=== PATIENT | male | born 1955 | race Caucasian/White ===

== ENCOUNTER → 2016-06-02 | Outpatient (CLI) | payer BC, OTHER ==
[~2016-06-02] MED LIST: ASPCH81X PO; CEFT1INJ26 IV; CHOL400C6 PO; COEN100C3 PO; CPR500 PO; DTRSR/2 PO; HYDR200T5 PO; INSDGI SC; MISCCAP80 PO; NRV5 PO; NVLGI SC; QUIN40TA18 PO; RXC5 PO
[2016-06-02 12:20] LABS: HEMATOCRIT 34.3 % (42-52); MEAN CELL VOLUME 80.9 fL (80-100); MEAN CORPUSCULAR HEMOGLOBIN 26.2 pg (25-34); MEAN CORPUSCULAR HGB CONC 32.4 g/dl (32-36); MEAN PLATELET VOLUME 9.8 fL (7.4-10.4); PLATELET COUNT 209 K/uL (130-400); RED BLOOD COUNT 4.24 M/uL (4.7-6.1); WHITE BLOOD COUNT 9.92 K/uL (4.8-10.8)
[2016-06-02 13:07] LABS: BLOOD UREA NITROGEN 21 mg/dl (7-18); CALCIUM 8.1 mg/dl (8.5-10.1); CARBON DIOXIDE 22 mmol/L (21-32); CHLORIDE 108 mmol/L (98-107); GLUCOSE 147 mg/dl (70-99); POTASSIUM 4.6 mmol/L (3.5-5.1); SODIUM 140 mmol/L (136-145)
== END | disposition home or self-care (01) ==
LOC: C.LABPVFM 10:35
PROVIDERS: ATTEND Internal Medicine
DX: L03.115 Cellulitis of right lower limb (principal)

== ENCOUNTER → 2016-06-10 | Outpatient (CLI) | payer BC ==
[2016-06-10 13:21] LABS: HEMATOCRIT 37.8 % (42-52); MEAN CELL VOLUME 79.7 fL (80-100); MEAN CORPUSCULAR HEMOGLOBIN 26.4 pg (25-34); MEAN CORPUSCULAR HGB CONC 33.1 g/dl (32-36); MEAN PLATELET VOLUME 9.6 fL (7.4-10.4); PLATELET COUNT 248 K/uL (130-400); RED BLOOD COUNT 4.74 M/uL (4.7-6.1); WHITE BLOOD COUNT 9.61 K/uL (4.8-10.8)
[2016-06-10 14:14] LABS: BLOOD UREA NITROGEN 19 mg/dl (7-18); BUN/CREATININE RATIO 14.9 (10-20); CALCIUM 9.1 mg/dl (8.5-10.1); CARBON DIOXIDE 24 mmol/L (21-32); CHLORIDE 106 mmol/L (98-107); GLUCOSE 175 mg/dl (70-99); POTASSIUM 4.7 mmol/L (3.5-5.1); SODIUM 139 mmol/L (136-145)
== END | disposition home or self-care (01) ==
LOC: C.LABSPEC 12:34
PROVIDERS: ATTEND Internal Medicine
DX: L03.115 Cellulitis of right lower limb (principal)

== ENCOUNTER → 2016-07-02 | Outpatient (CLI) | payer BC ==
[2016-07-02 15:48] LABS: BASO % 0.8 %; BASO ABS # 0.07 K/uL (0-0.2); COMPLETE YES; EOS % 5.8 %; IG% 0.3 %; LYMPH % 31.5 %; LYMPH ABS # 2.91 K/uL (1.2-3.4); MEAN CELL VOLUME 78.7 fL (80-100); MEAN CORPUSCULAR HEMOGLOBIN 26.7 pg (25-34); MEAN CORPUSCULAR HGB CONC 33.9 g/dl (32-36); MEAN PLATELET VOLUME 9.9 fL (7.4-10.4); MONO % 6.4 %; NEUT % 55.2 %; PLATELET COUNT 215 K/uL (130-400); RED BLOOD COUNT 4.83 M/uL (4.7-6.1); WHITE BLOOD COUNT 9.25 K/uL (4.8-10.8)
[2016-07-02 15:56] LABS: ALT/SGPT 24 U/L (12-78); BLOOD UREA NITROGEN 19 mg/dl (7-18); BUN/CREATININE RATIO 15.6 (10-20); CALCIUM 8.9 mg/dl (8.5-10.1); CARBON DIOXIDE 21 mmol/L (21-32); CHLORIDE 109 mmol/L (98-107); GLUCOSE 130 mg/dl (70-99); POTASSIUM 4.2 mmol/L (3.5-5.1); SODIUM 141 mmol/L (136-145)
[2016-07-02 15:59] LABS: ALKALINE PHOSPHATASE 136 U/L (45-117); AST/SGOT 14 U/L (15-37)
[2016-07-03 07:08] LABS: ESTIMATED AVERAGE GLUCOSE 123 mg/dl; HA1C FLAG Normal (Normal)
== END | disposition home or self-care (01) ==
LOC: C.LAB1850 14:53
PROVIDERS: ATTEND Internal Medicine Rheumatology
DX: M06.00 Rheumatoid arthritis without rheumatoid factor, unspecified site (principal); Z79.899 Other long term (current) drug therapy; E11.9 Type 2 diabetes mellitus without complications

== ENCOUNTER → 2016-10-14 | Outpatient (CLI) | payer BC ==
[~2016-10-14] MED LIST changes: +AMLO-114 PO; +NVLG SC; +OMEG10007 PO; +VITAMIN D PO
== END | disposition home or self-care (01) ==
LOC: C.RDSM 09:00
PROVIDERS: ATTEND Family Medicine
DX: M54.12 Radiculopathy, cervical region (principal)

== ENCOUNTER → 2016-10-20 | Outpatient (CLI) | payer BC ==
--- NOTE | 2016-10-20 14:55 | DIAGNOSTIC IMAGING REPORT ---
MRI OF THE CERVICAL SPINE WITHOUT IV CONTRAST CLINICAL HISTORY: Cervical radiculopathy. COMPARISON STUDY: Radiographs of the cervical spine dated 10/14/2016 and 02/10/2016. TECHNIQUE: MRI of the cervical spine is performed utilizing various T1 and T2-weighted sequences in the axial and sagittal planes. IV contrast was not imaged for this examination. The examination is severely degraded by large body habitus and open MRI technique. There is poor delineation of the intervertebral discs and vertebral bodies. FINDINGS: Cervical spine: Vertebral body height and alignment appears maintained throughout the cervical spine. There is no evidence of marrow edema or marrow replacement process. The atlantodental articulation appears preserved. The spinous processes are grossly intact. Intervertebral discs: Degenerative disc desiccation is suggested throughout the cervical spine. No significant loss of height is seen. Spinal cord: The cervical spinal cord appears normal in morphology and signal intensity. C2-C3: Uncovertebral and facet arthropathy cause right greater than left neural foraminal stenosis. The central canal is clear. C3-C4: Uncovertebral and facet arthropathy causes mild bilateral neural foraminal stenosis. The central canal appears clear. C4-C5: A posterior disc osteophyte complex effaces the ventral subarachnoid space. Uncovertebral and facet arthropathy cause mild to moderate bilateral neural foraminal stenosis. C5-C6: A posterior disc osteophyte complex abuts the ventral cord. Uncovertebral and facet arthropathy contribute to mild to moderate bilateral neural foraminal stenosis. C6-C7: There is a tiny posterior disc osteophyte complex which effaces the ventral subarachnoid space. Uncovertebral and facet arthropathy causes mild left-sided neural foraminal stenosis. C7-T1: Unremarkable. Soft tissues: The prevertebral and paraspinous soft tissues are normal as imaged. Brain parenchyma: Partially visualized brain parenchyma at the skull base is grossly normal. IMPRESSION: 1. Significantly degraded examination secondary to large body habitus and open MRI technique. This degrades diagnostic utility. 2. The cervical spinal cord appears normal in morphology and signal intensity. 3. Spondylotic change as detailed above. Dictated: 10/20/2016 2:38 PM Transcribed: 10/20/2016 2:54 PM Elizabeth Electronically signed by: Tyrone Goodwin M.D. 10/20/2016 2:58 PM Dictated Date/Time: 10/20/2016 2:38 PM
== END | disposition home or self-care (01) ==
LOC: C.OPENMRI 13:18
PROVIDERS: ATTEND Family Medicine
DX: M54.12 Radiculopathy, cervical region (principal)

== ENCOUNTER → 2017-03-23 | Day surgery (SDC) | payer BC ==
[2017-03-09 12:40] VITALS: Ht 188 cm; Wt 145.4 kg
[~2017-03-23] VITALS: Ht 188 cm; Wt 145.4 kg
[~2017-03-23] MED LIST changes: -ASPCH81X PO; +ATROPINE SULFATE 0.1 MG/ML 5ML SYR IV PRN; -CEFT1INJ26 IV; -CHOL400C6 PO; -CPR500 PO; +EpHEDrine SULFATE INJ 50 MG/ML AMP IV PRN; +LIDOCAINE HCL 2% 2 ML VIAL (20MG/ML) ONE; -NRV5 PO; -NVLGI SC; +PROPOFOL IV EMULSION 10 MG/ML 20 ML VIAL IV ONE; -RXC5 PO; +SODIUM CHLORIDE 0.9% 500ML 500 ML IV ONE
--- NOTE | 2017-03-23 13:18 | Endo History and Physical ---
History & Physical Date of Service: Mar 23, 2017. Chief Complaint: HX OF POLYPS Referring Physician: DR. FERRERA History of Present Illness hx polyps Past Medical History Diabetes, Arthritis, Hypertension, Depression Past Surgical History Hx Cardiac Surgery: No Hx Internal Defibrillator: No Hx Pacemaker: No Hx Abdominal Surgery: No Hx of Implantable Prosthesis: No Hx Post-Op Nausea and Vomiting: No Hx Cancer Surgery: No Hx Thoracic Surgery: No Hx Orthopedic: Yes (LEFT FOOT TOES AMPUTATION (ALL TOES REMOVED), RT BKA) Hx Urinary Tract Surgery: No Family History Colon CA Social History Smoking Status: Never Smoker Hx Substance Use: No Hx Alcohol Use: No Allergies Coded Allergies: No Known Allergies (Verified , 03/23/17) Current Medications Reported Home Medications Medications Dose Route/Sig Max Daily Dose Days Date Category Lantus (Insulin Glargine) 100 Unit/Ml Inj 50 Units SC QPM 03/09/17 Reported Novolog (Insulin Aspart) 100 Units/Ml Inj 40-70 Units SC WITH MEALS 03/09/17 Reported Norvasc (Amlodipine Besylate) 10 Mg Tab 10 Mg PO HS 03/09/17 Reported Detrol LA (Tolterodine Tartrate) 2 Mg Capcr 1 Cap PO BID 30 03/19/16 Reported Accupril (Quinapril HCl) 40 Mg Tab 40 Mg PO QPM 12/31/12 Reported Vital Signs Weight (Kilograms): 145.45 Height (Feet): 6 Height (Inches): 2 Date Time Temp Pulse Resp B/P (MAP) Pulse Ox O2 Delivery O2 Flow Rate FiO2 03/23/17 12:40 36.8 82 20 167/82 (110) 96 Room Air Physical Exam General Appearance: WD/WN, no apparent distress Respiratory/Chest: Auscultation: breath sounds normal Cardiovascular: Heart Auscultation: RRR Abdomen: Bowel Sounds: normal Inspection & Palpation: soft, non-distended, no tenderness, guarding & rebound Assessment and Plan colonoscopy
--- NOTE | 2017-03-23 13:50 | Discharge Instructions ---
Endoscopy Patient Instructions Date / Procedure(s) Performed Mar 23, 2017. Colonoscopy Allergy Information Coded Allergies: No Known Allergies (Verified , 03/23/17) Discharge Date / Findings Mar 23, 2017. colon polyp Medication Instructions Restart Stopped Medication(s): Reported Home Medications Medications Dose Route/Sig Max Daily Dose Days Date Category Lantus (Insulin Glargine) 100 Unit/Ml Inj 50 Units SC QPM 03/09/17 Reported Novolog (Insulin Aspart) 100 Units/Ml Inj 40-70 Units SC WITH MEALS 03/09/17 Reported Norvasc (Amlodipine Besylate) 10 Mg Tab 10 Mg PO HS 03/09/17 Reported Detrol LA (Tolterodine Tartrate) 2 Mg Capcr 1 Cap PO BID 30 03/19/16 Reported Accupril (Quinapril HCl) 40 Mg Tab 40 Mg PO QPM 12/31/12 Reported Reported Home Medications Medications Dose Route/Sig Max Daily Dose Days Date Category Lantus (Insulin Glargine) 100 Unit/Ml Inj 50 Units SC QPM 03/09/17 Reported Novolog (Insulin Aspart) 100 Units/Ml Inj 40-70 Units SC WITH MEALS 03/09/17 Reported Norvasc (Amlodipine Besylate) 10 Mg Tab 10 Mg PO HS 03/09/17 Reported Detrol LA (Tolterodine Tartrate) 2 Mg Capcr 1 Cap PO BID 30 03/19/16 Reported Accupril (Quinapril HCl) 40 Mg Tab 40 Mg PO QPM 12/31/12 Reported Provider Instructions Activity Restrictions - No exercising or heavy lifting for 24 hours. - Do not drink alcohol the day of the procedure. - Do not drive a car or operate machinery until the day after the procedure. - Do not make any important decisions or sign important papers in 24 hours after the procedure. Following Day: - Return to full activity which may include returning to work/school. Diet Start your diet with liquids and light foods (jello, soup, juice, toast). Then eat your usual diet if not nauseated. Treatment For Common After Affects For mild abdominal pain, bloating, or excessive gas: - Rest - Eat lightly - Lie on right side Follow-Up Information Follow-up with DR. FERRERA as scheduled Anesthesia Information What You Should Know You have had a procedure that required some medicine to reduce anxiety and discomfort. This treatment is called moderate sedation. After receiving the treatment, you may be sleepy, but you will be able to breathe on your own. The effects of the treatment may last for several hours. Follow these instructions along with Activity/Diet recommendations noted above: * Do NOT do anything where dizziness or clumsiness would be dangerous. * Rest quietly at home today, then you can be up and about tomorrow. * Have a responsible person stay with you the rest of today. * You may have had an I.V. today. If so, you may take the dressing off later today. Recommendations Call your doctor if: * Trouble breathing * Continuous vomiting for more than 24 hours * Temperature above 101 degrees * Severe abdominal pain or bloating * Pain not relieved by pain medicine ordered * There is increased drainage or redness from any incision * A large amount of rectal bleeding greater than 2-3 tablespoons. (If you had a polyp/s removed or have hemorrhoids, a small amount of blood - from the rectum is to be expected.) * You have any unanswered questions or concerns. IN THE EVENT OF A SERIOUS EMERGENCY, GO TO THE NEAREST EMERGENCY ROOM Your discharge instructions were prepared by provider Petros Fagan. Patient Instructions Signature Page [facility] Patient (or Guardian) Signature/Date: I have read and understand the instructions given to me by my caregivers. Caregiver/RN/Doctor Signature/Date: The above-named patient and/or guardian has received patient instructions on this date. + Original Patient Signature Page (only) stays with chart. Please make copy for patient.
--- NOTE | 2017-03-23 14:02 | Anesthesiology Progress Note ---
Anesthesia Post Op Note Date & Time Mar 23, 2017 at 14:02 Vital Signs Pain Intensity: 0 Vital Signs Past 12 Hours Date Time Temp Pulse Resp B/P (MAP) Pulse Ox O2 Delivery O2 Flow Rate FiO2 03/23/17 12:40 36.8 82 20 167/82 (110) 96 Room Air Notes Mental Status: alert / awake / arousable, participated in evaluation Pt Amnestic to Procedure: Yes Nausea / Vomiting: adequately controlled Pain: adequately controlled Airway Patency, RR, SpO2: stable & adequate BP & HR: stable & adequate Hydration State: stable & adequate Anesthetic Complications: no major complications apparent
[2017-03-23 14:22] VITALS: BP 131/76; PULSE 78; O2SAT 96
--- NOTE | 2017-03-23 20:25 | GI REPORT ---
Procedure Date: 03/23/2017 1:04 PM Procedure: Colonoscopy Indications: High risk colon cancer surveillance: Personal history of colonic polyps, Family history of colon cancer in a first-degree relative Medicines: Propofol per Anesthesia Complications: No immediate complications. Estimated blood loss: None. Estimated Blood Loss: Estimated blood loss: none. Procedure: Pre-Anesthesia Assessment: - Prior to the procedure, a History and Physical was performed, and patient medications and allergies were reviewed. The patient's tolerance of previous anesthesia was also reviewed. The risks and benefits of the procedure and the sedation options and risks were discussed with the patient. All questions were answered, and informed consent was obtained. Prior Anticoagulants: The patient has taken no previous anticoagulant or antiplatelet agents. ASA Grade Assessment: II - A patient with mild systemic disease. After reviewing the risks and benefits, the patient was deemed in satisfactory condition to undergo the procedure. After I obtained informed consent, the scope was passed under direct vision. Throughout the procedure, the patient's blood pressure, pulse, and oxygen saturations were monitored continuously. The scope was introduced through the anus and advanced to the cecum, identified by appendiceal orifice and ileocecal valve. The colonoscopy was performed without difficulty. The patient tolerated the procedure well. The quality of the bowel preparation was fair. Findings: The perianal and digital rectal examinations were normal. Pertinent negatives include normal sphincter tone, no palpable rectal lesions and no anal lesion or abnormality was detected. A 6 mm polyp was found in the ascending colon. The polyp was sessile. The polyp was removed with a hot snare. Resection and retrieval were complete. Estimated blood loss was minimal. Verification of patient identification for the specimen was done by the physician and filling technician using the patient's name and medical record number. The exam was otherwise without abnormality. The retroflexed view of the distal rectum and anal verge was normal and showed no anal or rectal abnormalities. Impression: - One 6 mm polyp in the ascending colon, removed with a hot snare. Resected and retrieved. - The examination was otherwise normal. - The distal rectum and anal verge are normal on retroflexion view. Recommendation: - Discharge patient to home (ambulatory). - Resume regular diet. - Continue present medications. - Await pathology results. - Repeat colonoscopy for surveillance based on pathology results. - Return to referring physician as previously scheduled. MD Petros Hyde MD 03/23/2017 1:56:34 PM This report has been signed electronically. Note Initiated On: 03/23/2017 1:04 PM I attest to the content of the Intraoperative Record and orders documented therein, exceptions below
== END | disposition home or self-care (01) ==
LOC: C.GI 12:15
PROVIDERS: ATTEND Internal Medicine Gastroenterology
DX: Z12.11 Encounter for screening for malignant neoplasm of colon (principal); D12.2 Benign neoplasm of ascending colon; Z86.010 Personal history of colon polyps; I12.9 Hypertensive chronic kidney disease with stage 1 through stage 4 chronic kidney disease, or unspecified chronic kidney disease; E11.22 Type 2 diabetes mellitus with diabetic chronic kidney disease; I73.9 Peripheral vascular disease, unspecified; N18.9 Chronic kidney disease, unspecified; Z68.41 Body mass index [BMI] 40.0-44.9, adult; E66.9 Obesity, unspecified; Z89.511 Acquired absence of right leg below knee; Z89.422 Acquired absence of other left toe(s); Z79.4 Long term (current) use of insulin; Z80.0 Family history of malignant neoplasm of digestive organs

== ENCOUNTER 2021-12-01 15:35 | Inpatient (IN) ==
[2021-12-01 18:20] LABS: Basophils # (auto) 0.02 K/uL (0-0.2); Basophils % (auto) 0.1 %; Eosinophils # (auto) 0.05 K/uL (0-0.5); Eosinophils % (auto) 0.3 %; Hematocrit (blood only) 39.3 % (42-52); Hemoglobin 13.6 g/dL (14.0-18.0); Immature Granulocytes # (auto) 0.11 K/uL (0.00-0.02); Immature Granulocytes % (auto) 0.6 %; Lymphocytes % (auto) 10.2 %; Mean Corpuscular Hemoglobin 28.2 pg (25-34); Mean Corpuscular Hgb Conc 34.6 g/dL (32-36); Mean Corpuscular Volume 81.5 fL (80-100); Mean Platelet Volume 10.4 fL (7.4-10.4); Monocytes # (auto) 1.43 K/uL (0.11-0.59); Monocytes % (auto) 8.1 %; Neutrophils # (auto) 14.28 K/uL (1.4-6.5); Neutrophils % (auto) 80.7 %; Platelet Count 214 K/uL (130-400); RDW Coefficient of Variation 13.9 % (11.5-14.5); RDW Standard Deviation 41.8 fL (36.4-46.3); Red Blood Count 4.82 M/uL (4.7-6.1); White Blood Count 17.69 K/uL (4.8-10.8)
[2021-12-01 18:36] LABS: Albumin Level 3.9 gm/dl (3.4-5.0); BUN Creatinine Ratio 18.2 (10-20); Bilirubin,Total 1.1 mg/dl (0.2-1.0); Calcium 9.1 mg/dl (8.5-10.1); Creatinine Clr Calc Pharmacy 95.6 ml/min; Est GFR (African American) 72.9 ml/min; Est GFR (Non-African American) 62.9 ml/min; Total Protein 7.9 gm/dl (6.0-8.3)
[2021-12-01] MEDS ORDERED: SODIUM CHLORIDE 0.9% 1000ML 1,000 ML IV ONE ×2 (18:55→20:09)
[2021-12-01 19:00] LABS: Appearance Urine Cloudy (Clear); Bacteria Urine Automated 4+ (Negative); Blood Urine 3+ (Negative); Color Urine Orange; Glucose Urine UA Negative (Negative); Ketones Urine 1+ (Negative); Leukocyte Esterase Urine 1+ (Negative); Nitrite Urine Positive (Negative); Protein Urine 2+ (Negative); Specific Gravity Urine 1.023 (1.000-1.030); Urobilinogen Urine Negative (Negative)
[2021-12-01 19:01] LABS: Bilirubin Urine 1+ (Negative)
--- NOTE | 2021-12-01 19:01 | Emergency Department Note ---
History of Present Illness General Chief complaint: Flank Pain Stated complaint: KIDNEY STONES, TROUBLE URINATING Time Seen by Provider: 12/01/21 18:44 Source: patient Mode of arrival: ambulatory Limitations: no limitations History of Present Illness Maximum Pain Intensity: 6 This patient comes in after having symptoms since Tuesday night he felt like it was hard to urinate at times but he has had a lot of frequency but no dysuria. No numbness weakness legs no significant back pain except it hurts in his right side and radiates to his back is concerned he could have another kidney stone he has had a fever but none today. No trauma or injury. No chest pain or shortness of breath. no blood in his urine although has been somewhat dark. He had a kidney stone x1 he is a diabetic. Home Medications Medication Instructions Recorded Confirmed Type cholecalciferol (vitamin D3) 10 400 units PO HS cap 02/09/19 12/01/21 History mcg (400 unit) capsule lutein 6 mg tablet 6 mg PO HS tab 02/09/19 12/01/21 History insulin syringes (disposable) 1 mL ea 03/06/20 12/01/21 History blood-glucose meter (Accu-Chek ea 10/14/20 11/13/21 History Suzan Plus Meter) insulin glargine 100 unit/mL (3 50 unit SQ DAILY 90 Days #45 ml 10/14/20 12/01/21 Rx mL) subcutaneous pen (Basaglar KwikPen U-100 Insulin) finasteride 5 mg tablet 5 mg PO DAILY #90 tab 01/21/21 12/01/21 Rx tamsulosin 0.4 mg capsule (Flomax) 0.4 mg PO QPM #90 cap 01/21/21 12/01/21 Rx Dexcom G6 Rn Iv Therapy (blood-glucose #1 ea NS 03/09/21 11/13/21 Rx meter,continuous) pen needle, diabetic 32 gauge x ea 05/07/21 12/01/21 History " (BD Ultra-Fine Pia Pen Needle) quinapril 40 mg tablet 40 mg PO HS #90 tab 05/21/21 12/01/21 Rx Dexcom G6 Sensor (blood-glucose #3 ea NS 05/25/21 11/13/21 Rx sensor) Dexcom G6 Transmitter #1 ea NS 05/25/21 11/13/21 Rx (blood-glucose transmitter) amlodipine 5 mg tablet 5 mg PO HS #90 tab 07/16/21 12/01/21 Rx hydrochlorothiazide 25 mg tablet 25 mg PO HS #90 tab 10/20/21 12/01/21 Rx sertraline 100 mg tablet 100 mg PO DAILY #90 tab 10/20/21 12/01/21 Rx tramadol 50 mg tablet 50 mg PO Q12H PRN #60 tab 10/20/21 12/01/21 Rx coenzyme Q10 100 mg capsule (Co 0 mg PO DAILY 12/01/21 12/01/21 History Q-10) insulin aspart U-100 100 unit/mL 0 unit SUBCUT TIDM 12/01/21 12/01/21 History subcutaneous solution (Novolog U-100 Insulin aspart) Allergies Allergy/AdvReac Type Severity Reaction Status Date / Time doxycycline AdvReac Severe nausea/ Verified 12/01/21 19:18 vomiting methotrexate AdvReac Depression- Verified 12/01/21 19:18 severe oxyCODONE-Acetaminophen TABS AdvReac Unknown Nausea Uncoded 12/01/21 19:18 Past Med/Surg History Medical History Acute kidney injury Amputated toe "All toes" left foot Anemia Carcinoma of prostate 2014 Decreased renal function Diabetic peripheral neuropathy associated with type 2 diabetes mellitus Elevated serum creatinine Elevated white blood cell count [place] Hand pain History of diabetic ulcer of foot Hydronephrosis due to obstruction of ureter Muscle spasm Pes anserinus bursitis of left knee Radicular distribution of symptoms Rheumatoid arthritis with negative rheumatoid factor Right hip pain Right nephrolithiasis Skin breakdown Skin change Vitamin D deficiency Surgical History History of facial surgery Hx of mastoidectomy Hx of removal of cyst Status post below knee amputation of right lower extremity Status post tonsillectomy Family History Mother Colorectal cancer Father Prostate cancer Brother Lung cancer Denies family history of Ovarian cancer Breast cancer Social History Smoking Status: Never smoker Hx Alcohol Use: No Hx Substance Use: No Preferred Language: Bengali Visual Impairment: No Limitations Hearing Ability: Normal marital status: Current Living Situation: Family current occupational status: retired and disabled Feels Safe at Home: Yes caffeine: No Dental Care, Regularly: Yes Physical Activity Frequency: Does not Exercise Seatbelt Use: always Sunscreen Use: Yes Review of Systems A total of 10 systems reviewed and were otherwise negative Physical Exam Vital Signs Vital Signs - 24 hr 12/01/21 17:07 12/01/21 18:45 12/01/21 18:46 Temperature 36.6 C Temperature Source Oral Pulse Rate 98 H Pulse Rate [Apical] 95 H Pulse Rate from SpO2 Sensor 93 H Respiratory Rate 18 20 Respiratory Effort / Characteristics Non-Labored Non-Labored Spontaneous Respiratory Depth Normal Normal Respiratory Pattern Regular Regular Blood Pressure 147/81 H 134/69 Blood Pressure [Right Arm] 134/69 Blood Pressure Mean 103 90 Blood Pressure Mean [Right Arm] 90 Blood Pressure Position Sitting Blood Pressure Position [Right Arm] Lying Pulse Oximetry 95 97 Oxygen Delivery Method Room Air Room Air Sepsis Recent Fever Within 48 Hours No Sepsis New/Unexplained Change in Mental Status No Sepsis Action Taken by Nursing No Action Required 12/01/21 19:00 12/01/21 20:06 12/01/21 20:15 Temperature Temperature Source Pulse Rate 86 85 Pulse Rate [Apical] Pulse Rate from SpO2 Sensor 86 Respiratory Rate 23 18 Respiratory Effort / Characteristics Respiratory Depth Respiratory Pattern Blood Pressure 132/66 Blood Pressure [Right Arm] Blood Pressure Mean 88 Blood Pressure Mean [Right Arm] Blood Pressure Position Blood Pressure Position [Right Arm] Pulse Oximetry 96 98 Oxygen Delivery Method Room Air Room Air Sepsis Recent Fever Within 48 Hours Sepsis New/Unexplained Change in Mental Status Sepsis Action Taken by Nursing 12/01/21 20:30 12/01/21 20:45 12/01/21 21:01 Temperature Temperature Source Pulse Rate 78 82 Pulse Rate [Apical] Pulse Rate from SpO2 Sensor Respiratory Rate 16 17 18 Respiratory Effort / Characteristics Respiratory Depth Respiratory Pattern Blood Pressure 134/68 Blood Pressure [Right Arm] Blood Pressure Mean 90 Blood Pressure Mean [Right Arm] Blood Pressure Position Blood Pressure Position [Right Arm] Pulse Oximetry 96 97 Oxygen Delivery Method Room Air Room Air Sepsis Recent Fever Within 48 Hours Sepsis New/Unexplained Change in Mental Status Sepsis Action Taken by Nursing General: Well developed well nourished older male who appears in no acute distress, breathing comfortably on room air. Normal speech HEENT: Normal cephalic atraumatic. Pupils are equal round and reactive to light. Extraocular movements are intact. Oropharynx is pink with moist mucous membranes. No swelling of the mouth lips or tongue. Neck: Supple with a midline trachea. No meningeal signs or stiffness, no JVD or bruits. No Stridor. Chest: Clear to auscultation bilaterally. No wheezes or rhonchi. No increased work of breathing. Heart: Regular rate and rhythm without murmurs or gallops. Abdomen: Soft nontender, nondistended without rebound guarding or rigidity. Extremities: No cyanosis clubbing or edema. No calf tenderness or assymetry Spine/Back. Non tender to palpation. No CVA tenderness Skin: Good turgor without rashes. Neurologic exam: Cranial nerves two through 12 are intact. Motor and sensation are intact and symmetrical throughout. Course Administered Medications Discontinued Medications Sodium Chloride (Nss 1000ml) 1,000 mls @ 999 mls/hr IV .Q1H1M ONE Stop: 12/01/21 19:55 Last Infusion: 12/01/21 20:07 Dose: 0 mls/hr Documented by: [id number] Admin: 12/01/21 18:59 Dose: 999 mls/hr Documented by: [id number] Ceftriaxone Sodium (Rocephin) 2,000 mg in 70 mls @ 140 mls/hr IV NOW STA Stop: 12/01/21 20:35 Last Infusion: 12/01/21 20:56 Dose: 0 mls/hr Documented by: [id number] Admin: 12/01/21 20:25 Dose: 140 mls/hr Documented by: [id number] Sodium Chloride (Nss 1000ml) 1,000 mls @ 999 mls/hr IV .Q1H1M ONE Stop: 12/01/21 21:09 Last Infusion: 12/01/21 21:23 Dose: 0 mls/hr Documented by: [id number] Admin: 12/01/21 20:21 Dose: 999 mls/hr Documented by: [id number] Morphine Sulfate (Morphine Sulfate 2 Mg/Ml Carp) 2 mg IV NOW STA Stop: 12/01/21 20:10 Last Admin: 12/01/21 20:21 Dose: 2 mg Documented by: [id number] Ondansetron HCl (Ondansetron Inj 2 Mg/Ml 2 Ml Vial) 4 mg IV NOW STA Stop: 12/01/21 20:10 Last Admin: 12/01/21 20:19 Dose: 4 mg Documented by: [id number] Medical Decision Making Differential Diagnosis Kidney stone, kidney infection, intra-abdominal process, UTI, sepsis, electrolyte or metabolic abnormality Medical Records Attestation: I reviewed the patient's medical records. Home Medications Current Medication List: was personally reviewed by me Laboratory Data Attestation: I reviewed the patient's lab results. Result diagrams: 12/01/21 17:51 12/01/21 17:51 Lab Results 12/01/21 12/01/21 12/01/21 Range/Units 17:51 17:51 18:48 WBC 17.69 H (4.8-10.8) K/uL RBC 4.82 (4.7-6.1) M/uL Hgb 13.6 L (14.0-18.0) g/dL Hct 39.3 L (42-52) % MCV 81.5 (80-100) fL MCH 28.2 (25-34) pg MCHC 34.6 (32-36) g/dL RDW Std Deviation 41.8 (36.4-46.3) fL RDW Coeff of Cori 13.9 (11.5-14.5) % Plt Count 214 (130-400) K/uL MPV 10.4 (7.4-10.4) fL Immature Gran % (Auto) 0.6 % Neut % (Auto) 80.7 % Lymph % (Auto) 10.2 % [place] % (Auto) 8.1 % Eos % (Auto) 0.3 % Baso % (Auto) 0.1 % Neut # (Auto) 14.28 H (1.4-6.5) K/uL Lymph # (Auto) 1.80 (1.2-3.4) K/uL [place] # (Auto) 1.43 H (0.11-0.59) K/uL Eos # (Auto) 0.05 (0-0.5) K/uL Baso # (Auto) 0.02 (0-0.2) K/uL Immature Gran # (Auto) 0.11 H (0.00-0.02) K/uL Sodium 133 L (136-145) mmol/L Potassium 4.0 (3.5-5.1) mmol/L Chloride 102 (98-107) mmol/L Carbon Dioxide 21 (21-32) mmol/L Anion Gap 10 (3-11) BUN 22 (6-23) mg/dl Creatinine 1.21 (0.6-1.4) mg/dl Est Cr Clr Drug Dosing 95.6 ml/min Est GFR ( Amer) 72.9 ml/min Est GFR (Non-Af Amer) 62.9 ml/min BUN/Creatinine Ratio 18.2 (10-20) Glucose 282 H (70-99(Fasting)) mg/dl Calcium 9.1 (8.5-10.1) mg/dl Total Bilirubin 1.1 H (0.2-1.0) mg/dl AST 10 L (13-39) U/L ALT 13 (7-52) U/L Alkaline Phosphatase 86 (34-104) U/L Total Protein 7.9 (6.0-8.3) gm/dl Albumin 3.9 (3.4-5.0) gm/dl Globulin 4.0 (2.5-4.0) gm/dl Albumin/Globulin Ratio 1.0 (0.9-2) Lipase 7 L (11-82) U/L Urine Color [place] Urine Appearance Cloudy A (Clear) Urine pH 5.0 (4.5-7.5) Ur Specific [place] 1.023 (1.000-1.030) Urine Protein 2+ H (Negative) Urine Glucose (UA) Negative (Negative) Urine Ketones 1+ H (Negative) Urine Blood 3+ H (Negative) Urine Nitrite Positive A (Negative) Urine Bilirubin 1+ H (Negative) Urine Urobilinogen Negative (Negative) Ur Leukocyte Esterase 1+ H (Negative) Urine WBC (Auto) 10-30 H (0-5) /hpf Urine RBC (Auto) 5-10 H (0-4) /hpf U Hyaline Cast (Auto) >30 H (0-5) /lpf U Epithel Cells (Auto) 5-10 H (0-5) /lpf Urine Bacteria (Auto) 4+ H (Negative) SARS-CoV-2, RNA, NAAT (NEGATIVE) 12/01/21 Range/Units Unknown WBC (4.8-10.8) K/uL RBC (4.7-6.1) M/uL Hgb (14.0-18.0) g/dL Hct (42-52) % MCV (80-100) fL MCH (25-34) pg MCHC (32-36) g/dL RDW Std Deviation (36.4-46.3) fL RDW Coeff of Cori (11.5-14.5) % Plt Count (130-400) K/uL MPV (7.4-10.4) fL Immature Gran % (Auto) % Neut % (Auto) % Lymph % (Auto) % [place] % (Auto) % Eos % (Auto) % Baso % (Auto) % Neut # (Auto) (1.4-6.5) K/uL Lymph # (Auto) (1.2-3.4) K/uL [place] # (Auto) (0.11-0.59) K/uL Eos # (Auto) (0-0.5) K/uL Baso # (Auto) (0-0.2) K/uL Immature Gran # (Auto) (0.00-0.02) K/uL Sodium (136-145) mmol/L Potassium (3.5-5.1) mmol/L Chloride (98-107) mmol/L Carbon Dioxide (21-32) mmol/L Anion Gap (3-11) BUN (6-23) mg/dl Creatinine (0.6-1.4) mg/dl Est Cr Clr Drug Dosing ml/min Est GFR ( Amer) ml/min Est GFR (Non-Af Amer) ml/min BUN/Creatinine Ratio (10-20) Glucose (70-99(Fasting)) mg/dl Calcium (8.5-10.1) mg/dl Total Bilirubin (0.2-1.0) mg/dl AST (13-39) U/L ALT (7-52) U/L Alkaline Phosphatase (34-104) U/L Total Protein (6.0-8.3) gm/dl Albumin (3.4-5.0) gm/dl Globulin (2.5-4.0) gm/dl Albumin/Globulin Ratio (0.9-2) Lipase (11-82) U/L Urine Color Urine Appearance (Clear) Urine pH (4.5-7.5) Ur Specific [place] (1.000-1.030) Urine Protein (Negative) Urine Glucose (UA) (Negative) Urine Ketones (Negative) Urine Blood (Negative) Urine Nitrite (Negative) Urine Bilirubin (Negative) Urine Urobilinogen (Negative) Ur Leukocyte Esterase (Negative) Urine WBC (Auto) (0-5) /hpf Urine RBC (Auto) (0-4) /hpf U Hyaline Cast (Auto) (0-5) /lpf U Epithel Cells (Auto) (0-5) /lpf Urine Bacteria (Auto) (Negative) SARS-CoV-2, RNA, NAAT NEGATIVE (NEGATIVE) Imaging Data Radiologist's Impression: Abdomen/Pelvis CT 12/01/21 18:54 CT abd pelvis wo con CLINICAL HISTORY: abd pain . History of renal calculi COMPARISON STUDY: 02/23/2021 CT DOSE: 1677.25 mGy.cm TECHNIQUE: Standard CT of the Abdomen and Pelvis was performed without IV c ontrast. The patient did not receive oral contrast. A dose lowering technique was utilized adhering to the principles of ALARA. FINDINGS: Lung base: Compared to previous examination, there is a 9 mm right lower lobe pulmonary nodule present as seen on image 26. No other definite nodules are identified on the current study. However, CT of the chest is again recommended for further evaluation. Abdominal cavity: There is no evidence for abdominal mass, adenopathy or ascites. There are bilateral inguinal hernias containing peritoneal fat. Liver: The liver is homogeneous in attenuation on these limited noncontrast images..There is again hepatomegaly. Spleen: The spleen is homogeneous in attenuation on these limited noncontrast images. There is again splenomegaly. Pancreas: The pancreas is homogeneous in attenuation on these limited non contrast images. Gall Bladder: The gallbladder is well distended with no evidence for cholelithiasis, wall thickening or pericholecystic edema.. Adrenal glands: There is again a left adrenal nodule most characteristic of an adenoma. The right adrenal nodule is seen. Kidneys: The kidneys are homogeneous in attenuation on these limited noncontrast images. There is been interval development of a 7 mm nonobstructing right mid to lower pole renal calculus. No other renal calculi identified bilaterally. There is no evidence for hydronephrosis or gross renal mass. Bowel: The bowel loops are normally placed within the abdomen and pelvis without evidence for dilatation or obstruction. There is no evidence for mass lesion. There is mild sigmoid diverticulosis without evidence for diverticulitis. There are no inflammatory changes present. There is no evidence for free air. There is evidence for a normal appendix in the right lower quadrant. Bladder: There is no evidence for focal bladder wall thickening, calculus or diverticulum. There is diffuse thickening of bladder wall characteristic of chronic bladder outlet obstruction. : There is no evidence for pelvic mass or adenopathy. The prostate is mildly to moderately enlarged. Vasculature: There is no evidence for focal aneurysmal dilatation of the abdominal aorta. Osseous structures: There is no acute osseous pathology. IMPRESSION: 1. 7 mm nonobstructing right renal calculus. 2. Hepatosplenomegaly is again seen. 3. Diverticulosis without evidence for diverticulitis. 4. 9 mm right lower lobe pulmonary nodule is again identified with follow-up CT of the chest recommended. 5. Mild to moderate prostate enlargement no secondary findings of chronic bladder outlet obstruction. ACT 112: Negative or not required by law. Electronically signed by: Alfredo Grover M.D. 12/01/2021 8:13 PM MDM Narrative This patient comes in as described above he said urinary symptoms and abdominal pain. He is well-appearing and stable vital signs here although reports he did have a fever yesterday. IV access was established and blood work was obtained and ordered in triage due to the fact that we were significantly busy. The work-up was started in triage to expedite his care. I saw him when they brought him back to the room and ordered IV fluids and further blood work. He was hydrated with 1 L IV normal saline bolus. I did a CAT scan of his abdomen to rule out obstructive uropathy and other pathology urinalysis was obtained as well as blood work he was reassessed frequently. His urinalysis does suggest a UTI. Was given Rocephin 2 g IV. He was given additional IV fluid bolus and Zofran 4 mg IV and morphine 2 mg IV. CAT scan was obtained and does not show any obstructive uropathy. I did consult Dr. Baer to see the patient in the ER for further treatment and evaluation and admission. The patient will be admitted. Continuous cardiac monitoring: Orders placed in EMR for continuous cardiac monitoring. Upon my interpretation the patient was noted to be in normal sinus rhythm with a rate of 80 Impression & Plan Sepsis, Acute pyelonephritis, Lab test negative for COVID-19 virus, Nausea Discharge Plan Visit Data Chief Complaint: Flank Pain Stated Complaint: KIDNEY STONES, TROUBLE URINATING ED Provider: Vinnie Santana Discharge Problem: Sepsis, Acute pyelonephritis, Lab test negative for COVID-19 virus, Nausea Forms Stand Alone Forms: My [employer] Prescriptions Prescriptions: No Action (DME) Dexcom G6 Rn Iv Therapy Misc See Rx Instructions .MEDSUPPLY Qty: 1 RF: 0 quinapril 40 mg tablet 40 mg PO HS Qty: 90 RF: 3 (DME) Dexcom G6 Sensor Device See Rx Instructions .MEDSUPPLY Qty: 3 RF: 0 (DME) Dexcom G6 Transmitter Device See Rx Instructions .MEDSUPPLY Qty: 1 RF: 0 amlodipine 5 mg tablet 5 mg PO HS Qty: 90 RF: 1 hydrochlorothiazide 25 mg tablet 25 mg PO HS Qty: 90 RF: 3 sertraline 100 mg tablet 100 mg PO DAILY Qty: 90 RF: 3 tramadol 50 mg tablet 50 mg PO Q12H PRN (Reason: pain) Qty: 60 RF: 0 lutein 6 mg tablet 6 mg PO HS RF: 0 cholecalciferol (vitamin D3) 400 unit capsule 400 units PO HS RF: 0 (DME) insulin syringes (disposable) 1 mL syringe See Rx Instructions .ROUTE .MEDSUPPLY RF: 0 tamsulosin [Flomax] 0.4 mg capsule 0.4 mg PO QPM Qty: 90 RF: 3 finasteride 5 mg tablet 5 mg PO DAILY Qty: 90 RF: 3 (DME) blood-glucose meter [Accu-Chek Suzan Plus Meter] Misc See Rx Instructions .ROUTE .MEDSUPPLY RF: 0 Basaglar KwikPen U-100 Insulin 100 unit/mL (3 mL) insulin pen 50 unit SQ DAILY 90 Days Qty: 45 RF: 3 (DME) pen needle, diabetic [BD Ultra-Fine Pia Pen Needle] 32 gauge x 5/32" needle See Rx Instructions .ROUTE .MEDSUPPLY RF: 0 insulin aspart U-100 [Novolog U-100 Insulin aspart] 100 unit/mL solution 0 unit subcut TIDM RF: 0 coenzyme Q10 [Co Q-10] 100 mg Capsule 0 mg PO DAILY RF: 0 Referrals Referrals: Leonila Beach MD [Primary Care Provider] - Discharge Problem: Sepsis Qualifiers: Sepsis type: sepsis due to unspecified organism Sepsis acute organ dysfunction status: unspecified Qualified Code(s): A41.9 - Sepsis, unspecified organism
[2021-12-01 19:17] LABS: Cast Urine Automated >30 /lpf (0-5)
[2021-12-01] MEDS ORDERED: cefTRIAXone SODIUM 2,000 MG/70 ML BAG IV STA (20:06)
[2021-12-01] MEDS ORDERED: ONDANSETRON INJ 2 MG/ML 2 ML VIAL IV STA (20:09)
[2021-12-01] MEDS ORDERED: MoRPHine SULFATE 2 MG/ML CARP IV STA (20:09)
--- NOTE | 2021-12-01 20:15 | CT Scan Report ---
CT abd pelvis wo con CLINICAL HISTORY: abd pain . History of renal calculi COMPARISON STUDY: 02/23/2021 CT DOSE: 1677.25 mGy.cm TECHNIQUE: Standard CT of the Abdomen and Pelvis was performed without IV contrast. The patient did not receive oral contrast. A dose lowering technique was utilized adhering to the principles of KRUPA Aparicio. FINDINGS: Lung base: Compared to previous examination, there is a 9 mm right lower lobe pulmonary nodule presen t as seen on image 26. No other definite nodules are identified on the current study. However, CT of the chest is again recommended for further evaluation. Abdominal cavity: There is no evidence for abdominal mass, adenopathy or ascites. There are bilateral inguinal hernias containing peritoneal fat. Liver: The liver is homogeneous in attenuation on these limited noncontrast images..There is again he patomegaly. Spleen: The spleen is homogeneous in attenuation on these limited noncontrast images. There is again splenomegaly. Pancreas: The pancreas is homogeneous in attenuation on these limited noncontrast images. Gall Bladder: The gallbladder is well distended with no evidence for cholelithiasis, wall thickening or pericholecystic edema.. Adrenal glands: There is again a left adrenal nodule most characteristic of an adenoma. The right adr enal nodule is seen. Kidneys: The kidneys are homogeneous in attenuation on these limited noncontrast images. There is bee n interval development of a 7 mm nonobstructing right mid to lower pole renal calculus. No other ken[place] l calculi identified bilaterally. There is no evidence for hydronephrosis or gross renal mass. Bowel: The bowel loops are normally placed within the abdomen and pelvis without evidence for dilatat ion or obstruction. There is no evidence for mass lesion. There is mild sigmoid diverticulosis withou t evidence for diverticulitis. There are no inflammatory changes present. There is no evidence for fr ee air. There is evidence for a normal appendix in the right lower quadrant. Bladder: There is no evidence for focal bladder wall thickening, calculus or diverticulum. There is d iffuse thickening of bladder wall characteristic of chronic bladder outlet obstruction. : There is no evidence for pelvic mass or adenopathy. The prostate is mildly to moderately enlarged . Vasculature: There is no evidence for focal aneurysmal dilatation of the abdominal aorta. Osseous structures: There is no acute osseous pathology. IMPRESSION: 1. 7 mm nonobstructing right renal calculus. 2. Hepatosplenomegaly is again seen. 3. Diverticulosis without evidence for diverticulitis. 4. 9 mm right lower lobe pulmonary nodule is again identified with follow-up CT of the chest recommen ded. 5. Mild to moderate prostate enlargement no secondary findings of chronic bladder outlet obstruction. ACT 112: Negative or not required by law. Electronically signed by: Alfredo Grover M.D. 12/01/2021 8:13 PM
--- NOTE | 2021-12-01 21:08 | History & Physical Report ---
Date of Service December 01, 2021 Assessment & Plan (1) UTI (urinary tract infection): Plan: UTI/acute urinary incontinence/7 mm right renal calculus/mild to moderate prostate enlargement/history of prostate cancer, with no recent abnormal cells- Increase tamsulosin from 0.4 to 0.8 mg p.o. at bedtime Continue finasteride Empiric ceftriaxone 2 g IV daily Follow urine culture and sensitivity Consult urology, typically follows with Dr. Cole (2) Kidney stone: Plan: See above (3) Prostate cancer: Plan: See above (4) Type 2 diabetes mellitus, uncontrolled: Plan: Continue insulin glargine [address] on Accu-Cheks before meals and at bedtime with NovoLog coverage per scale Check hemoglobin A1c (5) Incontinence of urine: (6) Hypertension: Plan: Hold HCTZ Continue lisinopril (7) Rheumatoid arthritis: Plan: On no specific treatment (8) Pulmonary nodules: Plan: Follow-up per protocol History of Present Illness Chief Complaint: The patient presents to the emergency department with 3 days of increased urinary frequency and intermittent right flank pain Primary Care Provider: Leonila Beach MD The patient is a 66-year-old male with a past medical history including kidney stones, tubular adenoma, toe amputation, vitamin D deficiency, pulmonary nodules, polyarthralgias, prostate cancer, right BKA, diabetes mellitus type 2, dyslipidemia, hyperlipidemia, idiopathic polyneuropathy, sleep apnea, BPH with LUTS, hypertension and RA. He presents with symptoms as noted above. He denies any recent travels or sick exposures. He denies any blood in his urine. He reports that the first time he had symptoms, he ended up having urinary incontinence before he can get to the restroom. Allergies Allergy/AdvReac Type Severity Reaction Status Date / Time doxycycline AdvReac Severe nausea/ Verified 12/01/21 19:18 vomiting acetaminophen [From Percocet] AdvReac Unknown Nausea Verified 12/02/21 01:17 oxycodone [From Percocet] AdvReac Unknown Nausea Verified 12/02/21 01:17 methotrexate AdvReac Depression- Verified 12/01/21 19:18 severe Home Medications Medication Instructions Recorded Confirmed Type cholecalciferol (vitamin D3) 10 400 units PO HS cap 02/09/19 12/01/21 History mcg (400 unit) capsule lutein 6 mg tablet 6 mg PO HS tab 02/09/19 12/01/21 History insulin syringes (disposable) 1 mL ea 03/06/20 12/01/21 History blood-glucose meter (Accu-Chek ea 10/14/20 11/13/21 History Suzan Plus Meter) insulin glargine 100 unit/mL (3 50 unit SQ DAILY 90 Days #45 ml 10/14/20 12/01/21 Rx mL) subcutaneous pen (Basaglar KwikPen U-100 Insulin) finasteride 5 mg tablet 5 mg PO DAILY #90 tab 01/21/21 12/01/21 Rx tamsulosin 0.4 mg capsule (Flomax) 0.4 mg PO QPM #90 cap 01/21/21 12/01/21 Rx Dexcom G6 Voice Studies Director (blood-glucose #1 ea NS 03/09/21 11/13/21 Rx meter,continuous) pen needle, diabetic 32 gauge x ea 05/07/21 12/01/21 History 532" (BD Ultra-Fine Pia Pen Needle) quinapril 40 mg tablet 40 mg PO HS #90 tab 05/21/21 12/01/21 Rx Dexcom G6 Sensor (blood-glucose #3 ea NS 05/25/21 11/13/21 Rx sensor) Dexcom G6 Transmitter #1 ea NS 05/25/21 11/13/21 Rx (blood-glucose transmitter) amlodipine 5 mg tablet 5 mg PO HS #90 tab 07/16/21 12/01/21 Rx hydrochlorothiazide 25 mg tablet 25 mg PO HS #90 tab 10/20/21 12/01/21 Rx sertraline 100 mg tablet 100 mg PO DAILY #90 tab 10/20/21 12/01/21 Rx tramadol 50 mg tablet 50 mg PO Q12H PRN #60 tab 10/20/21 12/01/21 Rx coenzyme Q10 100 mg capsule (Co 0 mg PO DAILY 12/01/21 12/01/21 History Q-10) insulin aspart U-100 100 unit/mL 0 unit SUBCUT TIDM 12/01/21 12/01/21 History subcutaneous solution (Novolog U-100 Insulin aspart) Past Med/Surg History Medical History Acute kidney injury Amputated toe "All toes" left foot Anemia Carcinoma of prostate 2014 Decreased renal function Diabetic peripheral neuropathy associated with type 2 diabetes mellitus Elevated serum creatinine Elevated white blood cell count Fall Hand pain History of diabetic ulcer of foot Hydronephrosis due to obstruction of ureter Muscle spasm Pes anserinus bursitis of left knee Radicular distribution of symptoms Rheumatoid arthritis with negative rheumatoid factor Right hip pain Right nephrolithiasis Skin breakdown Skin change Vitamin D deficiency Surgical History History of facial surgery Hx of mastoidectomy Hx of removal of cyst Status post below knee amputation of right lower extremity Status post tonsillectomy Family History Mother Colorectal cancer Father Prostate cancer Brother Lung cancer Denies family history of Ovarian cancer Breast cancer Social History Smoking Status: Never smoker Hx Alcohol Use: No Hx Substance Use: Yes Last Used Substance: Days (ago) Preferred Language: Bangladeshi Communication Ability: Effective Visual Impairment: No Limitations Hearing Ability: Normal Tire Adjuster Required: No Beliefs That Will Affect Care: None marital status: Current Living Situation: Spouse and Family current occupational status: retired and disabled Other Information That Helps Us Care for You: No Feels Safe at Home: Yes Safety Concerns: Feels Safe At This Time caffeine: No Dental Care, Regularly: Yes Physical Activity Frequency: Does not Exercise Seatbelt Use: always Sunscreen Use: Yes Assistive Devices: None Review of Systems Review of Systems: The patient denies chest pain, palpitations, shortness of breath, dyspnea on exertion, cough, lower extremity swelling, sore throat, fevers, chills, sweats, weight change, fatigue, nausea, vomiting, diarrhea , constipation, blood in urine or stool, dysuria, lightheadedness, dizziness, headache, memory loss, loss of consciousness, rash, abnormal bruising or bleeding, imbalance, focal or generalized weakness, numbness or tingling in arms or legs, generalized arthralgias or myalgias, back or neck pain, or night sweats. The review of systems is otherwise negative other than for that already noted above, and at least 10 systems have been reviewed. Physical Exam Physical Exam: The patient is awake, alert and oriented 3, well developed and well nourished, normocephalic and atraumatic, lying in bed and in no acute d istress. HEENT--PERRL, EOMI, mucous membranes and oropharynx normal. Neck--supple. No JVD. No bruits. Thyroid normal, trachea midline, no adenopathy. Heart--normal S1 and S2. No murmurs, rubs or gallops. Lungs--clear bilaterally, no respiratory distress, no accessory muscle use. Abdomen--normal bowel sounds and soft. Nontender. Nondistended, no hernias or masses, no organomegaly. Extremities--right BKA Dermatologic--normal skin turgor, normal color, no abnormal lymph nodes, no rash. Neurologic--cranial nerves II through XII grossly intact. Rheumatologic--normal range of motion, except right BKA Psychiatric--normal affect. Results & Data Results & Data ([facility]) Vital Signs (Past 12 Hours) Vital Signs Temp Pulse Pulse Resp BP BP Pulse Ox 12/01/21 20:15 85 18 98 12/01/21 20:06 86 23 132/66 12/01/21 19:00 96 12/01/21 18:46 95 H 20 134/69 97 12/01/21 18:45 134/69 12/01/21 17:07 36.6 C 98 H 18 147/81 H 95 Laboratory Results Laboratory Results WBC 17.69 K/uL (4.8-10.8) H 12/01/21 17:51 RBC 4.82 M/uL (4.7-6.1) 12/01/21 17:51 Hgb 13.6 g/dL (14.0-18.0) L 12/01/21 17:51 Hct 39.3 % (42-52) L 12/01/21 17:51 MCV 81.5 fL (80-100) 12/01/21 17:51 MCH 28.2 pg (25-34) 12/01/21 17:51 MCHC 34.6 g/dL (32-36) 12/01/21 17:51 RDW Std Deviation 41.8 fL (36.4-46.3) 12/01/21 17:51 RDW Coeff of Cori 13.9 % (11.5-14.5) 12/01/21 17:51 Plt Count 214 K/uL (130-400) 12/01/21 17:51 MPV 10.4 fL (7.4-10.4) 12/01/21 17:51 Immature Gran % (Auto) 0.6 % 12/01/21 17:51 Neut % (Auto) 80.7 % 12/01/21 17:51 Lymph % (Auto) 10.2 % 12/01/21 17:51 [place] % (Auto) 8.1 % 12/01/21 17:51 Eos % (Auto) 0.3 % 12/01/21 17:51 Baso % (Auto) 0.1 % 12/01/21 17:51 Neut # (Auto) 14.28 K/uL (1.4-6.5) H 12/01/21 17:51 Lymph # (Auto) 1.80 K/uL (1.2-3.4) 12/01/21 17:51 [place] # (Auto) 1.43 K/uL (0.11-0.59) H 12/01/21 17:51 Eos # (Auto) 0.05 K/uL (0-0.5) 12/01/21 17:51 Baso # (Auto) 0.02 K/uL (0-0.2) 12/01/21 17:51 Immature Gran # (Auto) 0.11 K/uL (0.00-0.02) H 12/01/21 17:51 Sodium 133 mmol/L (136-145) L 12/01/21 17:51 Potassium 4.0 mmol/L (3.5-5.1) 12/01/21 17:51 Chloride 102 mmol/L (98-107) 12/01/21 17:51 Carbon Dioxide 21 mmol/L (21-32) 12/01/21 17:51 Anion Gap 10 (3-11) 12/01/21 17:51 BUN 22 mg/dl (6-23) 12/01/21 17:51 Creatinine 1.21 mg/dl (0.6-1.4) 12/01/21 17:51 Est Cr Clr Drug Dosing 95.6 ml/min 12/01/21 17:51 Est GFR ( Amer) 72.9 ml/min 12/01/21 17:51 Est GFR (Non-Af Amer) 62.9 ml/min 12/01/21 17:51 BUN/Creatinine Ratio 18.2 (10-20) 12/01/21 17:51 Glucose 282 mg/dl (70-99(Fasting)) H 12/01/21 17:51 POC Glucose 186 mg/dl (70-99) H 12/02/21 00:48 Lactate 1.1 mmol/L (0.4-2.0) 12/01/21 23:12 Calcium 9.1 mg/dl (8.5-10.1) 12/01/21 17:51 Total Bilirubin 1.1 mg/dl (0.2-1.0) H 12/01/21 17:51 AST 10 U/L (13-39) L 12/01/21 17:51 ALT 13 U/L (7-52) 12/01/21 17:51 Alkaline Phosphatase 86 U/L (34-104) 12/01/21 17:51 Total Protein 7.9 gm/dl (6.0-8.3) 12/01/21 17:51 Albumin 3.9 gm/dl (3.4-5.0) 12/01/21 17:51 Globulin 4.0 gm/dl (2.5-4.0) 12/01/21 17:51 Albumin/Globulin Ratio 1.0 (0.9-2) 12/01/21 17:51 Lipase 7 U/L (11-82) L 12/01/21 17:51 Urine Color [place] 12/01/21 18:48 Urine Appearance Cloudy (Clear) A 12/01/21 18:48 Urine pH 5.0 (4.5-7.5) 12/01/21 18:48 Ur Specific [place] 1.023 (1.000-1.030) 12/01/21 18:48 Urine Protein 2+ (Negative) H 12/01/21 18:48 Urine Glucose (UA) Negative (Negative) 12/01/21 18:48 Urine Ketones 1+ (Negative) H 12/01/21 18:48 Urine Blood 3+ (Negative) H 12/01/21 18:48 Urine Nitrite Positive (Negative) A 12/01/21 18:48 Urine Bilirubin 1+ (Negative) H 12/01/21 18:48 Urine Urobilinogen Negative (Negative) 12/01/21 18:48 Ur Leukocyte Esterase 1+ (Negative) H 12/01/21 18:48 Urine WBC (Auto) 10-30 /hpf (0-5) H 12/01/21 18:48 Urine RBC (Auto) 5-10 /hpf (0-4) H 12/01/21 18:48 U Hyaline Cast (Auto) >30 /lpf (0-5) H 12/01/21 18:48 U Epithel Cells (Auto) 5-10 /lpf (0-5) H 12/01/21 18:48 Urine Bacteria (Auto) 4+ (Negative) H 12/01/21 18:48 SARS-CoV-2, RNA, NAAT NEGATIVE (NEGATIVE) 12/01/21 Unknown Impressions Abdomen/Pelvis CT 12/01/21 18:54 CT abd pelvis wo con CLINICAL HISTORY: abd pain . History of renal calculi COMPARISON STUDY: 02/23/2021 CT DOSE: 1677.25 mGy.cm TECHNIQUE: Standard CT of the Abdomen and Pelvis was performed without IV contrast. The patient did not receive oral contrast. A dose lowering technique was utilized adhering to the principles of ALARA. FINDINGS: Lung base: Compared to previous examination, there is a 9 mm right lower lobe pulmonary nodule present as seen on image 26. No other definite nodules are identified on the current study. However, CT of the chest is again recommended for further evaluation. Abdominal cavity: There is no evidence for abdominal mass, adenopathy or ascites. There are bilateral inguinal hernias containing peritoneal fat. Liver: The liver is homogeneous in attenuation on these limited noncontrast images..There is again hepatomegaly. Spleen: The spleen is homogeneous in attenuation on these limited noncontrast images. There is again splenomegaly. Pancreas: The pancreas is homogeneous in attenuation on these limited noncontrast images. Gall Bladder: The gallbladder is well distended with no evidence for cholelithiasis, wall thickening or pericholecystic edema.. Adrenal glands: There is again a left adrenal nodule most characteristic of an adenoma. The right adrenal nodule is seen. Kidneys: The kidneys are homogeneous in attenuation on these limited noncontrast images. There is been interval development of a 7 mm nonobstructing right mid to lower pole renal calculus. No other renal calculi identified bilaterally. There is no evidence for hydronephrosis or gross renal mass. Bowel: The bowel loops are normally placed within the abdomen and pelvis without evidence for dilatation or obstruction. There is no evidence for mass lesion. There is mild sigmoid diverticulosis without evidence for diverticulitis. There are no inflammatory changes present. There is no evidence for free air. There is evidence for a normal appendix in the right lower quadrant. Bladder: There is no evidence for focal bladder wall thickening, calculus or diverticulum. There is diffuse thickening of bladder wall characteristic of chronic bladder outlet obstruction. : There is no evidence for pelvic mass or adenopathy. The prostate is mildly to moderately enlarged. Vasculature: There is no evidence for focal aneurysmal dilatation of the abdominal aorta. Osseous structures: There is no acute osseous pathology. IMPRESSION: 1. 7 mm nonobstructing right renal calculus. 2. Hepatosplenomegaly is again seen. 3. Diverticulosis without evidence for diverticulitis. 4. 9 mm right lower lobe pulmonary nodule is again identified with follow-up CT of the chest recommended. 5. Mild to moderate prostate enlargement no secondary findings of chronic bladder outlet obstruction. ACT 112: Negative or not required by law. Electronically signed by: Alfredo Grover M.D. 12/01/2021 8:13 PM Code Status & VTE Plan Code Status Full code VTE Prophylaxis Plan VTE Prophylaxis will be ordered: Yes PG Care Time/CCT Total # of Minutes Spent Total Time Spent with Patient: Total time spent is greater than 50% in coordination of care (as documented) at patient's floor/unit and/or counseling patient: Coding Level of Care Code 54033 Initial Inpt Care Lvl 3 Diagnoses UTI (urinary tract infection) N39.0 Kidney stone N20.0 Pulmonary nodules R91.8 Prostate cancer C61 Type 2 diabetes mellitus, uncontrolled E11.65 Incontinence of urine R32 Hypertension I10 Hypertension type: essential hypertension Rheumatoid arthritis M06.9 (1) Hypertension Hypertension type: essential hypertension Qualified Code(s): I10 - Essential (primary) hypertension
[2021-12-02] MEDS ORDERED: GLUCOSE 10 TAB/TUBE PO PRN (01:03)
[2021-12-02] MEDS ORDERED: DEXTROSE 50% 50 ML SYRINGE IV PRN (01:03)
[2021-12-02] MEDS ORDERED: ONDANSETRON INJ 2 MG/ML 2 ML VIAL IV PRN (01:03)
[2021-12-02] MEDS ORDERED: GLUCOSE 40% GEL 15 GM TUBE PO PRN (01:03)
[2021-12-02] MEDS ORDERED: ACETAMINOPHEN 325 MG TAB PO PRN (01:03)
[2021-12-02] MEDS ORDERED: CARBOHYDRATES FOR HYPOGLYCEMIA PO PRN (01:03)
[2021-12-02] MEDS ORDERED: GLUCAGON FOR INJ 1 MG VIAL SQ PRN (01:03)
[2021-12-02] MEDS: traMADol HCL 50 MG TABLET PO PRN ×2 (01:22→12:37)
[2021-12-02] MEDS: HYDROmorphone INJ 0.5 MG/0.5 ML SYR IV PRN ×4 (02:27→21:05)
[2021-12-02] MEDS: CHOLECALCIFEROL 400 UNITS 10 MCG TAB PO SCH ×2 (02:27→21:01)
[2021-12-02] MEDS: amLODIPine BESYLATE 5 MG TAB PO SCH ×2 (02:27→21:01)
[2021-12-02] MEDS: TAMSULOSIN HCL 0.4 MG CAP PO SCH ×2 (02:27→21:01)
[2021-12-02] MEDS: ENALAPRIL MALEATE 10 MG TAB PO SCH ×2 (02:32→21:02)
[2021-12-02 06:23] LABS: Basophils # (auto) 0.04 K/uL (0-0.2); Basophils % (auto) 0.3 %; Eosinophils # (auto) 0.23 K/uL (0-0.5); Eosinophils % (auto) 1.7 %; Hematocrit (blood only) 37.6 % (42-52); Hemoglobin 12.2 g/dL (14.0-18.0); Immature Granulocytes # (auto) 0.12 K/uL (0.00-0.02); Immature Granulocytes % (auto) 0.9 %; Lymphocytes # (auto) 3.14 K/uL (1.2-3.4); Lymphocytes % (auto) 23.5 %; Mean Corpuscular Hemoglobin 26.9 pg (25-34); Mean Corpuscular Hgb Conc 32.4 g/dL (32-36); Mean Platelet Volume 10.1 fL (7.4-10.4); Monocytes # (auto) 1.18 K/uL (0.11-0.59); Monocytes % (auto) 8.8 %; Neutrophils # (auto) 8.63 K/uL (1.4-6.5); Neutrophils % (auto) 64.8 %; Platelet Count 202 K/uL (130-400); RDW Coefficient of Variation 14.1 % (11.5-14.5); RDW Standard Deviation 42.6 fL (36.4-46.3); Red Blood Count 4.53 M/uL (4.7-6.1); White Blood Count 13.34 K/uL (4.8-10.8)
[2021-12-02 07:14] LABS: Albumin Level 3.4 gm/dl (3.4-5.0); BUN Creatinine Ratio 19.8 (10-20); Calcium 8.5 mg/dl (8.5-10.1); Creatinine Clr Calc Pharmacy 109.1 ml/min; Est GFR (African American) 85.5 ml/min; Est GFR (Non-African American) 73.8 ml/min; Phosphorus 3.5 mg/dl (2.5-4.9); Potassium 4.2 mmol/L (3.5-5.1)
[2021-12-02 07:44] LABS: Estimated Average Glucose 183 mg/dl
[2021-12-02] MEDS: LANTUS PER UNIT CHARGE SQ SCH (08:31)
[2021-12-02] MEDS: INSULIN ASPART PER UNIT SC SCH ×4 (08:32→21:05)
[2021-12-02] MEDS: cefTRIAXone SODIUM 2,000 MG in DEXTROSE 5% 50 ML IV SCH (08:35)
[2021-12-02] MEDS: FINASTERIDE 5 MG TAB PO SCH (08:35)
[2021-12-02] MEDS: SERTRALINE HCL 100 MG TABLET PO SCH (08:35)
--- NOTE | 2021-12-02 08:38 | Urology Consultation ---
Date of Consultation December 02, 2021 Assessment & Plan (1) UTI (urinary tract infection): (2) Kidney stone: (3) BPH w urinary obs/LUTS: 66yo M with a hx of prostate cancer and BPH admitted with UTI. - CTAP reviewed -7mm nonobstructing right renal stone. No hydronephrosis. Mild- mod prostate enlargement and diffuse thickening of bladder wall characteristic of chronic bladder outlet obstruction. - Afebrile, hemodynamically stable. - Labs reviewed -white count down from 17.69-13.34 today, renal function normal. - Urine and blood cultures are pending. - On IV ceftriaxone, follow cultures. - Voiding spontaneously, continue to monitor. Bladder scan as needed. - No acute intervention warranted. - Continue supportive care and antibiotic therapy. - Continue Flomax and Finasteride. - Will arrange outpatient follow-up with our service. - Urology will sign-off. Please contact us with any further questions, concerns, or changes in patient status. Supervising Physician Co-Signing Physician Notes Discussed patient with PEGGY. Agree with plan. Continue treatment for suspected UTI. Stones are nonobstructing and require no acute intervention. Urology will arrange outpatient follow-up. History of Present Illness Reason for Consultation: Right renal calculus, BPH with LUTS, UTI Attending Physician: Jason Villa History of Present Illness 66-year-old male with a past medical history including kidney stones, tubular adenoma, toe amputation, vitamin D deficiency, pulmonary nodules, polyarthralgias, prostate cancer, right BKA, diabetes mellitus type 2, dyslipidemia, hyperlipidemia, idiopathic polyneuropathy, sleep apnea, BPH with LUTS, hypertension and RA who presented to the ED with complaints of 3 days of increased urinary frequency and intermittent right flank pain. On arrival, he was afebrile and hemodynamically stable. Labs revealed a white count of 17.69 and normal renal function. Urinalysis notable for 3+ blood, positive nitrite, 1+LE, 1030 WBC, 510 RBC, 4+ bacteria. A CT a/p was obtained and noted a 7 mm nonobstructing right renal calculus with no other evidence of renal stones or hydronephrosis. Mild to moderate prostate enlargement and diffuse thickening of bladder wall characteristic of chronic bladder outlet obstruction were also noted. He was given IVF, Rocephin 2 g IV, and admitted to medicine for further management. Urology consulted for right renal calculus, BPH with LUTS, UTI. Patient is known to our service, follows with Dr. Cole. Known hx of prostate cancer and BPH. On Flomax and Finasteride. He is followed on an annual basis and is due for follow-up in January. Last PSA was on 02/24/2021 which was 2.97 NG/mL. Patient examined at bedside this AM. Awake, resting in bed on arrival. No acute distress. States his urinary symptoms have improved some today. Still n otes some urge/freq and hesitancy. Feels he is voiding better and larger amounts today. No hematuria or dysuria. Occasionally feels bladder pressure/pain. Denies flank and back pain. Denies fevers or chills. Denies nausea or vomiting. States he ran out of finasteride about 3 mo ago. He is due for his annual follow-up in the next 1 to 2 months and plans to obtain a PSA level prior to his next visit. Family history noncontributory. Offered no additional complaints or concerns at time of exam. Allergies Allergy/AdvReac Type Severity Reaction Status Date / Time doxycycline AdvReac Severe nausea/ Verified 12/01/21 19:18 vomiting acetaminophen [From Percocet] AdvReac Unknown Nausea Verified 12/02/21 01:17 oxycodone [From Percocet] AdvReac Unknown Nausea Verified 12/02/21 01:17 methotrexate AdvReac Depression- Verified 12/01/21 19:18 severe Home Medications Medication Instructions Recorded Confirmed Type cholecalciferol (vitamin D3) 10 400 units PO HS cap 02/09/19 12/01/21 History mcg (400 unit) capsule lutein 6 mg tablet 6 mg PO HS tab 02/09/19 12/01/21 History insulin syringes (disposable) 1 mL ea 03/06/20 12/01/21 History blood-glucose meter (Accu-Chek ea 10/14/20 11/13/21 History Suzan Plus Meter) insulin glargine 100 unit/mL (3 50 unit SQ DAILY 90 Days #45 ml 10/14/20 12/01/21 Rx mL) subcutaneous pen (Basaglar KwikPen U-100 Insulin) finasteride 5 mg tablet 5 mg PO DAILY #90 tab 01/21/21 12/01/21 Rx tamsulosin 0.4 mg capsule (Flomax) 0.4 mg PO QPM #90 cap 01/21/21 12/01/21 Rx Dexcom G6 Quality Process Auditor (blood-glucose #1 ea NS 03/09/21 11/13/21 Rx meter,continuous) pen needle, diabetic 32 gauge x ea 05/07/21 12/01/21 History 5" (BD Ultra-Fine Pia Pen Needle) quinapril 40 mg tablet 40 mg PO HS #90 tab 05/21/21 12/01/21 Rx Dexcom G6 Sensor (blood-glucose #3 ea NS 05/25/21 11/13/21 Rx sensor) Dexcom G6 Transmitter #1 ea NS 05/25/21 11/13/21 Rx (blood-glucose transmitter) amlodipine 5 mg tablet 5 mg PO HS #90 tab 07/16/21 12/01/21 Rx hydrochlorothiazide 25 mg tablet 25 mg PO HS #90 tab 10/20/21 12/01/21 Rx sertraline 100 mg tablet 100 mg PO DAILY #90 tab 10/20/21 12/01/21 Rx tramadol 50 mg tablet 50 mg PO Q12H PRN #60 tab 10/20/21 12/01/21 Rx coenzyme Q10 100 mg capsule (Co 0 mg PO DAILY 12/01/21 12/01/21 History Q-10) insulin aspart U-100 100 unit/mL 0 unit SUBCUT TIDM 12/01/21 12/01/21 History subcutaneous solution (Novolog U-100 Insulin aspart) sodium sul 1.479 gram-potas ch See Rx Instructions PO .COMPLEX 12/02/21 Rx 0.188 gram-magnes sul 0.225 gram #24 tab tablet (Sutab) Patient History Medical History Acute kidney injury Amputated toe "All toes" left foot Anemia Carcinoma of prostate 2013 Decreased renal function Diabetic peripheral neuropathy associated with type 2 diabetes mellitus Elevated serum creatinine Elevated white blood cell count Fall Hand pain History of diabetic ulcer of foot Hydronephrosis due to obstruction of ureter Muscle spasm Pes anserinus bursitis of left knee Radicular distribution of symptoms Rheumatoid arthritis with negative rheumatoid factor Right hip pain Right nephrolithiasis Skin breakdown Skin change Vitamin D deficiency Surgical History History of facial surgery Hx of mastoidectomy Hx of removal of cyst Status post below knee amputation of right lower extremity Status post tonsillectomy Family History Mother Colorectal cancer Father Prostate cancer Brother Lung cancer Denies family history of Ovarian cancer Breast cancer Social History Smoking Status: Never smoker Hx Alcohol Use: No Hx Substance Use: Yes Last Used Substance: Days (ago) Preferred Language: Occitan Communication Ability: Effective Visual Impairment: No Limitations Hearing Ability: Normal [place] Former Required: No Beliefs That Will Affect Care: None marital status: Current Living Situation: Spouse and Family current occupational status: retired and disabled Feels Safe at Home: Yes caffeine: No Dental Care, Regularly: Yes Physical Activity Frequency: Does not Exercise Seatbelt Use: always Sunscreen Use: Yes Assistive Devices: None Review of Systems Review of Systems: All systems reviewed & are unremarkable except as noted in HPI & below Physical Exam Constitutional: well developed, well nourished and + obese; no acute distress Neck: normal visual inspection Respiratory: normal respiratory effort and able to speak in complete sentences; no labored breathing and no audible wheezes Gastrointestinal (Abdomen): Inspection/Auscultation: abdomen normal to inspection Percussion/Palpation: abdomen soft; abdomen nontender Musculoskeletal: Head/Neck/Chest: normocephalic Right BKA Skin: No visible rashes or lesions to exposed skin areas Neurologic: awake Psychiatric: Orientation: alert, oriented x 3 and cooperative Genitourinary: no CVA tenderness Results & Data ([facility]) Vital Signs (Past 12 Hours) Vital Signs Temp Pulse Pulse Pulse Resp BP BP 12/02/21 07:23 36.7 C 62 16 110/63 12/02/21 01:30 37.5 C 78 18 153/77 H 12/02/21 01:06 37.5 C 78 18 153/77 H 12/01/21 21:10 74 24 138/86 12/01/21 21:01 18 12/01/21 20:45 82 17 Pulse Ox 12/02/21 07:23 96 12/02/21 01:30 97 12/02/21 01:06 97 12/01/21 21:10 96 12/01/21 21:01 97 12/01/21 20:[address] abdomen pelvis IMPRESSION: 1. 7 mm nonobstructing right renal calculus. 2. Hepatosplenomegaly is again seen. 3. Diverticulosis without evidence for diverticulitis. 4. 9 mm right lower lobe pulmonary nodule is again identified with follow-up CT of the chest recommended. 5. Mild to moderate prostate enlargement no secondary findings of chronic bladder outlet obstruction. PG Care Time/CCT Total # of Minutes Spent Total Time Spent with Patient: Total time spent is greater than 50% in coordination of care (as documented) at patient's floor/unit and/or counseling patient: Coding Level of Care Code 06462 Inpt Consult Level 3 Diagnoses UTI (urinary tract infection) N39.0 Kidney stone N20.0 BPH w urinary obs/LUTS N40.1; N13.8
--- NOTE | 2021-12-02 17:35 | Hospitalist Progress Note ---
Date of Service December 02, 2021 Assessment & Plan (1) UTI (urinary tract infection): Plan: UTI/acute urinary incontinence/7 mm right renal calculus/mild to moderate prostate enlargement/history of prostate cancer, with no recent abnormal cells- Increase tamsulosin from 0.4 to 0.8 mg p.o. at bedtime Continue finasteride Empiric ceftriaxone 2 g IV daily Follow urine culture and sensitivity: culture growing Gram negative bacilli Consult urology, typically follows with Dr. Cole (2) Kidney stone: Plan: See above (3) Prostate cancer: Plan: See above (4) Type 2 diabetes mellitus, uncontrolled: Plan: Continue insulin glargine [address] on Accu-Cheks before meals and at bedtime with NovoLog coverage per scale Check hemoglobin A1c: 8.0 (5) Incontinence of urine: (6) Hypertension: Plan: Hold HCTZ Continue lisinopril (7) Rheumatoid arthritis: Plan: On no specific treatment (8) Pulmonary nodules: Plan: Follow-up per protocol Admission and Anticipated Discharge Date Admission Date: December 01, 2021 Subjective 66 yo male reports feeling well. He has no complaints, denies any fever, chills, nausea vomiting. Review of Systems Review of Systems: All systems reviewed & are unremarkable except as noted in HPI & below Physical Exam Physical Exam: The patient is awake, alert and oriented 3, well developed and well nourished, normocephalic and atraumatic, lying in bed and in no acute distress. HEENT--PERRL, EOMI, mucous membranes and oropharynx normal. Neck--supple. No JVD. No bruits. Thyroid normal, trachea midline, no adenopathy. Heart--normal S1 and S2. No murmurs, rubs or gallops. Lungs--clear bilaterally, no respiratory distress, no accessory muscle use. Abdomen--normal bowel sounds and soft. Nontender. Nondistended, no hernias or masses, no organomegaly. Extremities--right BKA Dermatologic--normal skin turgor, normal color, no abnormal lymph nodes, no rash. Neurologic--cranial nerves II through XII grossly intact. Rheumatologic--normal range of motion, except right BKA Psychiatric--normal affect. Results & Data Results & Data ([facility]) Vital Signs (Past 12 Hours) Vital Signs Temp Pulse Resp BP Pulse Ox 12/02/21 14:35 36.7 C 73 16 101/49 L 93 12/02/21 07:23 36.7 C 62 16 110/63 96 PG Care Time/CCT Total # of Minutes Spent Total Time Spent with Patient: Total time spent is greater than 50% in coordination of care (as documented) at patient's floor/unit and/or counseling patient: Coding Level of Care Code 51911 Subseq Hosp Care Lvl 2 Diagnoses UTI (urinary tract infection) N39.0 Kidney stone N20.0 Prostate cancer C61 Type 2 diabetes mellitus, uncontrolled E11.65 Incontinence of urine R32 Hypertension I10 Hypertension type: essential hypertension Rheumatoid arthritis M06.9 Pulmonary nodules R91.8 (1) Hypertension Hypertension type: essential hypertension Qualified Code(s): I10 - Essential (primary) hypertension
[2021-12-03] MEDS: HYDROmorphone INJ 0.5 MG/0.5 ML SYR IV PRN ×3 (02:12→10:40)
[2021-12-03 07:12] LABS: Basophils # (auto) 0.07 K/uL (0-0.2); Basophils % (auto) 0.7 %; Eosinophils # (auto) 0.46 K/uL (0-0.50); Eosinophils % (auto) 4.8 %; Hemoglobin 12.9 g/dl (14.0-18.0); Immature Granulocytes # (auto) 0.11 K/uL (0.00-0.02); Immature Granulocytes % (auto) 1.1 %; Lymphocytes # (auto) 2.22 K/uL (1.2-3.4); Lymphocytes % (auto) 23.1 %; Mean Corpuscular Hemoglobin 26.9 pg (25.0-34.0); Mean Corpuscular Hgb Conc 32.3 g/dL (32.0-36.0); Mean Corpuscular Volume 83.5 fL (80.0-100.0); Mean Platelet Volume 10.7 fL (9.4-12.4); Monocytes # (auto) 0.79 K/uL (0.24-0.82); Monocytes % (auto) 8.2 %; Neutrophils # (auto) 5.96 K/uL (1.4-6.5); Neutrophils % (auto) 62.1 %; Platelet Count 238 K/uL (130-400); RDW Coefficient of Variation 13.6 % (11.5-14.5); RDW Standard Deviation 41.5 fL (36.4-46.3); Red Blood Count 4.79 M/uL (4.63-6.08); White Blood Count 9.61 K/ul (4.8-10.8)
[2021-12-03 07:31] LABS: Albumin Level 3.6 gm/dl (3.4-5.0); BUN Creatinine Ratio 22.8 (10-20); Calcium 8.8 mg/dl (8.5-10.1); Creatinine Clr Calc Pharmacy 125.7 ml/min; Est GFR (African American) 101.5 ml/min; Est GFR (Non-African American) 87.6 ml/min; Phosphorus 3.7 mg/dl (2.5-4.9)
[2021-12-03] MEDS: SERTRALINE HCL 100 MG TABLET PO SCH (08:48)
[2021-12-03] MEDS: FINASTERIDE 5 MG TAB PO SCH (08:48)
[2021-12-03] MEDS: INSULIN ASPART PER UNIT SC SCH ×2 (08:55→12:27)
[2021-12-03] MEDS: LANTUS PER UNIT CHARGE SQ SCH (08:56)
[2021-12-03] MEDS ORDERED: POLYETHYLENE (MIRALAX) 17 GM PACK PO SCH (09:00)
[2021-12-03] MEDS: cefTRIAXone SODIUM 2,000 MG in DEXTROSE 5% 50 ML IV SCH (09:13)
--- NOTE | 2021-12-03 15:35 | Discharge Summary ---
Date of Service December 03, 2021 Admission HPI Per Admitting Provider The patient is a 66-year-old male with a past medical history including kidney stones, tubular adenoma, toe amputation, vitamin D deficiency, pulmonary nodules, polyarthralgias, prostate cancer, right BKA, diabetes mellitus type 2, dyslipidemia, hyperlipidemia, idiopathic polyneuropathy, sleep apnea, BPH with LUTS, hypertension and RA. He presents with symptoms as noted above. He denies any recent travels or sick exposures. He denies any blood in his urine. He reports that the first time he had symptoms, he ended up having urinary incontinence before he can get to the restroom. Principal Diagnosis Complicated UTI with mild urinary retention Discharge Exam Constitutional WD/WN, vitals as above Eyes EOM intact bilaterally; no conjunctival abnormality ENMT external ear and nose normal, oropharynx normal Neck trachea midline, no thyromegaly normal visual inspection Respiratory normal respiratory effort, lungs clear to auscultation no respiratory distress Cardiovascular RRR, no murmur, no edema Gastrointestinal (Abdomen) Inspection/Auscultation: abdomen normal to inspection; abdomen not distended Musculoskeletal no cyanosis or clubbing, extremities motor strength 5/5 Skin no rashes, warm and dry Neurologic moves all extremities and awake Psychiatric Orientation: alert, oriented to person and cooperative Discharge Data Allergies Allergy/AdvReac Type Severity Reaction Status Date / Time doxycycline AdvReac Severe nausea/ Verified 12/01/21 19:18 vomiting acetaminophen [From Percocet] AdvReac Unknown Nausea Verified 12/02/21 01:17 oxycodone [From Percocet] AdvReac Unknown Nausea Verified 12/02/21 01:17 methotrexate AdvReac Depression- Verified 12/01/21 19:18 severe Consultations 12/01/21 20:26 ED Decision to Admit Stat 12/02/21 03:31 Consult Urology Routine Ordered Studies 12/01/21 18:54 CT abd pelvis wo con Stat Hospital Course (1) UTI (urinary tract infection): UTI/acute urinary incontinence/7 mm right renal calculus/mild to moderate prostate enlargement/history of prostate cancer, with no recent abnormal cells- - Increase tamsulosin from 0.4 to 0.8 mg p.o. at bedtime - Continue finasteride (had actually stopped this about 1 month ago, so a refill was sent on discharge) - Empiric ceftriaxone 2 g IV daily switched to ciprofloxacin x 7 more days per urology. - Encouraged to f/u with urology as he reports that he intermittently has LUTS despite maximal medical therapy. May need TURB in future, but will need to see urology. (2) Kidney stone: See above (3) Prostate cancer: See above (4) Type 2 diabetes mellitus, uncontrolled: Continue insulin glargine [address] on Accu-Cheks before meals and at bedtime with NovoLog coverage per scale Check hemoglobin A1c: 8.0 (5) Incontinence of urine: (6) Hypertension: Continue home meds on discharge. (7) Rheumatoid arthritis: On no specific treatment (8) Pulmonary nodules: Follow-up per protocol Total Time Total Time Spent Total Time Spent (In Minutes): 35 Discharge Plan Discharge Items Patient Disposition: Home - Self-Care Reason For Visit: COMPLICATED UTI Discharge Diagnosis: Complicated UTI Activity: Resume your previous activity Non-emergency contact: Primary Care Provider and Urologist Call non-emergency contact if: your symptoms worsen and your temperature is above 101 Follow-up/Referrals: Leonila Beach MD [Primary Care Provider] - 12/22/21 11:00 am Nicolás Cole MD [Physician] - 01/11/22 9:00 am Diet: Carb Consistent or DM2 Addtl Attending Provider Instructions: Mr. Barry, You were admitted to the hospital with a complicated UTI that stems from your history of prostate cancer and BPH. Luckily, we were able to treat this is IV and will now transition to oral antibiotics. Please follow up with the urology team as soon as they are able to schedule you to be sure you are doing well. We did give you 3 days worth of a urethral numbing medication called Pyridium. As we discussed, this can sometimes cause orange urine, so please do not be surprised or concerned if this occurs. Pending Studies at Discharge: No Stand-Alone Forms: My [employer], Smoking Cessation Medications and DC Order Prescriptions: New ciprofloxacin HCl 500 mg tablet 500 mg PO BID Qty: 14 RF: 0 phenazopyridine [Pyridium] 100 mg tablet 100 mg PO TID PRN (Reason: urinary burning or discomfort) Qty: 6 RF: 0 Continued (DME) Dexcom G6 Laboratory Apparatus Glass Blower Misc See Rx Instructions .MEDSUPPLY Qty: 1 RF: 0 quinapril 40 mg tablet 40 mg PO HS Qty: 90 RF: 3 (DME) Dexcom G6 Sensor Device See Rx Instructions .MEDSUPPLY Qty: 3 RF: 0 (DME) Dexcom G6 Transmitter Device See Rx Instructions .MEDSUPPLY Qty: 1 RF: 0 amlodipine 5 mg tablet 5 mg PO HS Qty: 90 RF: 1 hydrochlorothiazide 25 mg tablet 25 mg PO HS Qty: 90 RF: 3 sertraline 100 mg tablet 100 mg PO DAILY Qty: 90 RF: 3 tramadol 50 mg tablet 50 mg PO Q12H PRN (Reason: pain) Qty: 60 RF: 0 Sutab 1.479-0.188- 0.225 gram tablet See Rx Instructions PO .COMPLEX Qty: 24 RF: 0 lutein 6 mg tablet 6 mg PO HS RF: 0 cholecalciferol (vitamin D3) 400 unit capsule 400 units PO HS RF: 0 (DME) insulin syringes (disposable) 1 mL syringe See Rx Instructions .ROUTE .MEDSUPPLY RF: 0 (DME) blood-glucose meter [Accu-Chek Suzan Plus Meter] [employer] [facility] [employer] See Rx Instructions .ROUTE .MEDSUPPLY RF: 0 Basaglar KwikPen U-100 Insulin 100 unit/mL (3 mL) insulin pen 50 unit SQ DAILY 90 Days Qty: 45 RF: 3 (DME) pen needle, diabetic [BD Ultra-Fine Pia Pen Needle] 32 gauge x 5/32" needle See Rx Instructions .ROUTE .MEDSUPPLY RF: 0 insulin aspart U-100 [Novolog U-100 Insulin aspart] 100 unit/mL solution 0 unit subcut TIDM RF: 0 coenzyme Q10 [Co Q-10] 100 mg Capsule 0 mg PO DAILY RF: 0 finasteride 5 mg tablet 5 mg PO DAILY Qty: 30 RF: 0 Changed tamsulosin [Flomax] 0.4 mg capsule 0.8 mg PO QPM Qty: 60 RF: 0 Discharge Orders: Discharge Order (Routine); Ordered 12/03/21 Ordered By: Yury Saucedo/Other Patient Handouts: Managing Type 2 Diabetes, Kidney Infec Dc, Special Foot Care for Diabetes, ED BPH (Enlarged Prostate) Admission Data Admit Date/Time: 12/01/21 21:07 Attending Provider: Yury Rodriguez Admit Provider: Jose Nur Primary Care Provider: Leonila Beach V. Other Providers: Berhane Park ; Yury Rodriguez Other Interventions: Discharge Summary Assessment (RN) Last Done: 12/03/21 11:32 Coding Level of Care Code D/C DAY MANAGEMENT >30 MINS Diagnoses UTI (urinary tract infection) N39.0 Kidney stone N20.0 Prostate cancer C61 Type 2 diabetes mellitus, uncontrolled E11.65 Incontinence of urine R32 Hypertension I10 Hypertension type: essential hypertension Rheumatoid arthritis M06.9 Pulmonary nodules R91.8
== END 2021-12-03 14:08 | disposition home or self-care (01) | DRG 690 ==
LOC: ED 15:35 → 3E 21:07 → SUATTDRO 21:07 → 3E 12-02 00:22

== ENCOUNTER 2022-03-02 09:38 | Observation (INO) ==
--- NOTE | 2022-02-24 14:15 | Anesthesiology Consultation ---
Date of Service February 24, 2022 Assessment & Plan (1) Encounter for pre-operative examination: Chart Review Chart Review: Acceptable Risk for Surgery and Patient NOT seen in Pre Admission Testing Consults Requested none History Surgery Operation Date: 03/02/22 10:50 Proposed Procedures p Robotic Laparoscopic Assisted Radical Retropubic Prostatectomy, Possible Open, Possible Pelvic Lymph Node Dissection, Possible Suprapubic Tube Placement - Nicolás Cole MD Height/Weight Height: 6 ft 2 in Weight: 158.757 kg Allergies Allergy/AdvReac Type Severity Reaction Status Date / Time amoxicillin [From Augmentin] Allergy Unknown FACE Verified 02/23/22 15:52 SWELLING AND RASH OVER BODY clavulanic acid Allergy Unknown FACE Verified 02/23/22 15:52 [From Augmentin] SWELLING AND RASH OVER BODY methotrexate Allergy Unknown Depression- Verified 02/23/22 15:52 severe acetaminophen [From Percocet] AdvReac Unknown Nausea Verified 02/23/22 15:52 doxycycline AdvReac Unknown nausea/ Verified 02/23/22 15:52 vomiting oxycodone [From Percocet] AdvReac Unknown Nausea Verified 02/23/22 15:52 Medications Home Medications Medication Instructions Recorded Confirmed Last Taken cholecalciferol (vitamin D3) 10 400 units PO HS 02/09/19 02/23/22 12/13/21 mcg (400 unit) capsule lutein 6 mg tablet 6 mg PO HS 02/09/19 02/23/22 12/13/21 insulin syringes (disposable) 1 mL 03/06/20 01/25/22 Unknown blood-glucose meter (Accu-Chek 10/14/20 01/25/22 Unknown Suzan Plus Meter) Dexcom G6 Rim Technician (blood-glucose #1 ea 03/09/21 01/25/22 Unknown meter,continuous) pen needle, diabetic 32 gauge x 05/07/21 01/25/22 Unknown 532" (BD Ultra-Fine Pia Pen Needle) quinapril 40 mg tablet 40 mg PO HS #90 tabs 05/21/21 02/23/22 12/13/21 Dexcom G6 Sensor (blood-glucose #3 ea 05/25/21 01/25/22 Unknown sensor) Dexcom G6 Transmitter #1 ea 05/25/21 01/25/22 Unknown (blood-glucose transmitter) amlodipine 5 mg tablet 5 mg PO HS #90 tabs 07/16/21 02/23/22 12/13/21 hydrochlorothiazide 25 mg tablet 25 mg PO HS #90 tabs 10/20/21 02/23/22 12/13/21 coenzyme Q10 100 mg capsule (Co 100 mg PO QPM 12/01/21 02/23/22 12/13/21 Q-10) tamsulosin 0.4 mg capsule (Flomax) 0.8 mg PO QPM #60 caps 01/01/22 02/23/22 Unknown Medical Marijuana Card 1 dose UD 02/23/22 02/23/22 Unknown finasteride 5 mg tablet 5 mg PO QPM 02/23/22 02/23/22 Unknown insulin aspart U-100 100 unit/mL 25 unit subcut TIDM 02/23/22 02/23/22 Unknown subcutaneous solution (Novolog U-100 Insulin aspart) insulin glargine 100 unit/mL (3 50 unit subcut HS 02/23/22 02/23/22 Unknown mL) subcutaneous pen (Basaglar KwikPen U-100 Insulin) mupirocin 2 % topical ointment 1 applic topical UD PRN SKIN 02/23/22 02/23/22 Unknown IRRITATION sertraline 100 mg tablet 100 mg PO HS 02/23/22 02/23/22 Unknown tramadol 50 mg tablet 50 mg PO BID PRN pain 02/23/22 02/23/22 Unknown Past Medical History Medical History BCC (basal cell carcinoma of skin) HX Carcinoma of prostate DX 2013/MONITORED...UTI'S /INCONTINENCE...REASON FOR UPCOMING PROCEDURE Decreased renal function HX, PT REPORTS THEY KEEP AN EYE ON MY KIDNEYS Diabetic peripheral neuropathy associated with type 2 diabetes mellitus History of depression History of diabetic ulcer of foot History of kidney stones History of Mohs micrographic surgery for skin cancer behind right ear Hypertension Rheumatoid arthritis with negative rheumatoid factor pt unsure UTI (urinary tract infection) NOVEMBER 2021 & MOST RECENT 3 WEEKS AGO...RESOLVED Past Family History Family History Mother Colorectal cancer Father Prostate cancer Brother Lung cancer Other Family history of diabetes mellitus in father Denies family history of Ovarian cancer Breast cancer Past Surgical History Surgical History Amputated toe "All toes" left foot HX AMPUTATION OF TOES ON RIGHT PRIOR TO BKA History of colonoscopy History of facial surgery kita removed Hx of mastoidectomy Hx of removal of cyst on head Status post below knee amputation of right lower extremity Status post tonsillectomy Social History Smoking Status: Never smoker Do You Dip or Chew Tobacco: No Hx Alcohol Use: No Hx Substance Use: No substance use type: does not use Substance Use Type Other:: MEDICAL MARIJUANA CARD (INSTRUCTED TO BRING CARD) Last Used Substance: Days (ago) Testing Electrocardiogram Date: 02/23/22 Findings: + NSR @
[~2022-03-02 09:38] MED LIST changes: -AMLO-114 PO; -ATROPINE SULFATE 0.1 MG/ML 5ML SYR IV PRN; -COEN100C3 PO; -DTRSR/2 PO; -EpHEDrine SULFATE INJ 50 MG/ML AMP IV PRN; +HEPARIN SOD 5,000 UNIT/0.5 ML VIAL SQ SCH; -HYDR200T5 PO; -INSDGI SC; -LIDOCAINE HCL 2% 2 ML VIAL (20MG/ML) ONE; +LR 15ML/HR IV SCH; +MIDAZOLAM HCL 1 MG/ML 2ML VIAL ONE; -MISCCAP80 PO; -NVLG SC; -OMEG10007 PO; -PROPOFOL IV EMULSION 10 MG/ML 20 ML VIAL IV ONE; -QUIN40TA18 PO; -SODIUM CHLORIDE 0.9% 500ML 500 ML IV ONE; -VITAMIN D PO; +fentaNYL citrate 100 MCG/2 ML VIAL ONE
[2022-03-02] MEDS ORDERED: SUGAMMADEX SODIUM 200 MG/2 ML VIAL IV ONE (10:17)
--- NOTE | 2022-03-02 10:37 | History & Physical Report ---
Date of Service March 02, 2022 Assessment & Plan (1) Prostate cancer: Plan [place] prostate cancer Presenting today for prostatectomy Risks, benefits, expectations reviewedhe has numerous comorbidities and is aware of the associated risks History of Present Illness Primary Care Provider: Leonila Beach MD 67-year-old gentleman with [place] 6 prostate cancer and significant urinary dysfunction Presenting today for prostatectomy Allergies Allergy/AdvReac Type Severity Reaction Status Date / Time amoxicillin [From Augmentin] Allergy Unknown FACE Verified 03/02/22 10:03 SWELLING AND RASH OVER BODY clavulanic acid Allergy Unknown FACE Verified 03/02/22 10:03 [From Augmentin] SWELLING AND RASH OVER BODY methotrexate Allergy Unknown Depression- Verified 03/02/22 10:03 severe acetaminophen [From Percocet] AdvReac Unknown Nausea Verified 03/02/22 10:03 doxycycline AdvReac Unknown nausea/ Verified 03/02/22 10:03 vomiting oxycodone [From Percocet] AdvReac Unknown Nausea Verified 03/02/22 10:03 Home Medications Medication Instructions Recorded Confirmed Type cholecalciferol (vitamin D3) 10 400 units PO HS 02/09/19 03/02/22 History mcg (400 unit) capsule lutein 6 mg tablet 6 mg PO HS 02/09/19 03/02/22 History insulin syringes (disposable) 1 mL 03/06/20 01/25/22 History blood-glucose meter (Accu-Chek 10/14/20 01/25/22 History Suzan Plus Meter) Dexcom G6 Certified Physician'S Assistant (blood-glucose #1 ea 03/09/21 01/25/22 Rx meter,continuous) pen needle, diabetic 32 gauge x 05/07/21 01/25/22 History 5/32" (BD Ultra-Fine Pia Pen Needle) quinapril 40 mg tablet 40 mg PO HS #90 tabs 05/21/21 03/02/22 Rx Dexcom G6 Transmitter #1 ea 05/25/21 01/25/22 Rx (blood-glucose transmitter) amlodipine 5 mg tablet 5 mg PO HS #90 tabs 07/16/21 03/02/22 Rx hydrochlorothiazide 25 mg tablet 25 mg PO HS #90 tabs 10/20/21 03/02/22 Rx coenzyme Q10 100 mg capsule (Co 100 mg PO QPM 12/01/21 03/02/22 History Q-10) tamsulosin 0.4 mg capsule (Flomax) 0.8 mg PO QPM #60 caps 01/01/22 03/02/22 Rx Medical Marijuana Card 1 dose UD 02/23/22 03/02/22 History finasteride 5 mg tablet 5 mg PO QPM 02/23/22 03/02/22 History insulin aspart U-100 100 unit/mL 25 unit subcut TIDM 02/23/22 03/02/22 History subcutaneous solution (Novolog U-100 Insulin aspart) insulin glargine 100 unit/mL (3 50 unit subcut HS 02/23/22 03/02/22 History mL) subcutaneous pen (Basaglar KwikPen U-100 Insulin) mupirocin 2 % topical ointment 1 applic topical UD PRN SKIN 02/23/22 03/02/22 History IRRITATION sertraline 100 mg tablet 100 mg PO HS 02/23/22 03/02/22 History tramadol 50 mg tablet 50 mg PO BID PRN pain 02/23/22 03/02/22 History nitrofurantoin 100 mg PO Q12H 14 days #28 caps 02/25/22 03/02/22 Rx monohydrate/macrocrystals 100 mg capsule (Macrobid) Dexcom G6 Sensor (blood-glucose #9 ea 03/02/22 Rx sensor) Past Med/Surg History Medical History BCC (basal cell carcinoma of skin) HX Carcinoma of prostate DX 2013/MONITORED...UTI'S /INCONTINENCE...REASON FOR UPCOMING PROCEDURE Decreased renal function HX, PT REPORTS THEY KEEP AN EYE ON MY KIDNEYS Diabetic peripheral neuropathy associated with type 2 diabetes mellitus History of depression History of diabetic ulcer of foot History of kidney stones History of Mohs micrographic surgery for skin cancer behind right ear Hypertension Rheumatoid arthritis with negative rheumatoid factor pt unsure UTI (urinary tract infection) NOVEMBER 2021 & MOST RECENT 3 WEEKS AGO...RESOLVED Surgical History Amputated toe "All toes" left foot HX AMPUTATION OF TOES ON RIGHT PRIOR TO BKA History of colonoscopy History of facial surgery kita removed Hx of mastoidectomy Hx of removal of cyst on head Status post below knee amputation of right lower extremity Status post tonsillectomy Family History Mother Colorectal cancer Father Prostate cancer Brother Lung cancer Other Family history of diabetes mellitus in father Denies family history of Ovarian cancer Breast cancer Social History Smoking Status: Never smoker Second Hand Exposure: No; Do You Dip or Chew Tobacco: No; Hx Alcohol Use: No Hx Substance Use: No Preferred Language: Yi Communication Ability: Effective Visual Impairment: No Limitations Hearing Ability: Normal Wrapper Operator Required: No Beliefs That Will Affect Care: None marital status: Current Living Situation: Spouse and Family Current Living Situation Comment: , MOTHER IN LAW AND DAUGTHER current occupational status: retired and disabled Other Information That Helps Us Care for You: No Feels Safe at Home: Yes caffeine: No Dental Care, Regularly: Yes Physical Activity Frequency: Does not Exercise Seatbelt Use: always Sunscreen Use: Yes Assistive Devices: None Assistive Devices Comment: READING GLASSES Physical Exam Constitutional: well developed and well nourished Neck: neck nontender Respiratory: normal respiratory effort; no respiratory distress and does not use accessory muscles Cardiovascular: Rate/Rhythm: regular rate Vessels: radial pulses present Extremities: no edema Gastrointestinal (Abdomen): Inspection/Auscultation: abdomen normal to inspection Percussion/Palpation: abdomen soft; abdomen nontender and no guarding Musculoskeletal: Head/Neck/Chest: normocephalic and head atraumatic Skin: no rashes and no lesions Trauma: no evidence of skin trauma Neurologic: awake; not obtunded Speech / Cognition: normal speech Motor/Sensory: no tremor Psychiatric: Orientation: alert and oriented x 3 Genitourinary: no CVA tenderness Lymphatic: no lymphadenopathy
[2022-03-02] MEDS ORDERED: BUPIVACAINE 0.5 % 5 MG/1 ML MPF 30ML VIAL ONE (10:43)
[2022-03-02] MEDS ORDERED: GENTAMICIN CONSULT ACTIVE PRN (10:44)
[2022-03-02] MEDS ORDERED: ATROPINE SULFATE 0.1 MG/ML 10ML SYR IV PRN (10:51)
[2022-03-02] MEDS ORDERED: fentaNYL citrate 100 MCG/2 ML VIAL IV PRN (10:51)
[2022-03-02] MEDS ORDERED: PROMETHAZINE HCL 6.25 MG in SODIUM CHLORIDE 0.9% 50 ML IV PRN (10:51)
[2022-03-02] MEDS ORDERED: ONDANSETRON INJ 2 MG/ML 2 ML VIAL IV PRN ×2 (10:51→17:06)
[2022-03-02] MEDS ORDERED: ePHEDrine sulfate 50 MG/ML AMP IV PRN (10:51)
[2022-03-02] MEDS: GENTAMICIN SULFATE 80 MG in DEXTROSE 5% 100 ML IV SCH ×2 (11:31→11:45)
[2022-03-02] MEDS ORDERED: fentaNYL citrate 100 MCG/2 ML VIAL ONE ×2 (12:03→14:16)
[2022-03-02] MEDS ORDERED: ONDANSETRON INJ 2 MG/ML 2 ML VIAL ONE (12:15)
[2022-03-02] MEDS ORDERED: LIDOCAINE 2% MPF LOCAL 5 ML VIAL INFIL ONE (12:15)
[2022-03-02] MEDS ORDERED: PHENYLEPHRINE 100MCG/ML 5ML SYR ONE (12:15)
[2022-03-02] MEDS ORDERED: LARYING-O-JET KIT (LTA) ONE (12:15)
[2022-03-02] MEDS ORDERED: ROCURONIUM BROMIDE 10 MG/ML 5 ML VIAL IV ONE ×3 (12:15→13:40)
[2022-03-02] MEDS ORDERED: PROPOFOL IV EMULSION 10 MG/ML 20 ML VIAL IV ONE ×2 (12:15→14:19)
[2022-03-02] MEDS ORDERED: ePHEDrine sulfate 50 MG/ML SYR ONE (12:15)
[2022-03-02] MEDS ORDERED: DEXAMETHASONE SOD INJ 4 MG/ML VIAL ONE (12:15)
[2022-03-02] MEDS ORDERED: SURGICEL ABSORB HEMOSTAT 2IN X 14IN TOP ONE (12:25)
[2022-03-02] MEDS ORDERED: FLOSEAL HEMOSTATIC MATRIX 10ML TOP ONE (12:25)
--- NOTE | 2022-03-02 15:07 | Operative Report ---
PG Post Operative Report Pre & Post Diagnosis Operation Date: 03/02/22 11:00 Pre-Op Diagnosis: Prostate Cancer Post-Op Diagnosis: Prostate Cancer I identified the patient and participated in the time-out.: Yes Procedure Operation Date: 03/02/22 11:00 Actual Procedures p Robotic Assisted Laparoscopic Radical Retropubic Prostatectomy(Not Applicable) - Nicolás Cole MD Surgeon Nicolás Cole MD Teacher Of The Emotionally Disturbed Karla Archer Estimated Blood Loss 150 Findings Consistent with Post-Op Diagnosis Specimens 1. Periprostatic fat 2. Prostate and seminal vesicles Description of Procedure The patient was identified in the preoperative holding area, appropriate informed consents were reviewed and completed, and he was transported to the operating suite. Subcutaneous heparin was administered in the pre-operative holding area. Upon arrival in the operating suite, he received appropriate antibiotics and general anesthesia. He was positioned in dorsal lithotomy, a B&O suppository was inserted after digital rectal exam, and he was prepped and draped in standard fashion. A Castle catheter was inserted in the sterile field. A Veress needle was passed per umbilicus with uniform insufflation of the abdomen to 15mmHg. He was placed in steep Trendelenburg position. A periumbilical incision was then made to accommodate a 12mm Visiport with 10mm 0degree laparoscope. Inspection of the abdomen was carried out, and there was no evidence of traumatic entry or injury secondary to the Veress needle. After confirming a clear anterior abdominal wall, ports were subsequently placed in standard robotic prostatectomy fashion without incident. To begin the robotic portion of the case, the left lateral aspect of the sigmoid was mobilized off of the left pelvic side wall to allow the pouch of Jude to be appropriately visualized. I then made an incision in the pouch of Jude, overlying the seminal vesicles. Both SVs as well as the ampullae of the vasa were entirely dissected, with the vasa transected 3cm from the prostate. The medial umbilical ligaments were then controlled with bipolar electrocautery just inferior to the umbilicus. Following cauterization, they were divided utilizing monopolar cautery. A peritoneal incision was carried from this location to the medial aspect of the internal inguinal rings bilaterally with care to avoid opening through the ring. This incision was concluded when the vas deferens was reached. Dissection of the bladder and prostate off of the posterior aspect of the pubic arch was completed allowing full visualization of the prostate. The fat overlying the prostate was removed en bloc and passed off the table as a specimen labeled "periprostatic fat". The endopelvic fascia was cleared during this portion of the procedure, and subsequently opened - first on the right and then the left. The incision through the endopelvic fascia began near the prostate-bladder junction and was carried to the apex with extreme care to preserve all lateral levator musculature as well as the periurethral musculature and sphincter complex. I additionally preserved the puboprostatic ligaments. I then controlled the DVC with a 3-0 V-lock suture in overlapping/figure of 8 fashion. My attention then returned to the prostate, with identification of the bladder neck aided by gentle traction on the Castle catheter and lateral to medial pressure at the presumed level of the bladder neck with the robotic instruments. An anterior cystotomy was made, the Castle balloon deflated and the catheter guided through the incision to allow anterior retraction. I attempted to preserve maximal bladder neck musculature as I circumferentially dissected around the bladder neck. After incision through the posterior aspect of the mucosa, the dissection was carried through detrusor muscle until the bilateral ampullae of the vasa were identified. The previously dissected vasa and SVs were brought through the incision and used to elevated the prostate anteriorly. A posterior plane behind the prostate was then developed - splitting Denonvilliers's fascia. This dissection was carried as far as possible towards the apex as well as far as possible laterally. An incision in the lateral prostatic fascia was then made bilaterally to facilitate control of the vascular pedicles and preservation of the nerve bundles. Vasculature running along the posterior/lateral aspect of the prostate was preserved as well as the tissue containing the nerves. The pedicles were then controlled with a series of Weck clips. The apical attachments of the prostate were remaining at that stage. The DVC was divided after control with bipolar cautery over the prostate. Continuous in spection from anterior and lateral views allowed me to closely follow the apical contour of the prostate and maximally preserve urethral length and tissue. The prostate was entirely freed at that point, and collected in an EndoCatch bag before being moved out of the field of vision. Hemostasis was confirmed and anastomosis of the bladder and urethra was completed utilizing a double armed V- Lock stitch. A new Castle catheter was inserted and the anastomosis tested with irrigation. There was no evidence of leak. The robot was undocked, the specimen extracted through expansion of the bonita-umb ilical camera port. The fascia was closed with a series of 0-PDS figure of 8 stitches. The right optical assistant port was closed in two layers - with a figure of 8 0-Vicryl to reapproximate the fascia followed by 4-0 Monocryl to close the skin. Monocryl was used to close all other skin incisions. All wounds were dressed with Dermabond. The case was concluded and the patient taken to the PACU in stable condition. Karla Archer assisted from incision to closure I attest to the content of the Intraoperative Record and any orders documented therein. Any exceptions are noted below.
[2022-03-02] MEDS ORDERED: INSULIN ASPART PER UNIT ONE (15:09)
[2022-03-02] MEDS ORDERED: INSULIN ASPART PER UNIT SC STA (15:15)
[2022-03-02] MEDS ORDERED: KETOROLAC TROMETHAMINE 15 MG/ML VIAL IV ONE (15:33)
[2022-03-02] MEDS ORDERED: ACETAMINOPHEN 1000 MG/100 ML IV IV ONE (15:34)
[2022-03-02] MEDS ORDERED: KETOROLAC 30 MG/ML VIAL ONE (15:34)
[2022-03-02] MEDS ORDERED: ACETAMINOPHEN 1,000 MG in EMPTY BAG 0 ML IV ONE (15:35)
[2022-03-02 16:07] LABS: Basophils # (auto) 0.06 K/uL (0-0.2); Basophils % (auto) 0.5 %; Eosinophils # (auto) 0.11 K/uL (0-0.50); Hematocrit (blood only) 37.4 % (40.1-51.0); Hemoglobin 12.3 g/dl (14.0-18.0); Immature Granulocytes % (auto) 0.9 %; Lymphocytes % (auto) 8.7 %; Mean Corpuscular Hemoglobin 28.1 pg (25.0-34.0); Mean Corpuscular Hgb Conc 32.9 g/dL (32.0-36.0); Mean Corpuscular Volume 85.6 fL (80.0-100.0); Mean Platelet Volume 9.7 fL (9.4-12.4); Monocytes # (auto) 0.27 K/uL (0.24-0.82); Monocytes % (auto) 2.4 %; Neutrophils % (auto) 86.5 %; Platelet Count 175 K/uL (130-400); RDW Coefficient of Variation 13.8 % (11.5-14.5); RDW Standard Deviation 43.1 fL (36.4-46.3); Red Blood Count 4.37 M/uL (4.63-6.08); White Blood Count 11.44 K/ul (4.8-10.8)
[2022-03-02] MEDS ORDERED: HYDROmorphone INJ 0.5 MG/0.5 ML SYR ONE (16:18)
--- NOTE | 2022-03-02 16:29 | Anesthesiology Progress Note ---
Date of Service March 02, 2022 Anesthesia Post Procedure Vital Signs Vital Signs: Temp Pulse Pulse Resp BP Pulse Ox O2 Del Method 03/02/22 16:25 88 32 H 139/74 92 Nasal Cannula 03/02/22 16:05 92 H 24 165/82 H 95 Nasal Cannula 03/02/22 15:55 92 H 31 H 156/81 H 91 Room Air 03/02/22 15:45 94 H 31 H 148/76 H 95 Oxymask 03/02/22 15:35 97 H 28 H 156/67 H 95 Oxymask 03/02/22 15:25 98 H 32 H 142/84 H 96 Oxymask 03/02/22 15:15 99 H 38 H 192/90 H 96 Oxymask 03/02/22 15:00 109 H 34 H 192/86 H 96 Oxymask 03/02/22 15:05 103 H 41 H 189/86 H 96 Oxymask 03/02/22 16:15 89 22 152/79 H 94 Nasal Cannula 03/02/22 14:58 97.5 F L 105 H 44 H 127/75 93 Oxymask 03/02/22 10:08 98.4 F 85 20 154/75 H 100 Room Air 03/02/22 10:08 Room Air O2 Flow Rate 03/02/22 16:25 2 03/02/22 16:05 2 03/02/22 15:55 03/02/22 15:45 2 03/02/22 15:35 6 03/02/22 15:25 6 03/02/22 15:15 6 03/02/22 15:00 6 03/02/22 15:05 6 03/02/22 16:15 2 03/02/22 14:58 6 03/02/22 10:08 03/02/22 10:08 Pain Intensity Abdomen: Pain Intensity: 6 Transfer of Care Handoff Completed per policy Notes Mental Status: alert / awake / arousable and participated in evaluation Patient Amnestic to Procedure: Yes Nausea / Vomiting: adequately controlled Pain: adequately controlled Airway Patency, RR, SpO2: stable & adequate BP & HR: stable & adequate Hydration State: stable & adequate Anesthetic Complications: no major complications apparent and Pt Satisfied with anesthetic care
[2022-03-02] MEDS ORDERED: HYDROmorphone INJ 0.5 MG/0.5 ML SYR IV STA (16:30)
[2022-03-02 16:44] LABS: BUN Creatinine Ratio 18.5 (10-20); Calcium 8.2 mg/dl (8.5-10.1); Creatinine Clr Calc Pharmacy 108.6 ml/min; Est GFR (Non-African American) 71.6 ml/min; Potassium 4.8 mmol/L (3.5-5.1)
[2022-03-02] MEDS ORDERED: MoRPHine SULFATE 2 MG/ML CARP IV PRN (17:06)
[2022-03-02] MEDS ORDERED: oxyCODONE HCL IR 5 MG TAB (IMMEDIATE RELEASE) PO PRN (17:06)
[2022-03-02] MEDS ORDERED: ACETAMINOPHEN 325 MG TAB PO PRN (17:06)
[2022-03-02] MEDS ORDERED: PHARMACY GLYCEMIC MGMT CONSULT PRN (17:06)
[2022-03-02] MEDS: ALLERGY Noted to ORDERED Medication SCH ×3 (17:11→17:13)
[2022-03-02] MEDS: LACTATED RINGER'S 1,000 ML IV SCH (17:25)
[2022-03-02] MEDS ORDERED: GLUCOSE 40% GEL 15 GM TUBE PO PRN (17:45)
[2022-03-02] MEDS ORDERED: DEXTROSE 50% 50 ML SYRINGE IV PRN (17:45)
[2022-03-02] MEDS ORDERED: CARBOHYDRATES FOR HYPOGLYCEMIA PO PRN (17:45)
[2022-03-02] MEDS ORDERED: GLUCAGON FOR INJ 1 MG VIAL IM PRN (17:45)
[2022-03-02] MEDS ORDERED: GLUCOSE 10 TAB/TUBE PO PRN (17:45)
[2022-03-02] MEDS: INSULIN ASPART PER UNIT SC SCH ×3 (18:03→23:25)
[2022-03-02] MEDS: CLINDAMYCIN/D5W 600 MG/50 ML BAG IV SCH (18:31)
[2022-03-02] MEDS: oxyCODONE HCL IR 5 MG TAB (IMMEDIATE RELEASE) PO PRN (19:31)
[2022-03-02] MEDS ORDERED: LANTUS PER UNIT CHARGE SQ SCH (20:00)
[2022-03-02] MEDS ORDERED: amLODIPine BESYLATE 5 MG TAB PO SCH (21:00)
[2022-03-02] MEDS ORDERED: ENALAPRIL MALEATE 10 MG TAB PO SCH (21:00)
[2022-03-02] MEDS ORDERED: hydroCHLOROthiazide 25 MG TAB PO SCH (21:00)
[2022-03-02] MEDS ORDERED: SERTRALINE HCL 100 MG TABLET PO SCH (21:00)
[2022-03-02] MEDS: NITROFURANTOIN MONOHYDRATE 100 MG CAP PO SCH (21:24)
[2022-03-02] MEDS: DOCUSATE SODIUM 100 MG CAP PO SCH (21:24)
[2022-03-02] MEDS: HEPARIN SOD 5,000 UNIT/0.5 ML VIAL SQ SCH (21:25)
[2022-03-02] MEDS: MoRPHine SULFATE 2 MG/ML CARP IV PRN (22:17)
[2022-03-02] MEDS: SIMETHICONE 80 MG CHEW PO PRN (23:18)
[2022-03-03] MEDS: MoRPHine SULFATE 2 MG/ML CARP IV PRN ×4 (01:26→11:14)
[2022-03-03] MEDS: CLINDAMYCIN/D5W 600 MG/50 ML BAG IV SCH ×2 (01:27→10:47)
--- NOTE | 2022-03-03 01:27 | Communication Note ---
Date of Service: March 03, 2022 I was notified by RN that patient was having lower abdominal discomfort. Patient was complaining of "gas pain" earlier in the evening and therefore as n eeded simethicone was ordered. Patient tried this modality with little relief. Patient tried to have a bowel movement and noted some blood in the front of the toilet. He notes that he is also having some bloody drainage from around his urethra where his Castle catheter is in place that he feels the blood may be from this area. He denies any chest pain, shortness of breath, lightheadedness, or d izziness. Patient was visited bedside. His vitals were reviewed. Blood pressure is 141/75 with a pulse of 92. He is afebrile with a pulse ox of 93% on room air. RN notes that as she noted the blood around his urethra near Castle catheter she BladderScan him and notes he was not retaining urine. Upon inspection the catheter appears to be draining appropriately. I provided the patient some reassurance. I suspect he could potentially have a component of an ileus which will likely self resolve once he starts having bowel movements and/or passing flatus following surgery. Concerning his Castle catheter, I would be hesitant to aggressively flush patient's Castle catheter as he just had a recent prostatectomy. As long as his Castle catheter is draining at the present time and he is not retaining urine would merely monitor the situation for now. The patient's abdomen was examined and it is rotund and soft. There is only minimal if any distention.
[2022-03-03] MEDS: LACTATED RINGER'S 1,000 ML IV SCH ×2 (03:43→15:05)
[2022-03-03] MEDS: INSULIN ASPART PER UNIT SC SCH ×3 (04:14→12:58)
[2022-03-03 07:01] LABS: Basophils # (auto) 0.04 K/uL (0-0.2); Basophils % (auto) 0.3 %; Eosinophils # (auto) 0.03 K/uL (0-0.50); Eosinophils % (auto) 0.3 %; Hematocrit (blood only) 34.3 % (40.1-51.0); Hemoglobin 11.4 g/dl (14.0-18.0); Immature Granulocytes # (auto) 0.07 K/uL (0.00-0.02); Immature Granulocytes % (auto) 0.6 %; Lymphocytes % (auto) 11.8 %; Mean Corpuscular Hemoglobin 27.9 pg (25.0-34.0); Mean Corpuscular Hgb Conc 33.2 g/dL (32.0-36.0); Mean Corpuscular Volume 83.9 fL (80.0-100.0); Monocytes # (auto) 0.96 K/uL (0.24-0.82); Monocytes % (auto) 8.1 %; Neutrophils # (auto) 9.41 K/uL (1.4-6.5); Neutrophils % (auto) 78.9 %; Platelet Count 213 K/uL (130-400); RDW Coefficient of Variation 14.1 % (11.5-14.5); RDW Standard Deviation 43.1 fL (36.4-46.3); Red Blood Count 4.09 M/uL (4.63-6.08); White Blood Count 11.91 K/ul (4.8-10.8)
[2022-03-03 07:32] LABS: BUN Creatinine Ratio 20.9 (10-20); Calcium 8.1 mg/dl (8.5-10.1); Creatinine Clr Calc Pharmacy 106.6 ml/min; Est GFR (African American) 81.2 ml/min; Est GFR (Non-African American) 70.1 ml/min; Potassium 4.1 mmol/L (3.5-5.1)
--- NOTE | 2022-03-03 08:01 | Urology Progress Note ---
Date of Service March 03, 2022 Assessment & Plan (1) Prostate cancer: Plan: POD #1 s/p RALP doing ok ambulate diet pos d/c home today Admission and Anticipated Discharge Date Admission Date: March 02, 2022 Subjective doing ok some cramping discomfort overnight good UoP abd soft today Physical Exam Physical Exam: urine clear abd soft incisions appropriate Results & Data ([facility]) Vital Signs (Past 12 Hours) Vital Signs Temp Pulse Resp BP Pulse Ox O2 Del Method 03/03/22 05:23 86 22 166/80 H 93 Room Air 03/03/22 04:22 37.0 C 76 18 92/51 L 94 Room Air 03/02/22 20:40 36.6 C 92 H 20 141/75 H 93 Room Air PG Care Time/CCT Total # of Minutes Spent Total Time Spent with Patient: Total time spent is greater than 50% in coordination of care (as documented) at patient's floor/unit and/or counseling patient: Coding Level of Care Code None Diagnoses Prostate cancer C61
[2022-03-03] MEDS: DOCUSATE SODIUM 100 MG CAP PO SCH (08:25)
[2022-03-03] MEDS: SIMETHICONE 80 MG CHEW PO PRN (08:25)
[2022-03-03] MEDS: NITROFURANTOIN MONOHYDRATE 100 MG CAP PO SCH (08:26)
[2022-03-03] MEDS: HEPARIN SOD 5,000 UNIT/0.5 ML VIAL SQ SCH (08:27)
[2022-03-03] MEDS: oxyCODONE HCL IR 5 MG TAB (IMMEDIATE RELEASE) PO PRN (13:21)
--- NOTE | 2022-03-03 15:45 | Discharge Summary ---
Date of Service March 03, 2022 Admission HPI Per Admitting Provider 67-year-old gentleman with [place] 6 prostate cancer and significant urinary dysfunction Presenting today for prostatectomy Admission Exam Per Admitting Provider Constitutional: well developed and well nourished Neck: neck nontender Respiratory: normal respiratory effort; no respiratory distress and does not use accessory muscles Cardiovascular: Rate/Rhythm: regular rate Vessels: radial pulses present Extremities: no edema Gastrointestinal (Abdomen): Inspection/Auscultation: abdomen normal to inspection Percussion/Palpation: abdomen soft; abdomen nontender and no guarding Musculoskeletal: Head/Neck/Chest: normocephalic and head atraumatic Skin: no rashes and no lesions Trauma: no evidence of skin trauma Neurologic: awake; not obtunded Speech / Cognition: normal speech Motor/Sensory: no tremor Psychiatric: Orientation: alert and oriented x 3 Genitourinary: no CVA tenderness Lymphatic: no lymphadenopathy Principal Diagnosis Prostate cancer Discharge Exam Constitutional no acute distress Respiratory no respiratory distress and no labored breathing Gastrointestinal (Abdomen) Incisions appropriate, Dermabond intact. Neurologic awake Psychiatric Orientation: alert and oriented x 3 Genitourinary Urine is clear. Discharge Data Allergies Allergy/AdvReac Type Severity Reaction Status Date / Time amoxicillin [From Augmentin] Allergy Unknown FACE Verified 03/02/22 10:03 SWELLING AND RASH OVER BODY clavulanic acid Allergy Unknown FACE Verified 03/02/22 10:03 [From Augmentin] SWELLING AND RASH OVER BODY methotrexate Allergy Unknown Depression- Verified 03/02/22 10:03 severe acetaminophen [From Percocet] AdvReac Unknown Nausea Verified 03/02/22 10:03 doxycycline AdvReac Unknown nausea/ Verified 03/02/22 10:03 vomiting oxycodone [From Percocet] AdvReac Unknown Nausea Verified 03/02/22 10:03 Procedures Performed Operation Date: 03/02/22 11:00 Actual Procedures p Robotic Assisted Laparoscopic Radical Retropubic Prostatectomy(Not Applicable) - Nicolás Cole MD Hospital Course (1) Prostate cancer: Plan 67-year-old male admitted status post robotic prostatectomy. Patient tolerated procedure well. No acute issues postoperatively. Stable overnight with good urine output. Labs appropriate. Minimal pain. Tolerated diet. Ambulated without issue. He was subsequently discharged home on postop day #1 with Castle catheter. He was in stable condition at time of discharge. Postop follow-up appointments in place. Total Time Total Time Spent Total Time Spent (In Minutes): 15 Discharge Plan Discharge Items Patient Disposition: Home - Self-Care Reason For Visit: Prostate Cancer Discharge Diagnosis: Prostate Cancer Condition on Discharge: Good Activity: Per Instructions section Lifting: No more than 25 pounds Bathing Comment: OK to shower. No tub baths or soaks. Sexual Activity: Wait until after follow-up appointment Exercise/Sports: Wait until after follow-up appointment Driving/Machine Use: Do not drive if taking prescription pain medication Non-emergency contact: Surgeon and Urologist Call non-emergency contact if: you have any medication questions, your pain is not controlled, you have a fever, your wound has increased redness, your wound has increased drainage and your wound pain has increased Follow-up/Referrals: Leonila Beach MD [Primary Care Provider] - Nicolás Cole MD [Physician] - 03/17/22 10:15 am [facility],Nurse [FAKE FOR SCHEDULES] - 03/08/22 10:20 am Diet: Regular Addtl Attending Provider Instructions: Please take all medications as prescribed and keep all follow-ups as scheduled. Please call our office at [phone] with any questions, concerns or need to reschedule appointments for any reason. We are happy to assist you Continue your Macrobid twice daily until complete. Activity: We recommend having someone with you for the first few days after surgery to help care for you. For the first 2 weeks after surgery, we would like you to get up and walk around your house. However, we recommend limit physical activity that would increase your heart rate. This will allow your body to rest and heal. Take naps if you feel tired. Don't lift anything heavier than 10 pounds, mow the law or ride a bicycle until your follow-up appointment. Please avoid long car rides. Home Care: Unless directed otherwise, drink 6 to 8 glasses of water a day (enough to keep your urine light colored). This will also help keep a healthy flow of urine. We recommend using a stool softener for the first two weeks to avoid constipation. Castle Catheter or Suprapubic Catheter care: Keep the catheter well secured with either a leg back or leg strap with large bag. Empty your bag when it's about half full. You may notice some blood in the bag. This is normal after surgery and while the catheter is in place. Use mild soap (such as Dove or Dial) and water to wash the catheter and the head of your penis daily, or more frequently if needed. Return to your normal diet, we encourage good protein intake to promote healing. You may shower as normal. Please avoid tub baths or soaking until catheter removed and incisions well healed. Wearing sweat pants while you have the catheter is recommended, they will be more comfortable. Follow-up Your follow up appointments for having your catheter removed, and follow up with your physician should already be scheduled. If you have any questions rega rding this, please contact our office. Your final pathology report will be discussed at your physician follow-up appointment. Call [facility] Urology at [phone] right away if you have any of the following: Chest pain or trouble breathing (call 911 or go to the hospital) Fever of 101F or higher, uncontrolled vomiting Heavy bleeding, clots, or bright red blood from the catheter Catheter that falls out or stops draining Foul-smelling discharge from your catheter Redness, swelling, warmth, or increased pain at your incision site Drainage, pus, or bleeding from your incision Pending Studies at Discharge: Yes (Pathology) Stand-Alone Forms: My [facility] Access Point, Smoking Cessation Medications and DC Order Prescriptions: New docusate sodium [Colace] 100 mg capsule 100 mg PO BID Qty: 30 0RF Rx Instructions: Take twice daily for 2 weeks, then as needed thereafter oxycodone 5 mg tablet 5 mg PO Q8H PRN (Reason: pain) Qty: 7 0RF Continued (DME) Dexcom G6 Affiliate Marketing Specialist Misc See Rx Instructions .MEDSUPPLY Qty: 1 0RF Rx Instructions: Use as directed for continuous glucose monitoring quinapril 40 mg tablet 40 mg PO HS Qty: 90 3RF (DME) Dexcom G6 Transmitter Device See Rx Instructions .MEDSUPPLY Qty: 1 0RF Rx Instructions: Use as directed for continuous glucose monitoring - change every 90 days amlodipine 5 mg tablet 5 mg PO HS Qty: 90 1RF hydrochlorothiazide 25 mg tablet 25 mg PO HS Qty: 90 3RF nitrofurantoin monohyd/m-cryst [Macrobid] 100 mg capsule 100 mg PO Q12H 14 Days Qty: 28 0RF Rx Instructions: must administer with a meal/food (DME) Dexcom G6 Sensor Device See Rx Instructions .MEDSUPPLY Qty: 9 3RF Rx Instructions: Use as directed for continuous glucose monitoring - Change sensor every 10 days lutein 6 mg tablet 6 mg PO HS cholecalciferol (vitamin D3) 400 unit capsule 400 units PO HS (DME) insulin syringes (disposable) 1 mL syringe See Rx Instructions .ROUTE .MEDSUPPLY Rx Instructions: Inject 3 times daily (DME) blood-glucose meter [Accu-Chek Suzan Plus Meter] Misc See Rx Instructions .ROUTE .MEDSUPPLY Rx Instructions: Test 1 times daily (DME) pen needle, diabetic [BD Ultra-Fine Pia Pen Needle] 32 gauge x 5/32" needle See Rx Instructions .ROUTE .MEDSUPPLY Rx Instructions: Inject with Basaglar once daily sertraline 100 mg tablet 100 mg PO HS tramadol 50 mg tablet 50 mg PO BID PRN (Reason: pain) insulin aspart U-100 [Novolog U-100 Insulin aspart] 100 unit/mL solution 25 unit subcut TIDM Label Comments: SLIDING SCALE Rx Instructions: PER SLIDING SCALE mupirocin 2 % ointment 1 applic topical UD PRN (Reason: SKIN IRRITATION ) insulin glargine [Basaglar KwikPen U-100 Insulin] 100 unit/mL (3 mL) insulin pen 50 unit SQ HS Medical Marijuana Card 1 dose UD coenzyme Q10 [Co Q-10] 100 mg Capsule 100 mg PO QPM Discontinued tamsulosin [Flomax] 0.4 mg capsule 0.8 mg PO QPM Qty: 60 11RF finasteride 5 mg tablet 5 mg PO QPM Discharge Orders: Discharge Order (Routine); Ordered 03/03/22 Ordered By: Karla Archer Admission Data Admit Date/Time: 03/02/22 15:06 Attending Provider: Nicolás Cole Admit Provider: Nicolás Cole Primary Care Provider: Leonila Beach V. Other Interventions: Discharge Summary Assessment (RN) Last Done: 03/03/22 14:19 Coding Level of Care Code D/C DAY MANAGEMENT <30 MINS Diagnoses Prostate cancer C61
== END 2022-03-03 15:55 | disposition home or self-care (01) ==
LOC: ASU 09:38 → INTOOBSV 15:06 → 3N 15:06

== ENCOUNTER 2022-03-08 13:32 | Inpatient (IN) ==
[2022-03-08 14:32] LABS: Basophils # (auto) 0.11 K/uL (0-0.2); Basophils % (auto) 0.6 %; Eosinophils # (auto) 0.48 K/uL (0-0.50); Eosinophils % (auto) 2.8 %; Hematocrit (blood only) 42.8 % (40.1-51.0); Hemoglobin 13.7 g/dl (14.0-18.0); Immature Granulocytes # (auto) 0.28 K/uL (0.00-0.02); Immature Granulocytes % (auto) 1.6 %; Lymphocytes # (auto) 2.82 K/uL (1.2-3.4); Lymphocytes % (auto) 16.4 %; Mean Corpuscular Hemoglobin 27.8 pg (25.0-34.0); Mean Corpuscular Volume 86.8 fL (80.0-100.0); Mean Platelet Volume 9.6 fL (9.4-12.4); Monocytes # (auto) 1.25 K/uL (0.24-0.82); Monocytes % (auto) 7.3 %; Neutrophils # (auto) 12.25 K/uL (1.4-6.5); Neutrophils % (auto) 71.3 %; Platelet Count 322 K/uL (130-400); RDW Coefficient of Variation 13.9 % (11.5-14.5); Red Blood Count 4.93 M/uL (4.63-6.08); White Blood Count 17.19 K/ul (4.8-10.8)
[2022-03-08 15:03] LABS: Albumin Level 3.9 gm/dl (3.4-5.0); Bilirubin,Total 0.4 mg/dl (0.2-1.0); Calcium 9.3 mg/dl (8.5-10.1); Creatinine Clr Calc Pharmacy 84.7 ml/min; Est GFR (African American) 62.8 ml/min; Est GFR (Non-African American) 54.2 ml/min; Globulin 3.8 gm/dl (2.5-4.0); Potassium 4.6 mmol/L (3.5-5.1); Total Protein 7.7 gm/dl (6.0-8.3)
[2022-03-08 17:10] LABS: Appearance Urine Cloudy (Clear); Bacteria Urine Automated 3+ (Negative); Bilirubin Urine Negative (Negative); Blood Urine 3+ (Negative); Color Urine Yellow; Glucose Urine UA Negative (Negative); Ketones Urine Negative (Negative); Leukocyte Esterase Urine 3+ (Negative); Nitrite Urine Negative (Negative); Protein Urine 2+ (Negative); RBC Urine Automated >30 /hpf (0-4); Specific Gravity Urine 1.014 (1.000-1.030); Urobilinogen Urine Negative (Negative); WBC Urine Automated >30 /hpf (0-5); pH Urine 5.5 (4.5-7.5)
[2022-03-08] MEDS ORDERED: ONDANSETRON INJ 2 MG/ML 2 ML VIAL IV STA ×2 (17:19→18:28)
[2022-03-08] MEDS ORDERED: MoRPHine SULFATE 10 MG/ML CARP/VIAL IV STA (17:19)
[2022-03-08] MEDS ORDERED: ERTAPENEM SODIUM 10 ML IV STA (17:23)
--- NOTE | 2022-03-08 17:28 | Emergency Department Note ---
History of Present Illness General Chief complaint: Urinary Symptoms Stated complaint: BLADDER SPASMS, VOMITTING Time Seen by Provider: 03/08/22 17:11 History of Present Illness Maximum Pain Intensity: 9 67-year-old male presents to the ED with a chief complaint of lower abdominal pain. The patient states that he had a prostatectomy done 6 days ago. He was at Dr. Cole's office today and the catheter was removed. Shortly after arriving home, he developed lower abdominal pain and spasms as well as diaphoresis and nausea and vomiting. He has vomited several times since then. He has been able to urinate several times a small amount since the catheter was removed. He also has a sensation that he has to move his bowels and urinate. His last bowel movement was this morning. He describes his pain as a constant sharp pain in the suprapubic area and just slightly to the right of that. Nothing helps. Home Medications Medication Instructions Recorded Confirmed Type cholecalciferol (vitamin D3) 10 400 units PO HS 02/09/19 03/04/22 History mcg (400 unit) capsule lutein 6 mg tablet 6 mg PO HS 02/09/19 03/04/22 History insulin syringes (disposable) 1 mL 03/06/20 01/25/22 History blood-glucose meter (Accu-Chek 10/14/20 01/25/22 History Suzan Plus Meter) Dexcom G6 Herbicide Service Sales Representative (blood-glucose #1 ea 03/09/21 01/25/22 Rx meter,continuous) pen needle, diabetic 32 gauge x 05/07/21 01/25/22 History 5/32" (BD Ultra-Fine Pia Pen Needle) quinapril 40 mg tablet 40 mg PO HS #90 tabs 05/21/21 03/04/22 Rx Dexcom G6 Transmitter #1 ea 05/25/21 01/25/22 Rx (blood-glucose transmitter) amlodipine 5 mg tablet 5 mg PO HS #90 tabs 07/16/21 03/04/22 Rx hydrochlorothiazide 25 mg tablet 25 mg PO HS #90 tabs 10/20/21 03/04/22 Rx coenzyme Q10 100 mg capsule (Co 100 mg PO QPM 12/01/21 03/04/22 History Q-10) Medical Marijuana Card 1 dose UD 02/23/22 03/02/22 History insulin aspart U-100 100 unit/mL 25 unit subcut TIDM 02/23/22 03/04/22 History subcutaneous solution (Novolog U-100 Insulin aspart) insulin glargine 100 unit/mL (3 50 unit subcut HS 02/23/22 03/04/22 History mL) subcutaneous pen (Basaglar KwikPen U-100 Insulin) mupirocin 2 % topical ointment 1 applic topical UD PRN SKIN 02/23/22 03/04/22 History IRRITATION sertraline 100 mg tablet 100 mg PO HS 02/23/22 03/04/22 History tramadol 50 mg tablet 50 mg PO BID PRN pain 02/23/22 03/04/22 History nitrofurantoin 100 mg PO Q12H 14 days #28 caps 02/25/22 03/04/22 Rx monohydrate/macrocrystals 100 mg capsule (Macrobid) Dexcom G6 Sensor (blood-glucose #9 ea 03/02/22 Rx sensor) docusate sodium 100 mg capsule 100 mg PO BID #30 caps 03/03/22 03/04/22 Rx (Colace) oxycodone 5 mg tablet 5 mg PO Q8H PRN pain #7 tabs 03/03/22 03/04/22 Rx Allergies Allergy/AdvReac Type Severity Reaction Status Date / Time amoxicillin [From Augmentin] Allergy Unknown FACE Verified 03/02/22 10:03 SWELLING AND RASH OVER BODY clavulanic acid Allergy Unknown FACE Verified 03/02/22 10:03 [From Augmentin] SWELLING AND RASH OVER BODY methotrexate Allergy Unknown Depression- Verified 03/02/22 10:03 severe acetaminophen [From Percocet] AdvReac Unknown Nausea Verified 03/02/22 10:03 doxycycline AdvReac Unknown nausea/ Verified 03/02/22 10:03 vomiting oxycodone [From Percocet] AdvReac Unknown Nausea Verified 03/02/22 10:03 Past Med/Surg History Medical History (Updated 03/08/22 @ 19:00 by Paul Victor DO) BCC (basal cell carcinoma of skin) HX Carcinoma of prostate DX 2014/MONITORED...UTI'S /INCONTINENCE...REASON FOR UPCOMING PROCEDURE Decreased renal function HX, PT REPORTS THEY KEEP AN EYE ON MY KIDNEYS Diabetic peripheral neuropathy associated with type 2 diabetes mellitus History of depression History of diabetic ulcer of foot History of kidney stones History of Mohs micrographic surgery for skin cancer behind right ear Hypertension Rheumatoid arthritis with negative rheumatoid factor pt unsure UTI (urinary tract infection) NOVEMBER 2021 & MOST RECENT 3 WEEKS AGO...RESOLVED Surgical History Amputated toe "All toes" left foot HX AMPUTATION OF TOES ON RIGHT PRIOR TO BKA History of colonoscopy History of facial surgery kita removed Hx of mastoidectomy Hx of removal of cyst on head Status post below knee amputation of right lower extremity Status post tonsillectomy Family History Mother Colorectal cancer Father Prostate cancer Brother Lung cancer Other Family history of diabetes mellitus in father Denies family history of Ovarian cancer Breast cancer Social History Smoking Status: Never smoker Second Hand Exposure: No; Hx Alcohol Use: No Hx Substance Use: No Preferred Language: Hungarian Communication Ability: Effective Visual Impairment: No Limitations Hearing Ability: Normal Job Estimator Required: No Beliefs That Will Affect Care: None marital status: Current Living Situation: Spouse and Family Current Living Situation Comment: , MOTHER IN LAW AND DAUGTHER current occupational status: retired and disabled Feels Safe at Home: Yes caffeine: No Dental Care, Regularly: Yes Physical Activity Frequency: Does not Exercise Seatbelt Use: always Sunscreen Use: Yes Assistive Devices: None Review of Systems A total of 10 systems reviewed and were otherwise negative Physical Exam Vital Signs Vital Signs - 24 hr 03/08/22 13:40 03/08/22 17:00 Temperature 36.6 C Temperature Source Temporal Artery Scan Pulse Rate 96 H Pulse Rate [Radial] 70 Pulse Rhythm Regular Pulse Rhythm [Radial] Regular Pulse Strength Normal Pulse Strength [Radial] Normal Respiratory Rate 22 20 Respiratory Effort / Characteristics Non-Labored Spontaneous Non-Labored Spontaneous Respiratory Depth Normal Normal Respiratory Pattern Regular Regular Blood Pressure 192/83 H Blood Pressure [Right Arm] 175/86 H Blood Pressure Mean 119 Blood Pressure Mean [Right Arm] 115 Blood Pressure Position Sitting Blood Pressure Position [Right Arm] Lying Pulse Oximetry 96 100 Oxygen Delivery Method Room Air Room Air Sepsis Recent Fever Within 48 Hours No Sepsis New/Unexplained Change in Mental Status No Sepsis Action Taken by Nursing No Action Required CONSTITUTIONAL/VITAL SIGNS: Reviewed / noted above. GENERAL: Non-toxic in appearance. INTEGUMENTARY: Warm, dry, and [place]. HEAD: Normocephalic. EYES: without scleral icterus or trauma. ENT/OROPHARYNX: clear and moist. LYMPHADENOPATHY/NECK: Is supple without lymphadenopathy or meningismus. RESPIRATORY: Clear to auscultation bilaterally. No increased work of breathing. CARDIOVASCULAR: Regular rate and rhythm. GI/ABDOMEN: Soft and tender in the lower abdomen. No organomegaly or pulsatile mass. EXTREMITIES: Warm and well perfused. BACK: No CVA tenderness. NEUROLOGICAL: Intact without focal deficits. PSYCHIATRIC: normal affect. MUSCULOSKELETAL: Normally developed with good muscle tone. TRIAGE NURSING DOCUMENTATION REVIEWED. Course Administered Medications Discontinued Medications Hydromorphone HCl (Hydromorphone Inj 1 Mg/Ml Syringe) 1 mg IV NOW STA Stop: 03/08/22 18:26 Last Admin: 03/08/22 18:32 Dose: 1 mg Documented By: BRANDYN Ertapenem (Invanz) 10 mls @ 2 mls/min IV NOW STA Stop: 03/08/22 17:27 Last Admin: 03/08/22 17:43 Dose: 2 mls/min Documented By: BRANDYN Ioversol (Optiray 300 500ml) 114 ml IV ONCE ONE Stop: 03/08/22 17:37 Last Admin: 03/08/22 17:37 Dose: 114 ml Documented By: KIMMY Morphine Sulfate (Morphine Sulfate 10 Mg/Ml Carp/Vial) 6 mg IV NOW STA Stop: 03/08/22 17:20 Last Admin: 03/08/22 17:25 Dose: 6 mg Documented By: BRANDYN Ondansetron HCl (Ondansetron Inj 2 Mg/Ml 2 Ml Vial) 4 mg IV NOW STA Stop: 03/08/22 17:20 Last Admin: 03/08/22 17:25 Dose: 4 mg Documented By: BRANDYN Ondansetron HCl (Ondansetron Inj 2 Mg/Ml 2 Ml Vial) 4 mg IV NOW STA Stop: 03/08/22 18:29 Last Admin: 03/08/22 18:32 Dose: 4 mg Documented By: BRANDYN Medical Decision Making Differential Diagnosis Differential considered: pancreatitis, hepatitis, acute cholecystitis, AAA, UTI, pyelonephritis, kidney stones, appendicitis, diverticulitis, shingles, bowel obstruction, mesenteric ischemia, intussusception,hernia, testicular torsion Medical Records Attestation: I reviewed the patient's medical records. Home Medications Current Medication List: was personally reviewed by me Laboratory Data Attestation: I reviewed the patient's lab results. Result diagrams: 03/08/22 14:19 03/08/22 14:19 Lab Results 03/08/22 03/08/22 03/08/22 Range/Units 14:19 14:19 16:56 WBC 17.19 H (4.8-10.8) K/ul RBC 4.93 (4.63-6.08) M/uL Hgb 13.7 L (14.0-18.0) g/dl Hct 42.8 (40.1-51.0) % MCV 86.8 (80.0-100.0) fL MCH 27.8 (25.0-34.0) pg MCHC 32.0 (32.0-36.0) g/dL RDW Std Deviation 44.0 (36.4-46.3) fL RDW Coeff of Cori 13.9 (11.5-14.5) % Plt Count 322 (130-400) K/uL MPV 9.6 (9.4-12.4) fL Immature Gran % (Auto) 1.6 % Neut % (Auto) 71.3 % Lymph % (Auto) 16.4 % Whitman % (Auto) 7.3 % Eos % (Auto) 2.8 % Baso % (Auto) 0.6 % Neut # (Auto) 12.25 H (1.4-6.5) K/uL Lymph # (Auto) 2.82 (1.2-3.4) K/uL Whitman # (Auto) 1.25 H (0.24-0.82) K/uL Eos # (Auto) 0.48 (0-0.50) K/uL Baso # (Auto) 0.11 (0-0.2) K/uL Immature Gran # (Auto) 0.28 H (0.00-0.02) K/uL Sodium 137 (136-145) mmol/L Potassium 4.6 (3.5-5.1) mmol/L Chloride 105 (98-107) mmol/L Carbon Dioxide 23 (21-32) mmol/L Anion Gap 9 (3-11) BUN 19 (6-23) mg/dl Creatinine 1.36 (0.6-1.4) mg/dl Est Cr Clr Drug Dosing 84.7 ml/min Est GFR ( Amer) 62.8 ml/min Est GFR (Non-Af Amer) 54.2 ml/min BUN/Creatinine Ratio 14.0 (10-20) Glucose 239 H (70-99(Fasting)) mg/dl Calcium 9.3 (8.5-10.1) mg/dl Total Bilirubin 0.4 (0.2-1.0) mg/dl AST 13 (13-39) U/L ALT 15 (7-52) U/L Alkaline Phosphatase 87 (34-104) U/L Total Protein 7.7 (6.0-8.3) gm/dl Albumin 3.9 (3.4-5.0) gm/dl Globulin 3.8 (2.5-4.0) gm/dl Albumin/Globulin Ratio 1.0 (0.9-2) Urine Color Yellow Urine Appearance Cloudy A (Clear) Urine pH 5.5 (4.5-7.5) Ur Specific [place] 1.014 (1.000-1.030) Urine Protein 2+ H (Negative) Urine Glucose (UA) Negative (Negative) Urine Ketones Negative (Negative) Urine Blood 3+ H (Negative) Urine Nitrite Negative (Negative) Urine Bilirubin Negative (Negative) Urine Urobilinogen Negative (Negative) Ur Leukocyte Esterase 3+ H (Negative) Urine WBC (Auto) >30 H (0-5) /hpf Urine RBC (Auto) >30 H (0-4) /hpf U Hyaline Cast (Auto) 1-5 (0-5) /lpf U Epithel Cells (Auto) 5-10 H (0-5) /lpf Urine Bacteria (Auto) 3+ H (Negative) SARS-CoV-2, RNA, NAAT (NEGATIVE) 03/08/22 Range/Units 18:15 WBC (4.8-10.8) K/ul RBC (4.63-6.08) M/uL Hgb (14.0-18.0) g/dl Hct (40.1-51.0) % MCV (80.0-100.0) fL MCH (25.0-34.0) pg MCHC (32.0-36.0) g/dL RDW Std Deviation (36.4-46.3) fL RDW Coeff of Cori (11.5-14.5) % Plt Count (130-400) K/uL MPV (9.4-12.4) fL Immature Gran % (Auto) % Neut % (Auto) % Lymph % (Auto) % Whitman % (Auto) % Eos % (Auto) % Baso % (Auto) % Neut # (Auto) (1.4-6.5) K/uL Lymph # (Auto) (1.2-3.4) K/uL Whitman # (Auto) (0.24-0.82) K/uL Eos # (Auto) (0-0.50) K/uL Baso # (Auto) (0-0.2) K/uL Immature Gran # (Auto) (0.00-0.02) K/uL Sodium (136-145) mmol/L Potassium (3.5-5.1) mmol/L Chloride (98-107) mmol/L Carbon Dioxide (21-32) mmol/L Anion Gap (3-11) BUN (6-23) mg/dl Creatinine (0.6-1.4) mg/dl Est Cr Clr Drug Dosing ml/min Est GFR ( Amer) ml/min Est GFR (Non-Af Amer) ml/min BUN/Creatinine Ratio (10-20) Glucose (70-99(Fasting)) mg/dl Calcium (8.5-10.1) mg/dl Total Bilirubin (0.2-1.0) mg/dl AST (13-39) U/L ALT (7-52) U/L Alkaline Phosphatase (34-104) U/L Total Protein (6.0-8.3) gm/dl Albumin (3.4-5.0) gm/dl Globulin (2.5-4.0) gm/dl Albumin/Globulin Ratio (0.9-2) Urine Color Urine Appearance (Clear) Urine pH (4.5-7.5) Ur Specific [place] (1.000-1.030) Urine Protein (Negative) Urine Glucose (UA) (Negative) Urine Ketones (Negative) Urine Blood (Negative) Urine Nitrite (Negative) Urine Bilirubin (Negative) Urine Urobilinogen (Negative) Ur Leukocyte Esterase (Negative) Urine WBC (Auto) (0-5) /hpf Urine RBC (Auto) (0-4) /hpf U Hyaline Cast (Auto) (0-5) /lpf U Epithel Cells (Auto) (0-5) /lpf Urine Bacteria (Auto) (Negative) SARS-CoV-2, RNA, NAAT NEGATIVE (NEGATIVE) Imaging Data Radiologist's Impression: Abdomen/Pelvis CT 03/08/22 17:20 CT OF THE ABDOMEN AND PELVIS WITH CONTRAST CLINICAL HISTORY: lower abdominal pain, s/p prostatectomy 6d ago COMPARISON STUDY: CT of the abdomen and pelvis December 01, 2021. TECHNIQUE: Following IV administration of 114 mL of Optiray, axial images of the abdomen and pelvis were obtained from the lung bases to the proximal femurs. Images were reviewed in the axial, sagittal, and coronal planes. IV contrast was administered without complication. Automated exposure control was utilized for the study. A dose lowering technique was utilized adhering to the principles of ALARA. CT DOSE: 1990.67 mGy.cm FINDINGS: Several lower lung nodules including an 8 mm right lower lobe nodule are unchanged since CT of February 23, 2021. These are probably benign. No pneumatosis, free air or portal venous gas is present. Hepatic steatosis is noted. A 2.7 cm left adrenal nodule is unchanged since CT of February 23, 2021. This likely reflects an adenoma. The spleen, right adrenal gland and pancreas are unremarkable there is a 1 cm calculus within lower pole of the right kidney. The ureteral calculi are present. There is no hydronephrosis or hydroureter. There is a small mild gas within the bladder. There is mild symmetric bilateral perinephric stranding. There is no renal abscess. There are postoperative findings consistent with recent prostatectomy. A small amount of fluid within the prostatectomy bed is noted. In addition, there is an 8 x 8 x 4.7 cm fluid collection within the space of Retzius with mild peripheral enhancement. There is moderate adjacent extraperitoneal fluid within the anterior pelvis and right lateral abdomen. There is trace perihepatic ascites. No additional fluid collections are present. There is no lymphadenopathy. No suspicious osseous lesions are identified within the visualized skeletal structures. Major vasculature is patent. Exam is compromised by body wall contacting the gantry. There is subcutaneous stranding of the anterior abdominal wall. IMPRESSION: 1. Status post recent prostatectomy. Trace fluid within the prostatectomy bed. 8 x 8 x 4.7 cm fluid collection within the space of Retzius with mild peripheral enhancement. A seroma or resolving hematoma is favored. However, sterility cannot be assessed by CT and an abscess is within the differential. Moderate extraperitoneal fluid within the anterior pelvis and right lateral abdomen, as described above. Trace perihepatic ascites. 2. Mild bladder wall thickening which could be correlated with urinalysis. Trace gas within the bladder, likely from recent instrumentation. No hydronephrosis. 1 cm right renal calculus. No ureteral calculi. Mild symmetric bilateral perinephric stranding. 3. No bowel obstruction. No bowel wall thickening. Normal lipase. ACT 112: Negative or not required by law. Electronically signed by: Mahin Bolanos M.D. 03/08/2022 5:59 PM MDM Narrative 67-year-old male presents with about 5 or 6 hours worth of lower abdominal pain and nausea and vomiting. His symptoms started after having a catheter removed by Dr. Cole. He had prostatectomy 6 days ago. He has tenderness to palpation of the lower abdomen. White blood cell count was 17.1. Metabolic panel was unremarkable with exception of a glucose of 239. CT scan of the abdomen pelvis noted above. There is a fluid collection with some mild per ipheral enhancement. A seroma or a resolving hematoma is favored however abscess cannot be ruled out. There is some moderate extraperitoneal fluid in the pelvis. Mild bladder wall thickening. Based on the patient's ESBL UTI history, the patient was given IV or ertapenem. He was given IV morphine as well as IV Dilaudid and IV Zofran for his symptoms. He did have some nausea and vomiting here. He was seen by the hospitalist for further evaluation and care. Impression & Plan UTI due to extended-spectrum beta lactamase (ESBL) producing Escherichia coli, Abdominal pain, lower, Vomiting Discharge Plan Visit Data Chief Complaint: Urinary Symptoms Stated Complaint: BLADDER SPASMS, VOMITTING ED Provider: Paul Victor Discharge Problem: UTI due to extended-spectrum beta lactamase (ESBL) producing Escherichia coli, Abdominal pain, lower, Vomiting Patient Disposition: Being Evaluated by Hospitalist Forms Stand Alone Forms: [facility], Virtual Emergency Department, Important Visit Information Prescriptions Prescriptions: No Action (DME) Dexcom G6 Herbicide Service Sales Representative Misc See Rx Instructions .MEDSUPPLY Qty: 1 0RF Rx Instructions: Use as directed for continuous glucose monitoring quinapril 40 mg tablet 40 mg PO HS Qty: 90 3RF (DME) Dexcom G6 Transmitter Device See Rx Instructions .MEDSUPPLY Qty: 1 0RF Rx Instructions: Use as directed for continuous glucose monitoring - change every 90 days amlodipine 5 mg tablet 5 mg PO HS Qty: 90 1RF hydrochlorothiazide 25 mg tablet 25 mg PO HS Qty: 90 3RF nitrofurantoin monohyd/m-cryst [Macrobid] 100 mg capsule 100 mg PO Q12H 14 Days Qty: 28 0RF Rx Instructions: must administer with a meal/food (DME) Dexcom G6 Sensor Device See Rx Instructions .MEDSUPPLY Qty: 9 3RF Rx Instructions: Use as directed for continuous glucose monitoring - Change sensor every 10 days lutein 6 mg tablet 6 mg PO HS cholecalciferol (vitamin D3) 400 unit capsule 400 units PO HS (DME) insulin syringes (disposable) 1 mL syringe See Rx Instructions .ROUTE .MEDSUPPLY Rx Instructions: Inject 3 times daily (DME) blood-glucose meter [Accu-Chek Suzan Plus Meter] [facility] See Rx Instructions .ROUTE .MEDSUPPLY Rx Instructions: Test 1 times daily (DME) pen needle, diabetic [BD Ultra-Fine Pia Pen Needle] 32 gauge x 5/32" needle See Rx Instructions .ROUTE .MEDSUPPLY Rx Instructions: Inject with Basaglar once daily sertraline 100 mg tablet 100 mg PO HS tramadol 50 mg tablet 50 mg PO BID PRN (Reason: pain) insulin aspart U-100 [Novolog U-100 Insulin aspart] 100 unit/mL solution 25 unit subcut TIDM Label Comments: SLIDING SCALE Rx Instructions: PER SLIDING SCALE mupirocin 2 % ointment 1 applic topical UD PRN (Reason: SKIN IRRITATION ) insulin glargine [Basaglar KwikPen U-100 Insulin] 100 unit/mL (3 mL) insulin pen 50 unit SQ HS Medical Marijuana Card 1 dose UD docusate sodium [Colace] 100 mg capsule 100 mg PO BID Qty: 30 0RF Rx Instructions: Take twice daily for 2 weeks, then as needed thereafter oxycodone 5 mg tablet 5 mg PO Q8H PRN (Reason: pain) Qty: 7 0RF coenzyme Q10 [Co Q-10] 100 mg Capsule 100 mg PO QPM Referrals Referrals: Leonila Beach MD [Primary Care Provider] -
[2022-03-08] MEDS ORDERED: OPTIRAY 300 500mL IV ONE (17:36)
--- NOTE | 2022-03-08 18:01 | CT Scan Report ---
CT OF THE ABDOMEN AND PELVIS WITH CONTRAST CLINICAL HISTORY: lower abdominal pain, s/p prostatectomy 6d ago COMPARISON STUDY: CT of the abdomen and pelvis December 01, 2021. TECHNIQUE: Following IV administration of 114 mL of Optiray, axial images of the abdomen and pelvis w ere obtained from the lung bases to the proximal femurs. Images were reviewed in the axial, sagittal, and coronal planes. IV contrast was administered without complication. Automated exposure control w as utilized for the study. A dose lowering technique was utilized adhering to the principles of KRUPA Aparicio. CT DOSE: 1990.67 mGy.cm FINDINGS: Several lower lung nodules including an 8 mm right lower lobe nodule are unchanged since CT of February 23, 2021. These are probably benign. No pneumatosis, free air or portal venous gas is p resent. Hepatic steatosis is noted. A 2.7 cm left adrenal nodule is unchanged since CT of January 292020. This likely reflects an adenoma. The spleen, right adrenal gland and pancreas are unremarkab le there is a 1 cm calculus within lower pole of the right kidney. The ureteral calculi are present. There is no hydronephrosis or hydroureter. There is a small mild gas within the bladder. There is mil d symmetric bilateral perinephric stranding. There is no renal abscess. There are postoperative findi ngs consistent with recent prostatectomy. A small amount of fluid within the prostatectomy bed is not ed. In addition, there is an 8 x 8 x 4.7 cm fluid collection within the space of Retzius with mild pe ripheral enhancement. There is moderate adjacent extraperitoneal fluid within the anterior pelvis and right lateral abdomen. There is trace perihepatic ascites. No additional fluid collections are prese nt. There is no lymphadenopathy. No suspicious osseous lesions are identified within the visualized s keletal structures. Major vasculature is patent. Exam is compromised by body wall contacting the dwayne ry. There is subcutaneous stranding of the anterior abdominal wall. IMPRESSION: 1. Status post recent prostatectomy. Trace fluid within the prostatectomy bed. 8 x 8 x 4.7 cm fluid c ollection within the space of Retzius with mild peripheral enhancement. A seroma or resolving hematom a is favored. However, sterility cannot be assessed by CT and an abscess is within the differential. Moderate extraperitoneal fluid within the anterior pelvis and right lateral abdomen, as described abo ve. Trace perihepatic ascites. 2. Mild bladder wall thickening which could be correlated with urinalysis. Trace gas within the bladd er, likely from recent instrumentation. No hydronephrosis. 1 cm right renal calculus. No ureteral toshia culi. Mild symmetric bilateral perinephric stranding. 3. No bowel obstruction. No bowel wall thickening. Normal lipase. ACT 112: Negative or not required by law. Electronically signed by: Mahin Bolanos M.D. 03/08/2022 5:59 PM
--- NOTE | 2022-03-08 18:21 | History & Physical Report ---
Date of Service March 08, 2022 Assessment & Plan (1) UTI (urinary tract infection): Plan: ESBL E. coli identified and preoperative testing. For the preoperative infection the patient was placed on nitrofurantoin and it looks like the prescription was filled in February 25 We will continue on ertapenem now lieu of the additional urine culture patient be seen by urology to discuss his fluid collection which is likely postoperative. Blood cultures were sent as well as urine culture with abdominal pain will have parenteral dialuldid available (2) Hypertension: Plan: Patient be continued on amlodipine, hydrochlorothiazide and quinapril her pharmacy substitute (3) Type 2 diabetes mellitus with insulin therapy: Plan: Patient typically is on glargine 50 units at bedtime and sliding scale 25 with each meal Will be continued on the glargine we will have insulin sliding scale with POC's q. ACH S and diabetic diet (4) Prostate cancer: Plan: Prostatectomy March 02 with acinar adenocarcinoma grade group 1 [place] score 6 (5) History of depression: Plan: Continue sertraline monitor at bedtime Plan Heparin for DVT prevention History of Present Illness Primary Care Provider: Leonila Beach MD 67-year-old male who underwent a prostatectomy 6 days prior to admission and had his Mcmahon catheter removed at the urologist office today. Patient then went home had developed abdominal pain and spasms as well as diaphoresis nausea and vomiting. Patient presents to the ED with leukocytosis. And imaging of the area shows fluid collection which would be expected postoperatively but with a history of ESBL urinary tract infections and leukocytosis concern would be for infectious source and the patient will be admitted to our facility Allergies Allergy/AdvReac Type Severity Reaction Status Date / Time amoxicillin [From Augmentin] Allergy Unknown FACE Verified 03/02/22 10:03 SWELLING AND RASH OVER BODY clavulanic acid Allergy Unknown FACE Verified 03/02/22 10:03 [From Augmentin] SWELLING AND RASH OVER BODY methotrexate Allergy Unknown Depression- Verified 03/02/22 10:03 severe acetaminophen [From Percocet] AdvReac Unknown Nausea Verified 03/02/22 10:03 doxycycline AdvReac Unknown nausea/ Verified 03/02/22 10:03 vomiting oxycodone [From Percocet] AdvReac Unknown Nausea Verified 03/02/22 10:03 Home Medications Medication Instructions Recorded Confirmed Type cholecalciferol (vitamin D3) 10 400 units PO HS 02/09/19 03/04/22 History mcg (400 unit) capsule lutein 6 mg tablet 6 mg PO HS 02/09/19 03/04/22 History insulin syringes (disposable) 1 mL 03/06/20 01/25/22 History blood-glucose meter (Accu-Chek 10/14/20 01/25/22 History Suzan Plus Meter) Dexcom G6 Automation Architect (blood-glucose #1 ea 03/09/21 01/25/22 Rx meter,continuous) pen needle, diabetic 32 gauge x 05/07/21 01/25/22 History " (BD Ultra-Fine Pia Pen Needle) quinapril 40 mg tablet 40 mg PO HS #90 tabs 05/21/21 03/04/22 Rx Dexcom G6 Transmitter #1 ea 05/25/21 01/25/22 Rx (blood-glucose transmitter) amlodipine 5 mg tablet 5 mg PO HS #90 tabs 07/16/21 03/04/22 Rx hydrochlorothiazide 25 mg tablet 25 mg PO HS #90 tabs 10/20/21 03/04/22 Rx coenzyme Q10 100 mg capsule (Co 100 mg PO QPM 12/01/21 03/04/22 History Q-10) Medical Marijuana Card 1 dose UD 02/23/22 03/02/22 History insulin aspart U-100 100 unit/mL 25 unit subcut TIDM 02/23/22 03/04/22 History subcutaneous solution (Novolog U-100 Insulin aspart) insulin glargine 100 unit/mL (3 50 unit subcut HS 02/23/22 03/04/22 History mL) subcutaneous pen (Basaglar KwikPen U-100 Insulin) mupirocin 2 % topical ointment 1 applic topical UD PRN SKIN 02/23/22 03/04/22 History IRRITATION sertraline 100 mg tablet 100 mg PO HS 02/23/22 03/04/22 History tramadol 50 mg tablet 50 mg PO BID PRN pain 02/23/22 03/04/22 History nitrofurantoin 100 mg PO Q12H 14 days #28 caps 02/25/22 03/04/22 Rx monohydrate/macrocrystals 100 mg capsule (Macrobid) Dexcom G6 Sensor (blood-glucose #9 ea 03/02/22 Rx sensor) docusate sodium 100 mg capsule 100 mg PO BID #30 caps 03/03/22 03/04/22 Rx (Colace) oxycodone 5 mg tablet 5 mg PO Q8H PRN pain #7 tabs 03/03/22 03/04/22 Rx Past Med/Surg History Medical History (Updated 03/08/22 @ 19:00 by Paul Victor DO) BCC (basal cell carcinoma of skin) HX Carcinoma of prostate DX 2014/MONITORED...UTI'S /INCONTINENCE...REASON FOR UPCOMING PROCEDURE Decreased renal function HX, PT REPORTS THEY KEEP AN EYE ON MY KIDNEYS Diabetic peripheral neuropathy associated with type 2 diabetes mellitus History of depression History of diabetic ulcer of foot History of kidney stones History of Mohs micrographic surgery for skin cancer behind right ear Hypertension Rheumatoid arthritis with negative rheumatoid factor pt unsure UTI (urinary tract infection) NOVEMBER 2021 & MOST RECENT 3 WEEKS AGO...RESOLVED Surgical History Amputated toe "All toes" left foot HX AMPUTATION OF TOES ON RIGHT PRIOR TO BKA History of colonoscopy History of facial surgery kita removed Hx of mastoidectomy Hx of removal of cyst on head Status post below knee amputation of right lower extremity Status post tonsillectomy Family History Mother Colorectal cancer Father Prostate cancer Brother Lung cancer Other Family history of diabetes mellitus in father Denies family history of Ovarian cancer Breast cancer Social History Smoking Status: Never smoker Second Hand Exposure: No; Hx Alcohol Use: No Hx Substance Use: No Preferred Language: Czech Communication Ability: Effective Visual Impairment: No Limitations Hearing Ability: Normal Irrigation System Operator Required: No Beliefs That Will Affect Care: None marital status: Current Living Situation: Spouse and Family Current Living Situation Comment: , MOTHER IN LAW AND DAUGTHER current occupational status: retired and disabled Feels Safe at Home: Yes caffeine: No Dental Care, Regularly: Yes Physical Activity Frequency: Does not Exercise Seatbelt Use: always Sunscreen Use: Yes Assistive Devices: None Review of Systems Review of Systems: moderate distress and fatigue no headache, no visual changes no speech or swallowing issues no chest pain, pressure or palpitations no shortness of breath, cough or wheezes low right sided abdominal pain,pre hospital nausea & vomiting, no constipation has been moving his bowels dysuria, after mcmahon removal no focal joint pain or swelling no back pain, CVA tenderness or radicular pain no bruising, bleeding or rashes no focal signs of weakness or numbness or altered sensation no complaints of anxiety or depression.. Physical Exam Physical Exam: The patient appeared in moderate distress from pain Vital signs as documented. Head exam is normocephalic atraumatic Neck is without JVD, thyromegaly, or carotid bruits. Lungs are coarse b/l Cardiac exam, Rhythm is tachycardic Abdominal exam reveals distension, surgical scars are well approximated, no signs of infection or hernia, tympanitic, but not acute abdomen Extremities are nonedematous and both pedal pulses are present Neurologic exam is alert and oriented, no focal loss of strength or sensation Skin is without bruises or rashes Psychologically is without concerns for anxiety or depression.. Results & Data Results & Data ([facility]) Vital Signs (Past 12 Hours) Vital Signs Temp Pulse Pulse Resp BP BP Pulse Ox 03/08/22 17:00 70 20 175/86 H 100 03/08/22 13:40 97.9 F 96 H 22 192/83 H 96 O2 Del Method 03/08/22 17:00 Room Air 03/08/22 13:40 Room Air Diagnostic Findings Abdomen/Pelvis CT 03/08/22 17:20 CT OF THE ABDOMEN AND PELVIS WITH CONTRAST CLINICAL HISTORY: lower abdominal pain, s/p prostatectomy 6d ago COMPARISON STUDY: CT of the abdomen and pelvis December 01, 2021. TECHNIQUE: Following IV administration of 114 mL of Optiray, axial images of the abdomen and pelvis were obtained from the lung bases to the proximal femurs. Images were reviewed in the axial, sagittal, and coronal planes. IV contrast was administered without complication. Automated exposure control was utilized for the study. A dose lowering technique was utilized adhering to the principles of ALARA. CT DOSE: 1990.67 mGy.cm FINDINGS: Several lower lung nodules including an 8 mm right lower lobe nodule are unchanged since CT of February 23, 2021. These are probably benign. No pneumatosis, free air or portal venous gas is present. Hepatic steatosis is noted. A 2.7 cm left adrenal nodule is unchanged since CT of February 23, 2021. This likely reflects an adenoma. The spleen, right adrenal gland and pancreas are unremarkable there is a 1 cm calculus within lower pole of the right kidney. The ureteral calculi are present. There is no hydronephrosis or hydroureter. There is a small mild gas within the bladder. There is mild symmetric bilateral perinephric stranding. There is no renal abscess. There are postoperative findings consistent with recent prostatectomy. A small amount of fluid within the prostatectomy bed is noted. In addition, there is an 8 x 8 x 4.7 cm fluid collection within the space of Retzius with mild peripheral enhancement. There is moderate adjacent extraperitoneal fluid within the anterior pelvis and right lateral abdomen. There is trace perihepatic ascites. No additional fluid collections are present. There is no lymphadenopathy. No suspicious osseous lesions are identified within the visualized skeletal structures. Major vasculature is patent. Exam is compromised by body wall contacting the gantry. There is subcutaneous stranding of the anterior abdominal wall. IMPRESSION: 1. Status post recent prostatectomy. Trace fluid within the prostatectomy bed. 8 x 8 x 4.7 cm fluid collection within the space of Retzius with mild peripheral enhancement. A seroma or resolving hematoma is favored. However, sterility cannot be assessed by CT and an abscess is within the differential. Moderate extraperitoneal fluid within the anterior pelvis and right lateral abdomen, as described above. Trace perihepatic ascites. 2. Mild bladder wall thickening which could be correlated with urinalysis. Trace gas within the bladder, likely from recent instrumentation. No hydronephrosis. 1 cm right renal calculus. No ureteral calculi. Mild symmetric bilateral perinephric stranding. 3. No bowel obstruction. No bowel wall thickening. Normal lipase. ACT 112: Negative or not required by law. Electronically signed by: Mahin Bolanos M.D. 03/08/2022 5:59 PM PG Care Time/CCT Total # of Minutes Spent Total Time Spent with Patient: Total time spent is greater than 50% in coordination of care (as documented) at patient's floor/unit and/or counseling patient: Coding Level of Care Code 62374 Initial Inpt Care Lvl 3 Diagnoses UTI (urinary tract infection) N39.0 Hypertension I10 Hypertension type: essential hypertension Type 2 diabetes mellitus with insulin therapy E11.9; Z79.4 Prostate cancer C61 History of depression Z86.59 (1) Hypertension Hypertension type: essential hypertension Qualified Code(s): I10 - Essential (primary) hypertension
[2022-03-08] MEDS ORDERED: HYDROmorphone INJ 1 MG/ML SYRINGE IV STA (18:25)
[2022-03-08] MEDS ORDERED: hydrALAZINE HCL 20 MG/ML VIAL IV PRN (19:06)
[2022-03-08] MEDS ORDERED: CARBOHYDRATES FOR HYPOGLYCEMIA PO PRN (20:49)
[2022-03-08] MEDS ORDERED: GLUCOSE 10 TAB/TUBE PO PRN (20:49)
[2022-03-08] MEDS ORDERED: GLUCOSE 40% GEL 15 GM TUBE PO PRN (20:49)
[2022-03-08] MEDS ORDERED: DEXTROSE 50% 50 ML SYRINGE IV PRN (20:49)
[2022-03-08] MEDS ORDERED: POLYETHYLENE (MIRALAX) 17 GM PACK PO PRN (20:49)
[2022-03-08] MEDS ORDERED: HYDROmorphone INJ 0.5 MG/0.5 ML SYR IV PRN (20:49)
[2022-03-08] MEDS ORDERED: KETOROLAC 30 MG/ML VIAL IV ONE (20:49)
[2022-03-08] MEDS ORDERED: GLUCAGON FOR INJ 1 MG VIAL SQ PRN (20:49)
[2022-03-08] MEDS ORDERED: hydroCHLOROthiazide 25 MG TAB PO SCH (21:00)
[2022-03-08] MEDS ORDERED: ENALAPRIL MALEATE 10 MG TAB PO SCH (21:00)
[2022-03-08] MEDS: SODIUM CHLORIDE 0.9% 1000ML 1,000 ML IV SCH (21:10)
[2022-03-08] MEDS ORDERED: PHENAZOPYRIDINE HCL 200 MG TAB PO PRN (21:13)
[2022-03-08] MEDS ORDERED: PHENAZOPYRIDINE HCL 100 MG TAB PO PRN (21:21)
--- NOTE | 2022-03-08 21:33 | Urology Consultation ---
Date of Consultation March 08, 2022 Assessment & Plan (1) UTI due to extended-spectrum beta lactamase (ESBL) producing Escherichia coli: Patient has been admitted on the hospitalist service. As noted previously in this document the patient was noted to be tachycardic and has spiked a temperature since arrival to the hospital. I have concerns that the patient may becoming septic. I discussed this case with Dr. Baer of the hospitalist service, and we therefore recommend proceeding as follows: Continue broad-spectrum antibiotics in the form of ertapenem As patient is spiked a fever and he has had a recent hospitalization we will broaden his antibiotic coverage with vancomycin Due to the patient's tachycardia and concern for sepsis along with the minimal amount of urine noted on his bladder scan he will be provided with an intravenous fluid bolus and his IV fluids will continue at a maintenance rate Due to the underlying tachycardia and concern for sepsis he will be transferred to the telemetry unit for closer monitoring Recommend following serial labs I have also discussed case with my attending urology physician Dr. Park: As the patient has had a recent prostatectomy be preferable not to place a Castle catheter at this time He notes as long as the patient is not retaining in excess of 400 cc of urine and a Castle catheter will not be required He notes that following Castle removal after prostatectomy does not uncommon for patients to only void small amounts at a time and they may not even exhibit full bladder control As needed Pyridium can be utilized to help alleviate bladder spasms. I have ordered this medication Additional recommendations be forthcoming based on his clinical course as it unfolds History of Present Illness Reason for Consultation: Status post prostatectomy Attending Physician: Addy Funez MD History of Present Illness This is a 67-year-old male who underwent a robotic prostatectomy by Dr. Cole on 03/02/2022. Patient was discharged home on 03/03/2022. The patient's most recent labs from time of discharge were from 03/03/2022 where his white blood cell count was 11.9 and his hemoglobin and hematocrit were 11.4 and 34.3. Platelet count was noted to be normal. Chemistry profile showed sodium, potassium, BUN, and creatinine were all within the normal range. The patient was discharged home with a Castle catheter in place. It is noteworthy to mention that prior to patient's surgery he did undergo a preoperative urine culture which showed the patient had an E. coli urinary tract infection with multiple resistances. This organism was found to be sensitive to meropenem however. The patient reports that since being home he was having considerable spasm related to the Castle catheter. He notes that the pain related to this problem would come and go in waves but would usually self resolve.The patient was seen in the urology office today at which time the patient Castle catheter was removed. Prior to the Castle catheter being removed had approximately 400 cc of water instilled into his bladder via the catheter and he was able to void approximately 225 cc of urine thereafter and was discharged home from the office. Since returning home from the office the patient developed significant abdominal pain and spasms in the suprapubic area. He has had associated diaphoresis along with nausea and vomiting. The patient notes that he has been able to void but only small amounts. He does not really report any dysuria and has not noted any gross hematuria. At the time of my interview he did not feel as though his bladder was full. While at home he did not note any fevers, shakes, or chills. Since arrival to the emergency department the patient has had labs and imaging which independent reviewed. A CT scan of the abdomen pelvis showed findings consistent with recent prostatectomy. There is fluid noted in the prostatectomy bed measuring approximately 8 x 8 x 4.7 cm. Bladder wall thickening was also noted to be present on the study. There is trace gas within the bladder no hydronephrosis was noted. There is no evidence of bowel obstruction. Labs include a CBC her white blood cell count was elevated at 17.1. Hemoglobin was 13.7 with a hematocrit of 42.8. Platelet count was within the normal range. Chemistry profile showed sodium, potassium, BUN, and creatinine were normal. There is no elevation of patient's LFTs. Urinalysis did show cloudy urine which was negative for nitrites. There was 3+ leukocyte esterase noted on the specimen. On the urinalysis are greater than 30 white blood cells per high- power field along with 3+ bacteria. A COVID test was negative. Upon presentation to the emergency department the patient was noted to have a heart rate that ranged anywhere from 70-96. He was initially noted to be afebrile. There were no episodes of hypotension noted since arrival to the emergency department. Due to the multi resistant organism patient was noted to have on his preoperative urinalysis he was treated with antibiotics in the form of ertapenem. He was initiated on intravenous fluids with sodium chloride at 80 cc/h. At the time of my interview with the patient he was in no distress, however the patient was noted to be tachycardic with a heart rate in the 120s. An EKG was performed at bedside which showed sinus rhythm. HR had dropped to 99 at time of EKG. He was not hypotensive at the time of my interview, but shortly after talking with the patient he spiked a temperature of 39.1. The patient notes that prior to my interview his most recent voiding episode was approximately 2 hours previous to my interview.. The bedside nurse notes that she has performed a bladder scan since the patient has arrived to the floor and he only had approximately 113 cc of fluid in his bladder. Allergies Allergy/AdvReac Type Severity Reaction Status Date / Time amoxicillin [From Augmentin] Allergy Unknown FACE Verified 03/08/22 19:55 SWELLING AND RASH OVER BODY clavulanic acid Allergy Unknown FACE Verified 03/08/22 19:55 [From Augmentin] SWELLING AND RASH OVER BODY methotrexate Allergy Unknown Depression- Verified 03/08/22 19:55 severe doxycycline AdvReac Unknown nausea/ Verified 03/08/22 19:55 vomiting oxycodone [From Percocet] AdvReac Unknown Nausea Verified 03/08/22 19:55 Home Medications Medication Instructions Recorded Confirmed Type cholecalciferol (vitamin D3) 10 400 units PO HS 02/09/19 03/08/22 History mcg (400 unit) capsule lutein 6 mg tablet 6 mg PO HS 02/09/19 03/08/22 History insulin syringes (disposable) 1 mL 03/06/20 01/25/22 History blood-glucose meter (Accu-Chek 10/14/20 01/25/22 History Suzan Plus Meter) Dexcom G6 Risk And Compliance Analytics Director (blood-glucose #1 ea 03/09/21 01/25/22 Rx meter,continuous) pen needle, diabetic 32 gauge x 05/07/21 01/25/22 History 532" (BD Ultra-Fine Pia Pen Needle) quinapril 40 mg tablet 40 mg PO HS #90 tabs 05/21/21 03/08/22 Rx Dexcom G6 Transmitter #1 ea 05/25/21 01/25/22 Rx (blood-glucose transmitter) amlodipine 5 mg tablet 5 mg PO HS #90 tabs 07/16/21 03/08/22 Rx hydrochlorothiazide 25 mg tablet 25 mg PO HS #90 tabs 10/20/21 03/08/22 Rx coenzyme Q10 100 mg capsule (Co 100 mg PO QPM 12/01/21 03/08/22 History Q-10) Medical Marijuana Card 1 dose UD 02/23/22 03/08/22 History insulin aspart U-100 100 unit/mL 25 unit subcut TIDM 02/23/22 03/08/22 History subcutaneous solution (Novolog U-100 Insulin aspart) insulin glargine 100 unit/mL (3 50 unit subcut HS 02/23/22 03/08/22 History mL) subcutaneous pen (Basaglar KwikPen U-100 Insulin) mupirocin 2 % topical ointment 1 applic topical UD PRN SKIN 02/23/22 03/08/22 History IRRITATION sertraline 100 mg tablet 100 mg PO HS 02/23/22 03/08/22 History tramadol 50 mg tablet 50 mg PO BID PRN pain 02/23/22 03/08/22 History nitrofurantoin 100 mg PO Q12H 14 days #28 caps 02/25/22 03/08/22 Rx monohydrate/macrocrystals 100 mg capsule (Macrobid) Dexcom G6 Sensor (blood-glucose #9 ea 03/02/22 Rx sensor) docusate sodium 100 mg capsule 100 mg PO BID #30 caps 03/03/22 03/08/22 Rx (Colace) Patient History Medical History BCC (basal cell carcinoma of skin) HX Carcinoma of prostate DX 2013/MONITORED...UTI'S /INCONTINENCE...REASON FOR UPCOMING PROCEDURE Decreased renal function HX, PT REPORTS THEY KEEP AN EYE ON MY KIDNEYS Diabetic peripheral neuropathy associated with type 2 diabetes mellitus History of depression History of diabetic ulcer of foot History of kidney stones History of Mohs micrographic surgery for skin cancer behind right ear Hypertension Rheumatoid arthritis with negative rheumatoid factor pt unsure UTI (urinary tract infection) NOVEMBER 2021 & MOST RECENT 3 WEEKS AGO...RESOLVED Surgical History Amputated toe "All toes" left foot HX AMPUTATION OF TOES ON RIGHT PRIOR TO BKA History of colonoscopy History of facial surgery kita removed Hx of mastoidectomy Hx of removal of cyst on head Status post below knee amputation of right lower extremity Status post tonsillectomy Family History Mother Colorectal cancer Father Prostate cancer Brother Lung cancer Other Family history of diabetes mellitus in father Denies family history of Ovarian cancer Breast cancer Social History Smoking Status: Never smoker Second Hand Exposure: No; Hx Alcohol Use: No Hx Substance Use: No Preferred Language: Korean Communication Ability: Effective Visual Impairment: No Limitations Hearing Ability: Normal Dealmaker Required: No Beliefs That Will Affect Care: None marital status: Current Living Situation: Spouse and Family Current Living Situation Comment: , MOTHER IN LAW AND DAUGTHER current occupational status: retired and disabled Feels Safe at Home: Yes caffeine: No Dental Care, Regularly: Yes Physical Activity Frequency: Does not Exercise Seatbelt Use: always Sunscreen Use: Yes Assistive Devices: None Review of Systems Constitutional: + fever; no chills Eyes: no eye pain Ear, Nose, Mouth, Throat: no ear pain Respiratory: no cough and no dyspnea Cardiovascular: no chest pain Gastrointestinal: + abdominal pain; no nausea and no vomiting Genitourinary: + as per Subjective / HPI Musculoskeletal: no back pain Integumentary: no rash Neurologic: no localized weakness Physical Exam Constitutional: well developed and well nourished; no acute distress Eyes: no conjunctival abnormality ENMT: Ears: no hearing impairment and no external ear abnormality Mouth: no oropharynx abnormality Neck: trachea midline Respiratory: normal respiratory effort; no respiratory distress and no labored breathing Cardiovascular: Rate/Rhythm: regular rate, regular rhythm and + tachycardic Gastrointestinal (Abdomen): Abdomen is rotund with minimal distention. Patient has multiple incisions from his recent prostatectomy which are all clean, dry, intact. Patient did have pain/discomfort noted with palpation in the suprapubic area. Musculoskeletal: No calf tenderness Skin: no rashes Neurologic: moves all extremities Psychiatric: A+Ox3, euthymic affect Genitourinary: no CVA tenderness Results & Data ([facility]) Vital Signs (Past 12 Hours) Vital Signs Temp Pulse Pulse Resp BP BP Pulse Ox 10/10/22 21:12 39.1 C H 03/08/22 20:16 122 H 180/93 H 97 03/08/22 19:09 94 H 22 95 03/08/22 17:00 70 20 175/86 H 100 03/08/22 13:40 36.6 C 96 H 22 192/83 H 96 O2 Del Method O2 Flow Rate 03/08/22 21:12 03/08/22 20:16 Nasal Cannula 3 03/08/22 19:09 Room Air 03/08/22 17:00 Room Air 03/08/22 13:40 Room Air PG Care Time/CCT Total # of Minutes Spent Total Time Spent with Patient: Total time spent is greater than 50% in coordination of care (as documented) at patient's floor/unit and/or counseling patient: Coding Level of Care Code 12660 Inpt Consult Level 5 Diagnoses UTI due to extended-spectrum beta lactamase (ESBL) producing Escherichia coli N39.0; B96.29; Z16.12
[2022-03-08] MEDS: INSULIN ASPART PER UNIT SC SCH (21:35)
[2022-03-08] MEDS ORDERED: SODIUM CHLORIDE 0.9% 1000ML 500 ML IV ONE (21:38)
[2022-03-08] MEDS ORDERED: VANCOMYCIN CONSULT ACTIVE PRN (21:38)
[2022-03-08] MEDS ORDERED: VANCOMYCIN HCL 1,000 MG in SODIUM CHLORIDE 0.9% 250 ML IV SCH (21:45)
[2022-03-08] MEDS: CHOLECALCIFEROL 400 UNITS 10 MCG TAB PO SCH (22:05)
[2022-03-08] MEDS: SENNA 8.6 MG TAB PO SCH (22:05)
[2022-03-08] MEDS: DOCUSATE SODIUM 100 MG CAP PO SCH (22:05)
[2022-03-08] MEDS: SERTRALINE HCL 100 MG TABLET PO SCH (22:06)
[2022-03-08] MEDS ORDERED: VANCOMYCIN HCL 2,750 MG in SODIUM CHLORIDE 0.9% 500 ML IV ONE (22:30)
[2022-03-08] MEDS: amLODIPine BESYLATE 5 MG TAB PO SCH (22:31)
[2022-03-08] MEDS: HEPARIN SOD 5,000 UNIT/0.5 ML VIAL SQ SCH (22:38)
[2022-03-08] MEDS: HYDROmorphone INJ 1 MG/ML SYRINGE IV PRN (22:44)
[2022-03-08] MEDS: ACETAMINOPHEN 500 MG TAB PO PRN (23:18)
[2022-03-09] MEDS: oxyCODONE HCL IR 5 MG TAB (IMMEDIATE RELEASE) PO PRN ×3 (00:55→19:23)
[2022-03-09] MEDS: HYDROmorphone INJ 1 MG/ML SYRINGE IV PRN ×3 (05:37→16:08)
[2022-03-09] MEDS: HEPARIN SOD 5,000 UNIT/0.5 ML VIAL SQ SCH ×3 (05:40→21:46)
[2022-03-09] MEDS ORDERED: INSULIN ASPART PER UNIT SQ SCH (08:00)
[2022-03-09 08:02] LABS: Hematocrit (blood only) 35.6 % (40.1-51.0); Hemoglobin 11.5 g/dl (14.0-18.0); Mean Corpuscular Hemoglobin 27.7 pg (25.0-34.0); Mean Corpuscular Hgb Conc 32.3 g/dL (32.0-36.0); Mean Corpuscular Volume 85.8 fL (80.0-100.0); Mean Platelet Volume 9.3 fL (9.4-12.4); Platelet Count 234 K/uL (130-400); RDW Coefficient of Variation 14.6 % (11.5-14.5); RDW Standard Deviation 45.6 fL (36.4-46.3); Red Blood Count 4.15 M/uL (4.63-6.08); White Blood Count 15.96 K/ul (4.8-10.8)
[2022-03-09] MEDS: DOCUSATE SODIUM 100 MG CAP PO SCH (08:43)
[2022-03-09 08:52] LABS: BUN Creatinine Ratio 10.4 (10-20); Creatinine Clr Calc Pharmacy 43.5 ml/min; Est GFR (African American) 27.6 ml/min; Est GFR (Non-African American) 23.8 ml/min; Potassium 4.7 mmol/L (3.5-5.1)
[2022-03-09] MEDS: INSULIN ASPART PER UNIT SC SCH ×4 (08:54→21:48)
[2022-03-09 09:25] LABS: Estimated Average Glucose 160 mg/dl; Hemoglobin A1C 7.2 % (4.5-5.6)
--- NOTE | 2022-03-09 10:11 | Urology Progress Note ---
Date of Service March 09, 2022 Assessment & Plan (1) Prostate cancer: (2) UTI due to extended-spectrum beta lactamase (ESBL) producing Escherichia coli: Plan Status post prostatectomy; ESBL E. coli UTI Continue IV antibiotics and IV fluid support No surgical interventions indicated at this point Overall, I hope to a little see improvement over the next 48 hours and then ultimately discharged home with oral antibiotics Admission and Anticipated Discharge Date Admission Date: March 08, 2022 Subjective Somewhat improved now compared to when he arrived last night He still has some abdominal discomfort but the intensity is much less He is currently afebrile and not tachycardic CT from yesterday reviewed and discussed as she does appear to have a hematoma above the bladder between the anterior abdominal wall and the bladder, this does not seem out of proportion to expectations given his recent surgery His bladder is also largely decompressed and he does not have hydronephrosis He has had scant urine output but minimal incontinence as well He was treated for an ESBL E. coli infection prior to surgery and I anticipate that this is likely still part of the underlying pathology that he is not yet clear of his infection Continue broad-spectrum antibiotics and IV hydration Physical Exam 2 Physical Exam: Incisions appropriate, soft, nontender Urine not able to be evaluated Results & Data ([facility]) Vital Signs (Past 12 Hours) Vital Signs Temp Pulse Pulse Resp BP Pulse Ox O2 Del Method 03/09/22 08:05 37.1 C 87 20 121/68 95 Nasal Cannula 03/09/22 07:23 91 H 03/08/22 23:02 94 H 03/08/22 23:08 Nasal Cannula 03/09/22 03:39 37.0 C 88 18 127/74 97 Nasal Cannula 03/09/22 00:49 36.7 C 03/08/22 23:08 37.7 C H 91 H 19 126/76 96 Nasal Cannula 03/08/22 22:15 96 H 20 126/70 96 03/08/22 22:10 37.5 C 98 H 21 115/67 92 Nasal Cannula O2 Flow Rate 03/09/22 08:05 2 03/09/22 07:23 03/08/22 23:02 03/08/22 23:08 3 03/09/22 03:39 3 03/09/22 00:49 03/08/22 23:08 3 03/08/22 22:15 03/08/22 22:10 2 PG Care Time/CCT Total # of Minutes Spent Total Time Spent with Patient: Total time spent is greater than 50% in coordination of care (as documented) at patient's floor/unit and/or counseling patient: Coding Level of Care Code 59902 Subseq Hosp Care Lvl 2 Diagnoses Prostate cancer C61 UTI due to extended-spectrum beta lactamase (ESBL) producing Escherichia coli N39.0; B96.29; Z16.12
[2022-03-09] MEDS: SODIUM CHLORIDE 0.9% 1000ML 1,000 ML IV SCH (10:12)
[2022-03-09] MEDS: ACETAMINOPHEN 500 MG TAB PO PRN ×2 (13:03→23:16)
--- NOTE | 2022-03-09 13:07 | Hospitalist Progress Note ---
Date of Service March 09, 2022 Assessment & Plan (1) Sepsis: Plan: 2nd to UTI cont Ertapenem for such d/c vancomcyin blood cx's remain negative; continue to follow (2) UTI (urinary tract infection): Plan: CATHETER-associated UTI as he just had mcmahon catheter for his recent prostatectomy. urine culture growing GNR. it may be ESBL E. coli which grew on 02/23 urine cx. he was treated with macrobid as outpatient in late January which likely would not have cleared the ESBL e.coli. cont IV ertapenem and adjust this pending the final urine culture. follow blood cx's. (3) Abdominal distension: Plan: severe. abd x-rays obtained today - probable mild ileus with constipation. but also with concerns for bladder leak. I spoke with Dr Cole regarding the x-ray findings from today and he is aware of possible bladder leak. he recommended placement of mcmahon which was done mid-afternoon. downgrade diet to clears. supportive care for possible ileus. serial exams. (4) ATN (acute tubular necrosis): Plan: rapid rise in creatinine in the last 24 hours. suspect ATN from sepsis but other nephrotoxic meds/factors could have contributed including IV CT contrast, CHLOE inhibitor use, IV toradol given yesterday, etc. other possibility is that of abdominal compartment syndrome given how quickly the Cr romi and given his abdominal distension but this is much less likely. I repeated his BMP this evening and Cr romi further to >3. mcmahon now in place. changed NS to LR. HOLDing amlodipine/HCTZ/CHLOE. likely to need nephrology consultation. BMP am. (5) Prostate cancer: Plan: s/p robotic prostatectomy on March 02 with acinar adenocarcinoma grade group 1 with Sanderson score of 6 on pathology. had mcmahon post-op, removed in office, but mcmahon placed back today. has acute kidney injury. ?bladder leak based on KUB findings today? defer any Rx to urology for such. BMP am. (6) Hypertension: Plan: Given low-normal BPs and JAIRON HOLD amlodipine, hydrochlorothiazide and quinapril (7) Type 2 diabetes mellitus with insulin therapy: Plan: Adjust novolog - use correction of 10 and carb ratio of 1:4 Cont lantus 50 units daily a1c noted (7.2%) (8) History of depression: Plan: Continue sertraline (9) Morbid obesity with BMI of 40.0-44.9, adult: Plan: BMI 44.6 (10) Dyspnea: Plan: CXR 01/2022 wnl CXR today without infiltrates etiology? he needs dedicated CT imaging, PFTs, etc. watch carefully for development of pulmonary edema in setting of JAIRON/ATN he claims this is chronic, but he is exceptionally dyspneic with minimal activity (just moving in bed) could he have PE? other? (11) Hx of right BKA: (12) History of transmetatarsal amputation of left foot: (13) DVT prophylaxis: Plan: heparin 7500 units TID due to morbid obesity but this will likely require adjustment due to worsening renal function Plan extensively updated by phone this evening care d/w Dr Cole by phone today total care time today 65 minutes - multiple bedside visits, Rx of JAIRON, speaking with urology, updating family, complex care coordination Admission and Anticipated Discharge Date Admission Date: March 08, 2022 Subjective patient uncomfortable during the visit although his abd pain is MUCH improved from yesterday yesterday was having what sounds like attacks of abdominal colic has not had that today he does feel VERY distended is passing some flatus but no stool in several days unable to pass much urine today bladder scan at the tail end of my visit today was <10cc on multiple attempts during the visit I noted the patient was very dyspneic with minimal movements (he went from seated position on side of bed to laying down and got very short of breath) he stated "this is normal for me; I've been like this all my life" Review of Systems Review of Systems: gen - no fevers, appetite somewhat improved today cv - no chest pain, ?orthopnea pulm - dyspnea on exertion with minimal movement; no cough GI - distension present; pain improved today; no vomiting; minimal flatus; no stool several days - no hematuria Physical Exam Physical Exam: gen - obese, very dyspneic with moving in bed, looks chronically unwell neck - no obvious JVD mouth - MMM heart - RRR, s1 s2 lungs - decreased BS bases, CTA b/l, no adventitious sounds abd - very distended, BS+ and slightly high-pitched, NT, abdominal wall incisions clean, ext - right BKA; left foot TMA of all toes, no edema vascular - left foot - pulses 1+ psych - a/o x 3 Results & Data Results & Data ([facility]) Vital Signs (Past 12 Hours) Vital Signs Temp Pulse Pulse Resp BP Pulse Ox O2 Del Method 03/09/22 08:45 Nasal Cannula 03/09/22 11:33 37.1 C 89 20 121/72 96 Room Air 03/09/22 08:05 37.1 C 87 20 121/68 95 Nasal Cannula 03/09/22 07:23 91 H 03/09/22 03:39 37.0 C 88 18 127/74 97 Nasal Cannula O2 Flow Rate 03/09/22 08:45 3 03/09/22 11:33 03/09/22 08:05 2 03/09/22 07:23 03/09/22 03:39 3 Laboratory Results Laboratory Results - last 24 hr 03/08/22 03/08/22 03/08/22 14:19 14:19 16:56 WBC 17.19 H RBC 4.93 Hgb 13.7 L Hct 42.8 MCV 86.8 MCH 27.8 MCHC 32.0 RDW Std Deviation 44.0 RDW Coeff of Cori 13.9 Plt Count 322 MPV 9.6 Immature Gran % (Auto) 1.6 Neut % (Auto) 71.3 Lymph % (Auto) 16.4 Weston % (Auto) 7.3 Eos % (Auto) 2.8 Baso % (Auto) 0.6 Neut # (Auto) 12.25 H Lymph # (Auto) 2.82 Weston # (Auto) 1.25 H Eos # (Auto) 0.48 Baso # (Auto) 0.11 Immature Gran # (Auto) 0.28 H Sodium 137 Potassium 4.6 Chloride 105 Carbon Dioxide 23 Anion Gap 9 BUN 19 Creatinine 1.36 Est Cr Clr Drug Dosing 84.7 Est GFR ( Amer) 62.8 Est GFR (Non-Af Amer) 54.2 BUN/Creatinine Ratio 14.0 Glucose 239 H POC Glucose Estimat Average Glucose Hemoglobin A1c Calcium 9.3 Total Bilirubin 0.4 AST 13 ALT 15 Alkaline Phosphatase 87 Total Protein 7.7 Albumin 3.9 Globulin 3.8 Albumin/Globulin Ratio 1.0 Urine Color Yellow Urine Appearance Cloudy A Urine pH 5.5 Ur Specific [place] 1.014 Urine Protein 2+ H Urine Glucose (UA) Negative Urine Ketones Negative Urine Blood 3+ H Urine Nitrite Negative Urine Bilirubin Negative Urine Urobilinogen Negative Ur Leukocyte Esterase 3+ H Urine WBC (Auto) >30 H Urine RBC (Auto) >30 H U Hyaline Cast (Auto) 1-5 U Epithel Cells (Auto) 5-10 H Urine Bacteria (Auto) 3+ H SARS-CoV-2, RNA, NAAT 03/08/22 03/08/22 03/09/22 18:15 20:50 07:31 WBC RBC Hgb Hct MCV MCH MCHC RDW Std Deviation RDW Coeff of Cori Plt Count MPV Immature Gran % (Auto) Neut % (Auto) Lymph % (Auto) Weston % (Auto) Eos % (Auto) Baso % (Auto) Neut # (Auto) Lymph # (Auto) Weston # (Auto) Eos # (Auto) Baso # (Auto) Immature Gran # (Auto) Sodium Potassium Chloride Carbon Dioxide Anion Gap BUN Creatinine Est Cr Clr Drug Dosing Est GFR ( Amer) Est GFR (Non-Af Amer) BUN/Creatinine Ratio Glucose POC Glucose 219 H 211 H Estimat Average Glucose Hemoglobin A1c Calcium Total Bilirubin AST ALT Alkaline Phosphatase Total Protein Albumin Globulin Albumin/Globulin Ratio Urine Color Urine Appearance Urine pH Ur Specific [place] Urine Protein Urine Glucose (UA) Urine Ketones Urine Blood Urine Nitrite Urine Bilirubin Urine Urobilinogen Ur Leukocyte Esterase Urine WBC (Auto) Urine RBC (Auto) U Hyaline Cast (Auto) U Epithel Cells (Auto) Urine Bacteria (Auto) SARS-CoV-2, RNA, NAAT NEGATIVE 03/09/22 03/09/22 03/09/22 07:37 07:37 07:37 WBC 15.96 H RBC 4.15 L Hgb 11.5 L Hct 35.6 L MCV 85.8 MCH 27.7 MCHC 32.3 RDW Std Deviation 45.6 RDW Coeff of Cori 14.6 H Plt Count 234 MPV 9.3 L Immature Gran % (Auto) Neut % (Auto) Lymph % (Auto) Weston % (Auto) Eos % (Auto) Baso % (Auto) Neut # (Auto) Lymph # (Auto) Weston # (Auto) Eos # (Auto) Baso # (Auto) Immature Gran # (Auto) Sodium 137 Potassium 4.7 Chloride 107 Carbon Dioxide 22 Anion Gap 8 BUN 28 H Creatinine 2.69 H D Est Cr Clr Drug Dosing 43.5 Est GFR ( Amer) 27.6 Est GFR (Non-Af Amer) 23.8 BUN/Creatinine Ratio 10.4 Glucose 199 H POC Glucose Estimat Average Glucose 160 Hemoglobin A1c 7.2 H Calcium 8.0 L Total Bilirubin AST ALT Alkaline Phosphatase Total Protein Albumin Globulin Albumin/Globulin Ratio Urine Color Urine Appearance Urine pH Ur Specific [place] Urine Protein Urine Glucose (UA) Urine Ketones Urine Blood Urine Nitrite Urine Bilirubin Urine Urobilinogen Ur Leukocyte Esterase Urine WBC (Auto) Urine RBC (Auto) U Hyaline Cast (Auto) U Epithel Cells (Auto) Urine Bacteria (Auto) SARS-CoV-2, RNA, NAAT 03/09/22 11:17 WBC RBC Hgb Hct MCV MCH MCHC RDW Std Deviation RDW Coeff of Cori Plt Count MPV Immature Gran % (Auto) Neut % (Auto) Lymph % (Auto) Weston % (Auto) Eos % (Auto) Baso % (Auto) Neut # (Auto) Lymph # (Auto) Weston # (Auto) Eos # (Auto) Baso # (Auto) Immature Gran # (Auto) Sodium Potassium Chloride Carbon Dioxide Anion Gap BUN Creatinine Est Cr Clr Drug Dosing Est GFR ( Amer) Est GFR (Non-Af Amer) BUN/Creatinine Ratio Glucose POC Glucose 176 H Estimat Average Glucose Hemoglobin A1c Calcium Total Bilirubin AST ALT Alkaline Phosphatase Total Protein Albumin Globulin Albumin/Globulin Ratio Urine Color Urine Appearance Urine pH Ur Specific [place] Urine Protein Urine Glucose (UA) Urine Ketones Urine Blood Urine Nitrite Urine Bilirubin Urine Urobilinogen Ur Leukocyte Esterase Urine WBC (Auto) Urine RBC (Auto) U Hyaline Cast (Auto) U Epithel Cells (Auto) Urine Bacteria (Auto) SARS-CoV-2, RNA, NAAT PG Care Time/CCT Total # of Minutes Spent Total Time Spent with Patient: Total time spent is greater than 50% in coordination of care (as documented) at patient's floor/unit and/or counseling patient: Prolonged Care Time Prolonged Care Time: Yes Total Prolonged Care Time: 65 Coding Level of Care Code 87186 Subseq Hosp Care Lvl 3 (25 - SIGNIFICANT, SEPARATELY IDENTIFIABLE ) Diagnoses Sepsis A41.9 UTI (urinary tract infection) N39.0 Abdominal distension R14.0 ATN (acute tubular necrosis) N17.0 Prostate cancer C61 Hypertension I10 Hypertension type: essential hypertension Type 2 diabetes mellitus with insulin therapy E11.9; Z79.4 History of depression Z86.59 Morbid obesity with BMI of 40.0-44.9, adult E66.01; Z68.41 Dyspnea R06.00 Hx of right BKA Z89.511 History of transmetatarsal amputation of left foot Z89.432 DVT prophylaxis Z29.9 Additional Codes Prolonged Care Time - Prolonged Care Time: Yes ([id number]) (1) Hypertension Hypertension type: essential hypertension Qualified Code(s): I10 - Essential (primary) hypertension
--- NOTE | 2022-03-09 14:35 | Electrocardiogram Report ---
Test Reason : Blood Pressure : / mmHG Vent. Rate : 099 BPM Atrial Rate : 099 BPM P-R Int : 166 ms QRS Dur : 092 ms QT Int : 330 ms P-R-T Axes : 013 020 024 degrees QTc Int : 423 ms Normal sinus rhythm Septal infarct , age undetermined Abnormal ECG When compared with ECG of 23-FEB-2022 08:12, Questionable change in QRS axis Confirmed by Kiet Arenas ([id number]) on 03/09/2022 2:35:43 PM Referred By: Barrera Cole Confirmed By:Kiet Arenas
--- NOTE | 2022-03-09 15:28 | XRay Report ---
PA CHEST RADIOGRAPH AND UPRIGHT AND SUPINE AP RADIOGRAPHS OF THE ABDOMEN CLINICAL HISTORY: severe abd distension, recent surgery, SOB; ileus? COMPARISON STUDY: CT of the abdomen and pelvis March 08, 2022. Chest radiograph February 23, 2022 . FINDINGS: No pneumothorax or pleural effusion is present. Mild left basilar opacity represents atele ctasis. Cardiomediastinal silhouette is normal. There is slight interstitial prominence. No evidence for overt pulmonary edema. There is no consolidation. There is no free air. A few mildly dilated smal l bowel within the right lower quadrant measure up to 3.5 cm in caliber. There is contrast within the bladder from recent contrast-enhanced CT. In addition, there is a 10.5 x 5 cm elliptical pocket of c ontrast projecting over the lower aspect the bladder. This likely corresponds to contrast within the extraperitoneal fluid collection on CT of March 08, 2022. IMPRESSION: 1. 10.5 x 5 cm collection of contrast projecting over the inferior bladder which likely corresponds t o the extraperitoneal fluid collection on CT of March 08, 2022. This raises the possibility of a bl adder neck/urethral leak with associated urinoma. Discussed with Dr. Núñez at time of dictation. 2. A few mildly dilated loops of small bowel. This may reflect a developing ileus or less likely dwight l obstruction. 3. No acute cardiopulmonary findings. ACT 112: Negative or not required by law. Electronically signed by: Mahin Bolanos M.D. 03/09/2022 3:27 PM
[2022-03-09 17:15] LABS: Calcium 8.1 mg/dl (8.5-10.1); Creatinine Clr Calc Pharmacy 35.7 ml/min; Est GFR (African American) 21.7 ml/min; Est GFR (Non-African American) 18.7 ml/min; Potassium 4.6 mmol/L (3.5-5.1)
[2022-03-09] MEDS: ERTAPENEM SODIUM 1,000 MG in SYRINGE 0 ML IV SCH (17:52)
[2022-03-09] MEDS ORDERED: LACTATED RINGER'S 500 ML IV ONE (18:15)
[2022-03-09] MEDS: LACTATED RINGER'S 1,000 ML IV SCH ×2 (19:08→23:50)
[2022-03-09] MEDS: LANTUS PER UNIT CHARGE SQ SCH (21:39)
[2022-03-09 21:40] LABS: Appearance Urine Cloudy (Clear); Color Urine Orange
[2022-03-09 21:41] LABS: Specific Gravity Urine 1.035 (1.000-1.030)
[2022-03-09] MEDS: SENNA 8.6 MG TAB PO SCH (21:47)
[2022-03-09] MEDS: CHOLECALCIFEROL 400 UNITS 10 MCG TAB PO SCH (21:47)
[2022-03-09] MEDS: SERTRALINE HCL 100 MG TABLET PO SCH (21:47)
[2022-03-09 21:51] LABS: Epithelial Cell Urine 0-5 /lpf (0-5)
[2022-03-09 21:52] LABS: Bacteria Urine Negative (Negative); RBC Urine >30 /hpf (0-4); WBC Urine >30 /hpf (0-5)
[2022-03-09] MEDS ORDERED: CALCIUM CARBONATE 500 MG CHEWABLE TAB PO PRN (23:50)
[2022-03-10] MEDS: oxyCODONE HCL IR 5 MG TAB (IMMEDIATE RELEASE) PO PRN ×3 (04:01→22:32)
[2022-03-10] MEDS: HEPARIN SOD 5,000 UNIT/0.5 ML VIAL SQ SCH ×3 (05:49→20:31)
[2022-03-10 07:59] LABS: Hematocrit (blood only) 30.4 % (40.1-51.0); Hemoglobin 9.8 g/dl (14.0-18.0); Mean Corpuscular Hemoglobin 27.8 pg (25.0-34.0); Mean Corpuscular Hgb Conc 32.2 g/dL (32.0-36.0); Mean Corpuscular Volume 86.1 fL (80.0-100.0); Mean Platelet Volume 10.1 fL (9.4-12.4); Platelet Count 179 K/uL (130-400); RDW Coefficient of Variation 14.4 % (11.5-14.5); RDW Standard Deviation 45.7 fL (36.4-46.3); Red Blood Count 3.53 M/uL (4.63-6.08); White Blood Count 11.58 K/ul (4.8-10.8)
[2022-03-10 08:22] LABS: BUN Creatinine Ratio 17.2 (10-20); Calcium 8.4 mg/dl (8.5-10.1); Creatinine Clr Calc Pharmacy 72.1 ml/min; Est GFR (African American) 50.5 ml/min; Est GFR (Non-African American) 43.6 ml/min; Potassium 4.2 mmol/L (3.5-5.1)
[2022-03-10] MEDS: HYDROmorphone INJ 1 MG/ML SYRINGE IV PRN ×3 (08:38→23:31)
[2022-03-10] MEDS: LACTATED RINGER'S 1,000 ML IV SCH ×2 (08:39→17:41)
[2022-03-10] MEDS: INSULIN ASPART PER UNIT SC SCH ×4 (08:53→20:35)
--- NOTE | 2022-03-10 12:19 | Urology Progress Note ---
Date of Service March 10, 2022 Assessment & Plan (1) UTI due to extended-spectrum beta lactamase (ESBL) producing Escherichia coli: Plan Prostate cancer status post prostatectomy He was being treated for an ESBL E. coli UTI leading up to surgery, unfortunately this has persisted after surgery It is susceptible to to oral antibioticsnitrofurantoin and Augmentin but he is limited with Augmentin use because of allergies I think it would likely be best to treat him with a 10-day course of IV antibiotics to improve the likelihood of complete resolution He also has a very small urine leakwe will keep his catheter in for an additional 5 days and plan for removal next week after cystogram Overall, I think he is likely approaching a point of stability where he could go home once we have an antibiotic plan in place Admission and Anticipated Discharge Date Admission Date: March 08, 2022 Subjective Subjectively feeling much better today He had a KUB performed yesterday afternoon which showed some contrast outside of the bladderthis implies that the fluid collection seen on his CT was probably not a hematoma and probably a small urine leak Regardless, he also had an elevated creatinine from resorption last night His catheter was replaced and his creatinine has largely improved already today Subjectively he seems to be substantially better His culture has been returned with the ESBL E. coliunfortunately it has limited oral optionsnitrofurantoin and Augmentin but he has an allergy to Augmentinhe was on nitrofurantoin previously and I am uncertain this is sufficient to clear the infectionit may be best to offer her IV antibiotic treatment Physical Exam Physical Exam: Abdomen soft, incisions appropriate Urine clear Results & Data ([facility]) Vital Signs (Past 12 Hours) Vital Signs Temp Pulse Pulse Resp BP Pulse Ox O2 Del Method 03/10/22 10:43 36.4 C L 90 15 159/81 H 94 Room Air 03/10/22 09:00 Room Air 03/10/22 08:08 36.4 C L 87 16 148/76 H 96 High Flow Nasal Cannula 03/10/22 08:02 High Flow Nasal Cannula 03/10/22 07:54 36.2 C L 87 16 148/76 H 96 High Flow Nasal Cannula 03/10/22 07:11 87 03/10/22 03:19 37 C 81 20 145/62 H 95 Nasal Cannula 03/10/22 02:36 37.0 C 87 22 127/60 96 Nasal Cannula O2 Flow Rate 03/10/22 10:43 0 03/10/22 09:00 03/10/22 08:08 1 03/10/22 08:02 1 03/10/22 07:54 1 03/10/22 07:11 03/10/22 03:19 1 03/10/22 02:36 1 PG Care Time/CCT Total # of Minutes Spent Total Time Spent with Patient: Total time spent is greater than 50% in coordination of care (as documented) at patient's floor/unit and/or counseling patient: Coding Level of Care Code 98001 Subseq Hosp Care Lvl 2 Diagnoses UTI due to extended-spectrum beta lactamase (ESBL) producing Escherichia coli N39.0; B96.29; Z16.12
[2022-03-10] MEDS: ERTAPENEM SODIUM 1,000 MG in SYRINGE 0 ML IV SCH (17:41)
[2022-03-10] MEDS: ACETAMINOPHEN 500 MG TAB PO PRN (19:26)
[2022-03-10] MEDS: CHOLECALCIFEROL 400 UNITS 10 MCG TAB PO SCH (20:30)
[2022-03-10] MEDS: SENNA 8.6 MG TAB PO SCH (20:30)
[2022-03-10] MEDS: SERTRALINE HCL 100 MG TABLET PO SCH (20:30)
[2022-03-10] MEDS: LANTUS PER UNIT CHARGE SQ SCH (20:34)
--- NOTE | 2022-03-10 22:20 | Hospitalist Progress Note ---
Date of Service March 10, 2022 Assessment & Plan (1) Sepsis: Plan: 2nd to catheter-associated UTI IMPROVED clinically WBC count trending down cont Ertapenem plan 10-14 days of Rx with ertapenem blood cx's remain negative; continue to follow (2) UTI (urinary tract infection): Plan: CATHETER-associated UTI as he just had mcmahon catheter for his recent prostatectomy. urine culture with ESBL e.coli cont IV ertapenem - day #2 of such today. blood cultures negative. (3) Abdominal distension: Plan: improved. likely had low-grade ileus with constipation. some distension from bladder leak. but again improved. advance diet. finally moving bowels. (4) ATN (acute tubular necrosis): Plan: improved today. suspect ATN from sepsis but other nephrotoxic meds/factors could have contributed including IV CT contrast, CHLOE inhibitor use, IV toradol given yes terday, etc. no evidence of abdominal compartment syndrome. did have improvement in creatinine as well with mcmahon placement thus post-renal factors may have played a role as well. cont IV fluids 1 more day. bmp am. cont to hold amlodipine/HCTZ/CHLOE. (5) Prostate cancer: Plan: s/p robotic prostatectomy on March 02 with acinar adenocarcinoma grade group 1 with Curtis score of 6 on pathology. had mcmahon post-op, removed in office, mcmahon placed back 03/09. probable bladder leak based on KUB findings. no specific Rx for such other than mcmahon catheter and time. urology aware of bladder leak. (6) Hypertension: Plan: Given low-normal BPs and JAIRON HOLD amlodipine, hydrochlorothiazide and quinapril (7) Type 2 diabetes mellitus with insulin therapy: Plan: Improved control with novolog adjustments Cont lantus 50 units daily a1c noted (7.2%) (8) History of depression: Plan: Continue sertraline (9) Morbid obesity with BMI of 40.0-44.9, adult: Plan: BMI 44 (10) Dyspnea: Plan: CXR 01/2022 wnl CXR this admission without infiltrates etiology? he needs dedicated CT imaging, PFTs, etc. watch carefully for development of pulmonary edema in setting of JAIRON/ATN he claims this is chronic, but he is exceptionally dyspneic with minimal activity (just moving in bed) could he have PE? other? (11) Hx of right BKA: (12) History of transmetatarsal amputation of left foot: (13) DVT prophylaxis: Plan: heparin 7500 units TID due to morbid obesity Plan extensively updated by phone 03/09/22 PT/OT will need IV abx outside the hospital Admission and Anticipated Discharge Date Admission Date: March 08, 2022 Subjective patient feeling much better today had a decent sized BM this am no nausea/emesis tolerating clears dyspnea is at baseline abdominal distension improved mcmahon with good UOP tele wnl overnight slept poorly last pm Review of Systems Review of Systems: gen - no fevers or chills cv - no chest pain pulm - no cough GI - no nausea/emesis - no bladder pain/spasm Physical Exam Physical Exam: gen - obese, looks improved today neck - no obvious JVD mouth - MMM heart - RRR, s1 s2, no murmur lungs - decreased BS bases, CTA b/l, no rales or wheeze abd - distension improved; BS+, NT, abdominal wall incisions clean/intact ext - right BKA; left foot TMA of all toes, no edema vascular - left foot - pulses 1+ psych - a/o x 3 Results & Data Results & Data ([facility]) Vital Signs (Past 12 Hours) Vital Signs Temp Pulse Pulse Resp BP Pulse Ox O2 Del Method 03/10/22 20:03 37.2 C 86 20 136/71 95 Room Air 03/10/22 16:29 84 03/10/22 14:58 37.5 C 86 17 146/74 H 94 03/10/22 12:52 37.0 C 85 19 152/71 H 95 Room Air 03/10/22 10:43 36.4 C L 90 15 159/81 H 94 Room Air O2 Flow Rate 03/10/22 20:03 03/10/22 16:29 03/10/22 14:58 03/10/22 12:52 03/10/22 10:43 0 Laboratory Results Laboratory Results - last 24 hr 03/10/22 03/10/22 03/10/22 07:13 07:13 12:38 WBC 11.58 H RBC 3.53 L Hgb 9.8 L Hct 30.4 L MCV 86.1 MCH 27.8 MCHC 32.2 RDW Std Deviation 45.7 RDW Coeff of Cori 14.4 Plt Count 179 MPV 10.1 Sodium 137 Potassium 4.2 Chloride 108 H Carbon Dioxide 23 Anion Gap 6 BUN 28 H Creatinine 1.63 H D Est Cr Clr Drug Dosing 72.1 Est GFR ( Amer) 50.5 Est GFR (Non-Af Amer) 43.6 BUN/Creatinine Ratio 17.2 Glucose 137 H POC Glucose 126 H Calcium 8.4 L 03/10/22 03/10/22 17:18 20:10 WBC RBC Hgb Hct MCV MCH MCHC RDW Std Deviation RDW Coeff of Cori Plt Count MPV Sodium Potassium Chloride Carbon Dioxide Anion Gap BUN Creatinine Est Cr Clr Drug Dosing Est GFR ( Amer) Est GFR (Non-Af Amer) BUN/Creatinine Ratio Glucose POC Glucose 179 H 207 H Calcium Diagnostic Findings blood cultures negative PG Care Time/CCT Total # of Minutes Spent Total Time Spent with Patient: Total time spent is greater than 50% in coordination of care (as documented) at patient's floor/unit and/or counseling patient: Coding Level of Care Code 56643 Subseq Hosp Care Lvl 2 Diagnoses Sepsis A41.9 UTI (urinary tract infection) N39.0 Abdominal distension R14.0 ATN (acute tubular necrosis) N17.0 Prostate cancer C61 Hypertension I10 Hypertension type: essential hypertension Type 2 diabetes mellitus with insulin therapy E11.9; Z79.4 History of depression Z86.59 Morbid obesity with BMI of 40.0-44.9, adult E66.01; Z68.41 Dyspnea R06.00 Hx of right BKA Z89.511 History of transmetatarsal amputation of left foot Z89.432 DVT prophylaxis Z29.9 (1) Hypertension Hypertension type: essential hypertension Qualified Code(s): I10 - Essential (primary) hypertension
[2022-03-11] MEDS: LACTATED RINGER'S 1,000 ML IV SCH (03:51)
[2022-03-11] MEDS: HEPARIN SOD 5,000 UNIT/0.5 ML VIAL SQ SCH ×3 (06:03→21:03)
[2022-03-11 06:26] LABS: Hematocrit (blood only) 31.1 % (40.1-51.0); Hemoglobin 10.1 g/dl (14.0-18.0); Mean Corpuscular Hemoglobin 27.7 pg (25.0-34.0); Mean Corpuscular Hgb Conc 32.5 g/dL (32.0-36.0); Mean Corpuscular Volume 85.4 fL (80.0-100.0); Mean Platelet Volume 9.9 fL (9.4-12.4); Platelet Count 194 K/uL (130-400); RDW Coefficient of Variation 13.9 % (11.5-14.5); RDW Standard Deviation 44.2 fL (36.4-46.3); Red Blood Count 3.64 M/uL (4.63-6.08)
[2022-03-11] MEDS: HYDROmorphone INJ 1 MG/ML SYRINGE IV PRN ×2 (06:49→15:37)
[2022-03-11 07:13] LABS: BUN Creatinine Ratio 20.9 (10-20); Calcium 8.5 mg/dl (8.5-10.1); Creatinine Clr Calc Pharmacy 128.9 ml/min; Est GFR (African American) 102.1 ml/min; Est GFR (Non-African American) 88.1 ml/min; Potassium 4.1 mmol/L (3.5-5.1)
[2022-03-11] MEDS: INSULIN ASPART PER UNIT SC SCH ×4 (08:18→20:45)
[2022-03-11] MEDS: oxyCODONE HCL IR 5 MG TAB (IMMEDIATE RELEASE) PO PRN ×2 (12:04→20:52)
--- NOTE | 2022-03-11 14:07 | XRay Report ---
XR abdomen min 2V CLINICAL HISTORY: Abdominal distension, ?ileus COMPARISON STUDY: CT of the abdomen and pelvis March 08, 2022. Abdominal series March 09, 2022. FINDINGS: No free air is evident. The bowel gas pattern is within normal limits. Prominent small bow el loop is noted. However, there is no radiographic evidence for an ileus or small bowel obstruction. Amount of stool is within normal limits. Pelvic calcifications represent phleboliths. IMPRESSION: No evidence for a bowel obstruction. No radiographic evidence for an ileus. ACT 112: Negative or not required by law. Electronically signed by: Mahin Bolanos M.D. 03/11/2022 2:06 PM
--- NOTE | 2022-03-11 14:41 | Urology Progress Note ---
Date of Service March 11, 2022 Assessment & Plan (1) UTI due to extended-spectrum beta lactamase (ESBL) producing Escherichia coli: Plan: Prostate cancer status post prostatectomy Patient subjectively improving. Afebrile, lab work reviewed - creatinine and WBC normalized today. Remains on IV Ertapenem for E. coli ESBL. It is susceptible to oral antibiotics - nitrofurantoin and Augmentin, but he is limited by allergies. Recommend continue course of IV antibiotics upon discharge for complete resolution. He has a very small urine leak - will maintain catheter and plan for removal next week after cystogram. Continue supportive care and medical management per primary team. Admission and Anticipated Discharge Date Admission Date: March 08, 2022 Subjective Subjectively doing better today. Abdominal discomfort/distention improved. No nausea or vomiting. Reports BM yesterday. +Flatus. Tolerating Castle catheter. Castle draining clear yellow. Good UOP. No fever or chills. Review of Systems Constitutional: as per Subjective / HPI Gastrointestinal: as per Subjective / HPI Genitourinary: + as per Subjective / HPI Physical Exam Constitutional: well developed, well nourished and + obese; no acute distress Respiratory: normal respiratory effort; no respiratory distress and no labored breathing Gastrointestinal (Abdomen): Percussion/Palpation: abdomen soft; abdomen nontender Musculoskeletal: Head/Neck/Chest: normocephalic and head atraumatic Skin: incisions healthy, approximated with dermabond intact Neurologic: awake Psychiatric: Orientation: alert and oriented x 3 Genitourinary: Castle draining clear yellow Results & Data ([facility]) Vital Signs (Past 12 Hours) Vital Signs Temp Pulse Pulse Resp BP Pulse Ox O2 Del Method 03/11/22 11:28 36.8 C 86 20 188/83 H 95 Room Air 03/11/22 08:09 37.1 C 81 20 138/61 93 Room Air 03/11/22 07:17 81 03/11/22 03:19 36.8 C 80 20 148/82 H 92 Room Air PG Care Time/CCT Total # of Minutes Spent Total Time Spent with Patient: Total time spent is greater than 50% in coordination of care (as documented) at patient's floor/unit and/or counseling patient: Coding Level of Care Code 43930 Subseq Hosp Care Lvl 2 Diagnoses UTI due to extended-spectrum beta lactamase (ESBL) producing Escherichia coli N39.0; B96.29; Z16.12
[2022-03-11] MEDS: ERTAPENEM SODIUM 1,000 MG in SYRINGE 0 ML IV SCH (15:38)
[2022-03-11] MEDS ORDERED: bisacodyL 10 MG SUPP PR STA (15:40)
[2022-03-11] MEDS: ACETAMINOPHEN 500 MG TAB PO PRN (19:39)
--- NOTE | 2022-03-11 19:44 | Hospitalist Progress Note ---
Date of Service March 11, 2022 Assessment & Plan (1) Sepsis: Plan: 2nd to catheter-associated UTI IMPROVED clinically WBC ct has normalized cont Ertapenem plan 14 days of Rx with ertapenem first dose was 03/08/22 thus dose today is #4 patient is ok with peripheral u/s-guided IV at d/c with home IV abx blood cx's remain negative; continue to follow (2) UTI (urinary tract infection): Plan: CATHETER-associated UTI as he just had mcmahon catheter for his recent prostatectomy. urine culture with ESBL e.coli cont IV ertapenem - day #4 of such today. blood cultures negative. see #1 above. (3) Abdominal distension: Plan: about the same as yesterday. likely multifactorial - some gaseous distension (although minimum on x-rays today), constipation, probably body wall edema and/or minimal ascites, etc. needs more aggressive bowel regimen. dulcolax suppos this evening. cont to monitor carefully. if distension remains and RLQ abd pain remains or worsens would repeat his abd/pelvis CT. (4) ATN (acute tubular necrosis): Plan: resolved. JAIRON was likely more so related to his bladder leak as opposed to ATN. although other nephrotoxic meds/factors could have contributed including IV CT contrast, CHLOE inhibitor use, IV toradol, etc. cont mcmahon cont to hold HCTZ/CHLOE. bmp am (5) Prostate cancer: Plan: s/p robotic prostatectomy on March 02 with acinar adenocarcinoma grade group 1 with [place] score of 6 on pathology. had mcmahon post-op, removed in office, mcmahon placed back 03/09. probable bladder leak based on KUB findings. no specific Rx for such other than mcmahon catheter and time. urology aware of bladder leak. (6) Hypertension: Plan: resume amlodipine cont to hold hydrochlorothiazide and quinapril (7) Type 2 diabetes mellitus with insulin therapy: Plan: Cont novolog Cont lantus 50 units daily a1c noted (7.2%) control adequate at this time (8) History of depression: Plan: Continue sertraline (9) Morbid obesity with BMI of 40.0-44.9, adult: Plan: BMI 44 (10) Dyspnea: Plan: CXR 01/2022 wnl CXR this admission without infiltrates etiology? he needs dedicated CT imaging, PFTs, etc. watch carefully for development of pulmonary edema in setting of JAIRON/ATN he claims this is chronic, but he is exceptionally dyspneic with minimal activity (just moving in bed) could he have PE? other? would perform 2-step at d/c (11) Hx of right BKA: (12) History of transmetatarsal amputation of left foot: (13) DVT prophylaxis: Plan: heparin 7500 units TID due to morbid obesity Plan extensively updated by phone 03/09/22 and 03/11/22 cont PT/OT cleared for home by PT/OT will need IV abx outside the hospital as noted in #1 above Admission and Anticipated Discharge Date Admission Date: March 08, 2022 Subjective "I feel terrible" continues with RLQ abd pain and has generalized bloating/distension appetite not robust no nausea or vomiting despite the above no BM in 2+ days passing flatus dyspnea is at baseline tele overnight wnl Review of Systems Review of Systems: gen - fatigued/tired; no fevers cv - no chest pain pulm - no cough GI - see HPI - mcmahon draining clear urine Physical Exam Physical Exam: gen - obese, looks same as yesterday neck - no obvious JVD mouth - MMM heart - RRR, s1 s2, no murmur lungs - decreased BS bases, CTA b/l, no rales or wheeze abd - distension similar; BS+, tender RLQ, no obvious inguinal hernia; abdominal wall incisions clean/intact ext - right BKA; left foot TMA of all toes, no edema vascular - left foot - pulses 1+ psych - a/o x 3 Results & Data Results & Data ([facility]) Vital Signs (Past 12 Hours) Vital Signs Temp Pulse Resp BP Pulse Ox O2 Del Method 03/11/22 19:42 37.2 C 86 20 160/77 H 95 Room Air 03/11/22 15:20 36.8 C 71 19 161/86 H 71 L Room Air 03/11/22 11:28 36.8 C 86 20 188/83 H 95 Room Air 03/11/22 08:09 37.1 C 81 20 138/61 93 Room Air Laboratory Results Laboratory Results - last 24 hr 03/10/22 03/11/22 03/11/22 20:10 05:59 05:59 WBC 9.90 RBC 3.64 L Hgb 10.1 L Hct 31.1 L MCV 85.4 MCH 27.7 MCHC 32.5 RDW Std Deviation 44.2 RDW Coeff of Cori 13.9 Plt Count 194 MPV 9.9 Sodium 137 Potassium 4.1 Chloride 107 Carbon Dioxide 23 Anion Gap 7 BUN 19 Creatinine 0.91 D Est Cr Clr Drug Dosing 128.9 Est GFR ( Amer) 102.1 Est GFR (Non-Af Amer) 88.1 BUN/Creatinine Ratio 20.9 H Glucose 178 H POC Glucose 207 H Calcium 8.5 03/11/22 03/11/22 03/11/22 07:46 11:41 16:34 WBC RBC Hgb Hct MCV MCH MCHC RDW Std Deviation RDW Coeff of Cori Plt Count MPV Sodium Potassium Chloride Carbon Dioxide Anion Gap BUN Creatinine Est Cr Clr Drug Dosing Est GFR ( Amer) Est GFR (Non-Af Amer) BUN/Creatinine Ratio Glucose POC Glucose 210 H 145 H 91 Calcium Diagnostic Findings blood cultures negative to date PG Care Time/CCT Total # of Minutes Spent Total Time Spent with Patient: Total time spent is greater than 50% in coordination of care (as documented) at patient's floor/unit and/or counseling patient: Coding Level of Care Code 84255 Subseq Hosp Care Lvl 3 Diagnoses Sepsis A41.9 UTI (urinary tract infection) N39.0 Abdominal distension R14.0 ATN (acute tubular necrosis) N17.0 Prostate cancer C61 Hypertension I10 Hypertension type: essential hypertension Type 2 diabetes mellitus with insulin therapy E11.9; Z79.4 History of depression Z86.59 Morbid obesity with BMI of 40.0-44.9, adult E66.01; Z68.41 Dyspnea R06.00 Hx of right BKA Z89.511 History of transmetatarsal amputation of left foot Z89.432 DVT prophylaxis Z29.9 (1) Hypertension Hypertension type: essential hypertension Qualified Code(s): I10 - Essential (primary) hypertension
[2022-03-11] MEDS ORDERED: traZODone HCL 50 MG TAB PO PRN (19:53)
[2022-03-11] MEDS: MELATONIN 3 MG TAB PO SCH (20:45)
[2022-03-11] MEDS: POLYETHYLENE (MIRALAX) 17 GM PACK PO SCH (20:46)
[2022-03-11] MEDS: SENNA 8.6 MG TAB PO SCH (20:53)
[2022-03-11] MEDS: SERTRALINE HCL 100 MG TABLET PO SCH (20:53)
[2022-03-11] MEDS: LANTUS PER UNIT CHARGE SQ SCH (20:53)
[2022-03-11] MEDS: CHOLECALCIFEROL 400 UNITS 10 MCG TAB PO SCH (20:53)
[2022-03-11] MEDS: amLODIPine BESYLATE 5 MG TAB PO SCH (21:03)
[2022-03-11] MEDS ORDERED: TAMSULOSIN HCL 0.4 MG CAP PO ONE (21:28)
[2022-03-12] MEDS: HEPARIN SOD 5,000 UNIT/0.5 ML VIAL SQ SCH ×3 (05:30→20:55)
[2022-03-12 06:20] LABS: Hematocrit (blood only) 32.2 % (40.1-51.0); Hemoglobin 10.6 g/dl (14.0-18.0); Mean Corpuscular Hemoglobin 27.7 pg (25.0-34.0); Mean Corpuscular Hgb Conc 32.9 g/dL (32.0-36.0); Mean Corpuscular Volume 84.3 fL (80.0-100.0); Mean Platelet Volume 9.3 fL (9.4-12.4); Platelet Count 211 K/uL (130-400); RDW Coefficient of Variation 13.5 % (11.5-14.5); RDW Standard Deviation 41.9 fL (36.4-46.3); Red Blood Count 3.82 M/uL (4.63-6.08); White Blood Count 8.11 K/ul (4.8-10.8)
[2022-03-12] MEDS: oxyCODONE HCL IR 5 MG TAB (IMMEDIATE RELEASE) PO PRN ×2 (06:35→15:09)
[2022-03-12 06:51] LABS: BUN Creatinine Ratio 20.7 (10-20); Calcium 8.5 mg/dl (8.5-10.1); Est GFR (African American) 107.6 ml/min; Est GFR (Non-African American) 92.8 ml/min; Magnesium 1.8 mg/dl (1.7-2.4); Potassium 3.8 mmol/L (3.5-5.1)
[2022-03-12] MEDS: INSULIN ASPART PER UNIT SC SCH ×4 (08:28→20:57)
[2022-03-12] MEDS: POLYETHYLENE (MIRALAX) 17 GM PACK PO SCH ×2 (08:29→20:58)
[2022-03-12] MEDS: HYDROmorphone INJ 1 MG/ML SYRINGE IV PRN (08:31)
--- NOTE | 2022-03-12 09:56 | Urology Progress Note ---
Date of Service March 12, 2022 Assessment & Plan (1) UTI due to extended-spectrum beta lactamase (ESBL) producing Escherichia coli: (2) Prostate cancer: Plan Improving Reviewed his overall status I discussed long-term management We will plan to cover him with antibiotics for 2 weeks total He has a voiding trial and cystogram scheduled for next week as well as an office visit with me No indication for repeat imaging right now Pending progression we will determine if he warrants further imaging in the future Despite his right lower quadrant pain I do not see any hematomas, fluid collections, hernias, etc. to explain the discomfort Admission and Anticipated Discharge Date Admission Date: March 08, 2022 Subjective Subjectively feeling much better Still with some right lower quadrant pain but tolerable, feels that he is ready to go home Urine draining clear, creatinine appropriate, hemoglobin appropriate, leukocytosis resolved, afebrile Physical Exam Physical Exam: Minimal tenderness in the right lower quadrant Incisions appear appropriate Urine clearFoley in place Results & Data ([facility]) Vital Signs (Past 12 Hours) Vital Signs Temp Pulse Pulse Resp BP Pulse Ox O2 Del Method 03/12/22 07:30 36.8 C 76 20 142/67 H 93 Room Air 03/12/22 07:11 85 03/12/22 03:20 36.3 C L 74 18 170/82 H 93 Room Air 03/11/22 22:15 67 03/11/22 22:56 36.6 C 71 18 157/82 H 94 Room Air PG Care Time/CCT Total # of Minutes Spent Total Time Spent with Patient: Total time spent is greater than 50% in coordination of care (as documented) at patient's floor/unit and/or counseling patient: Coding Level of Care Code 26052 Subseq Hosp Care Lvl 2 Diagnoses UTI due to extended-spectrum beta lactamase (ESBL) producing Escherichia coli N39.0; B96.29; Z16.12 Prostate cancer C61
[2022-03-12] MEDS ORDERED: LACTULOSE SYRUP 30 GM/45 ML UDP PO STA (10:49)
[2022-03-12] MEDS: ERTAPENEM SODIUM 1,000 MG in SYRINGE 0 ML IV SCH (15:18)
--- NOTE | 2022-03-12 19:29 | Hospitalist Progress Note ---
Date of Service March 12, 2022 Assessment & Plan (1) Sepsis: Plan: 2nd to catheter-associated UTI IMPROVED clinically WBC ct has normalized cont Ertapenem plan 14 days of Rx with ertapenem first dose was 03/08/22 thus dose today is #5 patient is ok with peripheral u/s-guided IV at d/c with home IV abx blood cx's remain negative; continue to follow (2) JAIRON (acute kidney injury): Plan: resolved. JAIRON was likely more so related to his bladder leak as opposed to ATN. although other nephrotoxic meds/factors could have contributed including IV CT contrast, CHLOE inhibitor use, IV toradol, etc. either way Cr now <1 cont mcmahon cont to hold HCTZ/CHLOE as BPs are acceptable without them. bmp am (3) UTI (urinary tract infection): Plan: CATHETER-associated UTI as he just had mcmahon catheter for his recent prostatectomy. urine culture with ESBL e.coli cont IV ertapenem - day #5of such today. blood cultures negative. see #1 above. (4) Abdominal distension: Plan: improved today following large BM with copious flatus this am. likely multifactorial - some gaseous distension, constipation, probably body wall edema and/or minimal ascites, etc. cont bowel regimen. oob to chair if possible; increase activity. if distension remains and RLQ abd pain remains or worsens would repeat his abd/pelvis CT. (5) Prostate cancer: Plan: s/p robotic prostatectomy on March 02 with acinar adenocarcinoma grade group 1 with [place] score of 6 on pathology. had mcmahon post-op, removed in office, mcmahon placed back 03/09. probable bladder leak based on KUB findings. no specific Rx for such other than mcmahon catheter and time. urology aware of bladder leak. mcmahon should remain at time of d/c until office follow-up. (6) Hypertension: Plan: cont amlodipine cont to hold hydrochlorothiazide and quinapril not sure if there is any role for flomax as he does not have his prostate any longer - wean from 0.8mg to 0.4mg (7) Type 2 diabetes mellitus with insulin therapy: Plan: Cont novolog Cont lantus 50 units daily a1c noted (7.2%) control adequate at this time (8) History of depression: Plan: Continue sertraline (9) Morbid obesity with BMI of 40.0-44.9, adult: Plan: BMI 44 (10) Dyspnea: Plan: CXR 01/2022 wnl CXR this admission without infiltrates etiology? he needs dedicated CT imaging, PFTs, etc. watch carefully for development of pulmonary edema in setting of JAIRON/ATN he claims this is chronic, but he is exceptionally dyspneic with minimal activity (just moving in bed) could he have PE? other? would perform 2-step at d/c (11) Hx of right BKA: (12) History of transmetatarsal amputation of left foot: (13) DVT prophylaxis: Plan: heparin 7500 units TID due to morbid obesity Plan extensively updated by phone 03/09/22 and 03/11/22 cont PT/OT cleared for home by PT/OT will need IV abx outside the hospital as noted in #1 above - anticipate d/c home on Tuesday HH services would start Thursday 03/15 - he would have 7 days of IV ertapenem starting then he is agreeable with this plan care extensively d/w Dr Cole today Admission and Anticipated Discharge Date Admission Date: March 08, 2022 Subjective tele wnl overnight patient had "big bowel movement" this am with lots of flatus abdomen is softer since then appetite still not robust - does not like the food no nausea or vomiting still with mild RLQ abd pain - using IV dilaudid frequently along with oxycodone PO pain in RLQ mildly improved today he still doesn't feel "that great" but asks about when he can go home slept better last pm with melatonin wants to sit in recliner if possible Review of Systems Review of Systems: gen - no fevers, but has sweats at times cv - no cp, no orthopnea pulm - no cough; dyspnea again is at baseline - mcmahon draining clear yellow urine GI - no vomiting Physical Exam Physical Exam: gen - obese, looks same as yesterday or slightly better neck - no obvious JVD mouth - MMM heart - RRR, s1 s2, no murmur lungs - decreased BS bases, CTA b/l, no rales or wheeze abd - distension improved today; BS+, tender RLQ but improved today; abdominal wall incisions clean/intact ext - right BKA; left foot TMA of all toes, no edema vascular - left foot - pulses 1+ psych - a/o x 3 Results & Data Results & Data ([facility]) Vital Signs (Past 12 Hours) Vital Signs Temp Pulse Resp BP Pulse Ox O2 Del Method 03/12/22 14:51 36.9 C 87 20 137/75 96 Room Air 03/12/22 11:06 36.6 C 73 20 145/60 H 95 Room Air 03/12/22 07:30 36.8 C 76 20 142/67 H 93 Room Air Laboratory Results Laboratory Results - last 24 hr 03/11/22 03/12/22 03/12/22 20:04 06:01 06:01 WBC 8.11 RBC 3.82 L Hgb 10.6 L Hct 32.2 L MCV 84.3 MCH 27.7 MCHC 32.9 RDW Std Deviation 41.9 RDW Coeff of Cori 13.5 Plt Count 211 MPV 9.3 L Sodium 138 Potassium 3.8 Chloride 106 Carbon Dioxide 25 Anion Gap 7 BUN 17 Creatinine 0.82 Est Cr Clr Drug Dosing 143.0 Est GFR ( Amer) 107.6 Est GFR (Non-Af Amer) 92.8 BUN/Creatinine Ratio 20.7 H Glucose 139 H POC Glucose 142 H Calcium 8.5 Magnesium 1.8 03/12/22 03/12/22 03/12/22 07:50 11:18 16:42 WBC RBC Hgb Hct MCV MCH MCHC RDW Std Deviation RDW Coeff of Cori Plt Count MPV Sodium Potassium Chloride Carbon Dioxide Anion Gap BUN Creatinine Est Cr Clr Drug Dosing Est GFR ( Amer) Est GFR (Non-Af Amer) BUN/Creatinine Ratio Glucose POC Glucose 172 H 134 H 134 H Calcium Magnesium Diagnostic Findings blood cultures from admission negative PG Care Time/CCT Total # of Minutes Spent Total Time Spent with Patient: Total time spent is greater than 50% in coordination of care (as documented) at patient's floor/unit and/or counseling patient: Coding Level of Care Code 21756 Subseq Hosp Care Lvl 3 Diagnoses Sepsis A41.9 JAIRON (acute kidney injury) N17.9 UTI (urinary tract infection) N39.0 Abdominal distension R14.0 Prostate cancer C61 Hypertension I10 Hypertension type: essential hypertension Type 2 diabetes mellitus with insulin therapy E11.9; Z79.4 History of depression Z86.59 Morbid obesity with BMI of 40.0-44.9, adult E66.01; Z68.41 Dyspnea R06.00 Hx of right BKA Z89.511 History of transmetatarsal amputation of left foot Z89.432 DVT prophylaxis Z29.9 (1) Hypertension Hypertension type: essential hypertension Qualified Code(s): I10 - Essential (primary) hypertension
[2022-03-12] MEDS: amLODIPine BESYLATE 5 MG TAB PO SCH (20:45)
[2022-03-12] MEDS: HYDROmorphone INJ 0.5 MG/0.5 ML SYR IV PRN (20:57)
[2022-03-12] MEDS: LANTUS PER UNIT CHARGE SQ SCH (20:57)
[2022-03-12] MEDS: MELATONIN 3 MG TAB PO SCH (20:58)
[2022-03-12] MEDS: SERTRALINE HCL 100 MG TABLET PO SCH (20:58)
[2022-03-12] MEDS: SENNA 8.6 MG TAB PO SCH (20:58)
[2022-03-12] MEDS: CHOLECALCIFEROL 400 UNITS 10 MCG TAB PO SCH (20:58)
[2022-03-12] MEDS ORDERED: TAMSULOSIN HCL 0.4 MG CAP PO SCH ×2 (21:00)
[2022-03-13] MEDS: oxyCODONE HCL IR 5 MG TAB (IMMEDIATE RELEASE) PO PRN ×3 (05:50→21:10)
[2022-03-13] MEDS: HEPARIN SOD 5,000 UNIT/0.5 ML VIAL SQ SCH ×3 (05:50→21:09)
[2022-03-13 07:32] LABS: BUN Creatinine Ratio 18.3 (10-20); Creatinine Clr Calc Pharmacy 111.5 ml/min; Est GFR (African American) 86.9 ml/min; Potassium 4.7 mmol/L (3.5-5.1)
[2022-03-13] MEDS: INSULIN ASPART PER UNIT SC SCH ×4 (08:42→21:07)
[2022-03-13] MEDS: HYDROmorphone INJ 0.5 MG/0.5 ML SYR IV PRN (08:55)
[2022-03-13] MEDS: amLODIPine BESYLATE 5 MG TAB PO SCH ×2 (08:59→21:06)
[2022-03-13] MEDS: POLYETHYLENE (MIRALAX) 17 GM PACK PO SCH ×2 (08:59→21:08)
--- NOTE | 2022-03-13 09:54 | Urology Progress Note ---
Date of Service March 13, 2022 Assessment & Plan (1) UTI due to extended-spectrum beta lactamase (ESBL) producing Escherichia coli: (2) Prostate cancer: Plan Awaiting discharge home tomorrow to complete his antibiotic course Otherwise doing well Admission and Anticipated Discharge Date Admission Date: March 08, 2022 Subjective Doing much better today Still with some right lower quadrant pain, however, he reports he had a big bowel movement yesterday and passed a lot of flatus and has had substantial improvement since then Anxious to go home Peripheral ultrasound-guided IV placed today Plan for discharge home tomorrow to complete his antibiotic course Physical Exam Physical Exam: Incisions appropriate Abdomen soft Urine clear Results & Data ([facility]) Vital Signs (Past 12 Hours) Vital Signs Temp Pulse Resp BP Pulse Ox O2 Del Method 03/13/22 06:53 36.8 C 83 18 142/78 H 98 Room Air 03/12/22 23:28 36.5 C 75 18 145/67 H 93 Room Air PG Care Time/CCT Total # of Minutes Spent Total Time Spent with Patient: Total time spent is greater than 50% in coordination of care (as documented) at patient's floor/unit and/or counseling patient: Coding Level of Care Code 76929 Subseq Hosp Care Lvl 2 Diagnoses UTI due to extended-spectrum beta lactamase (ESBL) producing Escherichia coli N39.0; B96.29; Z16.12 Prostate cancer C61
[2022-03-13] MEDS: ERTAPENEM SODIUM 1,000 MG in SYRINGE 0 ML IV SCH (13:26)
--- NOTE | 2022-03-13 17:23 | Hospitalist Progress Note ---
Date of Service March 13, 2022 Assessment & Plan (1) Sepsis: Plan: 2nd to catheter-associated UTI IMPROVED clinically WBC ct has normalized cont Ertapenem plan 14 days of Rx with ertapenem first dose was 03/08/22 thus dose today is #6 peripheral u/s-guided IV placed for home IV abx blood cx's remain negative (2) JAIRON (acute kidney injury): Plan: resolved. JAIRON was likely more so related to his bladder leak as opposed to ATN. (although other nephrotoxic meds/factors could have contributed including IV CT contrast, CHLOE inhibitor use, IV toradol, etc.) either way Cr now <1 or about 1 cont mcmahon cont to hold HCTZ/CHLOE as BPs are acceptable without them. bmp am (3) UTI (urinary tract infection): Plan: CATHETER-associated UTI as he just had mcmahon catheter for his recent prostatectomy. urine culture with ESBL e.coli cont IV ertapenem - day #6 of such today. blood cultures negative. see #1 above. (4) Abdominal distension: Plan: again improved today likely multifactorial - some gaseous distension, constipation, probably body wall edema and/or minimal ascites, etc. cont bowel regimen (5) Prostate cancer: Plan: s/p robotic prostatectomy on March 02 with acinar adenocarcinoma grade group 1 with [place] score of 6 on pathology. had mcmahon post-op, removed in office, then mcmahon placed back 03/09. probable bladder leak based on KUB findings. no specific Rx for such other than mcmahon catheter and time. urology aware of bladder leak. mcmahon should remain at time of d/c until office follow-up. (6) Hypertension: Plan: cont amlodipine cont to hold hydrochlorothiazide and quinapril not sure if there is any role for flomax as he does not have his prostate any longer - weaned from 0.8mg to 0.4mg to off (7) Type 2 diabetes mellitus with insulin therapy: Plan: Cont novolog but adjust parameters today for preprandial highs Cont lantus 50 units daily a1c noted (7.2%) (8) History of depression: Plan: Continue sertraline (9) Morbid obesity with BMI of 40.0-44.9, adult: Plan: BMI 44 (10) Dyspnea: Plan: CXR 01/2022 wnl CXR this admission without infiltrates etiology? he needs dedicated CT imaging, PFTs, etc. watch carefully for development of pulmonary edema in setting of JAIRON/ATN he claims this is chronic, but he is exceptionally dyspneic with minimal activity (just moving in bed) could he have PE? other? would perform 2-step at d/c (11) Hx of right BKA: Plan: had had edema of stump making it hard to get his prosthetic leg on but the edema is improved and leg fitting better now (12) History of transmetatarsal amputation of left foot: (13) DVT prophylaxis: Plan: heparin 7500 units TID due to morbid obesity Plan extensively updated by phone 03/09/22 and 03/11/22 and again today cont PT/OT cleared for home by PT/OT will need IV abx outside the hospital as noted in #1 above - anticipate d/c home tomorrow HH services would start Thursday 03/15 - he would have 7 days of IV ertapenem starting then he is agreeable with this plan appreciate Dr Cole's consultation Admission and Anticipated Discharge Date Admission Date: March 08, 2022 Subjective feels good today robust appetite - eating 100% meals had another BM today RLQ abd pain much improved has mild suprapubic pain only dyspnea at baseline slept ok last night hopeful for discharge soon Review of Systems Review of Systems: gen - no fevers or chills cv - no cp, no orthopnea pulm - no cough GI - no N/V Physical Exam Physical Exam: gen - obese, looks good today (best he has looked all week) neck - no obvious JVD mouth - MMM heart - RRR, s1 s2, no murmur lungs - CTA b/l, no rales or wheeze abd - distension again improved today; BS+, nontender over RLQ, abdominal wall incisions clean/intact ext - right BKA; left foot TMA of all toes, no edema vascular - left foot - pulses 1+ psych - a/o x 3 Results & Data Results & Data ([facility]) Vital Signs (Past 12 Hours) Vital Signs Temp Pulse Resp BP Pulse Ox O2 Del Method 03/13/22 14:41 36.8 C 80 20 142/72 H 94 Room Air 03/13/22 06:53 36.8 C 83 18 142/78 H 98 Room Air Laboratory Results Laboratory Results - last 24 hr 03/12/22 03/13/22 03/13/22 20:29 06:16 07:44 Sodium 139 Potassium 4.7 D Chloride 104 Carbon Dioxide 27 Anion Gap 8 BUN 19 Creatinine 1.04 Est Cr Clr Drug Dosing 111.5 Est GFR ( Amer) 86.9 Est GFR (Non-Af Amer) 75.0 BUN/Creatinine Ratio 18.3 Glucose 202 H POC Glucose 207 H 250 H Calcium 9.0 03/13/22 03/13/22 11:22 16:32 Sodium Potassium Chloride Carbon Dioxide Anion Gap BUN Creatinine Est Cr Clr Drug Dosing Est GFR ( Amer) Est GFR (Non-Af Amer) BUN/Creatinine Ratio Glucose POC Glucose 190 H 105 H Calcium PG Care Time/CCT Total # of Minutes Spent Total Time Spent with Patient: Total time spent is greater than 50% in coordination of care (as documented) at patient's floor/unit and/or counseling patient: Coding Level of Care Code 17796 Subseq Hosp Care Lvl 2 Diagnoses Sepsis A41.9 JAIRON (acute kidney injury) N17.9 UTI (urinary tract infection) N39.0 Abdominal distension R14.0 Prostate cancer C61 Hypertension I10 Hypertension type: essential hypertension Type 2 diabetes mellitus with insulin therapy E11.9; Z79.4 History of depression Z86.59 Morbid obesity with BMI of 40.0-44.9, adult E66.01; Z68.41 Dyspnea R06.00 Hx of right BKA Z89.511 History of transmetatarsal amputation of left foot Z89.432 DVT prophylaxis Z29.9 (1) Hypertension Hypertension type: essential hypertension Qualified Code(s): I10 - Essential (primary) hypertension
[2022-03-13] MEDS: CHOLECALCIFEROL 400 UNITS 10 MCG TAB PO SCH (21:06)
[2022-03-13] MEDS: LANTUS PER UNIT CHARGE SQ SCH (21:07)
[2022-03-13] MEDS: MELATONIN 3 MG TAB PO SCH (21:07)
[2022-03-13] MEDS: SENNA 8.6 MG TAB PO SCH (21:08)
[2022-03-13] MEDS: SERTRALINE HCL 100 MG TABLET PO SCH (21:09)
[2022-03-14] MEDS: HEPARIN SOD 5,000 UNIT/0.5 ML VIAL SQ SCH (06:16)
[2022-03-14 06:49] LABS: Hematocrit (blood only) 34.1 % (40.1-51.0); Hemoglobin 11.2 g/dl (14.0-18.0); Mean Corpuscular Hemoglobin 27.8 pg (25.0-34.0); Mean Corpuscular Hgb Conc 32.8 g/dL (32.0-36.0); Mean Corpuscular Volume 84.6 fL (80.0-100.0); Mean Platelet Volume 9.5 fL (9.4-12.4); Platelet Count 257 K/uL (130-400); RDW Coefficient of Variation 13.7 % (11.5-14.5); RDW Standard Deviation 42.7 fL (36.4-46.3); Red Blood Count 4.03 M/uL (4.63-6.08); White Blood Count 10.61 K/ul (4.8-10.8)
[2022-03-14 07:17] LABS: BUN Creatinine Ratio 18.2 (10-20); Calcium 8.4 mg/dl (8.5-10.1); Creatinine Clr Calc Pharmacy 117.1 ml/min; Est GFR (African American) 92.2 ml/min; Est GFR (Non-African American) 79.6 ml/min; Potassium 4.1 mmol/L (3.5-5.1)
--- NOTE | 2022-03-14 09:33 | Urology Progress Note ---
Date of Service March 14, 2022 Assessment & Plan (1) Prostate cancer: Plan: Home with IV antibiotics today Follow-up next week with cystogram and potential catheter removal Overall doing better Admission and Anticipated Discharge Date Admission Date: March 08, 2022 Subjective Subjectively feeling better Anxious to go home Urine draining appropriately Results & Data ([facility]) Vital Signs (Past 12 Hours) Vital Signs Temp Pulse Resp BP Pulse Ox O2 Del Method 03/14/22 08:15 36.5 C 67 19 121/76 97 Room Air 03/13/22 23:00 36.6 C 78 18 126/54 L 93 Room Air PG Care Time/CCT Total # of Minutes Spent Total Time Spent with Patient: Total time spent is greater than 50% in coordination of care (as documented) at patient's floor/unit and/or counseling patient: Coding Level of Care Code 87144 Subseq Hosp Care Lvl 2 Diagnoses Prostate cancer C61
[2022-03-14] MEDS: POLYETHYLENE (MIRALAX) 17 GM PACK PO SCH (10:04)
[2022-03-14] MEDS: amLODIPine BESYLATE 5 MG TAB PO SCH (10:06)
[2022-03-14] MEDS: oxyCODONE HCL IR 5 MG TAB (IMMEDIATE RELEASE) PO PRN (10:16)
[2022-03-14] MEDS: INSULIN ASPART PER UNIT SC SCH ×2 (10:21→13:05)
[2022-03-14] MEDS: ERTAPENEM SODIUM 1,000 MG in SYRINGE 0 ML IV SCH (12:57)
--- NOTE | 2022-03-14 13:50 | Discharge Summary ---
Date of Service date of admission - March 08, 2022 date of discharge - March 14, 2022 Admission HPI Per Admitting Provider 67-year-old male who underwent a prostatectomy 6 days prior to admission and had his Mcmahon catheter removed at the urologist office today. Patient then went ho me had developed abdominal pain and spasms as well as diaphoresis nausea and vomiting. Patient presents to the ED with leukocytosis. Imaging of the area shows fluid collection which would be expected postoperatively but with a history of ESBL urinary tract infections and leukocytosis concern would be for infectious source and the patient will be admitted to our facility Principal Diagnosis 1. sepsis 2nd to complicated / catheter-associated ESBL E.coli UTI 2. recent robotically-assisted prostatectomy 3. abdominal pain - multifactorial - slowly improving Discharge Exam gen - obese, NAD, looks good neck - no obvious JVD mouth - MMM heart - RRR, s1 s2, no murmur lungs - CTA b/l, no rales or wheeze abd - distension improved; BS+, nontender over RLQ, abdominal wall incisions clean/intact ext - right BKA; left foot TMA of all toes, no edema vascular - left foot - pulses 1+ psych - a/o x 3 Discharge Data Allergies Allergy/AdvReac Type Severity Reaction Status Date / Time amoxicillin [From Augmentin] Allergy Unknown FACE Verified 03/17/22 13:20 SWELLING AND RASH OVER BODY clavulanic acid Allergy Unknown FACE Verified 03/17/22 13:20 [From Augmentin] SWELLING AND RASH OVER BODY methotrexate Allergy Unknown Depression- Verified 03/17/22 13:20 severe vancomycin AdvReac Intermediate Verified 03/17/22 13:33 doxycycline AdvReac Unknown nausea/ Verified 03/17/22 13:20 vomiting oxycodone [From Percocet] AdvReac Unknown Nausea Verified 03/17/22 13:20 Consultations [facility] Urology Ordered Studies Abdomen/Pelvis CT 03/08/22 17:20 CT OF THE ABDOMEN AND PELVIS WITH CONTRAST CLINICAL HISTORY: lower abdominal pain, s/p prostatectomy 6d ago COMPARISON STUDY: CT of the abdomen and pelvis December 01, 2021. TECHNIQUE: Following IV administration of 114 mL of Optiray, axial images of the abdomen and pelvis were obtained from the lung bases to the proximal femurs. Images were reviewed in the axial, sagittal, and coronal planes. IV contrast was administered without complication. Automated exposure control was utilized for the study. A dose lowering technique was utilized adhering to the principles of ALARA. CT DOSE: 1990.67 mGy.cm FINDINGS: Several lower lung nodules including an 8 mm right lower lobe nodule are unchanged since CT of February 23, 2021. These are probably benign. No pneumatosis, free air or portal venous gas is present. Hepatic steatosis is noted. A 2.7 cm left adrenal nodule is unchanged since CT of February 23, 2021. This likely reflects an adenoma. The spleen, right adrenal gland and pancreas are unremarkable there is a 1 cm calculus within lower pole of the right kidney. The ureteral calculi are present. There is no hydronephrosis or hydroureter. There is a small mild gas within the bladder. There is mild symmetric bilateral perinephric stranding. There is no renal abscess. There are postoperative findings consistent with recent prostatectomy. A small amount of fluid within the prostatectomy bed is noted. In addition, there is an 8 x 8 x 4.7 cm fluid collection within the space of Retzius with mild peripheral enhancement. There is moderate adjacent extraperitoneal fluid within the anterior pelvis and right lateral abdomen. There is trace perihepatic ascites. No additional fluid collections are present. There is no lymphadenopathy. No suspicious osseous lesions are identified within the visualized skeletal structures. Major vasculature is patent. Exam is compromised by body wall contacting the gantry. There is subcutaneous stranding of the anterior abdominal wall. IMPRESSION: 1. Status post recent prostatectomy. Trace fluid within the prostatectomy bed. 8 x 8 x 4.7 cm fluid collection within the space of Retzius with mild peripheral enhancement. A seroma or resolving hematoma is favored. However, sterility cannot be assessed by CT and an abscess is within the differential. Moderate extraperitoneal fluid within the anterior pelvis and right lateral abdomen, as described above. Trace perihepatic ascites. 2. Mild bladder wall thickening which could be correlated with urinalysis. Trace gas within the bladder, likely from recent instrumentation. No hydronephrosis. 1 cm right renal calculus. No ureteral calculi. Mild symmetric bilateral perinephric stranding. 3. No bowel obstruction. No bowel wall thickening. Normal lipase. ACT 112: Negative or not required by law. Electronically signed by: Mahin Bolanos M.D. 03/08/2022 5:59 PM Chest/Abdomen X-ray 03/09/22 13:03 PA CHEST RADIOGRAPH AND UPRIGHT AND SUPINE AP RADIOGRAPHS OF THE ABDOMEN CLINICAL HISTORY: severe abd distension, recent surgery, SOB; ileus? COMPARISON STUDY: CT of the abdomen and pelvis March 08, 2022. Chest radiograph February 23, 2022. FINDINGS: No pneumothorax or pleural effusion is present. Mild left basilar opacity represents atelectasis. Cardiomediastinal silhouette is normal. There is slight interstitial prominence. No evidence for overt pulmonary edema. There is no consolidation. There is no free air. A few mildly dilated small bowel within the right lower quadrant measure up to 3.5 cm in caliber. There is contrast within the bladder from recent contrast-enhanced CT. In addition, there is a 10.5 x 5 cm elliptical pocket of contrast projecting over the lower aspect the bladder. This likely corresponds to contrast within the extraperitoneal fluid collection on CT of March 08, 2022. IMPRESSION: 1. 10.5 x 5 cm collection of contrast projecting over the inferior bladder which likely corresponds to the extraperitoneal fluid collection on CT of March 08, 2022. This raises the possibility of a bladder neck/urethral leak with associated urinoma. Discussed with Dr. Núñez at time of dictation. 2. A few mildly dilated loops of small bowel. This may reflect a developing ileus or less likely bowel obstruction. 3. No acute cardiopulmonary findings. ACT 112: Negative or not required by law. Electronically signed by: Mahin Bolanos M.D. 03/09/2022 3:27 PM Abdomen X-Ray 03/11/22 12:13 XR abdomen min 2V CLINICAL HISTORY: Abdominal distension, ?ileus COMPARISON STUDY: CT of the abdomen and pelvis March 08, 2022. Abdominal s eries March 09, 2022. FINDINGS: No free air is evident. The bowel gas pattern is within normal limits. Prominent small bowel loop is noted. However, there is no radiographic evidence for an ileus or small bowel obstruction. Amount of stool is within normal limits. Pelvic calcifications represent phleboliths. IMPRESSION: No evidence for a bowel obstruction. No radiographic evidence for an ileus. ACT 112: Negative or not required by law. Electronically signed by: Mahin Bolanos M.D. 03/11/2022 2:06 PM Hospital Course (1) Sepsis: 2nd to catheter-associated UTI IMPROVED clinically WBC count normalized while here and blood cultures remained negative Rx - 14 days of IV ertapenem with first dose on 03/08/22 peripheral u/s-guided IV was placed for home IV antibiotic usage (2) JAIRON (acute kidney injury): resolved. JAIRON was likely more so related to his bladder leak as opposed to ATN. (although other nephrotoxic meds/factors could have contributed including IV CT contrast, CHLOE inhibitor use, IV toradol, etc.) peak Cr was 3.[address] Cr now <1 or about 1 he will continue his mcmahon at discharge at discharge he will continue to hold his CHLOE inhibitor quinapril advise repeat BMP shortly after discharge for stability (3) UTI (urinary tract infection): CATHETER-associated UTI as he just had mcmahon catheter for his recent prostatectomy. urine culture with ESBL e.coli received 7 days of IV ertapenem while here, and will complete 7 more days of suc h at home. blood cultures were negative during the hospitalization. see #1 above. (4) Abdominal distension: this was a prominent complaint throughout the stay for Mr Barry. likely multifactorial - some gaseous distension, constipation, probably body wall edema and/or minimal ascites, etc. Improved later in the stay as he passed more gas and stool. His RLQ abd pain also improved later in the stay. He should continue on a bowel regimen upon return home. Dr Cole and the [facility] Urology team followed this issue during Mr Barry's stay. (5) Prostate cancer: s/p robotic prostatectomy on March 02 with acinar adenocarcinoma grade group 1 with Curtis score of 6 on pathology. had mcmahon post-op, removed in office, then mcmahon placed back 03/09. patient had a probable bladder leak based on imaging findings. no specific Rx for such other than mcmahon catheter and time. urology was consulted, they agreed he had a bladder leak, and advised ongoing use of mcmahon catheter until he is seen in the office post-discharge. (6) Hypertension: cont amlodipine cont hydrochlorothiazide HOLD quinapril at discharge (7) Type 2 diabetes mellitus with insulin therapy: Cont novolog TID w/ meals Cont lantus 50 units daily Hba1c 7.2% (8) History of depression: Continue sertraline (9) Morbid obesity with BMI of 40.0-44.9, adult: BMI 44 (10) Dyspnea: CXR 01/2022 wnl CXR this admission without infiltrates etiology? he needs dedicated CT imaging, PFTs, etc. patient reported that this symptom was chronic, but at times he was exceptionally dyspneic with minimal activity. patient was walked in the hallway on day of discharge and o2 sats were wnl in room air. warpi-kxd-dibx advised f/u with [facility] for more work-up for this symptom. (11) Hx of right BKA: (12) History of transmetatarsal amputation of left foot: (13) DVT prophylaxis: heparin 7500 units TID was used during the stay Home Health Attestation I certify that this patient is under my care and that I, or a physicians tutoring assistant working with me, had a face to-face encounter that meets the home health fcvb-ca-grvz encounter requirements with this patient. The encounter with the patient was in whole, or in part, for the following medical condition, which is the primary reason for home health care (list medical condition): I certify that, based on my findings, the following services are medically necessary home health services: My clinical findings support the need for the above services because: Further, I certify that my clinical findings support that this patient is homebound (i.e. absences from home require considerable and taxing effort and are for medical reasons or [employer] services or infrequently or of short duration when for other reasons) because: Certification for Home Health Services: Based on the above findings, I certify that this patient is confined to the home and needs intermittent assisted care, physical therapy and/or speech therapy or continues to need occupational therapy. The patient is under my care, and I have initiated the establishment of the plan of care. This patient will be followed by a physician who will periodically review the plan of care. Total Time Total Time Spent Total Time Spent (In Minutes): 50 Discharge Plan Discharge Items Patient Disposition: Home - Home Health Services Reason For Visit: Abdominal pain, vomiting Discharge Diagnosis: 1. ESBL E.coli Urinary Tract Infection (UTI) - improved 2. Fluid collection on CT scan and x-rays of the abdomen - likely "bladder leak" - resolving; mcmahon in place 3. Acute Renal Failure - likely due to #2, sepsis, possibly other factors - resolved 4. Abdominal pain - likely multiple factors including UTI, constipation, edema/fluid of abdomen, post-surgery pain, excess gas of bowels, etc. - slowly improving 5. Sepsis due to #1 above - resolved 6. Type 2 diabetes Activity: As commented below Activity Comment: please follow any instructions previously given by Dr Cole Bathing: Keep incision dry Bathing Comment: Keep IV in left arm covered/clean/dry during showers Sexual Activity: Wait until after follow-up appointment Driving/Machine Use: No driving while taking narcotic pain killer medication Non-emergency contact: Primary Care Provider and Urologist Call non-emergency contact if: you have any medication questions, your symptoms worsen, your pain is not controlled, your pain is worsening, you have a fever, your wound has increased redness, your wound has increased drainage and your wound pain has increased Follow-up/Referrals: Leonila Beach MD [Primary Care Provider] - (1 week) Nicolás Cole MD [Physician] - 03/17/22 Diet: Carb Consistent or DM2 Addtl Attending Provider Instructions: Mr Jhonny, You were hospitalized for a host of issues as noted above in "discharge diagnoses." You had evidence of urinary tract infection upon arrival and your urine culture grew ESBL e.coli. This is a type of e.coli infection that is resistant to many antibiotics - especially oral antibiotics. You have received 7 days of IV ertapenem during your stay, and will complete 7 more days of this once-daily antibiotic at home with the IV in your left arm. The IV can be removed once your 7-day course is complete. You had severe abdominal pain for much of your stay. It was likely due to a number of factors including post-operative pain, constipation/excess gas, the urinary infection, etc. It gradually improved while here. Your imaging of your abdomen showed that you had a bladder leak. This was likely responsible for your acute renal failure (your creatinine /kidney function level romi to high levels). Other factors including sepsis, medications, etc may also have played a role. Your creatinine returned to normal with time and placing the mcmahon catheter back in your bladder. Recommendations - 1. Ertapenem 1gm IV daily for 7 days, first dose tomorrow on 03/15/22. Home health has been arranged to assist you and your with this. 2. Please purchase an kukj-wkj-bpwptzi probiotic and take for the next 7-10 days. This may help prevent diarrhea from the Ertapenem. 3. Pain control - * tylenol, up to 1000mg every 6 hours as needed, max 3000mg in 24 hours * oxycodone pain killer medication - 5mg every 6 hours as needed for pain * no driving if taking the oxycodone as it can cause drowsiness * no alcohol use while taking oxycodone * it will cause constipation - see below 4. Constipation - you may need to take a combination of multiple medications (all are wkby-pop-zybtnzl) to maintain healthy bowels. Many people take a combination of miralax with senokot. 5. Blood pressure medications - * CONTINUE your amlodipine * CONTINUE your hydrochlorothiazide * HOLD your quinaprl 6. STOP tramadol use if taking the oxycodone. 7. Please talk to your family doctor about your chronic shortness of breath. It would be helpful for you to see a collection advisor to determine the cause of it. 8. For nausea - may use ondansetron 4mg every 6 hours as needed. 9. Resume your usual insulin regimen as previous. Follow-up - see separate section Return to [facility] if - * you have fevers over 100 degrees * your abdominal pain worsens * you have uncontrollable nausea and/or vomiting * you have any concerns about your mcmahon catheter * you see large amounts of blood in your urine * you have uncontrolled blood sugars despite taking your usual insulins * you have chest pains or worsening shortness of breath * you develop severe diarrhea * any other concerns It was our pleasure to care for you! Dr Núñez Pending Studies at Discharge: No Stand-Alone Forms: [facility], Smoking Cessation Medications and DC Order Prescriptions: New sennosides [Senokot] 8.6 mg Tablet 17.2 mg PO DAILY Qty: 30 0RF Rx Instructions: purchase jnmu-vmo-lxqajhd polyethylene glycol 3350 [Miralax] 17 gram Powder In Packet 17 g PO BID Qty: 30 0RF Rx Instructions: purchase dnar-rwp-paosesw oxycodone 5 mg Tablet 5 mg PO Q6H PRN (Reason: pain) Qty: 20 0RF ondansetron 4 mg tablet,disintegrating 4 mg PO Q6H PRN (Reason: nausea and vomiting) Qty: 10 0RF Continued (DME) Dexcom G6 Barytes Grinder Misc See Rx Instructions .MEDSUPPLY Qty: 1 0RF Rx Instructions: Use as directed for continuous glucose monitoring (DME) Dexcom G6 Transmitter Device See Rx Instructions .MEDSUPPLY Qty: 1 0RF Rx Instructions: Use as directed for continuous glucose monitoring - change every 90 days amlodipine 5 mg tablet 5 mg PO HS Qty: 90 1RF (DME) Dexcom G6 Sensor Device See Rx Instructions .MEDSUPPLY Qty: 9 3RF Rx Instructions: Use as directed for continuous glucose monitoring - Change sensor every 10 days lutein 6 mg tablet 6 mg PO HS cholecalciferol (vitamin D3) 400 unit capsule 400 units PO HS (DME) insulin syringes (disposable) 1 mL syringe See Rx Instructions .ROUTE .MEDSUPPLY Rx Instructions: Inject 3 times daily (DME) blood-glucose meter [Accu-Chek Suzan Plus Meter] Misc See Rx Instructions .ROUTE .MEDSUPPLY Rx Instructions: Test 1 times daily (DME) pen needle, diabetic [BD Ultra-Fine Pia Pen Needle] 32 gauge x 5/32" needle See Rx Instructions .ROUTE .MEDSUPPLY Rx Instructions: Inject with Basaglar once daily insulin aspart U-100 [Novolog U-100 Insulin aspart] 100 unit/mL solution 25 unit subcut TIDM Label Comments: SLIDING SCALE Rx Instructions: PER SLIDING SCALE mupirocin 2 % ointment 1 applic topical UD PRN (Reason: SKIN IRRITATION ) insulin glargine [Basaglar KwikPen U-100 Insulin] 100 unit/mL (3 mL) insulin pen 50 unit SQ HS Medical Marijuana Card 1 dose UD docusate sodium [Colace] 100 mg capsule 100 mg PO BID Qty: 30 0RF Rx Instructions: Take twice daily for 2 weeks, then as needed thereafter coenzyme Q10 [Co Q-10] 100 mg Capsule 100 mg PO QPM Changed hydrochlorothiazide 25 mg tablet 25 mg PO DAILY Qty: 90 3RF Hold Instructions: jairon, low bp Discontinued quinapril 40 mg tablet 40 mg PO HS Qty: 90 3RF nitrofurantoin monohyd/m-cryst [Macrobid] 100 mg capsule 100 mg PO Q12H 14 Days Qty: 28 0RF Rx Instructions: must administer with a meal/food tramadol 50 mg tablet 50 mg PO BID PRN (Reason: pain) No Action quinapril 40 mg tablet 40 mg PO HS Qty: 90 3RF sertraline 100 mg tablet 150 mg PO HS Qty: 135 0RF tramadol 50 mg tablet 50 mg PO BID PRN (Reason: pain) Qty: 30 0RF Rx Instructions: 1 tablet twice per day as needed for pain Discharge Orders: Discharge Order (Routine); Ordered 03/14/22 Ordered By: Hollis Saucedo/Other Patient Handouts: Managing Type 2 Diabetes Admission Data Admit Date/Time: 03/08/22 18:36 Attending Provider: Hollis Núñez Admit Provider: Addy Funez Primary Care Provider: Leonila Beach V. Other Providers: Addy Funez ; [place] Other Interventions: Discharge Summary Assessment (RN) Last Done: 03/14/22 14:32 Coding Level of Care Code D/C DAY MANAGEMENT >30 MINS Diagnoses Sepsis A41.9 JAIRON (acute kidney injury) N17.9 UTI (urinary tract infection) N39.0 Abdominal distension R14.0 Prostate cancer C61 Hypertension I10 Hypertension type: essential hypertension Type 2 diabetes mellitus with insulin therapy E11.9; Z79.4 History of depression Z86.59 Morbid obesity with BMI of 40.0-44.9, adult E66.01; Z68.41 Dyspnea R06.00 Hx of right BKA Z89.511 History of transmetatarsal amputation of left foot Z89.432 DVT prophylaxis Z29.9
== END 2022-03-14 14:45 | disposition home health service (06) | DRG 698 ==
LOC: ED 13:32 → 3E 18:36 → SUATTDRO 18:36 → 3E 20:53 → 2W 22:59
DX: Z83.3 Family history of diabetes mellitus; N17.9 Acute kidney failure, unspecified; Z89.511 Acquired absence of right leg below knee; T83.518A Infection and inflammatory reaction due to other urinary catheter, initial encounter; Z88.1 Allergy status to other antibiotic agents; M06.9 Rheumatoid arthritis, unspecified; A41.51 Sepsis due to Escherichia coli [E. coli]; N39.0 Urinary tract infection, site not specified; C61 Malignant neoplasm of prostate; Z79.4 Long term (current) use of insulin; Z98.890 Other specified postprocedural states; Y92.019 Unspecified place in single-family (private) house as the place of occurrence of the external cause; E11.42 Type 2 diabetes mellitus with diabetic polyneuropathy; Z68.41 Body mass index [BMI] 40.0-44.9, adult; I10 Essential (primary) hypertension; E66.01 Morbid (severe) obesity due to excess calories

== ENCOUNTER 2023-12-28 18:53 | Inpatient (IN) ==
--- NOTE | 2023-12-28 19:05 | Emergency Department Note ---
Impression & Plan Acute UTI ED Provider Note Provider: Jeremy Hodges MD DATE OF SERVICE: 12/28/2023 CHIEF COMPLAINT: Urinary symptoms, fever, vomiting HISTORY OF PRESENT ILLNESS: Patient is a 68-year-old gentleman past medical history of resistant UTIs, obesity, right BKA, diabetes, prostate cancer presenting here today reporting malodorous urine, urinary frequency with some low-grade fevers. Reports general malaise and some weakness of the past 2 weeks. No syncope or trauma. Has some generalized backache but this is not uncommon. States he feels just more weak and fatigued than normal with his UTIs. Does often have some urinary incontinence issues with his UTIs which is occurring. No chest pain or shortness of breath. No Tylenol usage today. Has had kidney stone in the past but not quite like this. Denies any severe back pain. PAST MEDICAL HISTORY: As noted above MEDICATIONS: Reviewed home medications SOCIAL HISTORY: PHYSICAL EXAM: GENERAL: alert and oriented in no acute distress on stretcher fatigued in appearance Head: normocephalic and atraumatic EYES: No injection, discharge or icterus. NECK: Trachea midline. ENT: Mucous membranes pink and moist. LUNGS: Airway patent. No retractions. Breath sounds clear with good air entry bilaterally. HEART: Regular rate and rhythm. No chest wall tenderness ABDOMEN: Soft and non-tender, without guarding or rebound. SKIN: Acyanotic, warm, mildly diaphoretic without rashes EXTREMITIES: Without swelling, tenderness or deformity with right BKA. NEUROLOGICAL: No focal deficits. No aphasia. No facial droop or slurred speech. Ambulatory. EK beats minute sinus rhythm with PAC and right bundle branch block. Left axis. No acute ST segment elevation with a QTc of 42. CONTINUOUS CARDIAC MONITORING: was ordered and showed a heart rate of 70s-90s bpm in normal sinus rhythm Patient's laboratory studies and imaging reviewed. Differential includes Appendicitis, testicular torsion, infections, diverticulitis, UTI, obstruction, mesenteric ischemia, aortic pathology, inflammatory bowel disease, renal colic, PUD, pancreatitis, biliary pathology, hernia, volvulus, constipation, as well as other pathologies. IMPRESSION/MEDICAL DECISION MAKING: Weak and fatigued in appearance. Little bit diaphoretic but no fever here. Given some fluid. History of significant ESBL UTIs in the past as well as prostate history. Given some IV fluid. Basic blood work sent. Given concern for significant infection blood cultures and lactate were ordered. Will obtain a CT scan the abdomen pelvis to exclude intra-abdominal process such as diverticulitis or kidney stone that could be contributing. Urinalysis sent for testing. Blood work here with leukocytosis of 14. No significant anemia. Slight hyponatremia 132. Renal function just off baseline at 1.3. Again receiving IV fluids. No transaminitis. No signs of hepatitis or pancreatitis. Urinalysis grossly positive. Covered with ertapenem given history of ESBL. Likely explains his symptoms. CT abdomen pelvis obtained. Radiology report reviewed without obstructive hydronephrosis noted. Discussed with patient and family and will bring into the hospital for treatment given history of resistance. Hospitalist contacted. Later requested some Ativan for anxiety the sometimes takes at home. DIAGNOSIS: Acute UTI with history of ESBL UTI, weakness DISPOSITION: Hospitalist will evaluate Patient was agreeable with this plan. Past Med/Surg History Problem List (Updated 12/28/23 @ 20:16 by Jeremy Hodges M.D.) Acute UTI (Acute) Bladder stone Shortness of breath Fever Cough Adenoma of left adrenal gland CT scan Lung- 07/06/2022 FH: lung cancer History of transmetatarsal amputation of left foot Per records Hx of right BKA Morbid obesity with BMI of 40.0-44.9, adult UTI due to extended-spectrum beta lactamase (ESBL) producing Escherichia coli (Acute) Prostate cancer History of colon polyps Lab test negative for COVID-19 virus (Acute) Kidney stone Tubular adenoma Health care maintenance History of amputation of toe Callus of heel Pes anserinus bursitis of left knee Vitamin D deficiency Fatigue Arthralgia of multiple joints (Chronic) Prostate cancer Nocturnal hypoxemia Circadian rhythm sleep disorder, delayed sleep phase type Incontinence of urine Hypoglycemia associated with type 2 diabetes mellitus Type 2 diabetes mellitus, uncontrolled Albuminuria Dyslipidemia 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 Loss of sensation Idiopathic polyneuropathy Hyperlipidemia (Chronic) Morbid obesity (Acute) Nocturia (Acute) Organic impotence (Acute) Sleep apnea (Chronic) Type 2 diabetes mellitus with insulin therapy (Chronic) Benign prostatic hyperplasia (BPH) with urinary urgency Rheumatoid arthritis (Chronic) Hypertension (Chronic) Depression (Chronic) Medical History (Updated 12/28/23 @ 20:16 by Jeremy Hodges M.D.) Morbid obesity Bladder stone Cataracts, bilateral Autoimmune disease Possible, no official diagnosis History of COVID-19 2022- Asymptomatic Anxiety History of depression History of kidney stones BCC (basal cell carcinoma of skin) Hx Hypertension Pulmonary nodules Under surveillance Fatigue Rheumatoid arthritis with negative rheumatoid factor Per records, patient unsure Carcinoma of prostate DX 2013 > surgical intervention Diabetic peripheral neuropathy associated with type 2 diabetes mellitus Surgical History History of Mohs micrographic surgery for skin cancer Behind right ear History of prostatectomy (~2022) History of colonoscopy History of facial surgery kita removed Status post tonsillectomy Hx of removal of cyst Head region Hx of mastoidectomy Status post below knee amputation of right lower extremity Amputated toe "All toes" left foot Hx Right toe amputations (prior to BKA) Family History Mother Colorectal cancer Father Prostate cancer Brother Lung cancer Other Family history of diabetes mellitus in father Denies family history of Ovarian cancer Breast cancer Social History Smoking Status: Never smoker Second Hand Exposure: No; Do You Dip or Chew Tobacco: No; Hx Alcohol Use: No Hx Substance Use: No Preferred Language: Welsh Communication Ability: Effective Visual Impairment: No Limitations Hearing Ability: Normal [employer] Required: No Beliefs That Will Affect Care: None marital status: Current Living Situation: Spouse and Family Current Living Situation Comment: , mother in law and daughter current occupational status: retired and disabled Feels Safe at Home: Yes caffeine: No Dental Care, Regularly: Yes Physical Activity Frequency: Does not Exercise Seatbelt Use: always Sunscreen Use: Yes Assistive Devices: Prosthesis and Other Allergies Allergies Allergy/AdvReac Type Severity Reaction Status Date / Time amoxicillin [From Augmentin] Allergy Severe Facial Verified 12/28/23 21:52 swelling, diffuse rash clavulanic acid Allergy Severe Facial Verified 12/28/23 21:52 [From Augmentin] swelling, diffuse rash methotrexate Allergy Intermediate Depression Verified 12/28/23 21:52 doxycycline AdvReac Intermediate Nausea/vomi Verified 12/28/23 21:52 ting oxycodone [From Percocet] AdvReac Intermediate Nausea Verified 12/28/23 21:52 vancomycin AdvReac Unknown Unknown Verified 12/28/23 21:52 Home Meds Home Medications Medication Instructions Recorded Confirmed cholecalciferol (vitamin D3) 10 400 units PO HS 02/09/19 12/28/23 mcg (400 unit) capsule lutein 6 mg tablet 6 mg PO HS 02/09/19 12/28/23 blood-glucose meter (Accu-Chek 10/14/20 11/01/23 Suzan Plus Meter) coenzyme Q10 100 mg capsule (Co 100 mg PO QPM 12/01/21 12/28/23 Q-10) Medical Marijuana Card 1 dose UD PRN Pain 02/23/22 12/28/23 hydrochlorothiazide 25 mg tablet 25 mg PO QAM 10/04/23 12/28/23 insulin aspart U-100 100 unit/mL 1 sliding scale dose subcut TIDM 10/04/23 12/28/23 subcutaneous solution (Novolog U-100 Insulin aspart) mupirocin 2 % topical ointment 1 applic topical UD PRN Skin 10/04/23 12/28/23 Irritation ondansetron 4 mg disintegrating 4 mg PO UD PRN nausea and vomiting 10/04/23 12/28/23 tablet methenamine hippurate 1 gram tablet 1 g PO BID 12/28/23 12/28/23 sertraline 100 mg tablet 100 mg PO DAILY 12/28/23 12/28/23 Previous Rx's Medication Instructions Recorded Dexcom G6 [employer] (blood-glucose #1 ea 03/09/21 meter,continuous) BD Insulin Syringe Ultra-Fine 1 mL #300 ea 07/16/22 31 gauge x 5/16" (insulin syringe-needle U-100) insulin glargine 100 unit/mL (3 50 unit (0.5 mL) subcut HS #45 mL 08/24/22 mL) subcutaneous pen (Basaglar KwikPen U-100 Insulin) pen needle, diabetic 32 gauge x #100 ea 09/22/22 5/32" (BD Ultra-Fine Pia Pen Needle) blood sugar diagnostic (OneTouch #100 ea 10/04/22 Verio test strips) blood-glucose meter (OneTouch #1 ea 10/04/22 Verio Reflect Meter) lancets 33 gauge (OneTouch Delica #100 ea 10/04/22 Lancets) Dexcom G6 Transmitter #1 ea 06/08/23 (blood-glucose transmitter) amlodipine 5 mg tablet 5 mg PO HS #30 tabs 06/08/23 Dexcom G6 Sensor (blood-glucose #9 ea 08/05/23 sensor) Results & Data (ED) Vital Signs Vital Signs - 24 hr 12/28/23 18:56 12/28/23 19:33 12/28/23 20:33 Temperature 36.1 C L Temperature Source Temporal Artery Scan Pulse Rate 98 H 80 Pulse Rate from SpO2 Sensor Respiratory Rate 18 Respiratory Effort / Characteristics Non-Labored Respiratory Depth Normal Respiratory Pattern Regular Blood Pressure 151/79 H Blood Pressure Mean 103 Pulse Oximetry 96 97 Oxygen Delivery Method Room Air Room Air Sepsis Recent Fever Within 48 Hours No Sepsis New/Unexplained Change in Mental Status N/A Sepsis Action Taken by Nursing No Action Required 12/28/23 20:33 12/28/23 20:45 12/28/23 20:51 Temperature Temperature Source Pulse Rate 84 81 77 Pulse Rate from SpO2 Sensor 86 81 77 Respiratory Rate 13 15 17 Respiratory Effort / Characteristics Respiratory Depth Respiratory Pattern Blood Pressure Blood Pressure Mean Pulse Oximetry 94 94 93 Oxygen Delivery Method Room Air Sepsis Recent Fever Within 48 Hours Sepsis New/Unexplained Change in Mental Status Sepsis Action Taken by Nursing 12/28/23 20:57 12/28/23 21:00 12/28/23 21:00 Temperature Temperature Source Pulse Rate 79 Pulse Rate from SpO2 Sensor 79 Respiratory Rate 13 Respiratory Effort / Characteristics Respiratory Depth Respiratory Pattern Blood Pressure 154/80 H 154/80 H Blood Pressure Mean 101 101 Pulse Oximetry 96 Oxygen Delivery Method Sepsis Recent Fever Within 48 Hours Sepsis New/Unexplained Change in Mental Status Sepsis Action Taken by Nursing 12/28/23 21:06 12/28/23 21:18 Temperature Temperature Source Pulse Rate 81 75 Pulse Rate from SpO2 Sensor 79 76 Respiratory Rate 16 14 Respiratory Effort / Characteristics Respiratory Depth Respiratory Pattern Blood Pressure Blood Pressure Mean Pulse Oximetry 94 96 Oxygen Delivery Method Room Air Sepsis Recent Fever Within 48 Hours Sepsis New/Unexplained Change in Mental Status Sepsis Action Taken by Nursing Laboratory Data 12/28/23 19:24 12/28/23 19:24 Lab Results 12/28/23 12/28/23 12/28/23 Range/Units 19:24 19:31 19:38 WBC 14.19 H (4.8-10.8) K/ul RBC 6.36 H (4.70-6.10) M/uL Hgb 17.7 (14.0-18.0) g/dl POC Hgb 18.4 H (14.0-18.0) g/dl Hct 52.0 (42.0-52.0) % POC Hct 54 H (42-52) % MCV 81.8 (80.0-100.0) fL MCH 27.8 (25.0-34.0) pg MCHC 34.0 (32.0-36.0) g/dL RDW Std Deviation 37.7 (36.4-46.3) fL RDW Coeff of Cori 13.1 (11.5-14.5) % Plt Count 298 (130-400) K/uL MPV 10.0 (9.4-12.4) fL Immature Gran % (Auto) 0.8 % Neut % (Auto) 62.6 % Lymph % (Auto) 25.4 % [place] % (Auto) 8.2 % Eos % (Auto) 2.3 % Baso % (Auto) 0.7 % Neut # (Auto) 8.88 H (1.40-6.50) K/uL Lymph # (Auto) 3.60 H (1.20-3.40) K/uL [place] # (Auto) 1.17 H (0.11-0.59) K/uL Eos # (Auto) 0.32 (0.00-0.50) K/uL Baso # (Auto) 0.10 (0.00-0.20) K/uL Immature Gran # (Auto) 0.12 (0.01-0.20) K/uL POC Sodium 136 (135-144) mmol/L Sodium 132 L (136-145) mmol/L POC Potassium 4.3 (3.3-5.0) mmol/L Potassium 4.3 (3.5-5.1) mmol/L POC Chloride 99 L (101-112) mmol/L Chloride 97 L (98-107) mmol/L Carbon Dioxide 24 (21-32) mmol/L POC Total CO2 24 (24-31) mmol/L Anion Gap 11 (3-11) POC Anion Gap 19.0 (16-25) mmol/L POC BUN 25 H (7-18) mg/dl BUN 25 H (6-23) mg/dl Creatinine 1.32 (0.6-1.4) mg/dl POC Creatinine 1.4 H (0.6-1.3) mg/dl Est Cr Clr Drug Dosing 81.2 ml/min Est GFR ( Amer) 64.7 ml/min Est GFR (Non-Af Amer) 55.8 ml/min BUN/Creatinine Ratio 18.9 (10-20) Glucose 159 H (70-99(Fasting)) mg/dl POC Glucose (other) 160 H (70-99) mg/dl Lactate 2.7 H* (0.4-2.0) mmol/L Calcium 10.0 (8.6-10.3) mg/dl POC Ioniz Calcium Gideon 1.14 (1.12-1.32) mmol/l Total Bilirubin 0.7 (0.2-1.0) mg/dl AST 22 (13-39) U/L ALT 31 (7-52) U/L Alkaline Phosphatase 90 (34-104) U/L Troponin I High Sens 10.0 (0-20) pg/ml Total Protein 8.3 (6.0-8.3) gm/dl Albumin 4.4 (3.4-5.0) gm/dl Globulin 3.9 (2.5-4.0) gm/dl Albumin/Globulin Ratio 1.1 (0.9-2) Lipase 9 L (11-82) U/L Urine Color Dark Yellow Urine Appearance Turbid A (Clear) Urine pH 5.5 (4.5-7.5) Ur Specific [place] 1.016 (1.000-1.030) Urine Protein 3+ H (Negative) Urine Glucose (UA) Negative (Negative) Urine Ketones Negative (Negative) Urine Blood 1+ H (Negative) Urine Nitrite Positive A (Negative) Urine Bilirubin 1+ H (Negative) Urine Urobilinogen Negative (Negative) Ur Leukocyte Esterase 3+ H (Negative) Urine WBC (Auto) >50 H (0-5) /hpf Urine RBC (Auto) 6-10 H (0-2) /hpf U Hyaline Cast (Auto) 11-20 H (0-2) /lpf U Epithel Cells (Auto) 0-2 (0-2) /hpf Urine Bacteria (Auto) 4+ H (None Seen) WBC Casts Present A (None Prsent) /lpf SARS-CoV-2, RNA, NAAT (NEGATIVE) 12/28/23 Range/Units 19:52 WBC (4.8-10.8) K/ul RBC (4.70-6.10) M/uL Hgb (14.0-18.0) g/dl POC Hgb (14.0-18.0) g/dl Hct (42.0-52.0) % POC Hct (42-52) % MCV (80.0-100.0) fL MCH (25.0-34.0) pg MCHC (32.0-36.0) g/dL RDW Std Deviation (36.4-46.3) fL RDW Coeff of Cori (11.5-14.5) % Plt Count (130-400) K/uL MPV (9.4-12.4) fL Immature Gran % (Auto) % Neut % (Auto) % Lymph % (Auto) % [place] % (Auto) % Eos % (Auto) % Baso % (Auto) % Neut # (Auto) (1.40-6.50) K/uL Lymph # (Auto) (1.20-3.40) K/uL [place] # (Auto) (0.11-0.59) K/uL Eos # (Auto) (0.00-0.50) K/uL Baso # (Auto) (0.00-0.20) K/uL Immature Gran # (Auto) (0.01-0.20) K/uL POC Sodium (135-144) mmol/L Sodium (136-145) mmol/L POC Potassium (3.3-5.0) mmol/L Potassium (3.5-5.1) mmol/L POC Chloride (101-112) mmol/L Chloride (98-107) mmol/L Carbon Dioxide (21-32) mmol/L POC Total CO2 (24-31) mmol/L Anion Gap (3-11) POC Anion Gap (16-25) mmol/L POC BUN (7-18) mg/dl BUN (6-23) mg/dl Creatinine (0.6-1.4) mg/dl POC Creatinine (0.6-1.3) mg/dl Est Cr Clr Drug Dosing ml/min Est GFR ( Amer) ml/min Est GFR (Non-Af Amer) ml/min BUN/Creatinine Ratio (10-20) Glucose (70-99(Fasting)) mg/dl POC Glucose (other) (70-99) mg/dl Lactate (0.4-2.0) mmol/L Calcium (8.6-10.3) mg/dl POC Ioniz Calcium Gideon (1.12-1.32) mmol/l Total Bilirubin (0.2-1.0) mg/dl AST (13-39) U/L ALT (7-52) U/L Alkaline Phosphatase (34-104) U/L Troponin I High Sens (0-20) pg/ml Total Protein (6.0-8.3) gm/dl Albumin (3.4-5.0) gm/dl Globulin (2.5-4.0) gm/dl Albumin/Globulin Ratio (0.9-2) Lipase (11-82) U/L Urine Color Urine Appearance (Clear) Urine pH (4.5-7.5) Ur Specific [place] (1.000-1.030) Urine Protein (Negative) Urine Glucose (UA) (Negative) Urine Ketones (Negative) Urine Blood (Negative) Urine Nitrite (Negative) Urine Bilirubin (Negative) Urine Urobilinogen (Negative) Ur Leukocyte Esterase (Negative) Urine WBC (Auto) (0-5) /hpf Urine RBC (Auto) (0-2) /hpf U Hyaline Cast (Auto) (0-2) /lpf U Epithel Cells (Auto) (0-2) /hpf Urine Bacteria (Auto) (None Seen) WBC Casts (None Prsent) /lpf SARS-CoV-2, RNA, NAAT NEGATIVE (NEGATIVE) Administered Medications Discontinued Medications Sodium Chloride (Nss) 1,000 mls @ 999 mls/hr IV .Q1H1M ONE Stop: 12/28/23 20:28 Last Infusion: 12/28/23 21:17 Dose: Infused Documented By: Admin: 12/28/23 20:16 Dose: 999 mls/hr Documented By: SARA Ertapenem (Invanz) 10 mls @ 2 mls/min IV NOW STA Stop: 12/28/23 20:02 Last Admin: 12/28/23 20:16 Dose: 2 mls/min Documented By: SARA Lactated Ringer's (Lr) 1,000 mls @ 999 mls/hr IV .Q1H1M ONE Stop: 12/28/23 21:47 Last Infusion: 12/28/23 21:57 Dose: Infused Documented By: Admin: 12/28/23 21:03 Dose: 999 mls/hr Documented By: SARA Lorazepam (Lorazepam 1 Mg Tab) 0.5 mg SL NOW STA Stop: 12/28/23 21:02 Last Admin: 12/28/23 21:07 Dose: 0.5 mg Documented By: SARA Imaging Data Radiologist's Impression: Abdomen/Pelvis CT 12/28/23 19:38 Exam(s): CT ABDOMEN + PELVIS Without Contrast EXAM: CT Abdomen and Pelvis Without Intravenous Contrast CLINICAL HISTORY: Urinary symptoms, weakness. TECHNIQUE: Axial computed tomography images of the abdomen and pelvis without intravenous contrast. CTDI is 28.14 mGy and DLP is 1577.75 mGy-cm. Automated exposure control was utilized for the study. A dose lowering technique was utilized adhering to the principles of ALARA. COMPARISON: 09/28/2023 FINDINGS: Lung bases: Unchanged subcentimeter nodules including a 8.4 x 6 x 7 mm noncalcified nodule in the right lower lobe. ABDOMEN: Liver: 21.9 cm. Diffusely hypodense/fatty. Gallbladder and bile ducts: Unremarkable. No calcified stones. No ductal dilation. Pancreas: Unremarkable. No ductal dilation. Spleen: Unremarkable. No splenomegaly. Adrenals: Unremarkable. No mass. Kidneys and ureters: No obstructive uropathy. Calcification lower pole right kidney. No obstructing renal or ureteral calculi. No hydronephrosis or hydroureter. Stomach and bowel: No obstruction or ileus. Scattered left and sigmoid colon diverticuli without evidence for diverticulitis. PELVIS: Appendix: No findings to suggest acute appendicitis. Bladder: Contracted. No calculi identified in the previously demonstrated calculus within the urinary bladder. Reproductive: Unremarkable as visualized. ABDOMEN and PELVIS: Intraperitoneal space: No free air. No free fluid. Bones/joints: Spine degenerative changes. Soft tissues: Unremarkable. Vasculature: Atherosclerotic vascular calcifications. No abdominal aortic aneurysm. Lymph nodes: Unremarkable. No enlarged lymph nodes. IMPRESSION: No obstructive uropathy. Nonobstructing right renal calculus. Contracted urinary bladder. Previously demonstrated calculus within the lumen of urinary bladder is no longer identified. Otherwise no change. Electronically signed by: Jeff Kong M.D. 12/28/23 21:57 PM Discharge Plan Visit Data Chief Complaint: Urinary Symptoms Stated Complaint: URINARY SYMPTOMS ED Provider: Jeremy Hodges Discharge Problem: Acute UTI Patient Disposition: Being Evaluated by Hospitalist Discharge Instructions Interventions: ED Discharge Assessment Last Done: 12/28/23 20:25 Forms Stand Alone Forms: [facility] [employer] Prescriptions Prescriptions: No Action (DME) Dexcom G6 [employer] Misc See Rx Instructions .MEDSUPPLY Qty: 1 0RF Rx Instructions: Use as directed for continuous glucose monitoring (DME) insulin syringe-needle U-100 [BD Insulin Syringe Ultra-Fine] 1 mL 31 gauge x 5/16 syringe See Rx Instructions .Route Qty: 300 0RF Rx Instructions: Use 3 per day insulin glargine [Basaglar KwikPen U-100 Insulin] 100 unit/mL (3 mL) insulin pen 50 unit SQ HS Qty: 45 2RF (DME) pen needle, diabetic [BD Ultra-Fine Pia Pen Needle] 32 gauge x 5/32" needle See Rx Instructions .ROUTE .MEDSUPPLY Qty: 100 3RF Rx Instructions: Inject with Basaglar once daily (DME) OneTouch Verio test strips Strip See Rx Instructions .MEDSUPPLY Qty: 100 3RF Rx Instructions: check blood sugars once a day as needed (DME) blood-glucose meter [OneTouch Verio Reflect Meter] Misc See Rx Instructions miscellaneous .MEDSUPPLY Qty: 1 0RF Rx Instructions: As directed (DME) lancets [OneTouch Delica Lancets] 33 gauge misc See Rx Instructions miscellaneous .MEDSUPPLY Qty: 100 3RF Rx Instructions: As directed to check once a day as needed amlodipine 5 mg tablet 5 mg PO HS Qty: 30 1RF (DME) Dexcom G6 Transmitter Device See Rx Instructions .MEDSUPPLY Qty: 1 0RF Rx Instructions: Use as directed for continuous glucose monitoring - change every 90 days (DME) Dexcom G6 Sensor Device See Rx Instructions .MEDSUPPLY Qty: 9 3RF Rx Instructions: Use as directed for continuous glucose monitoring - Change sensor every 10 days lutein 6 mg tablet 6 mg PO HS cholecalciferol (vitamin D3) 400 unit capsule 400 units PO HS (DME) blood-glucose meter [Accu-Chek Suzan Plus Meter] Misc See Rx Instructions .ROUTE .MEDSUPPLY Rx Instructions: Test 1 times daily Medical Marijuana Card 1 dose UD PRN (Reason: Pain) Patient Comments: dann roberto coenzyme Q10 [Co Q-10] 100 mg Capsule 100 mg PO QPM insulin aspart U-100 [Novolog U-100 Insulin aspart] 100 unit/mL solution 1 sliding scale dose subcut TIDM Rx Instructions: Inject subcutaneously 40 units with meals and sliding scale; TDD 150 units; hydrochlorothiazide 25 mg tablet 25 mg PO QAM mupirocin 2 % ointment 1 applic topical UD PRN (Reason: Skin Irritation) Rx Instructions: left ankle- rash- fungal ondansetron 4 mg tablet,disintegrating 4 mg PO UD PRN (Reason: nausea and vomiting) sertraline 100 mg tablet 100 mg PO DAILY Rx Instructions: will increase to 200mg daily in 2 weeks methenamine hippurate 1 gram tablet 1 g PO BID Referrals Referrals: Todd Newman DO [Primary Care Provider] -
[2023-12-28 19:39] LABS: Basophils % (auto) 0.7 %; Eosinophils # (auto) 0.32 K/uL (0.00-0.50); Eosinophils % (auto) 2.3 %; Hemoglobin 17.7 g/dl (14.0-18.0); Immature Granulocytes # (auto) 0.12 K/uL (0.01-0.20); Immature Granulocytes % (auto) 0.8 %; Lymphocytes % (auto) 25.4 %; Mean Corpuscular Hemoglobin 27.8 pg (25.0-34.0); Mean Corpuscular Volume 81.8 fL (80.0-100.0); Monocytes # (auto) 1.17 K/uL (0.11-0.59); Monocytes % (auto) 8.2 %; Neutrophils # (auto) 8.88 K/uL (1.40-6.50); Neutrophils % (auto) 62.6 %; Platelet Count 298 K/uL (130-400); RDW Coefficient of Variation 13.1 % (11.5-14.5); RDW Standard Deviation 37.7 fL (36.4-46.3); Red Blood Count 6.36 M/uL (4.70-6.10); White Blood Count 14.19 K/ul (4.8-10.8)
[2023-12-28 19:49] LABS: iSTAT Creatinine 1.4 mg/dl (0.6-1.3); iSTAT Hemoglobin 18.4 g/dl (14.0-18.0); iSTAT Ionized Calcium 1.14 mmol/l (1.12-1.32); iSTAT Potassium 4.3 mmol/L (3.3-5.0)
[2023-12-28 19:52] LABS: Appearance Urine Turbid (Clear); Bacteria Urine Automated 4+ (None Seen); Bilirubin Urine 1+ (Negative); Blood Urine 1+ (Negative); Color Urine Dark Yellow; Epithelial Cell Urine Auto 0-2 /hpf (0-2); Glucose Urine UA Negative (Negative); Ketones Urine Negative (Negative); Leukocyte Esterase Urine 3+ (Negative); Nitrite Urine Positive (Negative); Protein Urine 3+ (Negative); Specific Gravity Urine 1.016 (1.000-1.030); Urobilinogen Urine Negative (Negative); WBC Urine Automated >50 /hpf (0-5); White Blood Cell Casts Urine Present /lpf (None Prsent); pH Urine 5.5 (4.5-7.5)
[2023-12-28 19:55] LABS: Albumin Globulin Ratio 1.1 (0.9-2); Albumin Level 4.4 gm/dl (3.4-5.0); BUN Creatinine Ratio 18.9 (10-20); Bilirubin,Total 0.7 mg/dl (0.2-1.0); Creatinine Clr Calc Pharmacy 81.2 ml/min; Est GFR (African American) 64.7 ml/min; Est GFR (Non-African American) 55.8 ml/min; Globulin 3.9 gm/dl (2.5-4.0); Potassium 4.3 mmol/L (3.5-5.1); Total Protein 8.3 gm/dl (6.0-8.3)
[2023-12-28] MEDS: SODIUM CHLORIDE 0.9% 1,000 ML IV ONE (20:16)
[2023-12-28] MEDS: ERTAPENEM SODIUM 10 ML IV STA (20:16)
[2023-12-28] MEDS: LACTATED RINGER'S 1,000 ML IV ONE (21:03)
[2023-12-28] MEDS: LORazepam 1 MG TAB SL STA (21:07)
--- NOTE | 2023-12-28 21:58 | CT Scan Report ---
Exam(s): CT ABDOMEN + PELVIS Without Contrast EXAM: CT Abdomen and Pelvis Without Intravenous Contrast CLINICAL HISTORY: Urinary symptoms, weakness. TECHNIQUE: Axial computed tomography images of the abdomen and pelvis without intravenous contrast. CTDI is 28.14 mGy and DLP is 1577.75 mGy-cm. Automated exposure control was utilized for the study. A dose lowering technique was utilized adhering to the principles of ALARA. COMPARISON: 09/28/2023 FINDINGS: Lung bases: Unchanged subcentimeter nodules including a 8.4 x 6 x 7 mm noncalcified nodule in the right lower lobe. ABDOMEN: Liver: 21.9 cm. Diffusely hypodense/fatty. Gallbladder and bile ducts: Unremarkable. No calcified stones. No ductal dilation. Pancreas: Unremarkable. No ductal dilation. Spleen: Unremarkable. No splenomegaly. Adrenals: Unremarkable. No mass. Kidneys and ureters: No obstructive uropathy. Calcification lower pole right kidney. No obstructing renal or ureteral calculi. No hydronephrosis or hydroureter. Stomach and bowel: No obstruction or ileus. Scattered left and sigmoid colon diverticuli without evidence for diverticulitis. PELVIS: Appendix: No findings to suggest acute appendicitis. Bladder: Contracted. No calculi identified in the previously demonstrated calculus within the urinary bladder. Reproductive: Unremarkable as visualized. ABDOMEN and PELVIS: Intraperitoneal space: No free air. No free fluid. Bones/joints: Spine degenerative changes. Soft tissues: Unremarkable. Vasculature: Atherosclerotic vascular calcifications. No abdominal aortic aneurysm. Lymph nodes: Unremarkable. No enlarged lymph nodes. IMPRESSION: No obstructive uropathy. Nonobstructing right renal calculus. Contracted urinary bladder. Previously demonstrated calculus within the lumen of urinary bladder is no longer identified. Otherwise no change. Electronically signed by: Jeff Kong M.D. 12/28/23 21:57 PM
[2023-12-28] MEDS ORDERED: CARBOHYDRATES FOR HYPOGLYCEMIA PO PRN (22:34)
[2023-12-28] MEDS ORDERED: GLUCAGON FOR INJ 1 MG VIAL SQ PRN (22:34)
[2023-12-28] MEDS ORDERED: DEXTROSE 50% 50 ML SYRINGE IV PRN (22:34)
[2023-12-28] MEDS ORDERED: GLUCOSE 40% GEL 15 GM TUBE PO PRN (22:34)
[2023-12-28] MEDS ORDERED: GLUCOSE 10 TAB/TUBE PO PRN (22:34)
[2023-12-28] MEDS ORDERED: POLYETHYLENE (MIRALAX) 17 GM PACK PO PRN (22:34)
[2023-12-28] MEDS ORDERED: PHARMACY GLYCEMIC MGMT CONSULT PRN (22:34)
[2023-12-28] MEDS: LANTUS PER UNIT CHARGE SQ SCH (22:58)
[2023-12-28] MEDS: SODIUM CHLORIDE 0.9% 1,000 ML IV SCH (23:00)
[2023-12-28] MEDS: ENOXAPARIN INJ 40 MG/0.4 ML SYR SQ SCH (23:14)
[2023-12-28] MEDS: INSULIN ASPART PER UNIT CHARGE SC SCH (23:17)
--- NOTE | 2023-12-29 01:54 | History & Physical Report ---
Date of Service December 28, 2023 Assessment & Plan (1) Acute UTI: Plan: 68-year-old male with past medical significant for type 2 diabetes, CKD stage II, diabetic polyneuropathy, hyperlipidemia, port wine stain of face, hypertension, morbid obesity, generalized osteoarthritis, depression, insomnia, marijuana abuse, sleep apnea presents with urinary symptoms and found to UTI. Patient seems to have chronic UTI with ESBL. Patient has history of prostate cancer s/p robotic prostatectomy in February 2022. Patient recently in September 2023 had cystolitholapaxy and found to have eroded clip/stones which were removed. Sees ID Dr. Cheek for recurrent UTIs. History of ESBL UTI and treated with fosfomycin in the past. Patient states last few days again he started having foul-smelling urine. More sleepy. Body aches. Decreased appetite. He also had fever today. Currently resting comfortably and hemodynamically stable. Denies any chest pain or shortness of breath. No cough. No runny nose or sore throat. No nausea or abdominal pain. Normal bowel movements. Acute ESBL UTI ER started on Invanz which will be continued Gentle fluids Follow cultures ID consult Close monitor Obesity Counseling Diabetes Will continue home long-acting insulin Sliding scale Will monitor Hypertension On amlodipine, hydrochlorothiazide, Will monitor Depression On Zoloft DVT prophylaxis Lovenox Disposition Medical floor Full code. Admission and Anticipated Discharge Date Admission Date: December 28, 2023 History of Present Illness Chief Complaint: Urinary symptoms Primary Care Provider: Todd Newman DO 68-year-old male with past medical significant for type 2 diabetes, CKD stage II, diabetic polyneuropathy, hyperlipidemia, port wine stain of face, hypertension, morbid obesity, generalized osteoarthritis, depression, insomnia, marijuana abuse, sleep apnea presents with urinary symptoms and found to UTI. Patient seems to have chronic UTI with ESBL. Patient has history of prostate cancer s/p robotic prostatectomy in February 2022. Patient recently in September 2023 had cystolitholapaxy and found to have eroded clip/stones which were removed. Sees ID Dr. Cheek for recurrent UTIs. History of ESBL UTI and treated with fosfomycin in the past. Patient states last few days again he started having foul-smelling urine. More sleepy. Body aches. Decreased appetite. He also had fever today. Currently resting comfortably and hemodynamically stable. Denies any chest pain or shortness of breath. No cough. No runny nose or sore throat. No nausea or abdominal pain. Normal bowel movements. Past medical history. As mentioned above Past surgical history. 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 Colonoscopy. Tonsillectomy adenoidectomy. Right BKA. Social history. . No smoking. No alcohol rarely. Uses marijuana Family history. Father had aneurysm. Diabetes. Mother had colon cancer. Brother had lung cancer. Allergies Allergy/AdvReac Type Severity Reaction Status Date / Time amoxicillin [From Augmentin] Allergy Severe Facial Verified 12/28/23 21:52 swelling, diffuse rash clavulanic acid Allergy Severe Facial Verified 12/28/23 21:52 [From Augmentin] swelling, diffuse rash methotrexate Allergy Intermediate Depression Verified 12/28/23 21:52 doxycycline AdvReac Intermediate Nausea/vomi Verified 12/28/23 21:52 ting oxycodone [From Percocet] AdvReac Intermediate Nausea Verified 12/28/23 21:52 vancomycin AdvReac Unknown Unknown Verified 12/28/23 21:52 Home Medications Medication Instructions Recorded Confirmed Type cholecalciferol (vitamin D3) 10 400 units PO HS 02/09/19 12/28/23 History mcg (400 unit) capsule lutein 6 mg tablet 6 mg PO HS 02/09/19 12/28/23 History blood-glucose meter (Accu-Chek 10/14/20 11/01/23 History Suzan Plus Meter) Dexcom G6 Marketing Traffic Coordinator (blood-glucose #1 ea 03/09/21 11/01/23 Rx meter,continuous) coenzyme Q10 100 mg capsule (Co 100 mg PO QPM 12/01/21 12/28/23 History Q-10) Medical Marijuana Card 1 dose UD PRN Pain 02/23/22 12/28/23 History BD Insulin Syringe Ultra-Fine 1 mL #300 ea 07/16/22 11/01/23 Rx 31 gauge x 5/16" (insulin syringe-needle U-100) insulin glargine 100 unit/mL (3 50 unit (0.5 mL) subcut HS #45 mL 08/24/22 12/28/23 Rx mL) subcutaneous pen (Basaglar KwikPen U-100 Insulin) pen needle, diabetic 32 gauge x #100 ea 09/22/22 11/01/23 Rx 5/32" (BD Ultra-Fine Pia Pen Needle) blood sugar diagnostic (OneTouch #100 ea 10/04/22 11/01/23 Rx Verio test strips) blood-glucose meter (OneTouch #1 ea 10/04/22 11/01/23 Rx Verio Reflect Meter) lancets 33 gauge (OneTouch Delica #100 ea 10/04/22 11/01/23 Rx Lancets) Dexcom G6 Transmitter #1 ea 06/08/23 11/01/23 Rx (blood-glucose transmitter) amlodipine 5 mg tablet 5 mg PO HS #30 tabs 06/08/23 12/28/23 Rx Dexcom G6 Sensor (blood-glucose #9 ea 08/05/23 11/01/23 Rx sensor) hydrochlorothiazide 25 mg tablet 25 mg PO QAM 10/04/23 12/28/23 History insulin aspart U-100 100 unit/mL 1 sliding scale dose subcut TIDM 10/04/23 12/28/23 History subcutaneous solution (Novolog U-100 Insulin aspart) mupirocin 2 % topical ointment 1 applic topical UD PRN Skin 10/04/23 12/28/23 History Irritation ondansetron 4 mg disintegrating 4 mg PO UD PRN nausea and vomiting 10/04/23 12/28/23 History tablet methenamine hippurate 1 gram tablet 1 g PO BID 12/28/23 12/28/23 History sertraline 100 mg tablet 100 mg PO DAILY 12/28/23 12/28/23 History Past Med/Surg History Problem List (Updated 12/28/23 @ 22:23 by Background Jennifer) Acute UTI (Acute) Bladder stone Shortness of breath Fever Cough Adenoma of left adrenal gland CT scan Lung- 07/06/2022 FH: lung cancer History of transmetatarsal amputation of left foot Per records Hx of right BKA Morbid obesity with BMI of 40.0-44.9, adult UTI due to extended-spectrum beta lactamase (ESBL) producing Escherichia coli (Acute) Prostate cancer History of colon polyps Lab test negative for COVID-19 virus (Acute) Kidney stone Tubular adenoma Health care maintenance History of amputation of toe Callus of heel Pes anserinus bursitis of left knee Vitamin D deficiency Fatigue Arthralgia of multiple joints (Chronic) Prostate cancer Nocturnal hypoxemia Circadian rhythm sleep disorder, delayed sleep phase type Incontinence of urine Hypoglycemia associated with type 2 diabetes mellitus Type 2 diabetes mellitus, uncontrolled Albuminuria Dyslipidemia 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 Loss of sensation Idiopathic polyneuropathy Hyperlipidemia (Chronic) Morbid obesity (Acute) Nocturia (Acute) Organic impotence (Acute) Sleep apnea (Chronic) Type 2 diabetes mellitus with insulin therapy (Chronic) Benign prostatic hyperplasia (BPH) with urinary urgency Rheumatoid arthritis (Chronic) Hypertension (Chronic) Depression (Chronic) Medical History (Updated 12/28/23 @ 22:23 by Scout Rodriguez) Morbid obesity Bladder stone Cataracts, bilateral Autoimmune disease Possible, no official diagnosis History of COVID-2022- Asymptomatic Anxiety History of depression History of kidney stones BCC (basal cell carcinoma of skin) Hx Hypertension Pulmonary nodules Under surveillance Fatigue Rheumatoid arthritis with negative rheumatoid factor Per records, patient unsure Carcinoma of prostate DX 2013 > surgical intervention Diabetic peripheral neuropathy associated with type 2 diabetes mellitus Surgical History History of Mohs micrographic surgery for skin cancer Behind right ear History of prostatectomy (~2022) History of colonoscopy History of facial surgery kita removed Status post tonsillectomy Hx of removal of cyst Head region Hx of mastoidectomy Status post below knee amputation of right lower extremity Amputated toe "All toes" left foot Hx Right toe amputations (prior to BKA) Family History Mother Colorectal cancer Father Prostate cancer Brother Lung cancer Other Family history of diabetes mellitus in father Denies family history of Ovarian cancer Breast cancer Social History Smoking Status: Never smoker Second Hand Exposure: No; Do You Dip or Chew Tobacco: No; Hx Alcohol Use: No Hx Substance Use: No Preferred Language: Tajik Communication Ability: Effective Visual Impairment: No Limitations Hearing Ability: Normal Insurance Agent Required: No Beliefs That Will Affect Care: None marital status: Current Living Situation: Spouse Current Living Situation Comment: , mother in law and daughter current occupational status: retired and disabled Other Information That Helps Us Care for You: No Feels Safe at Home: Yes Safety Concerns: Feels Safe At This Time caffeine: No Dental Care, Regularly: Yes Physical Activity Frequency: Does not Exercise Seatbelt Use: always Sunscreen Use: Yes Assistive Devices: Glasses and Prosthesis Review of Systems Review of Systems: All systems reviewed & are unremarkable except as noted in HPI & below Physical Exam Physical Exam: General- Not in distress Head- atraumatic Eyes- PERRL. ENT- oropharynx clear Neck- supple, no JVD. Lungs- clear to auscultation, no wheezing or crackles. Heart- regular rate and rhythm; no murmur, no gallop. Abdomen- normal bowel sounds, soft, nontender, no distension. Extremities- no pretibial edema, no erytehma Neuro- alert, oriented ; PERRL,no facial palsy; no dysarthria; obeys simple commands Results & Data Results & Data Vital Signs (Past 12 Hours) Vital Signs Temp Pulse Pulse Resp BP BP Pulse Ox 12/28/23 23:33 36.6 C 76 18 160/89 H 95 12/28/23 21:18 75 14 96 12/28/23 21:06 81 16 94 12/28/23 21:00 154/80 H 12/28/23 21:00 154/80 H 12/28/23 20:57 79 13 96 12/28/23 20:51 77 17 93 12/28/23 20:45 81 15 94 12/28/23 20:33 84 13 94 12/28/23 20:33 80 12/28/23 19:33 97 12/28/23 18:56 36.1 C L 98 H 18 151/79 H 96 O2 Del Method 12/28/23 23:33 Room Air 12/28/23 21:18 12/28/23 21:06 Room Air 12/28/23 21:00 12/28/23 21:00 12/28/23 20:57 12/28/23 20:51 12/28/23 20:45 12/28/23 20:33 Room Air 12/28/23 20:33 12/28/23 19:33 Room Air 12/28/23 18:56 Room Air Diagnostic Findings Laboratory Results WBC 14.19 K/ul (4.8-10.8) H 12/28/23 19:24 RBC 6.36 M/uL (4.70-6.10) H 12/28/23 19:24 Hgb 17.7 g/dl (14.0-18.0) 12/28/23 19: POC Hgb 18.4 g/dl (14.0-18.0) H 12/28/23 19: Hct 52.0 % (42.0-52.0) 12/28/23 19: POC Hct 54 % (42-52) H 12/28/23 19: MCV 81.8 fL (80.0-100.0) 12/28/23 19: MCH 27.8 pg (25.0-34.0) 12/28/23 19: MCHC 34.0 g/dL (32.0-36.0) 12/28/23: RDW Std Deviation 37.7 fL (36.4-46.3) 12/28/23: RDW Coeff of Cori 13.1 % (11.5-14.5) 12/28/23: Plt Count 298 K/uL (130-400) 12/28/23: MPV 10.0 fL (9.4-12.4) 12/28/23 19: Immature Gran % (Auto) 0.8 % 12/28/23 19: Neut % (Auto) 62.6 % 12/28/23 19: Lymph % (Auto) 25.4 % 12/28/23 19: Fulton % (Auto) 8.2 % 12/28/23 19:24 Eos % (Auto) 2.3 % 12/28/23:24 Baso % (Auto) 0.7 % 12/28/23: Neut # (Auto) 8.88 K/uL (1.40-6.50) H 12/28/23 19:24 Lymph # (Auto) 3.60 K/uL (1.20-3.40) H 12/28/23 19:24 [place]on # (Auto) 1.17 K/uL (0.11-0.59) H 12/28/23 19: Eos # (Auto) 0.32 K/uL (0.00-0.50) 12/28/23 19:24 Baso # (Auto) 0.10 K/uL (0.00-0.20) 12/28/23 19: Immature Gran # (Auto) 0.12 K/uL (0.01-0.20) 12/28/23 19:24 POC Sodium 136 mmol/L (135-144) 12/28/23 19:31 Sodium 132 mmol/L (136-145) L 12/28/23 19:24 POC Potassium 4.3 mmol/L (3.3-5.0) 12/28/23 19:31 Potassium 4.3 mmol/L (3.5-5.1) 12/28/23 19:24 POC Chloride 99 mmol/L (101-112) L 12/28/23 19:31 Chloride 97 mmol/L (98-107) L 12/28/23 19:24 Carbon Dioxide 24 mmol/L (21-32) 12/28/23 19:24 POC Total CO2 24 mmol/L (24-31) 12/28/23 19:31 Anion Gap 11 (3-11) 12/28/23 19:24 POC Anion Gap 19.0 mmol/L (16-25) 12/28/23 19:31 POC BUN 25 mg/dl (7-18) H 12/28/23 19:31 BUN 25 mg/dl (6-23) H 12/28/23 19:24 Creatinine 1.32 mg/dl (0.6-1.4) 12/28/23 19:24 POC Creatinine 1.4 mg/dl (0.6-1.3) H 12/28/23 19:31 Est Cr Clr Drug Dosing 81.2 ml/min 12/28/23 19:24 Est GFR ( Amer) 64.7 ml/min 12/28/23 19:24 Est GFR (Non-Af Amer) 55.8 ml/min 12/28/23 19:24 BUN/Creatinine Ratio 18.9 (10-20) 12/28/23 19:24 Glucose 159 mg/dl (70-99(Fasting)) H 12/28/23 19:24 POC Glucose 115 mg/dl (70-99) H 12/28/23 22:40 POC Glucose (other) 160 mg/dl (70-99) H 12/28/23 19:31 Lactate 1.8 mmol/L (0.4-2.0) 12/28/23 21:48 Calcium 10.0 mg/dl (8.6-10.3) 12/28/23 19:24 POC Ioniz Calcium Gideon 1.14 mmol/l (1.12-1.32) 12/28/23 19: Total Bilirubin 0.7 mg/dl (0.2-1.0) 12/28/23 19:24 AST 22 U/L (13-39) 12/28/23 19:24 ALT 31 U/L (7-52) 12/28/23 19:24 Alkaline Phosphatase 90 U/L (34-104) 12/28/23 19:24 Troponin I High Sens 10.0 pg/ml (0-20) 12/28/23 19:24 Total Protein 8.3 gm/dl (6.0-8.3) 12/28/23 19: Albumin 4.4 gm/dl (3.4-5.0) 12/28/23 19:24 Globulin 3.9 gm/dl (2.5-4.0) 12/28/23 19: Albumin/Globulin Ratio 1.1 (0.9-2) 12/28/23 19:24 Lipase 9 U/L (11-82) L 12/28/23 19:24 Urine Color Dark Yellow 12/28/23 19:24 Urine Appearance Turbid (Clear) A 12/28/23 19: Urine pH 5.5 (4.5-7.5) 12/28/23 19:24 Ur Specific Willard 1.016 (1.000-1.030) 12/28/23 19:24 Urine Protein 3+ (Negative) H 12/28/23 19:24 Urine Glucose (UA) Negative (Negative) 12/28/23 19:24 Urine Ketones Negative (Negative) 12/28/23 19:24 Urine Blood 1+ (Negative) H 12/28/23 19:24 Urine Nitrite Positive (Negative) A 12/28/23 19: Urine Bilirubin 1+ (Negative) H 12/28/23 19:24 Urine Urobilinogen Negative (Negative) 12/28/23 19:24 Ur Leukocyte Esterase 3+ (Negative) H 12/28/23 19:24 Urine WBC (Auto) >50 /hpf (0-5) H 12/28/23 19:24 Urine RBC (Auto) 6-10 /hpf (0-2) H 12/28/23 19:24 U Hyaline Cast (Auto) 11-20 /lpf (0-2) H 12/28/23 19:24 U Epithel Cells (Auto) 0-2 /hpf (0-2) 12/28/23 19:24 Urine Bacteria (Auto) 4+ (None Seen) H 12/28/23 19:24 WBC Casts Present /lpf (None Prsent) A 12/28/23 19:24 SARS-CoV-2, RNA, NAAT NEGATIVE (NEGATIVE) 12/28/23 19:52 Impressions Abdomen/Pelvis CT 12/28/23 19:38 Exam(s): CT ABDOMEN + PELVIS Without Contrast EXAM: CT Abdomen and Pelvis Without Intravenous Contrast CLINICAL HISTORY: Urinary symptoms, weakness. TECHNIQUE: Axial computed tomography images of the abdomen and pelvis without intravenous contrast. CTDI is 28.14 mGy and DLP is 1577.75 mGy-cm. Automated exposure control was utilized for the study. A dose lowering technique was utilized adhering to the principles of ALARA. COMPARISON: 09/28/2023 FINDINGS: Lung bases: Unchanged subcentimeter nodules including a 8.4 x 6 x 7 mm noncalcified nodule in the right lower lobe. ABDOMEN: Liver: 21.9 cm. Diffusely hypodense/fatty. Gallbladder and bile ducts: Unremarkable. No calcified stones. No ductal dilation. Pancreas: Unremarkable. No ductal dilation. Spleen: Unremarkable. No splenomegaly. Adrenals: Unremarkable. No mass. Kidneys and ureters: No obstructive uropathy. Calcification lower pole right kidney. No obstructing renal or ureteral calculi. No hydronephrosis or hydroureter. Stomach and bowel: No obstruction or ileus. Scattered left and sigmoid colon diverticuli without evidence for diverticulitis. PELVIS: Appendix: No findings to suggest acute appendicitis. Bladder: Contracted. No calculi identified in the previously demonstrated calculus within the urinary bladder. Reproductive: Unremarkable as visualized. ABDOMEN and PELVIS: Intraperitoneal space: No free air. No free fluid. Bones/joints: Spine degenerative changes. Soft tissues: Unremarkable. Vasculature: Atherosclerotic vascular calcifications. No abdominal aortic aneurysm. Lymph nodes: Unremarkable. No enlarged lymph nodes. IMPRESSION: No obstructive uropathy. Nonobstructing right renal calculus. Contracted urinary bladder. Previously demonstrated calculus within the lumen of urinary bladder is no longer identified. Otherwise no change. Electronically signed by: Jeff Kong M.D. 12/28/23 21:57 PM ECG Additional Comments: ECG. Sinus rhythm with PACs with aberrant conduction at a rate of 93. Left axis deviation. Right bundle branch block. Code Status & VTE Plan VTE Prophylaxis Plan VTE Prophylaxis will be ordered: Yes
--- OUTSIDE RECORDS SUMMARY | 2023-12-29 04:07 | External Medical Summary | Summary of Care ---
Author Name Unknown Organization [facility] [address] [address] Phone [phone] Care Team Providers Care Graphic Design Intern Name Role Phone Todd Newman DO Primary Care Provider Encounter Details Date Type Department Care Team (Latest Contact Info) Description 12/20/2023 3:00 PM EDT Telemedicine [facility] [address] [place] [address] Todd Newman DO [address] [place] [address] Type 2 diabetes mellitus with hemoglobin A1c goal of less than 8.0% ([facility])*; CKD stage 2 due to type 2 diabetes mellitus ([facility]); Diabetic polyneuropathy associated with type 2 diabetes mellitus ([facility]); Dyslipidemia, goal LDL below 100; HTN, goal below 140/90; Body mass index (BMI) of 40.0 to 44.9 in adult ([facility]); Adjustment disorder with depressed mood; Prostate cancer ([facility]); Chronic urinary tract infection Allergies Active Allergy Reactions Criticality Noted Date Comments Amoxicillin Edema airway High 11/17/2022 Clavulanic Acid Edema face/lips/tongue High 11/18/19 Doxycycline Nausea/vomiting 11/17/2022 Methotrexate Other (Please comment) 11/17/2022 Oxycodone Nausea/vomiting 11/17/2022 Vancomycin High 11/17/2022 documented as of this encounter (statuses as of 12/20/2023) Medications Medication Sig Dispensed Refills Start Date End Date Status ONETOUCH ULTRA TEST STRPIndications:DM type 2, goal A1c below 7 Use up to four times a day as directed 100 Strip 11 1 Active ONETOUCH ULTRASOFT LANCETS MISCIndications:DM type 2, goal A1c below 7 Use up to four times a day as directed 1 Box 11 3 Active amLODIPine Besylate 5 MG Oral Tablet (Norvasc) Take 1 Tablet by mouth in the morning. Active Lutein 20 MG Oral Capsule Take 1 Capsule by mouth in the morning. Active Basaglar KwikPen 100 UNIT/ML Subcutaneous Solution Pen-injector 3 Active Mag Aspart-Potassium Aspart 90-90 MG Oral Capsule Take by mouth. Active Calcium 250 MG Oral Capsule Take by mouth. Active Chlorthalidone 25 MG Oral Tablet (Hygroton) Take 0.5 Tablets by mouth in the morning. 45 Tablet 3 4 Active Ciclopirox Olamine 0.77 % External Cream Apply topically to affected area 2 times a day. Apply to foot 90 g 5 4 Active Nitrofurantoin Monohyd Macro 100 MG Oral Capsule (Macrobid) Take 1 Capsule by mouth in the morning and 1 Capsule before bedtime. With food until gone. 14 Capsule 4 Active Dexcom G6 TransmitterIndicatio ns:Type 2 diabetes mellitus with hyperosmolarity without coma, with long-term current use of insulin (HCC) Use as directed 1 Each 4 Active Semaglutide 14 MG Oral Tablet (Rybelsus)Indication s:Type 2 diabetes mellitus with hemoglobin A1c goal of less than 8.0% (HCC) Take 14 mg by mouth daily first thing in the morning. 90 Tablet 3 4 Active Insulin Glargine Solostar 100 UNIT/ML Subcutaneous Solution Pen-injector (Basaglar KwikPen)Indications: Type 2 diabetes mellitus with hemoglobin A1c goal of less than 8.0% (HCC) Inject 50 Units under the skin every night at bedtime. 45 mL 3 4 Active BD Pen Needle Pia U/F 32G X 4 MM (Insulin Pen Needle)Indications:T ype 2 diabetes mellitus with hemoglobin A1c goal of less than 8.0% (HCC) Use daily as directed 100 Each 3 4 Active Sertraline HCl 100 MG Oral Tablet (Zoloft)Indications: Adjustment disorder with depressed mood Take 1 tablet by mouth daily for 4 weeks then increase to 2 tablets by mouth daily. 180 Tablet 5 4 Active Doxepin HCl 10 MG Oral Capsule (SINEquan)Indication s:Primary insomnia Take 1 Capsule by mouth at bedtime. 90 Capsule 3 4 12/20/19 24 Discontinued Sertraline HCl 50 MG Oral Tablet (Zoloft)Indications: Adjustment disorder with depressed mood Take 1 Tablet by mouth in the morning. 90 Tablet 5 4 12/20/19 24 Discontinued documented as of this encounter (statuses as of 12/20/2023) Active Problems Problem Noted Date Diagnosed Date Body mass index (BMI) of 40.0 to 44.9 in adult 0 07/11/2023 Overview: Per Obesity protocol Diabetic polyneuropathy asso ciated with type 2 diabetes mellitus 01/21/2021 Sleep apnea, central 01/21/2021 Generalized osteoarthritis 01/21/2021 HTN, goal below 140/90 08/04/2015 Overview: Per HTN Protocol #27. Marijuana abuse 01/16/2014 Port-wine stain of face 01/16/2014 TERMINATED MEDICATION USAGE AGREEMENT 07/14/2012 Overview: NO narcotics or controlled substances to be prescribed. Recheck UDS 07/05/12 still w/ marijuana present (prior positive on 04/18/12). Violates med use agreement after second chance given. Med use agreement terminated. Type 2 diabetes mellitus wit h hemoglobin A1c goal of less than 8.0% 08/04/2011 Overview: ICD-10 update of inactive term Pain, joint, shoulder, right 05/03/2011 Overview: NO narcotics - pls see terminated med use agreement note. Dyslipidemia, goal LDL below 100 Hearing loss Overview: deaf in L ear Joint pain, foot Overview: S/p multiple toe amputations for osteomyelitis. Has seen [facility] for wound care. NO narcotics - pls see terminated med use agreement note. Adjustment disorder with depressed mood Multiple joint pain Overview: NO narcotics - pls see terminated med use agreement note. Insomnia Overview: ICD-10 update of inactive term CKD stage 2 due to type 2 diabetes mellitus documented as of this encounter (statuses as of 12/20/2023) Resolved Problems Problem Noted Date Diagnosed Date Resolved Date MEDICATION USE AGREEMENT 04/17/2012 Overview: Dr. Christopher - see discussion in 05/08/12 OV note regarding positive marijuana result - for retest in near future, pt aware if second positive result in future, it will nullify his med use agreement. Update on 07/15/12 - see terminated med use agreement note, this problem resolved so that that annotation will be active. HTN, GOAL BELOW 140/80 01/17/201209/03 Overview: Per HTN Protocol #27. Open wound of toe with complication 05/06/2011 09/30/2011 Overview: Patient sees [facility] for wound care. His pain meds are through PCP office. ICD-10 update of inactive term Cough 05/03/2011 11/01/2011 Cellulitis of foot 01/28/2011 1 Other specified pre-operative examination 09/10/2010 06/16/2011 Cellulitis of toe 08/18/2010 06/16/2011 Osteomyelitis of lower leg 1 Overview: R great toe, recurrent Pressure ulcer, unspecified site(707.00) 03/09/2010 Overview: chronic , R great toe and foot HTN, goal below 130/80 01/19 Overview: Per HTN Protocol #27. documented as of this encounter (statuses as of 12/20/2023) Immunizations Name Administration Dates Next Due COVID-19 mRNA, LNP-s, No Pre serve, 2-Dose Series (Pfizer) 07/25/2020,07/11/2020 Pneumococcal Polysaccharide PPV23 (Pneumovax) 03/09/2010 Seasonal Influenza, Split, I IV3, With Preserve, Inj 03/06/2014,03/26/2013,05/08/2012,05/03,03/09/2010 TDAP, Age 7 and older, IM (Adacel) 02/06/2010 documented as of this encounter Social History Tobacco Use Types Packs/Day Years Used Date Smoking Tobacco: Never Smokeless Tobacco: Never Alcohol Use Standard Drinks/Week Comments Yes 0 (1 standard drink = 0.6 oz pur e alcohol) rare Sex and Gender Information Value Date Recorded Sex Assigned at Male 04/11/2023 10:06 AM EST Gender Identity Male 04/11/2023 10:06 AM EST Sexual Orientation Straight 06/28/2023 11 :58 AM EST Job Start Date Occupation Industry Not on file Not on file Not on file documented as of this encounter Progress Notes * Todd Newman, - 12/20/2023 2:59 PM EDT Images from the original note were not included. Assessment and Plan Type 2 diabetes mellitus with hemoglobin A1c goal of less than 8.0% ([facility]) Will be due for blood work, continue current regimen and f/u with MTM CKD stage 2 due to type 2 diabetes mellitus (HCC) Continue to monitor and hydrate Diabetic polyneuropathy associated with type 2 diabetes mellitus (HCC) stable Dyslipidemia, goal LDL below 100 Labs due for f/u HTN, goal below 140/90 Home pressures stable Body mass index (BMI) of 40.0 to 44.9 in adult (HCC) Ongoing - will continue to work Adjustment disorder with depressed mood Will titrate up in dose - Sertraline HCl 100 MG Oral Tablet (Zoloft); Take 1 tablet by mouth daily for 4 weeks then increase to 2 tablets by mouth daily. Prostate cancer (HCC) Having new start in incontinence and change in smell Will be seeing urology, was on abx Chronic urinary tract infection See urology in f/u History of Present Illness Jeff Barry is a 68 year old male that presents for No chief complaint on file. Presents in f/u today has been Having a lot of stress, taking care of his mother And having insomnia and msk stress Due for blood work Urine incontinence is back and smell is worse Will be following up with urology Physical Exam There were no vitals filed for this visit. Physical Exam Constitutional: Appearance: Normal appearance. Neurological: Mental Status: He is alert and oriented to person, place, and time. Psychiatric: Mood and Affect: Mood normal. Wrap-Up Follow-up: Return in about 3 months (around 03/21/2024). | Check-out note: Every 3 months every other with Tayo or Vahid Time: Total time today was 45 minutes excluding any time spent in the performance of separately billed services. Telemedicine: Patient location: HOME. I was in a hospital or clinic location. After connecting through televideo,patient was verified with two unique identifiers. Patient (or authorized legal access services representative) was then informed that this was a Telemedicine visit and being conducted confidentially over secure lines. Methods to assure confidentiality were taken. Patient acknowledged consent and understanding of pr ivacy and security of the Telemedicine visit. The patient agreed to participate. documented in this encounter Plan of Treatment Upcoming Encounters Date Type Department Care Team (Late st Contact Info) Description 04/12/2024 6:20 PM EST Office Visit [facility] [address] [facility] [place] [address] Todd Newman DO [address] [facility] [place] [address] 04/18/2024 2:40 PM EST Office Visit Nephrology [address] [place] [address] Lara Joy MD [address] [place] [address] [place] [address] Health Maintenance Due Date Last Done Comments Cologuard 2002 Fecal Occult Blood Test 2002 Sigmoidoscopy 2002 Zoster Vaccines (1 of 2) 2007 Pneumococcal Vaccine: 65+ Years (2 of 2 - PCV) 03/09/2011 03/09/2010 Depression Screening 10/02/2014 10/02/2013 Diabetic Foot Exam 10/02/2014 10/02/2013, 0 06/26/2012, 05/03/2011, Additional history exists Diabetic Eye Exam 04/03/2015 04/03/2014, , 09/14/2012 Colonoscopy 12/02/2016 12/03/2011, 12/03/2011 Colorectal Cancer Screening 12/02/2016 DTaP,Tdap,and Td Vaccines (2 - Td or Tdap) 02/07/2020 02/06/2010 COVID-19 Vaccine (2022- season) 2023 11/13/2021, 05/19/2021, 07/25/2020, Additional history exists HbA1c 12/28/2023 06/29/2023, 12/29, 10/02/2013, Additional history exists Influenza Vaccine (FLU shot) (#1) 2024 04/16/2019, 03/06/2014, 03/26/2013, Additional history exists Albumin/Creatinine Ratio 06/29/2024 024, 01/16/2014, 10/27/2012, Additional history exists GFR 07/26/2024 07/26/2023, 06/01, 10/13/2020, Additional history exists Lipid Panel 06/29/2028 06/29/2023, 12/29, 10/02/2013, Additional history exists RETIRED - COLONOSCOPY-EVERY 5 YRS AGES 18-100 Discontinued 12/03/2011, 12/03/2011 *BASELINE EKG FOR HTN Completed 06/17/2014 HPV (Gardasil) Vaccine Aged Out No lo nger eligible based on patient's age to complete this topic Hepatitis B Vaccine Aged Out No longe r eligible based on patient's age to complete this topic Hepatitis C Screening Discontinued MENINGOCOCCAL (MENACTRA/MENVEO) Aged Out No longer eligible based on patient's age to complete this topic documented as of this encounter Medical Devices Not on filedocumented as of this encounter Visit Diagnoses Diagnosis Type 2 diabetes mellitus with hemoglobin A1c goal of less than 8.0% (HCC)- Primary CKD stage 2 due to type 2 diabetes mellitus (HCC) Diabetic polyneuropathy associated with type 2 diabetes mellitus (HCC) Dyslipidemia, goal LDL below 100 Other and unspecified hyperlipidemia HTN, goal below 140/90 Unspecified essential hypertension Body mass index (BMI) of 40.0 to 44.9 in adult (HCC) Adjustment disorder with depressed mood Prostate cancer (HCC) Malignant neoplasm of prostate Chronic urinary tract infection Urinary tract infection, site not specified documented in this encounter Care Teams Graphic Design Intern Relationship Specialty Start Date End Date Todd Newman DO [address] [place] [address] PCP - General Family Medicine 06/29/23 documented as of this encounter"
[2023-12-29 06:37] LABS: Basophils # (auto) 0.13 K/uL (0.00-0.20); Basophils % (auto) 1.1 %; Eosinophils # (auto) 0.47 K/uL (0.00-0.50); Eosinophils % (auto) 3.9 %; Hematocrit (blood only) 46.5 % (42.0-52.0); Hemoglobin 15.8 g/dl (14.0-18.0); Immature Granulocytes # (auto) 0.09 K/uL (0.01-0.20); Immature Granulocytes % (auto) 0.7 %; Lymphocytes # (auto) 3.75 K/uL (1.20-3.40); Lymphocytes % (auto) 31.1 %; Mean Corpuscular Hemoglobin 28.2 pg (25.0-34.0); Mean Platelet Volume 10.4 fL (9.4-12.4); Monocytes # (auto) 1.03 K/uL (0.11-0.59); Monocytes % (auto) 8.5 %; Neutrophils # (auto) 6.59 K/uL (1.40-6.50); Neutrophils % (auto) 54.7 %; Platelet Count 234 K/uL (130-400); RDW Coefficient of Variation 13.1 % (11.5-14.5); White Blood Count 12.06 K/ul (4.8-10.8)
[2023-12-29 06:43] LABS: BUN Creatinine Ratio 20.9 (10-20); Calcium 8.6 mg/dl (8.6-10.3); Creatinine Clr Calc Pharmacy 102.1 ml/min; Est GFR (African American) 80.6 ml/min; Est GFR (Non-African American) 69.6 ml/min; Magnesium 1.9 mg/dl (1.7-2.4); Potassium 4.1 mmol/L (3.5-5.1)
[2023-12-29 08:25] LABS: Estimated Average Glucose 212 mg/dl
--- NOTE | 2023-12-29 08:27 | Pharmacy Report ---
Pharmacy Glycemic Short Note 2 - Date of Service December 29, 2023 - Glycemic Short BSG Results (Last 24 hours): 12/28/23 12/28/23 12/28/23 19:24 19:31 22:40 Glucose 159 H POC Glucose 115 H POC Glucose (other) 160 H 12/29/23 12/29/23 06:01 07:38 Glucose 151 H POC Glucose 143 H POC Glucose (other) OUTPATIENT ANTIDIABETIC REGIMEN: * Insulin glargine 50 units SC HS * Insulin aspart 40 units TIDM + SSI HbA1c: 9% (12/29/23) ASSESSMENT: * MW is a 68 year old male w/ acute UTI in patient w/ history of recurrent UTI and prostate cancer s/p robotic prostatectomy * Receiving IV ertapenem * Patient with fairly significant outpatient insulin requirements. * He was given home basal dose last evening in hospital an aggressive Novolog parameters initiated. * Will continue initially ordered regimen for now PLAN FOR INPATIENT GLYCEMIC CONTROL: * Basal insulin * Lantus 50 units SC HS * Bolus insulin * NovoLog per scale ACHS or Q6hrs while NPO * Goal Range: Low 110 mg/dL - High 140 mg/dL * Correction Factor: 10 mg/dL/unit * Nutritional / Prandial insulin per carb ratio of 1 unit per 4 grams CHO consumed
--- NOTE | 2023-12-29 12:17 | Communication Note ---
Date of Service: December 29, 2023 Mr Barry evaluated at bedside. Reports feeling fatigued still, but much better than admission He states that even since his procedure in september for bladder stone removal. Followed up with pcp 12/19 for concerns of incontinence and smell. Has long complicated ESBL history Labs this am improving cr and downtrending WBC Exam benign #Acute complicated cystitis #History of ESBL contact precautions continue ertapenem hold methenamine bid follow up ID recommendations
[2023-12-29] MEDS: ACETAMINOPHEN 325 MG TAB PO PRN (14:24)
[2023-12-29] MEDS: ONDANSETRON INJ 2 MG/ML 2 ML VIAL IV STA (14:27)
[2023-12-29] MEDS: HYDROmorphone INJ 0.5 MG/0.5 ML SYR IV STA (15:03)
--- NOTE | 2023-12-29 17:05 | Infectious Disease Consult ---
Date of Service December 29, 2023 Telehealth Information I performed this visit using a real-time telehealth connection between my location and the patients location ([facility]). After connecting through interactive tele-video, patient was identified by name and date of and/or wristband check.Patient (or authorized healthcare labor service representative) was informed that this was a telemedicine visit and it was being conducted confidentially over secure lines. My office door was closed and no on e else was present in the room with me.Patient (or authorized healthcare labor service representative) provided consent to proceed with the visit, expressed an understanding of privacy and security of the telemedicine visit, and gave permission to have a hospital labor service representative in the room in order to assist with the visit and to conduct portions of the visit, as needed. I informed the patient (or authorized healthcare labor service representative) that I reviewed their record and presented the opportunity for them to ask any questions regarding the visit today. The patient agreed to participate. Assessment & Plan (1) Acute UTI: Plan: I would start the patient on meropenem while we await urine and blood culture results. If the isolate turns out to be ertapenem susceptible, then we may be able to change to ertapenem at discharge (for convenience of dosing) if we do not have any PO options. Anticipate about 7-10 days of therapy. These recommendations are not final. Contact Infectious Diseases as needed for updated recommendations (use the on-call schedule to find out who is covering your facility). History of Present Illness History of Present Illness The patient presented with symptoms of urinary frequency and malaise (in the context of recurrent UTI). Allergies Allergy/AdvReac Type Severity Reaction Status Date / Time amoxicillin [From Augmentin] Allergy Severe Facial Verified 12/28/23 21:52 swelling, diffuse rash clavulanic acid Allergy Severe Facial Verified 12/28/23 21:52 [From Augmentin] swelling, diffuse rash methotrexate Allergy Intermediate Depression Verified 12/28/23 21:52 doxycycline AdvReac Intermediate Nausea/vomi Verified 12/28/23 21:52 ting oxycodone [From Percocet] AdvReac Intermediate Nausea Verified 12/28/23 21:52 vancomycin AdvReac Unknown Unknown Verified 12/28/23 21:52 Home Medications Medication Instructions Recorded Confirmed Type cholecalciferol (vitamin D3) 10 400 units PO HS 02/09/19 12/28/23 History mcg (400 unit) capsule lutein 6 mg tablet 6 mg PO HS 02/09/19 12/28/23 History blood-glucose meter (Accu-Chek 10/14/20 11/01/23 History Suzan Plus Meter) Dexcom G6 Dental Hygiene Professor (blood-glucose #1 ea 03/09/21 11/01/23 Rx meter,continuous) coenzyme Q10 100 mg capsule (Co 100 mg PO QPM 12/01/21 12/28/23 History Q-10) Medical Marijuana Card 1 dose UD PRN Pain 02/23/22 12/28/23 History BD Insulin Syringe Ultra-Fine 1 mL #300 ea 07/16/22 11/01/23 Rx 31 gauge x 5/16" (insulin syringe-needle U-100) insulin glargine 100 unit/mL (3 50 unit (0.5 mL) subcut HS #45 mL 08/24/22 12/28/23 Rx mL) subcutaneous pen (Basaglar KwikPen U-100 Insulin) pen needle, diabetic 32 gauge x #100 ea 09/22/22 11/01/23 Rx 5/32" (BD Ultra-Fine Pia Pen Needle) blood sugar diagnostic (OneTouch #100 ea 10/04/22 11/01/23 Rx Verio test strips) blood-glucose meter (OneTouch #1 ea 10/04/22 11/01/23 Rx Verio Reflect Meter) lancets 33 gauge (OneTouch Delica #100 ea 10/04/22 11/01/23 Rx Lancets) Dexcom G6 Transmitter #1 ea 06/08/23 11/01/23 Rx (blood-glucose transmitter) amlodipine 5 mg tablet 5 mg PO HS #30 tabs 06/08/23 12/28/23 Rx Dexcom G6 Sensor (blood-glucose #9 ea 08/05/23 11/01/23 Rx sensor) hydrochlorothiazide 25 mg tablet 25 mg PO QAM 10/04/23 12/28/23 History insulin aspart U-100 100 unit/mL 1 sliding scale dose subcut TIDM 10/04/23 12/28/23 History subcutaneous solution (Novolog U-100 Insulin aspart) mupirocin 2 % topical ointment 1 applic topical UD PRN Skin 10/04/23 12/28/23 History Irritation ondansetron 4 mg disintegrating 4 mg PO UD PRN nausea and vomiting 10/04/23 History tablet methenamine hippurate 1 gram tablet 1 g PO BID 12/28/23 12/28/23 History sertraline 100 mg tablet 100 mg PO DAILY 12/28/23 12/28/23 History Patient History Medical History (Updated 12/28/23 @ 22:23 by Scout Rodriguez) Morbid obesity Bladder stone Cataracts, bilateral Autoimmune disease Possible, no official diagnosis History of COVID-19 2022- Asymptomatic Anxiety History of depression History of kidney stones BCC (basal cell carcinoma of skin) Hx Hypertension Pulmonary nodules Under surveillance Fatigue Rheumatoid arthritis with negative rheumatoid factor Per records, patient unsure Carcinoma of prostate DX 2013 > surgical intervention Diabetic peripheral neuropathy associated with type 2 diabetes mellitus Surgical History History of Mohs micrographic surgery for skin cancer Behind right ear History of prostatectomy (~2022) History of colonoscopy History of facial surgery kita removed Status post tonsillectomy Hx of removal of cyst Head region Hx of mastoidectomy Status post below knee amputation of right lower extremity Amputated toe "All toes" left foot Hx Right toe amputations (prior to BKA) Family History Mother Colorectal cancer Father Prostate cancer Brother Lung cancer Other Family history of diabetes mellitus in father Denies family history of Ovarian cancer Breast cancer Social History Smoking Status: Never smoker Second Hand Exposure: No; Do You Dip or Chew Tobacco: No; Hx Alcohol Use: No Hx Substance Use: No Preferred Language: German Communication Ability: Effective Visual Impairment: No Limitations Hearing Ability: Normal Supervising Chef Required: No Beliefs That Will Affect Care: None marital status: Current Living Situation: Spouse Current Living Situation Comment: , mother in law and daughter current occupational status: retired and disabled Other Information That Helps Us Care for You: No Feels Safe at Home: Yes Safety Concerns: Feels Safe At This Time caffeine: No Dental Care, Regularly: Yes Physical Activity Frequency: Does not Exercise Seatbelt Use: always Sunscreen Use: Yes Assistive Devices: Prosthesis Review of Systems As reviewed in HPI; a complete ROS was otherwise negative Physical Exam Vitals: see EMR Exam limited due to constraints of telemedicine Gen/Constitutional: appears at stated age, NAD, nontoxic Head: AT, NC Eyes: sclera anicteric, no conjunctival injection ENT: MMM, trachea midline Card: appears to be well-perfused Resp: not tachypneic, nml effort, symmetric chest rise, no accessory muscle use Derm: no visible diaphoresis, no visible rash, no visible jaundice Results & Data Vital Signs (Past 12 Hours) Vital Signs Temp Pulse Resp BP Pulse Ox O2 Del Method 12/29/23 14:10 36.6 C 82 16 138/91 96 Room Air 12/29/23 07:27 36.8 C 81 16 137/80 94 Room Air Laboratory Results SEE EMR [place] [address] / Director: Hemant Bazan M.D. Clinical Laboratory Report Name: JOAN ALY Acct: [id number] Status: ADM IN : 1955 [facility] Date: 12/28/23 Age: 68 Sex: M Dis Date: Loc: Medical/Surgical/Ortho [address] [place] [address]/Bed: E3[facility] Spec: [id number] Collected: 12/28/23 Received: 12/28/[address]: Jeremy Hodges M.D. Source: Urine,Clean Catch OV Order: Ordered: Urine Culture Procedure Result Verified Site Urine Culture Preliminary 12/29/23 Organism 1 Gram negative bacilli Sylvester Count >100,000 CFU/ml Sens Sensitivities to Follow Name: JOAN ALY : 1955 PAGE 1 Printed: 12/29/23 [id number] END OF REPORT
[2023-12-29] MEDS: ERTAPENEM SODIUM 1,000 MG in SYRINGE 0 ML IV SCH (21:05)
[2023-12-29] MEDS: HYDROmorphone INJ 0.5 MG/0.5 ML SYR IV PRN (21:06)
[2023-12-30 06:19] LABS: Hematocrit (blood only) 44.7 % (42.0-52.0); Hemoglobin 15.1 g/dl (14.0-18.0); Mean Corpuscular Hemoglobin 28.3 pg (25.0-34.0); Mean Corpuscular Hgb Conc 33.8 g/dL (32.0-36.0); Mean Corpuscular Volume 83.7 fL (80.0-100.0); Mean Platelet Volume 10.3 fL (9.4-12.4); Platelet Count 208 K/uL (130-400); RDW Coefficient of Variation 12.9 % (11.5-14.5); RDW Standard Deviation 39.1 fL (36.4-46.3); Red Blood Count 5.34 M/uL (4.70-6.10); White Blood Count 9.83 K/ul (4.8-10.8)
[2023-12-30 06:24] LABS: BUN Creatinine Ratio 24.8 (10-20); Calcium 8.6 mg/dl (8.6-10.3); Est GFR (African American) 61.9 ml/min; Est GFR (Non-African American) 53.4 ml/min; Magnesium 1.9 mg/dl (1.7-2.4); Phosphorus 4.3 mg/dl (2.5-4.9); Potassium 4.3 mmol/L (3.5-5.1)
[2023-12-30] MEDS: INSULIN ASPART PER UNIT CHARGE SC ONE (08:28)
[2023-12-30] MEDS: ONDANSETRON INJ 2 MG/ML 2 ML VIAL IV PRN (08:28)
[2023-12-30] MEDS: LANTUS PER UNIT CHARGE SC ONE (08:29)
[2023-12-30] MEDS: SERTRALINE HCL 100 MG TABLET PO SCH (10:08)
[2023-12-30] MEDS: CYCLOBENZAPRINE HCL 10 MG TAB PO STA (10:44)
--- NOTE | 2023-12-30 11:14 | Hospitalist Progress Note ---
Date of Service December 30, 2023 Assessment & Plan (1) Acute UTI: Plan: Mr. Barry is a 68-year-old male with past medical significant for type 2 diabetes, CKD stage II, diabetic polyneuropathy, hyperlipidemia, port wine stain of face, hypertension, morbid obesity, generalized osteoarthritis, depression, insomnia, marijuana abuse, sleep apnea admitted with sick-like symptoms iso of likely acute complicated cystitis. Patient with recurrent UTI with ESBL, s/p hx of prostate cancer s/p robotic prostatectomy in 02/2022 and cystolitholapaxy 09/2023 and found to have eroded clip/stones which were removed. Patient has trialed fosfomycin and multiple regimens in recent months, but was feeling extremely weak prompting presentation. UA from 12/27 +ESBL. Patient continues on ertapenem contingent on final recommendations from ID #Acute complicated cystitis, ESBL e coli Discontinue fluids Continue ertapenem 1g q 24 Discuss with ID final recommendations as susceptibilities have returned (PO v IV) #Morbid Obesity BMI 42.5 Discussed lifestyle modifications, patient reports trying but difficult given "being sick" #Diabetes Mellitus Type II Continue glargine SSI #Hypertension On amlodipine and hctz resumes #Depression On Zoloft, resumed DVT prophylaxis Lovenox Disposition Medical floor Full code. Admission and Anticipated Discharge Date Admission Date: December 28, 2023 Subjective NAEO Reports pinched nerve-like pain in left side of neck--but otherwise reports most symptoms present on admission resolved Physical Exam Constitutional: WD/WN, vitals as above Respiratory: normal respiratory effort, lungs clear to auscultation Gastrointestinal (Abdomen): normal bowel sounds, soft, nontender, no hepatosplenomegaly Musculoskeletal: R BKA Moves shoulders without difficulty, pain to palpation along left trapezius ridge Results & Data Results & Data Vital Signs (Past 12 Hours) Vital Signs Temp Pulse Resp BP Pulse Ox O2 Del Method 12/30/23 07:05 36.5 C 83 16 166/77 H 92 Room Air Laboratory Results Short CBC 12/30/23 Range/Units 05:55 WBC 9.83 (4.8-10.8) K/ul Hgb 15.1 (14.0-18.0) g/dl Hct 44.7 (42.0-52.0) % Plt Count 208 (130-400) K/uL BMP 12/30/23 05:55 Sodium 134 L Potassium 4.3 Chloride 101 Carbon Dioxide 24 BUN 34 H Creatinine 1.37 Glucose 230 H Calcium 8.6 Medications Administered Home Medications Medication Instructions Recorded Confirmed Last Taken cholecalciferol (vitamin D3) 10 400 units PO HS 02/09/19 12/28/23 10/06/23 20:00 mcg (400 unit) capsule lutein 6 mg tablet 6 mg PO HS 02/09/19 12/28/23 10/06/23 20:00 blood-glucose meter (Accu-Chek 10/14/20 11/01/23 Unknown Suzan Plus Meter) Dexcom G6 [employer] Handler (blood-glucose #1 ea 03/09/21 11/01/23 Unknown meter,continuous) coenzyme Q10 100 mg capsule (Co 100 mg PO QPM 12/01/21 12/28/23 10/04/23 20:00 Q-10) Medical Marijuana Card 1 dose UD PRN Pain 02/23/22 12/28/23 02/27/22 15:00 BD Insulin Syringe Ultra-Fine 1 mL #300 ea 07/16/22 11/01/23 Unknown 31 gauge x 5/16" (insulin syringe-needle U-100) insulin glargine 100 unit/mL (3 50 unit (0.5 mL) subcut HS #45 mL 08/24/22 12/28/23 12/27/23 20:00 mL) subcutaneous pen (Basaglar KwikPen U-100 Insulin) pen needle, diabetic 32 gauge x #100 ea 09/22/22 11/01/23 Unknown 5/32" (BD Ultra-Fine Pia Pen Needle) blood sugar diagnostic (OneTouch #100 ea 10/04/22 11/01/23 Unknown Verio test strips) blood-glucose meter (OneTouch #1 ea 10/04/22 11/01/23 Unknown Verio Reflect Meter) lancets 33 gauge (OneTouch Delica #100 ea 10/04/22 11/01/23 Unknown Lancets) Dexcom G6 Transmitter #1 ea 06/08/23 11/01/23 Unknown (blood-glucose transmitter) amlodipine 5 mg tablet 5 mg PO HS #30 tabs 06/08/23 12/28/23 10/06/23 20:00 Dexcom G6 Sensor (blood-glucose #9 ea 08/05/23 11/01/23 Unknown sensor) hydrochlorothiazide 25 mg tablet 25 mg PO QAM 10/04/23 12/28/23 10/06/23 08:00 insulin aspart U-100 100 unit/mL 1 sliding scale dose subcut TIDM 10/04/23 12/28/23 10/06/23 18:00 subcutaneous solution (Novolog 40 units U-100 Insulin aspart) mupirocin 2 % topical ointment 1 applic topical UD PRN Skin 10/04/23 12/28/23 10/06/23 20:00 Irritation ondansetron 4 mg disintegrating 4 mg PO UD PRN nausea and vomiting 10/04/23 12/28/23 Unknown tablet methenamine hippurate 1 gram tablet 1 g PO BID 12/28/23 12/28/23 Unknown sertraline 100 mg tablet 100 mg PO DAILY 12/28/23 12/28/23 Unknown Active Medications Generic Name Dose Route Start Last Admin Trade Name Freq PRN Reason Stop Dose Admin Acetaminophen 650 mg 12/28/23 22:34 12/30/23 08:28 Acetaminophen 325 Mg Tab PO 01/27/24 22:33 650 mg Q4H PRN Administration pain/fever Enoxaparin Sodium 40 mg 12/28/23 22:34 12/29/23 21:06 Enoxaparin Inj 40 Mg/0.4 Ml Syr SQ 01/27/24 22:33 Not Given PM ARCADIO Hydromorphone HCl 0.5 mg 12/29/23 14:50 12/30/23 03:58 Hydromorphone Inj 0.5 Mg/0.5 Ml Syr IV 01/12/24 14:49 0.5 mg Q6H PRN Administration Pain Ertapenem 1,000 mg/ Syringe 10 mls @ 2 mls/min 12/29/23 20:00 12/29/23 21:05 IV 01/08/24 19:59 2 mls/min Q24H ARCADIO Administration Insulin Aspart 0 units 12/28/23 23:00 12/30/23 08:39 Insulin Aspart Per Unit Charge SC 01/27/24 22:59 11 units ACHS ARCADIO Administration Insulin Glargine 50 units 12/28/23 22:34 12/29/23 21:04 Lantus Per Unit Charge SQ 01/27/24 22:33 50 units HS ARCADIO Administration Ondansetron HCl 4 mg 12/29/23 14:22 12/30/23 08:28 Ondansetron Inj 2 Mg/Ml 2 Ml Vial IV 01/28/24 14:21 4 mg Q6H PRN Administration Nausea And Vomiting Sertraline HCl 100 mg 12/30/23 09:00 12/30/23 10:08 Sertraline Hcl 100 Mg Tablet PO 01/29/24 08:59 100 mg DAILY ARCADIO Administration
--- NOTE | 2023-12-30 14:13 | XRay Report ---
XR shoulder LT min 2V routine CLINICAL HISTORY: acute shoulder/scapulae pain COMPARISON STUDY: None. FINDINGS: No fracture or dislocation within the left shoulder. The left clavicle is intact. Soft tiss ues are unremarkable. Moderate degenerative changes within the common clavicular and glenohumeral marcio nts. IMPRESSION: Moderate osteoarthritis within the left shoulder. No acute fractures. ACT 112: Negative or not required by law. Electronically signed by: Miki Dillon M.D. 12/30/2023 2:12 PM
--- NOTE | 2023-12-30 15:27 | XRay Report ---
XR cervical spine w flex/ext CLINICAL HISTORY: acute neck/shoulder pain w/ radiculopathy TECHNIQUE: 6 images of the cervical spine were obtained. COMPARISON: Comparison is made to cervical spine radiograph 10/14/2016 FINDINGS: No fractures or subluxations are identified. Degenerative changes are noted in the cervical spine. Th e alignment is anatomic. Prevertebral soft tissues are within normal limits. IMPRESSION: Degenerative changes without evidence of acute abnormality. ACT 112: Negative or not required by law. Electronically signed by: Ananda Cruz M.D. 12/30/2023 3:26 PM
[2023-12-30] MEDS: amLODIPine BESYLATE 5 MG TAB PO SCH (18:27)
--- NOTE | 2023-12-30 18:40 | Electrocardiogram Report ---
Test Reason : Blood Pressure : / mmHG Vent. Rate : 093 BPM Atrial Rate : 093 BPM P-R Int : 170 ms QRS Dur : 138 ms QT Int : 388 ms P-R-T Axes : 033 -62 037 degrees QTc Int : 482 ms Sinus rhythm with Premature ventricular complexes Left axis deviation Right bundle branch block Abnormal ECG When compared with ECG of 03-OCT-2023 15:22, Premature ventricular complexes are now Present QRS axis Shifted left Confirmed by Luis Miguel Farrar ([id number]) on 12/30/2023 6:39:38 PM Referred By: REFERRED SELF Confirmed By:Luis Miguel Farrar
--- NOTE | 2023-12-31 07:01 | Hospitalist Progress Note ---
Date of Service December 31, 2023 Assessment & Plan (1) Acute UTI: Plan: Mr. Barry is a 68-year-old male with past medical significant for type 2 diabetes, CKD stage II, diabetic polyneuropathy, hyperlipidemia, port wine stain of face, hypertension, morbid obesity, generalized osteoarthritis, depression, insomnia, marijuana abuse, sleep apnea admitted with sick-like symptoms iso of likely acute complicated cystitis. Patient with recurrent UTI with ESBL, s/p hx of prostate cancer s/p robotic prostatectomy in 02/2022 and cystolitholapaxy 09/2023 and found to have eroded clip/stones which were removed. Patient has trialed fosfomycin and multiple regimens in recent months, but was feeling extremely weak prompting presentation. UA from 12/27 +ESBL. Patient continues on ertapenem. Spoke with Dr. Alicia over phone on 12/29 in the evening. Recommends continuing 7-10 days IV ertapenem. #Acute complicated cystitis, ESBL e coli #History of prostate cancer s/p prostatectomy #s/p cystolithoplaxy Discontinue fluids Continue ertapenem 1g q 24 Urology consult: recurrent infection despite interventions, suppressive tx -No intervention, f/U OP #Left shoulder neck pain #Remote PMR hx XR negative C spine with degenerative disc disease IV solumedrol x 1, consider small steriod taper if improved #Morbid Obesity BMI 42.5 Discussed lifestyle modifications, patient reports trying but difficult given "being sick" #Diabetes Mellitus Type II Continue glargine SSI #Hypertension On amlodipine and hctz resumed #Depression On Zoloft, resumed DVT prophylaxis Lovenox Disposition Medical floor; will need to coordinate home health IV infusion as patient EOT 01/07 Full code. Admission and Anticipated Discharge Date Admission Date: December 28, 2023 Subjective Vitals stable, remains afebrile Reports feeling better from a standpoint, but overall the pain in his neck is bothering him. He reports a remote PMR history v RA, agreeable to trial a small steriod burst Physical Exam Constitutional: WD/WN, vitals as above Respiratory: normal respiratory effort, lungs clear to auscultation Gastrointestinal (Abdomen): normal bowel sounds, soft, nontender, no hepatosplenomegaly Musculoskeletal: full ROM of left an dright shoulder, spot tenderness along trap Neurologic: PERRL, EOMI, accommodation nl, no face palsy, no dysarthria Results & Data Results & Data Vital Signs (Past 12 Hours) Vital Signs Temp Pulse Resp BP Pulse Ox O2 Del Method 12/30/23 19:50 Room Air 12/30/23 19:47 36.6 C 78 16 130/83 95 Room Air Laboratory Results Short CBC 12/31/23 Range/Units 07:21 WBC 9.97 (4.8-10.8) K/ul Hgb 15.5 (14.0-18.0) g/dl Hct 45.2 (42.0-52.0) % Plt Count 214 (130-400) K/uL BMP 12/31/23 07:21 Sodium 135 L Potassium 4.0 Chloride 102 Carbon Dioxide 25 BUN 27 H Creatinine 1.15 Glucose 158 H Calcium 8.7 Medications Administered Home Medications Medication Instructions Recorded Confirmed Last Taken cholecalciferol (vitamin D3) 10 400 units PO HS 02/09/19 12/28/23 10/06/23 20:00 mcg (400 unit) capsule lutein 6 mg tablet 6 mg PO HS 02/09/19 12/28/23 10/06/23 20:00 blood-glucose meter (Accu-Chek 10/14/20 11/01/23 Unknown Suzan Plus Meter) Dexcom G6 Build Engineer (blood-glucose #1 ea 03/09/21 11/01/23 Unknown meter,continuous) coenzyme Q10 100 mg capsule (Co 100 mg PO QPM 12/01/21 12/28/23 10/04/23 20:00 Q-10) Medical Marijuana Card 1 dose UD PRN Pain 02/23/22 12/28/23 02/27/22 15:00 BD Insulin Syringe Ultra-Fine 1 mL #300 ea 07/16/22 11/01/23 Unknown 31 gauge x 5/16" (insulin syringe-needle U-100) insulin glargine 100 unit/mL (3 50 unit (0.5 mL) subcut HS #45 mL 08/24/22 12/28/23 12/27/23 20:00 mL) subcutaneous pen (Basaglar KwikPen U-100 Insulin) pen needle, diabetic 32 gauge x #100 ea 09/22/22 11/01/23 Unknown 5/32" (BD Ultra-Fine Pia Pen Needle) blood sugar diagnostic (OneTouch #100 ea 10/04/22 11/01/23 Unknown Verio test strips) blood-glucose meter (OneTouch #1 ea 10/04/22 11/01/23 Unknown Verio Reflect Meter) lancets 33 gauge (OneTouch Delica #100 ea 10/04/22 11/01/23 Unknown Lancets) Dexcom G6 Transmitter #1 ea 06/08/23 11/01/23 Unknown (blood-glucose transmitter) amlodipine 5 mg tablet 5 mg PO HS #30 tabs 06/08/23 12/28/23 10/06/23 20:00 Dexcom G6 Sensor (blood-glucose #9 ea 08/05/23 11/01/23 Unknown sensor) hydrochlorothiazide 25 mg tablet 25 mg PO QAM 10/04/23 12/28/23 10/06/23 08:00 insulin aspart U-100 100 unit/mL 1 sliding scale dose subcut TIDM 10/04/23 12/28/23 10/06/23 18:00 subcutaneous solution (Novolog 40 units U-100 Insulin aspart) mupirocin 2 % topical ointment 1 applic topical UD PRN Skin 10/04/23 12/28/23 10/06/23 20:00 Irritation ondansetron 4 mg disintegrating 4 mg PO UD PRN nausea and vomiting 10/04/23 12/28/23 Unknown tablet methenamine hippurate 1 gram tablet 1 g PO BID 12/28/23 12/28/23 Unknown sertraline 100 mg tablet 100 mg PO DAILY 12/28/23 12/28/23 Unknown Active Medications Generic Name Dose Route Start Last Admin Trade Name Freq PRN Reason Stop Dose Admin Acetaminophen 650 mg 12/28/23 22:34 12/30/23 08:28 Acetaminophen 325 Mg Tab PO 01/27/24 22:33 650 mg Q4H PRN Administration pain/fever Amlodipine Besylate 5 mg 12/30/23 21:00 12/30/23 18:27 Amlodipine Besylate 5 Mg Tab PO 01/29/24 20:59 5 mg HS ARCADIO Administration Enoxaparin Sodium 40 mg 12/28/23 22:34 12/30/23 21:22 Enoxaparin Inj 40 Mg/0.4 Ml Syr SQ 01/27/24 22:33 Not Given PM ARCADIO Ertapenem 1,000 mg/ Syringe 10 mls @ 2 mls/min 12/29/23 20:00 12/30/23 21:22 IV 01/08/24 19:59 2 mls/min Q24H ARCADIO Administration Insulin Aspart 0 units 12/28/23 23:00 12/30/23 21:23 Insulin Aspart Per Unit Charge SC 01/27/24 22:59 Not Given ACHS [facility] Insulin Glargine 50 units 12/28/23 22:34 12/30/23 21:23 Lantus Per Unit Charge SQ 01/27/24 22:33 50 units HS ARCADIO Administration Ondansetron HCl 4 mg 12/29/23 14:22 12/30/23 17:12 Ondansetron Inj 2 Mg/Ml 2 Ml Vial IV 01/28/24 14:21 4 mg Q6H PRN Administration Nausea And Vomiting Sertraline HCl 100 mg 12/30/23 09:00 12/30/23 10:08 Sertraline Hcl 100 Mg Tablet PO 01/29/24 08:59 100 mg DAILY ARCADIO Administration
[2023-12-31 07:51] LABS: Hematocrit (blood only) 45.2 % (42.0-52.0); Hemoglobin 15.5 g/dl (14.0-18.0); Mean Corpuscular Hgb Conc 34.3 g/dL (32.0-36.0); Mean Corpuscular Volume 81.7 fL (80.0-100.0); Mean Platelet Volume 10.4 fL (9.4-12.4); Platelet Count 214 K/uL (130-400); RDW Coefficient of Variation 12.8 % (11.5-14.5); RDW Standard Deviation 38.1 fL (36.4-46.3); Red Blood Count 5.53 M/uL (4.70-6.10); White Blood Count 9.97 K/ul (4.8-10.8)
[2023-12-31 08:09] LABS: BUN Creatinine Ratio 23.5 (10-20); Calcium 8.7 mg/dl (8.6-10.3); Creatinine Clr Calc Pharmacy 97.7 ml/min; Est GFR (African American) 76.4 ml/min; Est GFR (Non-African American) 65.9 ml/min
[2023-12-31] MEDS: traMADol HCL 50 MG TABLET PO PRN (08:12)
[2023-12-31] MEDS: hydroCHLOROthiazide 25 MG TAB PO SCH (08:15)
--- NOTE | 2023-12-31 08:50 | Urology Consultation ---
Date of Consultation December 31, 2023 Assessment & Plan (1) Kidney stone: (2) Carcinoma of prostate: Plan Complex history secondary to diabetes, recurrent infections, numerous other substantial medical issues Unfortunately continues to suffer from recurrent infections This predated his treatment for prostate cancer and part of the goal of treatment was I hope that we could reduce his UTI burden Unfortunately this has not proven to be successful Fortunately he is disease-free from a cancer standpoint with an undetectable PSA He reports that his urinary control at baseline is excellent but when he becomes actively infected he does have increased incontinence Culture growing ESBL E. coli Defer antibiotic management to ID There is no indication for intervention from a standpoint related to his bladder nor to the right renal stone We will sign off for now and follow him as an outpatient as we have been for some time History of Present Illness Attending Physician: So Ferraro MD History of Present Illness 68-year-old gentleman admitted secondary to severe upper back and shoulder pain as well as mental status changes and concern for UTI He has a very complex medical history including recurrent urinary tract infections which predated the diagnosis of prostate cancer and subsequent radical prostatectomy He also has had a complex issues with his right lower extremity including recurrent infections which ultimately necessitated amputation He has a hemoglobin A1c of 9.0 He continues to struggle with recurrent infections Earlier this year we treated scar tissue and a small eroded clip with the hope that this would decrease his likelihood of recurrent infections, however, this has not had a great effect in regard to changing his current course He had a CT upon arrival which shows no hydronephrosis or clear renal anatomical issues. He does have a stone within the right kidney but I am uncertain that this would be a definitive source of his infection and certainly not something that warrants attention acutely. His bladder is decompressed without clear stones or other anomalies. His creatinine is at baseline 1.1 He has no leukocytosis today His biggest complaint to me today is left shoulder pain He reports that his urinary control has been excellent for the most part, however when he does have symptomatic infections he finds that he increases his incontinence substantially as well as has some cloudiness to his thought processes His current culture has grown ESBL E. coli Allergies Allergy/AdvReac Type Severity Reaction Status Date / Time amoxicillin [From Augmentin] Allergy Severe Facial Verified 12/28/23 21:52 swelling, diffuse rash clavulanic acid Allergy Severe Facial Verified 12/28/23 21:52 [From Augmentin] swelling, diffuse rash methotrexate Allergy Intermediate Depression Verified 12/28/23 21:52 doxycycline AdvReac Intermediate Nausea/vomi Verified 12/28/23 21:52 ting oxycodone [From Percocet] AdvReac Intermediate Nausea Verified 12/28/23 21:52 vancomycin AdvReac Unknown Unknown Verified 12/28/23 21:52 Home Medications Medication Instructions Recorded Confirmed Type cholecalciferol (vitamin D3) 10 400 units PO HS 02/09/19 12/28/23 History mcg (400 unit) capsule lutein 6 mg tablet 6 mg PO HS 02/09/19 12/28/23 History blood-glucose meter (Accu-Chek 10/14/20 11/01/23 History Suzan Plus Meter) Dexcom G6 Clockmaker (blood-glucose #1 ea 03/09/21 11/01/23 Rx meter,continuous) coenzyme Q10 100 mg capsule (Co 100 mg PO QPM 12/01/21 12/28/23 History Q-10) Medical Marijuana Card 1 dose UD PRN Pain 02/23/22 12/28/23 History BD Insulin Syringe Ultra-Fine 1 mL #300 ea 07/16/22 11/01/23 Rx 31 gauge x 5/16" (insulin syringe-needle U-100) insulin glargine 100 unit/mL (3 50 unit (0.5 mL) subcut HS #45 mL 08/24/22 12/28/23 Rx mL) subcutaneous pen (Basaglar KwikPen U-100 Insulin) pen needle, diabetic 32 gauge x #100 ea 09/22/22 11/01/23 Rx 5/32" (BD Ultra-Fine Pia Pen Needle) blood sugar diagnostic (OneTouch #100 ea 10/04/22 11/01/23 Rx Verio test strips) blood-glucose meter (OneTouch #1 ea 10/04/22 11/01/23 Rx Verio Reflect Meter) lancets 33 gauge (OneTouch Delica #100 ea 10/04/22 11/01/23 Rx Lancets) Dexcom G6 Transmitter #1 ea 06/08/23 11/01/23 Rx (blood-glucose transmitter) amlodipine 5 mg tablet 5 mg PO HS #30 tabs 06/08/23 12/28/23 Rx Dexcom G6 Sensor (blood-glucose #9 ea 08/05/23 11/01/23 Rx sensor) hydrochlorothiazide 25 mg tablet 25 mg PO QAM 10/04/23 12/28/23 History insulin aspart U-100 100 unit/mL 1 sliding scale dose subcut TIDM 10/04/23 12/28/23 History subcutaneous solution (Novolog U-100 Insulin aspart) mupirocin 2 % topical ointment 1 applic topical UD PRN Skin 10/04/23 12/28/23 History Irritation ondansetron 4 mg disintegrating 4 mg PO UD PRN nausea and vomiting 10/04/23 12/28/23 History tablet methenamine hippurate 1 gram tablet 1 g PO BID 12/28/23 12/28/23 History sertraline 100 mg tablet 100 mg PO DAILY 12/28/23 12/28/23 History Patient History Medical History (Updated 12/28/23 @ 22:23 by Scout Rodriguez) Morbid obesity Bladder stone Cataracts, bilateral Autoimmune disease Possible, no official diagnosis History of COVID-19 2022- Asymptomatic Anxiety History of depression History of kidney stones BCC (basal cell carcinoma of skin) Hx Hypertension Pulmonary nodules Under surveillance Fatigue Rheumatoid arthritis with negative rheumatoid factor Per records, patient unsure Carcinoma of prostate DX 2013 > surgical intervention Diabetic peripheral neuropathy associated with type 2 diabetes mellitus Surgical History History of Mohs micrographic surgery for skin cancer Behind right ear History of prostatectomy (~2022) History of colonoscopy History of facial surgery kita removed Status post tonsillectomy Hx of removal of cyst Head region Hx of mastoidectomy Status post below knee amputation of right lower extremity Amputated toe "All toes" left foot Hx Right toe amputations (prior to BKA) Family History Mother Colorectal cancer Father Prostate cancer Brother Lung cancer Other Family history of diabetes mellitus in father Denies family history of Ovarian cancer Breast cancer Social History Smoking Status: Never smoker Second Hand Exposure: No; Do You Dip or Chew Tobacco: No; Hx Alcohol Use: No Hx Substance Use: No Preferred Language: Wolof Communication Ability: Effective Visual Impairment: No Limitations Hearing Ability: Normal Instructional Material Director Required: No Beliefs That Will Affect Care: None marital status: Current Living Situation: Spouse Current Living Situation Comment: , mother in law and daughter current occupational status: retired and disabled Other Information That Helps Us Care for You: No Feels Safe at Home: Yes Safety Concerns: Feels Safe At This Time caffeine: No Dental Care, Regularly: Yes Physical Activity Frequency: Does not Exercise Seatbelt Use: always Sunscreen Use: Yes Assistive Devices: Prosthesis Physical Exam Physical Exam: Resting comfortably in bed Complaining about left shoulder pain but seems to have full range of motion Abdomen soft Reports that he is urinating well Right lower extremity amputation Results & Data Vital Signs (Past 12 Hours) Vital Signs Temp Pulse Resp BP Pulse Ox O2 Del Method 12/31/23 08:14 135/86 12/31/23 07:45 36.4 C L 80 18 197/67 H 99 Room Air PG Care Time/CCT Total # of Minutes Spent Total Time Spent with Patient: Total time spent is greater than 50% in coordination of care (as documented) at patient's floor/unit and/or counseling patient: Coding Level of Care Code 31091 IN/OBS CONSULT LVL 4,60M Diagnoses Kidney stone N20.0 Carcinoma of prostate C61
[2023-12-31] MEDS: methylPREDNISolone 20 MG in SYRINGE 0 ML IV ONE (10:12)
[2023-12-31] MEDS: HYDROmorphone INJ 0.5 MG/0.5 ML SYR IV PRN (14:47)
[2023-12-31] MEDS: oxyCODONE HCL IR 5 MG TAB (IMMEDIATE RELEASE) PO STA (18:55)
[2023-12-31] MEDS: LANTUS PER UNIT CHARGE SQ SCH (20:45)
[2023-12-31] MEDS: HYDROmorphone INJ 0.5 MG/0.5 ML SYR IV STA (21:24)
[2023-12-31] MEDS: oxyCODONE HCL IR 5 MG TAB (IMMEDIATE RELEASE) PO PRN (23:01)
[2024-01-01] MEDS: LANTUS PER UNIT CHARGE SQ ONE (08:36)
[2024-01-01] MEDS: oxyCODONE HCL IR 5 MG TAB (IMMEDIATE RELEASE) PO PRN (09:44)
--- NOTE | 2024-01-01 10:02 | Hospitalist Progress Note ---
Date of Service January 01, 2024 Assessment & Plan (1) Acute UTI: Plan: Mr. Barry is a 68-year-old male with past medical significant for type 2 diabetes, CKD stage II, diabetic polyneuropathy, hyperlipidemia, port wine stain of face, hypertension, morbid obesity, generalized osteoarthritis, depression, insomnia, marijuana abuse, sleep apnea admitted with sick-like symptoms iso of likely acute complicated cystitis. Patient with recurrent UTI with ESBL, s/p hx of prostate cancer s/p robotic prostatectomy in 02/2022 and cystolitholapaxy 09/2023 and found to have eroded clip/stones which were removed. Patient has trialed fosfomycin and multiple regimens in recent months, but was feeling extremely weak prompting presentation. UA from 12/27 +ESBL. Patient continues on ertapenem. Spoke with Dr. Alicia over phone on 12/29 in the evening. Recommends continuing 7-10 days IV ertapenem. #Acute complicated cystitis, ESBL e coli #History of prostate cancer s/p prostatectomy #s/p cystolitholapaxy Discontinue fluids Continue ertapenem 1g q 24 EOT 01/07 Urology consult: recurrent infection despite interventions, suppressive tx -No intervention, f/U OP Plan for [facility] tomorrow and HH #Left shoulder neck pain #Remote PMR hx XR negative C spine with degenerative disc disease IV solumedrol x 1: no improvement with steriods Oxy q 4 while admitted #Morbid Obesity BMI 42.5 Discussed lifestyle modifications, patient reports trying but difficult given "being sick" #Diabetes Mellitus Type II Continue glargine SSI #Hypertension On amlodipine and hctz resumed #Depression On Zoloft, resumed DVT prophylaxis Lovenox Disposition Medical floor; will need to coordinate home health IV infusion as patient EOT 01/07 Full code. Admission and Anticipated Discharge Date Admission Date: December 28, 2023 Subjective NAEO Reports generalized aching. 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 Results & Data Results & Data Vital Signs (Past 12 Hours) Vital Signs Temp Pulse Resp BP Pulse Ox O2 Del Method 01/01/24 07:22 36.6 C 72 20 143/73 H 95 Room Air Medications Administered Home Medications Medication Instructions Recorded Confirmed Last Taken cholecalciferol (vitamin D3) 10 400 units PO HS 02/09/19 12/28/23 10/06/23 20:00 mcg (400 unit) capsule lutein 6 mg tablet 6 mg PO HS 02/09/19 12/28/23 10/06/23 20:00 blood-glucose meter (Accu-Chek 10/14/20 11/01/23 Unknown Suzan Plus Meter) Dexcom G6 Continuing Education Instructor (blood-glucose #1 ea 03/09/21 11/01/23 Unknown meter,continuous) coenzyme Q10 100 mg capsule (Co 100 mg PO QPM 12/01/21 12/28/23 10/04/23 20:00 Q-10) Medical Marijuana Card 1 dose UD PRN Pain 02/23/22 12/28/23 02/27/22 15:00 BD Insulin Syringe Ultra-Fine 1 mL #300 ea 07/16/22 11/01/23 Unknown 31 gauge x 5/16" (insulin syringe-needle U-100) insulin glargine 100 unit/mL (3 50 unit (0.5 mL) subcut HS #45 mL 08/24/22 12/28/23 12/27/23 20:00 mL) subcutaneous pen (Basaglar KwikPen U-100 Insulin) pen needle, diabetic 32 gauge x #100 ea 09/22/22 11/01/23 Unknown 5/32" (BD Ultra-Fine Pia Pen Needle) blood sugar diagnostic (OneTouch #100 ea 10/04/22 11/01/23 Unknown Verio test strips) blood-glucose meter (OneTouch #1 ea 10/04/22 11/01/23 Unknown Verio Reflect Meter) lancets 33 gauge (OneTouch Delica #100 ea 10/04/22 11/01/23 Unknown Lancets) Dexcom G6 Transmitter #1 ea 06/08/23 11/01/23 Unknown (blood-glucose transmitter) amlodipine 5 mg tablet 5 mg PO HS #30 tabs 06/08/23 12/28/23 10/06/23 20:00 Dexcom G6 Sensor (blood-glucose #9 ea 08/05/23 11/01/23 Unknown sensor) hydrochlorothiazide 25 mg tablet 25 mg PO QAM 10/04/23 12/28/23 10/06/23 08:00 insulin aspart U-100 100 unit/mL 1 sliding scale dose subcut TIDM 10/04/23 12/28/23 10/06/23 18:00 subcutaneous solution (Novolog 40 units U-100 Insulin aspart) mupirocin 2 % topical ointment 1 applic topical UD PRN Skin 10/04/23 12/28/23 10/06/23 20:00 Irritation ondansetron 4 mg disintegrating 4 mg PO UD PRN nausea and vomiting 10/04/23 12/28/23 Unknown tablet methenamine hippurate 1 gram tablet 1 g PO BID 12/28/23 12/28/23 Unknown sertraline 100 mg tablet 100 mg PO DAILY 12/28/23 12/28/23 Unknown Active Medications Generic Name Dose Route Start Last Admin Trade Name Freq PRN Reason Stop Dose Admin Acetaminophen 650 mg 12/28/23 22:34 12/30/23 08:28 Acetaminophen 325 Mg Tab PO 01/27/24 22:33 650 mg Q4H PRN Administration pain/fever Amlodipine Besylate 5 mg 12/30/23 21:00 12/31/23 20:42 Amlodipine Besylate 5 Mg Tab PO 01/29/24 20:59 5 mg HS ARCADIO Administration Enoxaparin Sodium 40 mg 12/28/23 22:34 12/31/23 20:40 Enoxaparin Inj 40 Mg/0.4 Ml Syr SQ 01/27/24 22:33 Not Given PM ARCADIO Hydrochlorothiazide 25 mg 12/31/23 09:00 01/01/24 08:56 Hydrochlorothiazide 25 Mg Tab PO 01/30/24 08:59 25 mg QAM ARCADIO Administration Ertapenem 1,000 mg/ Syringe 10 mls @ 2 mls/min 12/29/23 20:00 12/31/23 20:41 IV 01/08/24 19:59 2 mls/min Q24H ARCADIO Administration Insulin Aspart 0 units 12/28/23 23:00 01/01/24 08:36 Insulin Aspart Per Unit Charge SC 01/27/24 22:59 22 units ACHS ARCADIO Administration Insulin Glargine 60 units 12/31/23 21:00 12/31/23 20:45 Lantus Per Unit Charge SQ 01/30/24 20:59 60 units HS ARCADIO Administration Ondansetron HCl 4 mg 12/29/23 14:22 12/31/23 08:05 Ondansetron Inj 2 Mg/Ml 2 Ml Vial IV 01/28/24 14:21 4 mg Q6H PRN Administration Nausea And Vomiting Oxycodone HCl 10 mg 01/01/24 08:47 01/01/24 09:44 Oxycodone Hcl Ir 5 Mg Tab (Immediate Release) PO 01/14/24 21:05 10 mg Q4H PRN Administration Mod-Sev Pain (Scale 4-10) Sertraline HCl 100 mg 12/30/23 09:00 01/01/24 08:56 Sertraline Hcl 100 Mg Tablet PO 01/29/24 08:59 100 mg DAILY ARCADIO Administration Tramadol HCl 50 mg 12/31/23 07:04 12/31/23 08:12 Tramadol Hcl 50 Mg Tablet PO 01/30/24 07:03 50 mg Q4H PRN Administration Moderate Pain (Scale 4, 5, 6)
[2024-01-02 06:12] LABS: Hematocrit (blood only) 45.6 % (42.0-52.0); Hemoglobin 15.5 g/dl (14.0-18.0); Mean Corpuscular Hemoglobin 28.2 pg (25.0-34.0); Mean Corpuscular Volume 83.1 fL (80.0-100.0); Mean Platelet Volume 10.4 fL (9.4-12.4); Platelet Count 218 K/uL (130-400); RDW Coefficient of Variation 12.7 % (11.5-14.5); RDW Standard Deviation 38.4 fL (36.4-46.3); Red Blood Count 5.49 M/uL (4.70-6.10); White Blood Count 9.73 K/ul (4.8-10.8)
[2024-01-02 06:32] LABS: BUN Creatinine Ratio 25.4 (10-20); Calcium 8.5 mg/dl (8.6-10.3); Creatinine Clr Calc Pharmacy 93.9 ml/min; Est GFR (African American) 73.6 ml/min; Est GFR (Non-African American) 63.5 ml/min; Potassium 3.8 mmol/L (3.5-5.1)
--- NOTE | 2024-01-02 12:05 | Pharmacy Report ---
Pharmacy Glycemic Short Note 2 - Date of Service January 02, 2024 - Glycemic Short BSG Results (Last 24 hours): 01/01/24 01/01/24 01/02/24 16:40 20:52 05:44 Glucose 143 H POC Glucose 101 H 134 H 01/02/24 01/02/24 07:44 11:38 Glucose POC Glucose 125 H 237 H OUTPATIENT ANTIDIABETIC REGIMEN: * Insulin glargine 50 units SC HS * Insulin aspart 40 units TIDM + SSI HbA1c: 9% (12/29/23) ASSESSMENT: 01/01: * Jeff received 119 units of insulin yesterday (70 were basal) * Fasting BSG within goal range, Lantus dose increased yesterday, will continue tonight * No discernable BSG pattern so far during stay, highs in AM at lunchtime and at dinner, will continue current Novolog parameters and continue to monitor. 12/28: * ANDREINA is a 68 year old male w/ acute UTI in patient w/ history of recurrent UTI and prostate cancer s/p robotic prostatectomy * Receiving IV ertapenem * Patient with fairly significant outpatient insulin requirements. * He was given home basal dose last evening in hospital an aggressive Novolog parameters initiated. * Will continue initially ordered regimen for now PLAN FOR INPATIENT GLYCEMIC CONTROL: * Basal insulin * Lantus 70 units SC HS * Bolus insulin * NovoLog per scale ACHS or Q6hrs while NPO * Goal Range: Low 110 mg/dL - High 140 mg/dL * Correction Factor: 10 mg/dL/unit * Nutritional / Prandial insulin per carb ratio of 1 unit per 4 grams CHO consumed
--- NOTE | 2024-01-02 13:53 | Discharge Summary ---
Discharge Summary Date of Service January 02, 2024 Principal Dx & Hospital Course #1 = Principal Diagnosis (1) Acute UTI: Mr. Barry is a 68-year-old male with past medical significant for type 2 diabetes, CKD stage II, diabetic polyneuropathy, hyperlipidemia, port wine stain of face, hypertension, morbid obesity, generalized osteoarthritis, depression, insomnia, marijuana abuse, sleep apnea admitted with sick-like symptoms iso of likely acute complicated cystitis. Patient with recurrent UTI with ESBL, s/p hx of prostate cancer s/p robotic prostatectomy in 02/2022 and cystolitholapaxy 09/2023 and found to have eroded clip/stones which were removed. Patient has trialed fosfomycin and multiple regimens in recent months, but was feeling extremely weak prompting presentation. UA from 12/27 +ESBL. Patient continues on ertapenem. Spoke with Dr. Alicia over phone on 12/29 in the evening. Recommends continuing 7-10 days IV ertapenem. On day of discharge, US guided IV was placed for ertapenem daily until 01/07 #Acute complicated cystitis, ESBL e coli #History of prostate cancer s/p prostatectomy #s/p cystolitholapaxy Discontinue fluids Continue ertapenem 1g q 24 EOT 01/07 Urology consult: recurrent infection despite interventions, suppressive tx -No intervention, f/U OP US guided IV EOT 01/07 PCP follow up on 01/08 #Left shoulder neck pain #Remote PMR hx XR negative C spine with degenerative disc disease IV solumedrol x 1: no improvement with steriods Oxy q 4 while admitted No further opioids upon dc #Morbid Obesity BMI 42.5 Discussed lifestyle modifications, patient reports trying but difficult given "being sick" #Diabetes Mellitus Type II Continue glargine SSI #Hypertension On amlodipine and hctz resumed #Depression On Zoloft, resumed Notes For Next Care Provider Medication Changes From Visit Methenamine held until IV abx complete Ertapenem 1g q24 EOT 01/07 Admission HPI Per Admitting Provider 68-year-old male with past medical significant for type 2 diabetes, CKD stage II, diabetic polyneuropathy, hyperlipidemia, port wine stain of face, hypertension, morbid obesity, generalized osteoarthritis, depression, insomnia, marijuana abuse, sleep apnea presents with urinary symptoms and found to UTI. Patient seems to have chronic UTI with ESBL. Patient has history of prostate cancer s/p robotic prostatectomy in February 2022. Patient recently in September 2023 had cystolitholapaxy and found to have eroded clip/stones which were removed. Sees ID Dr. Cheek for recurrent UTIs. History of ESBL UTI and treated with fosfomycin in the past. Patient states last few days again he started having foul-smelling urine. More sleepy. Body aches. Decreased appetite. He also had fever today. Currently resting comfortably and hemodynamically stable. Denies any chest pain or shortness of breath. No cough. No runny nose or sore throat. No nausea or abdominal pain. Normal bowel movements. Past medical history. As mentioned above Past surgical history. 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 Colonoscopy. Tonsillectomy adenoidectomy. Right BKA. Social history. . No smoking. No alcohol rarely. Uses marijuana Family history. Father had aneurysm. Diabetes. Mother had colon cancer. Brother had lung cancer. Admission Exam Per Admitting Provider General- Not in distress Head- atraumatic Eyes- PERRL. ENT- oropharynx clear Neck- supple, no JVD. Lungs- clear to auscultation, no wheezing or crackles. Heart- regular rate and rhythm; no murmur, no gallop. Abdomen- normal bowel sounds, soft, nontender, no distension. Extremities- no pretibial edema, no erytehma Neuro- alert, oriented ; PERRL,no facial palsy; no dysarthria; obeys simple commands Discharge Exam Constitutional WD/WN, vitals as above Respiratory normal respiratory effort, lungs clear to auscultation Cardiovascular RRR, no murmur, no edema Gastrointestinal (Abdomen) normal bowel sounds, soft, nontender, no hepatosplenomegaly Neurologic PERRL, EOMI, accommodation nl, no face palsy, no dysarthria Updated Medication List Medication Instructions Recorded Confirmed Type cholecalciferol (vitamin D3) 10 400 units PO HS 02/09/19 12/28/23 History mcg (400 unit) capsule lutein 6 mg tablet 6 mg PO HS 02/09/19 12/28/23 History blood-glucose meter (Accu-Chek 10/14/20 11/01/23 History Suzan Plus Meter) Dexcom G6 Quarter Trimmer (blood-glucose #1 ea 03/09/21 11/01/23 Rx meter,continuous) coenzyme Q10 100 mg capsule (Co 100 mg PO QPM 12/01/21 12/28/23 History Q-10) Medical Marijuana Card 1 dose UD PRN Pain 02/23/22 12/28/23 History BD Insulin Syringe Ultra-Fine 1 mL #300 ea 07/16/22 11/01/23 Rx 31 gauge x 5/16" (insulin syringe-needle U-100) insulin glargine 100 unit/mL (3 50 unit (0.5 mL) subcut HS #45 mL 08/24/22 12/28/23 Rx mL) subcutaneous pen (Basaglar KwikPen U-100 Insulin) pen needle, diabetic 32 gauge x #100 ea 09/22/22 11/01/23 Rx 5/32" (BD Ultra-Fine Pia Pen Needle) blood sugar diagnostic (OneTouch #100 ea 10/04/22 11/01/23 Rx Verio test strips) blood-glucose meter (OneTouch #1 ea 10/04/22 11/01/23 Rx Verio Reflect Meter) lancets 33 gauge (OneTouch Delica #100 ea 10/04/22 11/01/23 Rx Lancets) Dexcom G6 Transmitter #1 ea 06/08/23 11/01/23 Rx (blood-glucose transmitter) amlodipine 5 mg tablet 5 mg PO HS #30 tabs 06/08/23 12/28/23 Rx Dexcom G6 Sensor (blood-glucose #9 ea 08/05/23 11/01/23 Rx sensor) hydrochlorothiazide 25 mg tablet 25 mg PO QAM 10/04/23 12/28/23 History insulin aspart U-100 100 unit/mL 1 sliding scale dose subcut TIDM 10/04/23 12/28/23 History subcutaneous solution (Novolog U-100 Insulin aspart) mupirocin 2 % topical ointment 1 applic topical UD PRN Skin 10/04/23 12/28/23 History Irritation ondansetron 4 mg disintegrating 4 mg PO UD PRN nausea and vomiting 10/04/23 12/28/23 History tablet methenamine hippurate 1 gram tablet 1 g PO BID 12/28/23 12/28/23 History sertraline 100 mg tablet 100 mg PO DAILY 12/28/23 12/28/23 History Hospital Stay Data Consultations 12/28/23 20:12 ED Decision to Admit Stat 12/29/23 09:00 Consult Infectious Diseases Routine 12/31/23 06:58 Consult Urology Routine Diagnostic Imagining Performed 12/28/23 19:38 CT abd pelvis wo con Stat Pending Results Patient Have Any Pending Studies at Discharge: No Discharge Instructions Given to Patient (Per Discharging Provider) You were admitted for a complicated urinary tract infection. You were noted to grow the same resistant bacteria--ESBL e coli You will continue IV antibiotics until 01/08/2024 Please follow up with your Infectious Disease doctor You have an appointment with Dr. Newman on Tuesday at 11am. Please hold your methenamine until you complete your IV antibiotics. Total Time Total Time Spent Total Time Spent (In Minutes): 45
[2024-01-02] MEDS: ERTAPENEM SODIUM 1,000 MG in SYRINGE 0 ML IV SCH (14:58)
[2024-01-02] MEDS ORDERED: LANTUS PER UNIT CHARGE SQ SCH (21:00)
[2024-01-02] MEDS ORDERED: ERTAPENEM SODIUM 1,000 MG in SYRINGE 0 ML IV SCH (22:00)
== END 2024-01-02 16:30 | disposition home health service (06) | DRG 690 ==
LOC: ED 18:53 → 3E 21:42

== ENCOUNTER 2024-08-09 20:42 | Inpatient (IN) ==
[2024-08-09] MEDS: ONDANSETRON INJ 2 MG/ML 2 ML VIAL IV STA ×2 (20:57→21:00)
[2024-08-09] MEDS: MoRPHine SULFATE 4 MG/ML 1 ML CARP\\VIAL IV PRN (21:00)
--- NOTE | 2024-08-09 21:05 | Emergency Department Note ---
Impression & Plan Calculus of proximal right ureter, UTI due to extended-spectrum beta lactamase (ESBL) producing Escherichia coli, Hypertension, Acute hyperglycemia ED Provider Note NAME: JOAN ALY AGE: 69 SEX: M : 1955 ARRIVES VIA: Walk-In INFORMANT: Patient, ED PROVIDER(S): Kiet Huerta DO CHIEF COMPLAINT: Flank pain HPI: The patient is a 69-year-old male who presented to the emergency department for an evaluation of flank pain. The patient has a history of kidney stone in the past. He had an acute onset of right-sided flank pain which occurred at approximately 6 PM today. He has had nausea and vomiting. He is very diaphoretic. He does have a history of diabetes. He does not take blood thinners. He is currently being treated for urinary tract infection started on antibiotics by his primary care physician. ROS: See above HPI for pertinent positives & negatives. A total of 10 systems reviewed and were otherwise negative. PAST MEDICAL HISTORY: See Below PAST SURGICAL HISTORY: See Below FAMILY HISTORY: See Below SOCIAL HISTORY: See Below HOME MEDICATIONS: See Below ALLERGIES: See Below VITALS: See Below PHYSICAL EXAMINATION: GENERAL: The is awake and alert. The patient is very anxious and appears to be in significant pain. EYES: The conjunctivae are clear. The pupils are round and reactive. EARS, NOSE, MOUTH AND THROAT: The nose is without any evidence of any deformity. NECK: The neck is nontender and supple. RESPIRATORY: Normal respiratory effort is noted there is no evidence of wheezing rhonchi or rales CARDIOVASCULAR: Regular rate and rhythm noted there no murmurs rubs or gallops normal S1 normal S2. GASTROINTESTINAL: The abdomen is distended. There is right-sided tenderness to palpation but no guarding or rigidity. BACK: Right CVA tenderness was noted to percussion. MUSCULOSKELETAL/EXTREMITIES: Lower extremity amputation was noted. SKIN: Venous stasis changes are noted in the left leg. NEUROLOGIC: Patient is awake alert and oriented x3 MEDICAL DECISION MAKING: The patient is a 69-year-old male who presented to the emergency department for an evaluation of flank pain. The patient was recently diagnosed with a urinary tract infection by his primary care physician. He was placed on Macrobid. The patient returns to the emergency department this evening because of ongoing and worsening symptoms. He was very diaphoretic. He has a history of renal colic. The patient was treated with IV fluids and IV pain medication in the emergency department. He was also treated with IV insulin and IV antibiotics for presumed urinary tract infection. CT did appear to be consistent with a proximal ureteral calculus. For this reason I discussed his condition with the on-call urology group. I do not feel the patient requires intervention at this time but he may require further intervention after resuscitation. I discussed his condition with the on-call [facility] hospitalist. They have agreed to evaluate the patient in the emergency department. Triage Nursing notes reviewed. Prior medical records reviewed Vital Signs: reviewed and remarkable for elevated blood pressure Differential diagnosis: Renal colic, UTI, appendicitis, diverticulitis, mesenteric ischemia, aortic pathology, infections, inflammatory bowel disease, PUD, biliary pathology, as well as other pathologies. ER treatment provided: See below Diagnostics interpreted by me: ECG: none Cardiac Monitoring: An order was placed for continuous cardiac monitoring. The monitor shows a rate of 73 bpm with sinus rhythm. Laboratory studies: As stated above and show below. Imaging studies: See below. Radiographic imaging was reviewed by myself Consultation(s): I discussed this case with Dr. Hendrickson who is on for urology. He will continue to follow along and determine any further intervention. I discussed the case with Dr. Lamb who is on-call for the [facility] Hospitalist group. Past Med/Surg History Problem List (Updated 08/09/24 @ 23:23 by Kiet Huerta DO) Acute hyperglycemia (Acute) Hypertension (Acute) Calculus of proximal right ureter (Acute) Bladder stone Shortness of breath Fever Cough Adenoma of left adrenal gland CT scan Lung- 07/06/2022 FH: lung cancer History of transmetatarsal amputation of left foot Per records Hx of right BKA Morbid obesity with BMI of 40.0-44.9, adult UTI due to extended-spectrum beta lactamase (ESBL) producing Escherichia coli (Acute) Prostate cancer History of colon polyps Lab test negative for COVID-19 virus (Acute) Tubular adenoma Health care maintenance History of amputation of toe Callus of heel Pes anserinus bursitis of left knee Vitamin D deficiency Fatigue Arthralgia of multiple joints (Chronic) Prostate cancer Nocturnal hypoxemia Circadian rhythm sleep disorder, delayed sleep phase type Incontinence of urine Hypoglycemia associated with type 2 diabetes mellitus Type 2 diabetes mellitus, uncontrolled Albuminuria Dyslipidemia 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 Hx of basal cell carcinoma History of bladder stone History of prostate cancer dx 2013 - surgical intervention Hx of shortness of breath no recent issues, "few years ago when he was getting back on his feet after his leg amputation" Nocturnal hypoxemia hx, has seen "sleep" dr in the past, test inconclusive Hx of colonic polyps Adenoma of left adrenal gland CT scan Lung- 07/06/2022 Diabetes mellitus, type 2 Morbid obesity Autoimmune disease Possible, no official diagnosis History of COVID-2022- Asymptomatic Anxiety History of depression History of kidney stones Hypertension Pulmonary nodules Under surveillance Rheumatoid arthritis with negative rheumatoid factor Per records, patient unsure Diabetic peripheral neuropathy associated with type 2 diabetes mellitus Surgical History H/O right cataract extraction S/P urological surgery 09/2023, cytolithopaxy History of Mohs micrographic surgery for skin cancer Behind right ear History of prostatectomy (~2022) History of colonoscopy most recent 2021 History of facial surgery kita removed Status post tonsillectomy Hx of removal of cyst Head region Hx of mastoidectomy Status post below knee amputation of right lower extremity Amputated toe "All toes" left foot Hx Right toe amputations (prior to BKA) Family History Mother Colorectal cancer Father Prostate cancer Brother Lung cancer Other Family history of diabetes mellitus in father Denies family history of Ovarian cancer Breast cancer Social History Smoking Status: Unknown if ever smoked Second Hand Exposure: No; Do You Dip or Chew Tobacco: No; Hx Alcohol Use: Yes Hx Substance Use: Yes (medical card) Last Used Substance: Days (ago) Last Used Substance Other:: last used about a week ago Substance Use Type Other:: medical marijuana card Preferred Language: Hungarian Communication Ability: Effective Visual Impairment: No Limitations Hearing Ability: Normal Photography Intern Required: No Beliefs That Will Affect Care: None marital status: Current Living Situation: Spouse Current Living Situation Comment: , mother in law and daughter current occupational status: retired and disabled Feels Safe at Home: Yes caffeine: No Dental Care, Regularly: Yes Physical Activity Frequency: Does not Exercise Seatbelt Use: always Sunscreen Use: Yes Assistive Devices: Glasses and Prosthesis Allergies Allergies Allergy/AdvReac Type Severity Reaction Status Date / Time amoxicillin [From Augmentin] Allergy Severe Facial Verified 07/03/24 06:18 swelling, diffuse rash clavulanic acid Allergy Severe Facial Verified 07/03/24 06:18 [From Augmentin] swelling, diffuse rash methotrexate Allergy Intermediate Depression Verified 07/03/24 06:18 doxycycline AdvReac Intermediate Nausea/vomi Verified 07/03/24 06:18 ting oxycodone [From Percocet] AdvReac Intermediate Nausea Verified 07/03/24 06:18 vancomycin AdvReac Unknown Unknown Verified 07/03/24 06:18 Home Meds Home Medications Medication Instructions Recorded Confirmed cholecalciferol (vitamin D3) 10 400 units PO HS 02/09/19 07/03/24 mcg (400 unit) capsule lutein 6 mg tablet 6 mg PO HS 02/09/19 07/03/24 blood-glucose meter (Accu-Chek 10/14/20 06/19/24 Suzan Plus Meter) coenzyme Q10 100 mg capsule (Co 100 mg PO QPM 12/01/21 07/03/24 Q-10) Medical Marijuana Card 1 dose inhalation UD PRN Pain 02/23/22 07/03/24 hydrochlorothiazide 25 mg tablet 25 mg PO QAM 10/04/23 07/03/24 insulin aspart U-100 100 unit/mL 1 sliding scale dose subcut TIDM 10/04/23 07/03/24 subcutaneous solution (Novolog U-100 Insulin aspart) mupirocin 2 % topical ointment 1 applic topical UD PRN Skin 10/04/23 07/03/24 Irritation ondansetron 4 mg disintegrating 4 mg PO UD PRN nausea and vomiting 10/04/23 07/03/24 tablet sertraline 100 mg tablet 100 mg PO HS 12/28/23 07/03/24 Previous Rx's Medication Instructions Recorded Dexcom G6 Shadowgraph Operator (blood-glucose #1 ea 03/09/21 meter,continuous) BD Insulin Syringe Ultra-Fine 1 mL #300 ea 07/16/22 31 gauge x 5/16" (insulin syringe-needle U-100) insulin glargine 100 unit/mL (3 50 unit (0.5 mL) subcut HS #45 mL 08/24/22 mL) subcutaneous pen (Basaglar KwikPen U-100 Insulin) pen needle, diabetic 32 gauge x #100 ea 09/22/22 532" (BD Ultra-Fine Pia Pen Needle) blood sugar diagnostic (OneTouch #100 ea 10/04/22 Verio test strips) blood-glucose meter (OneTouch #1 ea 10/04/22 Verio Reflect Meter) lancets 33 gauge (OneTouch Delica #100 ea 10/04/22 Lancets) Dexcom G6 Transmitter #1 ea 06/08/23 (blood-glucose transmitter) amlodipine 5 mg tablet 5 mg PO HS #30 tabs 06/08/23 Dexcom G6 Sensor (blood-glucose #9 ea 08/05/23 sensor) nitrofurantoin 100 mg PO Q12H 28 days #56 caps 08/04/24 monohydrate/macrocrystals 100 mg capsule (Macrobid) Results & Data (ED) Vital Signs Vital Signs - 24 hr 08/09/24 20:45 08/09/24 21:11 08/09/24 21:53 Temperature 36.7 C Temperature Source Oral Pulse Rate 82 92 H 74 Pulse Rate [Apical] Pulse Rhythm [Apical] Pulse Strength [Apical] Respiratory Rate 19 19 Respiratory Effort / Characteristics Non-Labored Respiratory Depth Normal Respiratory Pattern Regular Blood Pressure 203/98 H Blood Pressure [Right Arm] Blood Pressure Mean 133 Blood Pressure Mean [Right Arm] Blood Pressure Position [Right Arm] Pulse Oximetry 93 96 Oxygen Delivery Method Room Air Room Air Sepsis Recent Fever Within 48 Hours No Sepsis New/Unexplained Change in Mental Status N/A Sepsis Action Taken by Nursing No Action Required 08/09/24 22:45 08/09/24 22:57 08/09/24 23:00 Temperature Temperature Source Pulse Rate 74 Pulse Rate [Apical] 75 Pulse Rhythm [Apical] Regular Pulse Strength [Apical] Normal Respiratory Rate 18 Respiratory Effort / Characteristics Non-Labored Spontaneous Respiratory Depth Normal Respiratory Pattern Regular Blood Pressure 189/95 H Blood Pressure [Right Arm] 192/93 H 173/83 H Blood Pressure Mean Blood Pressure Mean [Right Arm] 126 113 Blood Pressure Position [Right Arm] Lying Lying Pulse Oximetry 95 Oxygen Delivery Method Room Air Sepsis Recent Fever Within 48 Hours Sepsis New/Unexplained Change in Mental Status Sepsis Action Taken by Nursing 08/09/24 23:11 Temperature Temperature Source Pulse Rate Pulse Rate [Apical] 71 Pulse Rhythm [Apical] Pulse Strength [Apical] Respiratory Rate 16 Respiratory Effort / Characteristics Respiratory Depth Respiratory Pattern Blood Pressure Blood Pressure [Right Arm] 180/90 H Blood Pressure Mean Blood Pressure Mean [Right Arm] 120 Blood Pressure Position [Right Arm] Pulse Oximetry 92 Oxygen Delivery Method Sepsis Recent Fever Within 48 Hours Sepsis New/Unexplained Change in Mental Status Sepsis Action Taken by Usp Medications Current Medication List: was personally reviewed by me Laboratory Data Attestation: I reviewed the patient's lab results. 08/09/24 20:56 08/09/24 20:56 Lab Results 08/09/24 08/09/24 08/09/24 Range/Units 20:56 21:50 22:56 WBC 11.97 H (4.8-10.8) K/ul RBC 5.62 (4.70-6.10) M/uL Hgb 15.5 (14.0-18.0) g/dl Hct 45.8 (42.0-52.0) % MCV 81.5 (80.0-100.0) fL MCH 27.6 (25.0-34.0) pg MCHC 33.8 (32.0-36.0) g/dL RDW Std Deviation 39.8 (36.4-46.3) fL RDW Coeff of Cori 13.5 (11.5-14.5) % Plt Count 236 (130-400) K/uL MPV 10.1 (9.4-12.4) fL Immature Gran % (Auto) 0.7 % Neut % (Auto) 76.3 % Lymph % (Auto) 12.9 % [place] % (Auto) 6.9 % Eos % (Auto) 2.5 % Baso % (Auto) 0.7 % Neut # (Auto) 9.13 H (1.40-6.50) K/uL Lymph # (Auto) 1.55 (1.20-3.40) K/uL [place] # (Auto) 0.83 H (0.11-0.59) K/uL Eos # (Auto) 0.30 (0.00-0.50) K/uL Baso # (Auto) 0.08 (0.00-0.20) K/uL Immature Gran # (Auto) 0.08 (0.01-0.20) K/uL Sodium 135 L (136-145) mmol/L Potassium 4.7 (3.5-5.1) mmol/L Chloride 104 (98-107) mmol/L Carbon Dioxide 23 (21-32) mmol/L Anion Gap 8 (3-11) BUN 30 H (6-23) mg/dl Creatinine 1.23 (0.6-1.4) mg/dl Est Cr Clr Drug Dosing 89.6 ml/min eGFR 64.35 BUN/Creatinine Ratio 24.4 H (10-20) Glucose 301 H* (70-99(Fasting)) mg/dl POC Glucose 308 H* (70-99) mg/dl Calcium 9.4 (8.6-10.3) mg/dl Total Bilirubin 0.5 (0.2-1.0) mg/dl AST 16 (13-39) U/L ALT 20 (7-52) U/L Alkaline Phosphatase 121 H (34-104) U/L Total Protein 7.9 (6.0-8.3) gm/dl Albumin 4.1 (3.4-5.0) gm/dl Globulin 3.8 (2.5-4.0) gm/dl Albumin/Globulin Ratio 1.1 (0.9-2) Lipase 22 (11-82) U/L Urine Color Yellow Urine Appearance Clear (Clear) Urine pH 5.0 (4.5-7.5) Ur Specific [place] 1.019 (1.000-1.030) Urine Protein 3+ H (Negative) Urine Glucose (UA) 3+ H (Negative) Urine Ketones Negative (Negative) Urine Blood 2+ H (Negative) Urine Nitrite Negative (Negative) Urine Bilirubin Negative (Negative) Urine Urobilinogen Negative (Negative) Ur Leukocyte Esterase 1+ H (Negative) Urine WBC (Auto) >50 H (0-5) /hpf Urine RBC (Auto) 3-5 H (0-2) /hpf U Hyaline Cast (Auto) 3-5 H (0-2) /lpf U Epithel Cells (Auto) 0-2 (0-2) /hpf Urine Bacteria (Auto) None Seen (None Seen) 08/09/24 Range/Units 23:05 WBC (4.8-10.8) K/ul RBC (4.70-6.10) M/uL Hgb (14.0-18.0) g/dl Hct (42.0-52.0) % MCV (80.0-100.0) fL MCH (25.0-34.0) pg MCHC (32.0-36.0) g/dL RDW Std Deviation (36.4-46.3) fL RDW Coeff of Cori (11.5-14.5) % Plt Count (130-400) K/uL MPV (9.4-12.4) fL Immature Gran % (Auto) % Neut % (Auto) % Lymph % (Auto) % [place] % (Auto) % Eos % (Auto) % Baso % (Auto) % Neut # (Auto) (1.40-6.50) K/uL Lymph # (Auto) (1.20-3.40) K/uL [place] # (Auto) (0.11-0.59) K/uL Eos # (Auto) (0.00-0.50) K/uL Baso # (Auto) (0.00-0.20) K/uL Immature Gran # (Auto) (0.01-0.20) K/uL Sodium (136-145) mmol/L Potassium (3.5-5.1) mmol/L Chloride (98-107) mmol/L Carbon Dioxide (21-32) mmol/L Anion Gap (3-11) BUN (6-23) mg/dl Creatinine (0.6-1.4) mg/dl Est Cr Clr Drug Dosing ml/min eGFR BUN/Creatinine Ratio (10-20) Glucose (70-99(Fasting)) mg/dl POC Glucose 278 H (70-99) mg/dl Calcium (8.6-10.3) mg/dl Total Bilirubin (0.2-1.0) mg/dl AST (13-39) U/L ALT (7-52) U/L Alkaline Phosphatase (34-104) U/L Total Protein (6.0-8.3) gm/dl Albumin (3.4-5.0) gm/dl Globulin (2.5-4.0) gm/dl Albumin/Globulin Ratio (0.9-2) Lipase (11-82) U/L Urine Color Urine Appearance (Clear) Urine pH (4.5-7.5) Ur Specific [place] (1.000-1.030) Urine Protein (Negative) Urine Glucose (UA) (Negative) Urine Ketones (Negative) Urine Blood (Negative) Urine Nitrite (Negative) Urine Bilirubin (Negative) Urine Urobilinogen (Negative) Ur Leukocyte Esterase (Negative) Urine WBC (Auto) (0-5) /hpf Urine RBC (Auto) (0-2) /hpf U Hyaline Cast (Auto) (0-2) /lpf U Epithel Cells (Auto) (0-2) /hpf Urine Bacteria (Auto) (None Seen) Administered Medications Morphine Sulfate (Morphine Sulfate 4 Mg/Ml 1 Ml Carp\\Vial) 4 mg IV Q15M PRN PRN Reason: Pain Stop: 08/23/24 20:49 Last Admin: 08/09/24 22:25 Dose: 4 mg Documented By: Admin: 08/09/24 21:00 Dose: 4 mg Documented By: TRELL Discontinued Medications Sodium Chloride (Nss) 500 mls @ 999 mls/hr IV .Q31M ONE Stop: 08/09/24 22:47 Last Infusion: 08/09/24 23:02 Dose: Infused Documented By: Admin: 08/09/24 22:25 Dose: 999 mls/hr Documented By: TRELL Ertapenem (Invanz 1000mg) 1,000 mg in 10 mls @ 2 mls/min IV NOW STA Stop: 08/09/24 22:45 Last Admin: 08/09/24 22:57 Dose: 2 mls/min Documented By: TRELL Sodium Chloride (Nss) 500 mls @ 999 mls/hr IV .Q31M ONE Stop: 08/09/24 23:12 Last Admin: 08/09/24 22:57 Dose: 999 mls/hr Documented By: TRELL Insulin Human Regular (Novolin-R Insulin Per Unit Charge) 4 units IV NOW STA Stop: 08/09/24 22:18 Last Admin: 08/09/24 22:25 Dose: 4 units Documented By: TRELL Co-signed By: BARB Labetalol HCl (Labetalol Hcl Iv 5 Mg/Ml 20ml) 10 mg IV NOW STA Stop: 08/09/24 22:43 Last Admin: 08/09/24 22:57 Dose: 10 mg Documented By: TRELL Ondansetron HCl (Ondansetron Inj 2 Mg/Ml 2 Ml Vial) 4 mg IV NOW STA Stop: 08/09/24 20:49 Last Admin: 08/09/24 21:00 Dose: 4 mg Documented By: TRELL Ondansetron HCl (Ondansetron Inj 2 Mg/Ml 2 Ml Vial) 4 mg IV NOW STA Stop: 08/09/24 20:51 Last Admin: 08/09/24 20:57 Dose: Not Given Documented By: TRELL Imaging Data Attestation: I personally reviewed and interpreted this imaging study as follows: My Impression: CT abdomen and pelvis was obtained in the emergency department. My interpretation is no free air or signs of bowel obstruction, final report below. Radiologist's Impression: Abdomen/Pelvis CT 08/09/24 20:50 Exam(s): CT ABDOMEN + PELVIS Without Contrast EXAM: CT Abdomen and Pelvis Without Intravenous Contrast CLINICAL HISTORY: Reason for exam: flank pain. TECHNIQUE: Axial computed tomography images of the abdomen and pelvis without intravenous contrast. CTDI is 28 mGy and DLP is 1500 mGy-cm. Automated exposure control was utilized for the study. A dose lowering technique was utilized adhering to the principles of ALARA. COMPARISON: CT 02/17/2024 FINDINGS: ABDOMEN: Liver: Unremarkable. Gallbladder and bile ducts: Unremarkable. Pancreas: Unremarkable. Spleen: Unremarkable. Adrenals: Unremarkable. Kidneys and ureters: Stone at the right UPJ measuring 1.3 x 1.2 cm. Mild right-sided hydronephrosis. Stomach and bowel: Unremarkable. PELVIS: Appendix: No findings to suggest acute appendicitis. Bladder: Unremarkable. Reproductive: Unremarkable as visualized. ABDOMEN and PELVIS: Intraperitoneal space: Unremarkable. No free air. No significant fluid collection. Bones/joints: No acute fracture. Soft tissues: Unremarkable. Vasculature: Unremarkable. Lymph nodes: Unremarkable. IMPRESSION: Stone at the right UPJ measuring 1.3 x 1.2 cm. Mild right-sided hydronephrosis. Electronically signed by: Juan A Archer MD 08/09/24 22:26 PM Discharge Plan Visit Data Chief Complaint: Kidney Stone Stated Complaint: POSSIBLE KIDNEY STONE, VOMITING, FLANK PAIN ED Provider: Kiet Huerta Discharge Problem: Calculus of proximal right ureter, UTI due to extended-spectrum beta lactamase (ESBL) producing Escherichia coli, Hypertension, Acute hyperglycemia Patient Disposition: Being Evaluated by Hospitalist Forms Stand Alone Forms: My [facility] Prescriptions Prescriptions: No Action (DME) Dexcom G6 Shadowgraph Operator Misc See Rx Instructions .MEDSUPPLY Qty: 1 0RF Rx Instructions: Use as directed for continuous glucose monitoring (DME) insulin syringe-needle U-100 [BD Insulin Syringe Ultra-Fine] 1 mL 31 gauge x 5/16 syringe See Rx Instructions .Route Qty: 300 0RF Rx Instructions: Use 3 per day insulin glargine [Basaglar KwikPen U-100 Insulin] 100 unit/mL (3 mL) insulin pen 50 unit SQ HS Qty: 45 2RF (DME) pen needle, diabetic [BD Ultra-Fine Pia Pen Needle] 32 gauge x 5/32" needle See Rx Instructions .ROUTE .MEDSUPPLY Qty: 100 3RF Rx Instructions: Inject with Basaglar once daily (DME) OneTouch Verio test strips Strip See Rx Instructions .MEDSUPPLY Qty: 100 3RF Rx Instructions: check blood sugars once a day as needed (DME) blood-glucose meter [OneTouch Verio Reflect Meter] Misc See Rx Instructions miscellaneous .MEDSUPPLY Qty: 1 0RF Rx Instructions: As directed (DME) lancets [OneTouch Delica Lancets] 33 gauge misc See Rx Instructions miscellaneous .MEDSUPPLY Qty: 100 3RF Rx Instructions: As directed to check once a day as needed amlodipine 5 mg tablet 5 mg PO HS Qty: 30 1RF (DME) Dexcom G6 Transmitter Device See Rx Instructions .MEDSUPPLY Qty: 1 0RF Rx Instructions: Use as directed for continuous glucose monitoring - change every 90 days (DME) Dexcom G6 Sensor Device See Rx Instructions .MEDSUPPLY Qty: 9 3RF Rx Instructions: Use as directed for continuous glucose monitoring - Change sensor every 10 days nitrofurantoin monohyd/m-cryst [Macrobid] 100 mg capsule 100 mg PO Q12H 28 Days Qty: 56 0RF Rx Instructions: must administer with a meal/food lutein 6 mg tablet 6 mg PO HS cholecalciferol (vitamin D3) 400 unit capsule 400 units PO HS (DME) blood-glucose meter [Accu-Chek Suzan Plus Meter] Misc See Rx Instructions .ROUTE .MEDSUPPLY Rx Instructions: Test 1 times daily Medical Marijuana Card 1 dose inhalation UD PRN (Reason: Pain) Patient Comments: flower , vape coenzyme Q10 [Co Q-10] 100 mg Capsule 100 mg PO QPM insulin aspart U-100 [Novolog U-100 Insulin aspart] 100 unit/mL solution 1 sliding scale dose subcut TIDM Rx Instructions: inject per sliding scale up to 40 units with meals hydrochlorothiazide 25 mg tablet 25 mg PO QAM mupirocin 2 % ointment 1 applic topical UD PRN (Reason: Skin Irritation) Rx Instructions: left ankle- rash- fungal ondansetron 4 mg tablet,disintegrating 4 mg PO UD PRN (Reason: nausea and vomiting) sertraline 100 mg tablet 100 mg PO HS Rx Instructions: will increase to 200mg daily in 2 weeks Referrals Referrals: Todd Newman DO [Primary Care Provider] -
[2024-08-09 21:26] LABS: Basophils # (auto) 0.08 K/uL (0.00-0.20); Basophils % (auto) 0.7 %; Eosinophils % (auto) 2.5 %; Hematocrit (blood only) 45.8 % (42.0-52.0); Hemoglobin 15.5 g/dl (14.0-18.0); Immature Granulocytes # (auto) 0.08 K/uL (0.01-0.20); Immature Granulocytes % (auto) 0.7 %; Lymphocytes # (auto) 1.55 K/uL (1.20-3.40); Lymphocytes % (auto) 12.9 %; Mean Corpuscular Hemoglobin 27.6 pg (25.0-34.0); Mean Corpuscular Hgb Conc 33.8 g/dL (32.0-36.0); Mean Corpuscular Volume 81.5 fL (80.0-100.0); Mean Platelet Volume 10.1 fL (9.4-12.4); Monocytes # (auto) 0.83 K/uL (0.11-0.59); Monocytes % (auto) 6.9 %; Neutrophils # (auto) 9.13 K/uL (1.40-6.50); Neutrophils % (auto) 76.3 %; Platelet Count 236 K/uL (130-400); RDW Coefficient of Variation 13.5 % (11.5-14.5); RDW Standard Deviation 39.8 fL (36.4-46.3); Red Blood Count 5.62 M/uL (4.70-6.10); White Blood Count 11.97 K/ul (4.8-10.8)
[2024-08-09 22:02] LABS: Appearance Urine Clear (Clear); Bacteria Urine Automated None Seen (None Seen); Bilirubin Urine Negative (Negative); Blood Urine 2+ (Negative); Color Urine Yellow; Epithelial Cell Urine Auto 0-2 /hpf (0-2); Glucose Urine UA 3+ (Negative); Ketones Urine Negative (Negative); Leukocyte Esterase Urine 1+ (Negative); Nitrite Urine Negative (Negative); Protein Urine 3+ (Negative); Specific Gravity Urine 1.019 (1.000-1.030); Urobilinogen Urine Negative (Negative); WBC Urine Automated >50 /hpf (0-5)
[2024-08-09 22:06] LABS: Albumin Globulin Ratio 1.1 (0.9-2); Albumin Level 4.1 gm/dl (3.4-5.0); BUN Creatinine Ratio 24.4 (10-20); Bilirubin,Total 0.5 mg/dl (0.2-1.0); Calcium 9.4 mg/dl (8.6-10.3); Creatinine Clr Calc Pharmacy 89.6 ml/min; Globulin 3.8 gm/dl (2.5-4.0); Potassium 4.7 mmol/L (3.5-5.1); Total Protein 7.9 gm/dl (6.0-8.3)
[2024-08-09] MEDS: NovoLIN-R INSULIN PER UNIT CHARGE IV STA (22:25)
[2024-08-09] MEDS: SODIUM CHLORIDE 0.9% 500 ML IV ONE ×2 (22:25→22:57)
--- NOTE | 2024-08-09 22:27 | CT Scan Report ---
Exam(s): CT ABDOMEN + PELVIS Without Contrast EXAM: CT Abdomen and Pelvis Without Intravenous Contrast CLINICAL HISTORY: Reason for exam: flank pain. TECHNIQUE: Axial computed tomography images of the abdomen and pelvis without intravenous contrast. CTDI is 28 mGy and DLP is 1500 mGy-cm. Automated exposure control was utilized for the study. A dose lowering technique was utilized adhering to the principles of ALARA. COMPARISON: CT 02/17/2024 FINDINGS: ABDOMEN: Liver: Unremarkable. Gallbladder and bile ducts: Unremarkable. Pancreas: Unremarkable. Spleen: Unremarkable. Adrenals: Unremarkable. Kidneys and ureters: Stone at the right UPJ measuring 1.3 x 1.2 cm. Mild right-sided hydronephrosis. Stomach and bowel: Unremarkable. PELVIS: Appendix: No findings to suggest acute appendicitis. Bladder: Unremarkable. Reproductive: Unremarkable as visualized. ABDOMEN and PELVIS: Intraperitoneal space: Unremarkable. No free air. No significant fluid collection. Bones/joints: No acute fracture. Soft tissues: Unremarkable. Vasculature: Unremarkable. Lymph nodes: Unremarkable. IMPRESSION: Stone at the right UPJ measuring 1.3 x 1.2 cm. Mild right-sided hydronephrosis. Electronically signed by: Juan A Archer MD 08/09/24 22:26 PM
[2024-08-09] MEDS: ERTAPENEM 1000MG 1,000 MG/10 ML SYR IV STA (22:57)
[2024-08-09] MEDS: LABETALOL HCL IV 5 MG/ML 20ML IV STA (22:57)
--- NOTE | 2024-08-10 03:58 | History & Physical Report ---
Date of Service August 10, 2024 Assessment & Plan (1) Renal colic on right side: Plan: 69-year-old male with past medical history significant for type 2 diabetes, CKD stage II, diabetic polyneuropathy, dyslipidemia, port wine stain on face, hypertension, morbid obesity, multiple joint pain, depression, insomnia, sleep apnea, marijuana abuse comes with right renal colic. Since 6 PM he is having right flank pain severe in nature associated with nausea and vomiting. With pain medication pain is better controlled now. Denies any hematuria. Denies any burning micturition. Was sweating earlier. No fevers. Normal bowel movements. Denies any chest pain or shortness of breath. No headache. Has some runny nose and cough. Hemodynamics are okay. Renal colic on right side CT scan showing 1.3X 1.2 cm right UPJ stone and mild right-sided hydronephrosis Possible UTI History of recent ESBL E. coli ER started on Invanz which will be continued Will follow the cultures N.p.o. IV fluids Pain control Consult urology Close monitor Diabetes Continue home Lantus Sliding scale Will monitor Morbid obesity Need counseling Hypertension On amlodipine and hydrochlorothiazide Will monitor Depression On Zoloft DVT prophylaxis SCDs for now Disposition Medical floor Full code. History of Present Illness Chief Complaint: Right renal colic Primary Care Provider: Todd Newman DO 69-year-old male with past medical history significant for type 2 diabetes, CKD stage II, diabetic polyneuropathy, dyslipidemia, port wine stain on face, hypertension, morbid obesity, multiple joint pain, depression, insomnia, sleep apnea, marijuana abuse comes with right renal colic. Since 6 PM he is having r ight flank pain severe in nature associated with nausea and vomiting. With pain medication pain is better controlled now. Denies any hematuria. Denies any burning micturition. Was sweating earlier. No fevers. Normal bowel movements. Denies any chest pain or shortness of breath. No headache. Has some runny nose and cough. Hemodynamics are okay. Past medical history. As mentioned above Past surgical history. Right below-knee amputation colonoscopy. Foot surgery. Tonsillectomy adenoidectomy. Social history. . No smoking. Alcohol rarely. Uses marijuana per epic Family history. Father had aneurysm. Diabetes. Mother had colon cancer. Brother had lung cancer. Allergies Allergy/AdvReac Type Severity Reaction Status Date / Time amoxicillin [From Augmentin] Allergy Severe Facial Verified 08/10/24 01:14 swelling, diffuse rash clavulanic acid Allergy Severe Facial Verified 08/10/24 01:14 [From Augmentin] swelling, diffuse rash methotrexate Allergy Intermediate Depression Verified 08/10/24 01:14 doxycycline AdvReac Intermediate Nausea/vomi Verified 08/10/24 01:14 ting oxycodone [From Percocet] AdvReac Intermediate Nausea Verified 08/10/24 01:14 vancomycin AdvReac Unknown Unknown Verified 08/10/24 01:14 Home Medications Medication Instructions Recorded Confirmed Type cholecalciferol (vitamin D3) 10 400 units PO HS 02/09/19 08/10/24 History mcg (400 unit) capsule lutein 6 mg tablet 6 mg PO HS 02/09/19 08/10/24 History blood-glucose meter (Accu-Chek 10/14/20 06/19/24 History Suzan Plus Meter) Dexcom G6 Executive Pastry Chef (blood-glucose #1 ea 03/09/21 06/19/24 Rx meter,continuous) coenzyme Q10 100 mg capsule (Co 100 mg PO QPM 12/01/21 08/10/24 History Q-10) BD Insulin Syringe Ultra-Fine 1 mL #300 ea 07/16/22 06/19/24 Rx 31 gauge x 5/16" (insulin syringe-needle U-100) insulin glargine 100 unit/mL (3 50 unit (0.5 mL) subcut HS #45 mL 08/24/22 08/10/24 Rx mL) subcutaneous pen (Basaglar KwikPen U-100 Insulin) pen needle, diabetic 32 gauge x #100 ea 09/22/22 06/19/24 Rx 5/32" (BD Ultra-Fine Pia Pen Needle) blood sugar diagnostic (OneTouch #100 ea 10/04/22 06/19/24 Rx Verio test strips) blood-glucose meter (OneTouch #1 ea 10/04/22 06/19/24 Rx Verio Reflect Meter) lancets 33 gauge (OneTouch Delica #100 ea 10/04/22 06/19/24 Rx Lancets) Dexcom G6 Transmitter #1 ea 06/08/23 06/19/24 Rx (blood-glucose transmitter) amlodipine 5 mg tablet 5 mg PO HS #30 tabs 06/08/23 08/10/24 Rx Dexcom G6 Sensor (blood-glucose #9 ea 08/05/23 06/19/24 Rx sensor) hydrochlorothiazide 25 mg tablet 25 mg PO QAM 10/04/23 08/10/24 History insulin aspart U-100 100 unit/mL 1 sliding scale dose subcut TIDM 10/04/23 08/10/24 History subcutaneous solution (Novolog U-100 Insulin aspart) mupirocin 2 % topical ointment 1 applic topical UD PRN Skin 10/04/23 08/10/24 History Irritation ondansetron 4 mg disintegrating 4 mg PO UD PRN nausea and vomiting 10/04/23 08/10/24 History tablet sertraline 100 mg tablet 200 mg PO HS 12/28/23 08/10/24 History nitrofurantoin 100 mg PO Q12H 28 days #56 caps 08/04/24 08/10/24 Rx monohydrate/macrocrystals 100 mg capsule (Macrobid) Marijuana 0 inh inhalation [id number] PRN Anxiety 08/10/24 08/10/24 History Past Med/Surg History Problem List (Updated 08/10/24 @ 03:56 by Adryan Lamb MD) Renal colic on right side Acute hyperglycemia (Acute) Hypertension (Acute) Calculus of proximal right ureter (Acute) Bladder stone Shortness of breath Fever Cough Adenoma of left adrenal gland CT scan Lung- 07/06/2022 FH: lung cancer History of transmetatarsal amputation of left foot Per records Hx of right BKA Morbid obesity with BMI of 40.0-44.9, adult UTI due to extended-spectrum beta lactamase (ESBL) producing Escherichia coli (Acute) Prostate cancer History of colon polyps Lab test negative for COVID-19 virus (Acute) Tubular adenoma Health care maintenance History of amputation of toe Callus of heel Pes anserinus bursitis of left knee Vitamin D deficiency Fatigue Arthralgia of multiple joints (Chronic) Prostate cancer Nocturnal hypoxemia Circadian rhythm sleep disorder, delayed sleep phase type Incontinence of urine Hypoglycemia associated with type 2 diabetes mellitus Type 2 diabetes mellitus, uncontrolled Albuminuria Dyslipidemia 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 Hx of basal cell carcinoma History of bladder stone History of prostate cancer dx 2013 - surgical intervention Hx of shortness of breath no recent issues, "few years ago when he was getting back on his feet after his leg amputation" Nocturnal hypoxemia hx, has seen "sleep" dr in the past, test inconclusive Hx of colonic polyps Adenoma of left adrenal gland CT scan Lung- 07/06/2022 Diabetes mellitus, type 2 Morbid obesity Autoimmune disease Possible, no official diagnosis History of COVID-2022- Asymptomatic Anxiety History of depression History of kidney stones Hypertension Pulmonary nodules Under surveillance Rheumatoid arthritis with negative rheumatoid factor Per records, patient unsure Diabetic peripheral neuropathy associated with type 2 diabetes mellitus Surgical History H/O right cataract extraction S/P urological surgery 09/2023, cytolithopaxy History of Mohs micrographic surgery for skin cancer Behind right ear History of prostatectomy (~2022) History of colonoscopy most recent 2021 History of facial surgery kita removed Status post tonsillectomy Hx of removal of cyst Head region Hx of mastoidectomy Status post below knee amputation of right lower extremity Amputated toe "All toes" left foot Hx Right toe amputations (prior to BKA) Family History Mother Colorectal cancer Father Prostate cancer Brother Lung cancer Other Family history of diabetes mellitus in father Denies family history of Ovarian cancer Breast cancer Social History Smoking Status: Never smoker Second Hand Exposure: No; Do You Dip or Chew Tobacco: No; Hx Alcohol Use: No Hx Substance Use: Yes Last Used Substance: Days (ago) Last Used Substance Other:: 08/06/24 Substance Use Type Other:: medical marijuana card Preferred Language: Gambian Communication Ability: Effective Visual Impairment: No Limitations Hearing Ability: Normal Cardiac Monitor Technician Required: No Beliefs That Will Affect Care: None marital status: Current Living Situation: Spouse and Family Current Living Situation Comment: , mother in law and daughter current occupational status: retired and disabled Other Information That Helps Us Care for You: No Feels Safe at Home: Yes Safety Concerns: Feels Safe At This Time caffeine: No Dental Care, Regularly: Yes Physical Activity Frequency: Does not Exercise Seatbelt Use: always Sunscreen Use: Yes Assistive Devices: Prosthesis Review of Systems Review of Systems: All systems reviewed & are unremarkable except as noted in HPI & below Physical Exam Physical Exam: General-Not in distress Head- atraumatic Eyes- PERRL. ENT- oropharynx clear Neck- supple, no JVD. Lungs- clear to auscultation no wheezing or crackles. Heart- regular rhythm; no murmur, no gallop. Abdomen- normal bowel sounds, soft, nontender, no masses Extremities- no pretibial edema, s/p right BKA Neuro- alert, oriented PERRL, no facial palsy; no dysarthria; moves extremities Results & Data Results & Data Vital Signs (Past 12 Hours) Vital Signs Temp Pulse Pulse Resp BP BP Pulse Ox 08/10/24 01:52 76 08/10/24 00:00 72 16 159/102 H 93 08/09/24 23:11 71 16 180/90 H 92 08/09/24 23:00 75 18 173/83 H 95 08/09/24 22:57 74 189/95 H 08/09/24 22:45 192/93 H 08/09/24 21:53 74 08/09/24 21:11 92 H 19 96 08/09/24 20:45 36.7 C 82 19 203/98 H 93 O2 Del Method 08/10/24 01:52 08/10/24 00:00 08/09/24 23:11 08/09/24 23:00 Room Air 08/09/24 22:57 08/09/24 22:45 08/09/24 21:53 08/09/24 21:11 Room Air 08/09/24 20:45 Room Air Diagnostic Findings Laboratory Results WBC 11.97 K/ul (4.8-10.8) H 08/09/24 20:56 RBC 5.62 M/uL (4.70-6.10) 08/09/24 20:56 Hgb 15.5 g/dl (14.0-18.0) 08/09/24 20:56 Hct 45.8 % (42.0-52.0) 08/09/24 20:56 MCV 81.5 fL (80.0-100.0) 08/09/24 20:56 MCH 27.6 pg (25.0-34.0) 08/09/24 20: MCHC 33.8 g/dL (32.0-36.0) 08/09/24 20: RDW Std Deviation 39.8 fL (36.4-46.3) 08/09/24 20: RDW Coeff of Cori 13.5 % (11.5-14.5) 08/09/24 20: Plt Count 236 K/uL (130-400) 08/09/24 20: MPV 10.1 fL (9.4-12.4) 08/09/24 20:56 Immature Gran % (Auto) 0.7 % 08/09/24 20:56 Neut % (Auto) 76.3 % 08/09/24 20:56 Lymph % (Auto) 12.9 % 08/09/24 20:56 [place] % (Auto) 6.9 % 08/09/24 20:56 Eos % (Auto) 2.5 % 08/09/24 20:56 Baso % (Auto) 0.7 % 08/09/24 20:56 Neut # (Auto) 9.13 K/uL (1.40-6.50) H 08/09/24 20:56 Lymph # (Auto) 1.55 K/uL (1.20-3.40) 08/09/24 20:56 [place] # (Auto) 0.83 K/uL (0.11-0.59) H 08/09/24 20:56 Eos # (Auto) 0.30 K/uL (0.00-0.50) 08/09/24 20:56 Baso # (Auto) 0.08 K/uL (0.00-0.20) 08/09/24 20:56 Immature Gran # (Auto) 0.08 K/uL (0.01-0.20) 08/09/24 20:56 Sodium 135 mmol/L (136-145) L 08/09/24 20:56 Potassium 4.7 mmol/L (3.5-5.1) 08/09/24 20:56 Chloride 104 mmol/L (98-107) 08/09/24 20:56 Carbon Dioxide 23 mmol/L (21-32) 08/09/24 20:56 Anion Gap 8 (3-11) 08/09/24 20:56 BUN 30 mg/dl (6-23) H 08/09/24 20:56 Creatinine 1.23 mg/dl (0.6-1.4) 08/09/24 20:56 Est Cr Clr Drug Dosing 89.6 ml/min 08/09/24 20:56 eGFR 64.35 08/09/24 20:56 BUN/Creatinine Ratio 24.4 (10-20) H 08/09/24 20:56 Glucose 301 mg/dl (70-99(Fasting)) H* 08/09/24 20:56 POC Glucose 278 mg/dl (70-99) H 08/09/24 23:05 Calcium 9.4 mg/dl (8.6-10.3) 08/09/24 20:56 Total Bilirubin 0.5 mg/dl (0.2-1.0) 08/09/24 20:56 AST 16 U/L (13-39) 08/09/24 20:56 ALT 20 U/L (7-52) 08/09/24 20:56 Alkaline Phosphatase 121 U/L (34-104) H 08/09/24 20:56 Total Protein 7.9 gm/dl (6.0-8.3) 08/09/24 20:56 Albumin 4.1 gm/dl (3.4-5.0) 08/09/24 20:56 Globulin 3.8 gm/dl (2.5-4.0) 08/09/24 20:56 Albumin/Globulin Ratio 1.1 (0.9-2) 08/09/24 20:56 Lipase 22 U/L (11-82) 08/09/24 20:56 Urine Color Yellow 08/09/24 21:50 Urine Appearance Clear (Clear) 08/09/24 21:50 Urine pH 5.0 (4.5-7.5) 08/09/24 21:50 Ur Specific [place] 1.019 (1.000-1.030) 08/09/24 21:50 Urine Protein 3+ (Negative) H 08/09/24 21:50 Urine Glucose (UA) 3+ (Negative) H 08/09/24 21:50 Urine Ketones Negative (Negative) 08/09/24 21:50 Urine Blood 2+ (Negative) H 08/09/24 21:50 Urine Nitrite Negative (Negative) 08/09/24 21:50 Urine Bilirubin Negative (Negative) 08/09/24 21:50 Urine Urobilinogen Negative (Negative) 08/09/24 21:50 Ur Leukocyte Esterase 1+ (Negative) H 08/09/24 21:50 Urine WBC (Auto) >50 /hpf (0-5) H 08/09/24 21:50 Urine RBC (Auto) 3-5 /hpf (0-2) H 08/09/24 21:50 U Hyaline Cast (Auto) 3-5 /lpf (0-2) H 08/09/24 21:50 U Epithel Cells (Auto) 0-2 /hpf (0-2) 08/09/24 21:50 Urine Bacteria (Auto) None Seen (None Seen) 08/09/24 21:50 Impressions Abdomen/Pelvis CT 08/09/24 20:50 Exam(s): CT ABDOMEN + PELVIS Without Contrast EXAM: CT Abdomen and Pelvis Without Intravenous Contrast CLINICAL HISTORY: Reason for exam: flank pain. TECHNIQUE: Axial computed tomography images of the abdomen and pelvis without intravenous contrast. CTDI is 28 mGy and DLP is 1500 mGy-cm. Automated exposure control was utilized for the study. A dose lowering technique was utilized adhering to the principles of ALARA. COMPARISON: CT 02/17/2024 FINDINGS: ABDOMEN: Liver: Unremarkable. Gallbladder and bile ducts: Unremarkable. Pancreas: Unremarkable. Spleen: Unremarkable. Adrenals: Unremarkable. Kidneys and ureters: Stone at the right UPJ measuring 1.3 x 1.2 cm. Mild right-sided hydronephrosis. Stomach and bowel: Unremarkable. PELVIS: Appendix: No findings to suggest acute appendicitis. Bladder: Unremarkable. Reproductive: Unremarkable as visualized. ABDOMEN and PELVIS: Intraperitoneal space: Unremarkable. No free air. No significant fluid collection. Bones/joints: No acute fracture. Soft tissues: Unremarkable. Vasculature: Unremarkable. Lymph nodes: Unremarkable. IMPRESSION: Stone at the right UPJ measuring 1.3 x 1.2 cm. Mild right-sided hydronephrosis. Electronically signed by: Juan A Archer MD 08/09/24 22:26 PM Code Status & VTE Plan VTE Prophylaxis Plan VTE Prophylaxis will be ordered: Yes
[2024-08-10] MEDS ORDERED: DEXTROSE 50% 50 ML SYRINGE IV PRN (05:57)
[2024-08-10] MEDS ORDERED: ACETAMINOPHEN 1,000 MG/100 ML VIAL IV PRN (05:57)
[2024-08-10] MEDS ORDERED: CARBOHYDRATES FOR HYPOGLYCEMIA PO PRN (05:57)
[2024-08-10] MEDS ORDERED: GLUCAGON FOR INJ 1 MG VIAL SQ PRN (05:57)
[2024-08-10] MEDS ORDERED: GLUCOSE 10 TAB/TUBE PO PRN (05:57)
[2024-08-10] MEDS ORDERED: GLUCOSE 40% GEL 15 GM TUBE PO PRN (05:57)
[2024-08-10] MEDS: SODIUM CHLORIDE 0.9% 1,000 ML IV SCH (06:07)
[2024-08-10] MEDS: HYDROmorphone INJ 0.5 MG/0.5 ML SYR IV PRN (06:07)
[2024-08-10] MEDS: ONDANSETRON INJ 2 MG/ML 2 ML VIAL IV PRN (06:07)
[2024-08-10] MEDS: INSULIN ASPART PER UNIT CHARGE SC SCH ×2 (06:31→17:33)
[2024-08-10] MEDS: hydroCHLOROthiazide 25 MG TAB PO SCH (07:38)
[2024-08-10 07:49] LABS: Basophils # (auto) 0.03 K/uL (0.00-0.20); Basophils % (auto) 0.2 %; Eosinophils # (auto) 0.01 K/uL (0.00-0.50); Eosinophils % (auto) 0.1 %; Hematocrit (blood only) 41.6 % (42.0-52.0); Immature Granulocytes # (auto) 0.06 K/uL (0.01-0.20); Immature Granulocytes % (auto) 0.5 %; Lymphocytes # (auto) 0.65 K/uL (1.20-3.40); Lymphocytes % (auto) 5.2 %; Mean Corpuscular Hemoglobin 27.7 pg (25.0-34.0); Mean Corpuscular Hgb Conc 33.7 g/dL (32.0-36.0); Mean Corpuscular Volume 82.2 fL (80.0-100.0); Mean Platelet Volume 10.2 fL (9.4-12.4); Monocytes % (auto) 7.9 %; Neutrophils # (auto) 10.86 K/uL (1.40-6.50); Neutrophils % (auto) 86.1 %; Platelet Count 190 K/uL (130-400); RDW Coefficient of Variation 13.9 % (11.5-14.5); RDW Standard Deviation 41.1 fL (36.4-46.3); Red Blood Count 5.06 M/uL (4.70-6.10); White Blood Count 12.61 K/ul (4.8-10.8)
[2024-08-10 08:00] LABS: BUN Creatinine Ratio 18.9 (10-20); Calcium 8.4 mg/dl (8.6-10.3); Creatinine Clr Calc Pharmacy 73.6 ml/min; Magnesium 1.8 mg/dl (1.7-2.4); Potassium 4.7 mmol/L (3.5-5.1)
[2024-08-10 08:33] LABS: Estimated Average Glucose 212 mg/dl
--- NOTE | 2024-08-10 09:32 | Urology Consultation ---
<Statement entered by Jayson Hendrickson MD - 08/10/24 10:19> I seen and discussed Mr. Barry's case with TK Webb and agree with the above documentation. Due to right UPJ stone and concern for UTI, we will plan on cystoscopy, right retrograde pyelogram, right ureteral stent placement. I reviewed risks and benefits of surgery with Mr. Barry and he expressed unde rstanding would like to proceed. -Jayson Hendrickson MD. Date of Consultation August 10, 2024 Assessment & Plan (1) Renal colic on right side: (2) Calculus of proximal right ureter: 69-year-old male admitted for right renal colic secondary to a large obstructing right UPJ stone and concern for UTI. Patient afebrile, hemodynamically stable Labs reviewedcreatinine 1.48 today, WBC 12.61 Urine culture pending Continue broad-spectrum antibiotics and narrow per sensitivity data when available CT reviewed and discussedlarge obstructing right UVJ stone Discussed recommendation for cystoscopy and right ureteral stent placement given obstructing ureteral stone, leukocytosis and concern for infectionhe is agreeable Proceed to OR today for cystoscopy and right ureteral stent placement He understands that stone will be treated at a later date Risk and benefits of procedure to be reviewed with patient by Dr. Hendrickson Keep n.p.o. for procedure Continue supportive care, antibiotics and medical management per hospital medicine service History of Present Illness Reason for Consultation: Right UPJ stone, possible UTI Requesting Physician: Dr. Lamb Attending Physician: Genia Dewey MD History of Present Illness This is a 69-year-old male who follows with urology for history of prostate cancer status post prostatectomy, recurrent urinary tract infections and nephrolithiasis. He presented to the emergency department on 08/09/2024 for evaluation of acute right flank pain with associated nausea and vomiting. On arrival to ED, he was afebrile, hypertensive. Lab work showed sodium 135, creatinine 1.23, WBC 11.97, hemoglobin 15.5. Urinalysis showed 2+ blood, 1+ LE, >50 WBC, 3-5 RBC, 0-2 epithelial cells and negative for bacteria. Workup in ED included CT abdomen pelvis without contrast. CT imaging reviewed and shows an obstructing 1.3 x 1.2 cm right UPJ stone resulting in mild right hydronephrosis. ED course: IV fluids, morphine, ertapenem, ondansetron. He was admitted to the hospital medicine service for right renal colic and concern for infection. Patient seen and examined at bedside this morning. He continues to have right flank discomfort. Denies fever or chills. No nausea or vomiting at present. He reports he is following with infectious disease for history of recurrent UTIs. History of ESBL E. coli. He reports he was recently started on low-dose antibiotic by his infectious disease provider and will continue for 28 days. He is currently NPO. Allergies Allergy/AdvReac Type Severity Reaction Status Date / Time amoxicillin [From Augmentin] Allergy Severe Facial Verified 08/10/24 01:14 swelling, diffuse rash clavulanic acid Allergy Severe Facial Verified 08/10/24 01:14 [From Augmentin] swelling, diffuse rash methotrexate Allergy Intermediate Depression Verified 08/10/24 01:14 doxycycline AdvReac Intermediate Nausea/vomi Verified 08/10/24 01:14 ting oxycodone [From Percocet] AdvReac Intermediate Nausea Verified 08/10/24 01:14 vancomycin AdvReac Unknown Unknown Verified 08/10/24 01:14 Home Medications Medication Instructions Recorded Confirmed Type cholecalciferol (vitamin D3) 10 400 units PO HS 02/09/19 08/10/24 History mcg (400 unit) capsule lutein 6 mg tablet 6 mg PO HS 02/09/19 08/10/24 History blood-glucose meter (Accu-Chek 10/14/20 06/19/24 History Suzan Plus Meter) Dexcom G6 Plant Cytologist (blood-glucose #1 ea 03/09/21 06/19/24 Rx meter,continuous) coenzyme Q10 100 mg capsule (Co 100 mg PO QPM 12/01/21 08/10/24 History Q-10) BD Insulin Syringe Ultra-Fine 1 mL #300 ea 07/16/22 06/19/24 Rx 31 gauge x 5/16" (insulin syringe-needle U-100) insulin glargine 100 unit/mL (3 50 unit (0.5 mL) subcut HS #45 mL 08/24/22 08/10/24 Rx mL) subcutaneous pen (Basaglar KwikPen U-100 Insulin) pen needle, diabetic 32 gauge x #100 ea 09/22/22 06/19/24 Rx 5/32" (BD Ultra-Fine Pia Pen Needle) blood sugar diagnostic (OneTouch #100 ea 10/04/22 06/19/24 Rx Verio test strips) blood-glucose meter (OneTouch #1 ea 10/04/22 06/19/24 Rx Verio Reflect Meter) lancets 33 gauge (OneTouch Delica #100 ea 10/04/22 06/19/24 Rx Lancets) Dexcom G6 Transmitter #1 ea 06/08/23 06/19/24 Rx (blood-glucose transmitter) amlodipine 5 mg tablet 5 mg PO HS #30 tabs 06/08/23 08/10/24 Rx Dexcom G6 Sensor (blood-glucose #9 ea 08/05/23 06/19/24 Rx sensor) hydrochlorothiazide 25 mg tablet 25 mg PO QAM 10/04/23 08/10/24 History insulin aspart U-100 100 unit/mL 1 sliding scale dose subcut TIDM 10/04/23 08/10/24 History subcutaneous solution (Novolog U-100 Insulin aspart) mupirocin 2 % topical ointment 1 applic topical UD PRN Skin 10/04/23 08/10/24 History Irritation ondansetron 4 mg disintegrating 4 mg PO UD PRN nausea and vomiting 10/04/23 08/10/24 History tablet sertraline 100 mg tablet 200 mg PO HS 12/28/23 08/10/24 History nitrofurantoin 100 mg PO Q12H 28 days #56 caps 08/04/24 08/10/24 Rx monohydrate/macrocrystals 100 mg capsule (Macrobid) Marijuana 0 inh inhalation [id number] PRN Anxiety 08/10/24 08/10/24 History Patient History Medical History Sleep apnea per medical record, pt denies, states sleep study was inconclusive. Hx of basal cell carcinoma History of bladder stone History of prostate cancer dx 2013 - surgical intervention Hx of shortness of breath no recent issues, "few years ago when he was getting back on his feet after his leg amputation" Nocturnal hypoxemia hx, has seen "sleep" dr in the past, test inconclusive Hx of colonic polyps Adenoma of left adrenal gland CT scan Lung- 07/06/2022 Diabetes mellitus, type 2 Morbid obesity Autoimmune disease Possible, no official diagnosis History of COVID-19 2022- Asymptomatic Anxiety History of depression History of kidney stones Hypertension Pulmonary nodules Under surveillance Rheumatoid arthritis with negative rheumatoid factor Per records, patient unsure Diabetic peripheral neuropathy associated with type 2 diabetes mellitus Surgical History H/O right cataract extraction S/P urological surgery 09/2023, cytolithopaxy History of Mohs micrographic surgery for skin cancer Behind right ear History of prostatectomy (~2022) History of colonoscopy most recent 2021 History of facial surgery kita removed Status post tonsillectomy Hx of removal of cyst Head region Hx of mastoidectomy Status post below knee amputation of right lower extremity Amputated toe "All toes" left foot Hx Right toe amputations (prior to BKA) Family History Mother Colorectal cancer Father Prostate cancer Brother Lung cancer Other Family history of diabetes mellitus in father Denies family history of Ovarian cancer Breast cancer Social History Smoking Status: Never smoker Second Hand Exposure: No; Do You Dip or Chew Tobacco: No; Hx Alcohol Use: No Hx Substance Use: Yes Last Used Substance: Days (ago) Last Used Substance Other:: 08/06/24 Substance Use Type Other:: medical marijuana card Preferred Language: French Communication Ability: Effective Visual Impairment: No Limitations Hearing Ability: Normal Senior Training Specialist Required: No Beliefs That Will Affect Care: None marital status: Current Living Situation: Spouse and Family Current Living Situation Comment: , mother in law and daughter current occupational status: retired and disabled Other Information That Helps Us Care for You: No Feels Safe at Home: Yes Safety Concerns: Feels Safe At This Time caffeine: No Dental Care, Regularly: Yes Physical Activity Frequency: Does not Exercise Seatbelt Use: always Sunscreen Use: Yes Assistive Devices: Prosthesis Review of Systems Review of Systems: All systems reviewed & are unremarkable except as noted in HPI & below Physical Exam Constitutional: well developed and well nourished; no acute distress Respiratory: normal respiratory effort; no respiratory distress and no labored breathing Gastrointestinal (Abdomen): Inspection/Auscultation: abdomen normal to inspection Musculoskeletal: Head/Neck/Chest: normocephalic Neurologic: awake Psychiatric: Orientation: alert and oriented x 3 Results & Data Vital Signs (Past 12 Hours) Vital Signs Temp Pulse Pulse Pulse Resp BP BP 08/10/24 07:29 37 C 89 20 145/69 H 08/10/24 06:37 37.1 C 90 18 175/82 H 08/10/24 04:55 36.6 C 84 20 175/86 H 08/10/24 03:00 36.6 C 72 20 158/85 H 08/10/24 01:52 76 08/10/24 00:00 72 16 159/102 H 08/09/24 23:11 71 16 180/90 H 08/09/24 23:00 75 18 173/83 H 08/09/24 22:57 74 189/95 H 08/09/24 22:45 192/93 H 08/09/24 21:53 74 Pulse Ox O2 Del Method 08/10/24 07:29 93 Room Air 08/10/24 06:37 94 Room Air 08/10/24 04:55 94 Room Air 08/10/24 03:00 93 Room Air 08/10/24 01:52 08/10/24 00:00 93 08/09/24 23:11 92 08/09/24 23:00 95 Room Air 08/09/24 22:57 08/09/24 22:45 08/09/24 21:53 PG Care Time/CCT Total # of Minutes Spent Total Time Spent with Patient: Total time spent is greater than 50% in coordination of care (as documented) at patient's floor/unit and/or counseling patient: Coding Level of Care Code 80509 INT INP/OBS CARE 2/55MIN Diagnoses Renal colic on right side N23 Calculus of proximal right ureter N20.1
--- NOTE | 2024-08-10 10:46 | Communication Note ---
Date of Service: August 10, 2024 Patient seen and examined Reports right flank pain radiating towards groin No nausea or vomiting today Abd CT noted 1.3/1.2cm right UPJ stone with mild right sided hydronephrosis Plan for cystoscopy with stent placement today Continue ertapenem and follow up urine culture Other plans as detailed in H/P this AM
[2024-08-10] MEDS ORDERED: fentaNYL citrate PF 100 MCG/2 ML VIAL ONE (11:00)
[2024-08-10] MEDS ORDERED: LIDOCAINE 2% 2 ML VIAL/AMP(20MG/ML) INFIL ONE (11:00)
[2024-08-10] MEDS ORDERED: MIDAZOLAM HCL 1 MG/ML 2ML VIAL ONE (11:00)
[2024-08-10] MEDS ORDERED: PROPOFOL IV EMULSION 10 MG/ML 20 ML VIAL IV ONE ×2 (11:00→11:38)
[2024-08-10] MEDS ORDERED: ePHEDrine sulfate 50 MG/ML AMP IV PRN (11:27)
[2024-08-10] MEDS ORDERED: ATROPINE SULFATE 0.1 MG/ML 10ML SYR IV PRN (11:27)
--- NOTE | 2024-08-10 11:27 | Anesthesiology Consultation ---
Date of Service August 10, 2024 Assessment & Plan Chart Review Chart Review: Acceptable Risk for Surgery and Patient NOT seen in Pre Admission Testing Consults Requested none ASA ASA4 Proposed Anesthesia Anesthesia Type: MAC Risk / Benefits Reviewed With: PT / POA / Parent / Guardian, Accepts Plan and Informed Consent Obtained History Surgery Operation Date: 08/10/24 09:05 Proposed Procedures p Cystoscopy, Right Ureteral Stent Placement - Jayson Hendrickson MD Height/Weight Height: 6 ft 2 in Weight: 145.3 kg Allergies Allergy/AdvReac Type Severity Reaction Status Date / Time amoxicillin [From Augmentin] Allergy Severe Facial Verified 08/10/24 01:14 swelling, diffuse rash clavulanic acid Allergy Severe Facial Verified 08/10/24 01:14 [From Augmentin] swelling, diffuse rash methotrexate Allergy Intermediate Depression Verified 08/10/24 01:14 doxycycline AdvReac Intermediate Nausea/vomi Verified 08/10/24 01:14 ting oxycodone [From Percocet] AdvReac Intermediate Nausea Verified 08/10/24 01:14 vancomycin AdvReac Unknown Unknown Verified 08/10/24 01:14 Medications Home Medications Medication Instructions Recorded Confirmed Last Taken cholecalciferol (vitamin D3) 10 400 units PO HS 02/09/19 08/10/24 07/02/24 mcg (400 unit) capsule lutein 6 mg tablet 6 mg PO HS 02/09/19 08/10/24 07/02/24 blood-glucose meter (Accu-Chek 10/14/20 06/19/24 Unknown Suzan Plus Meter) Dexcom G6 Information Technology Data Analyst (blood-glucose #1 ea 03/09/21 06/19/24 Unknown meter,continuous) coenzyme Q10 100 mg capsule (Co 100 mg PO QPM 12/01/21 08/10/24 07/02/24 Q-10) BD Insulin Syringe Ultra-Fine 1 mL #300 ea 07/16/22 06/19/24 Unknown 31 gauge x 5/16" (insulin syringe-needle U-100) insulin glargine 100 unit/mL (3 50 unit (0.5 mL) subcut HS #45 mL 08/24/22 08/10/24 12/27/23 20:00 mL) subcutaneous pen (Basaglar KwikPen U-100 Insulin) pen needle, diabetic 32 gauge x #100 ea 09/22/22 06/19/24 Unknown " (BD Ultra-Fine Pia Pen Needle) blood sugar diagnostic (OneTouch #100 ea 10/04/22 06/19/24 Unknown Verio test strips) blood-glucose meter (OneTouch #1 ea 10/04/22 06/19/24 Unknown Verio Reflect Meter) lancets 33 gauge (OneTouch Delica #100 ea 10/04/22 06/19/24 Unknown Lancets) Dexcom G6 Transmitter #1 ea 06/08/23 06/19/24 Unknown (blood-glucose transmitter) amlodipine 5 mg tablet 5 mg PO HS #30 tabs 06/08/23 08/10/24 07/02/24 Dexcom G6 Sensor (blood-glucose #9 ea 08/05/23 06/19/24 Unknown sensor) hydrochlorothiazide 25 mg tablet 25 mg PO QAM 10/04/23 08/10/24 07/02/24 insulin aspart U-100 100 unit/mL 1 sliding scale dose subcut TIDM 10/04/23 08/10/24 10/06/23 18:00 subcutaneous solution (Novolog 40 units U-100 Insulin aspart) mupirocin 2 % topical ointment 1 applic topical UD PRN Skin 10/04/23 08/10/24 10/06/23 20:00 Irritation ondansetron 4 mg disintegrating 4 mg PO UD PRN nausea and vomiting 10/04/23 08/10/24 Unknown tablet sertraline 100 mg tablet 200 mg PO HS 12/28/23 08/10/24 07/02/24 nitrofurantoin 100 mg PO Q12H 28 days #56 caps 08/04/24 08/10/24 Unknown monohydrate/macrocrystals 100 mg capsule (Macrobid) Marijuana 0 inh inhalation [id number] PRN Anxiety 08/10/24 08/10/24 Unknown Active Medications Generic Name Dose Route Start Last Admin Trade Name Freq PRN Reason Stop Dose Admin Hydrochlorothiazide 25 mg 08/10/24 09:00 08/10/24 07:38 Hydrochlorothiazide 25 Mg Tab PO 09/09/24 08:59 25 mg QAM ARCADIO Administration Hydromorphone HCl 0.5 mg 08/10/24 05:57 08/10/24 10:38 Hydromorphone Inj 0.5 Mg/0.5 Ml Syr IV 08/24/24 05:56 0.5 mg Q4H PRN Administration Mod-Sev Pain (Scale 4-10) Sodium Chloride 1,000 mls @ 125 mls/hr 08/10/24 05:57 08/10/24 06:07 Nss IV 08/11/24 05:56 125 mls/hr .Q8H ARCADIO Administration Insulin Aspart 0 units 08/10/24 05:57 08/10/24 06:31 Insulin Aspart Per Unit Charge SC 09/09/24 05:56 4 units Q6H ARCADIO Administration Ondansetron HCl 4 mg 08/10/24 05:57 08/10/24 06:07 Ondansetron Inj 2 Mg/Ml 2 Ml Vial IV 09/09/24 05:56 4 mg Q6H PRN Administration Nausea NPO Date Last Intake of Fluids: 08/09/24 Time Last Intake of Fluids: 17:00 Date Last Intake of Solids: 08/08/24 Past Medical History Medical History Sleep apnea per medical record, pt denies, states sleep study was inconclusive. Hx of basal cell carcinoma History of bladder stone History of prostate cancer dx 2013 - surgical intervention Hx of shortness of breath no recent issues, "few years ago when he was getting back on his feet after his leg amputation" Nocturnal hypoxemia hx, has seen "sleep" dr in the past, test inconclusive Hx of colonic polyps Adenoma of left adrenal gland CT scan Lung- 07/06/2022 Diabetes mellitus, type 2 Morbid obesity Autoimmune disease Possible, no official diagnosis History of COVID-2022- Asymptomatic Anxiety History of depression History of kidney stones Hypertension Pulmonary nodules Under surveillance Rheumatoid arthritis with negative rheumatoid factor Per records, patient unsure Diabetic peripheral neuropathy associated with type 2 diabetes mellitus Exercise / Class Metabolic Activity III < 4 Walking/Shop/Light housework Past Family History Family History Mother Colorectal cancer Father Prostate cancer Brother Lung cancer Other Family history of diabetes mellitus in father Denies family history of Ovarian cancer Breast cancer Past Surgical History Surgical History H/O right cataract extraction S/P urological surgery 09/2023, cytolithopaxy History of Mohs micrographic surgery for skin cancer Behind right ear History of prostatectomy (~2022) History of colonoscopy most recent 2021 History of facial surgery kita removed Status post tonsillectomy Hx of removal of cyst Head region Hx of mastoidectomy Status post below knee amputation of right lower extremity Amputated toe "All toes" left foot Hx Right toe amputations (prior to BKA) Past Anesthesia History No Hx of Anesthesia Complications and No Family Hx of Anesthesia Complications History of PONV No Hx of PONV and No Hx of Motion Sickness Social History Smoking Status: Never smoker Do You Dip or Chew Tobacco: No Hx Alcohol Use: No alcohol intake frequency: other Hx Substance Use: Yes substance use type: marijuana Substance Use Type Other:: medical marijuana card Last Used Substance: Days (ago) Last Used Substance Other:: 08/06/24 Physical Exam Vital Signs Last Vital Signs Temp 37.2 C 08/10/24 10:57 Pulse 91 H 08/10/24 10:57 Resp 20 08/10/24 10:57 BP 123/64 08/10/24 10:57 Pulse Ox 91 08/10/24 10:57 O2 Del Method Room Air 08/10/24 10:57 Constitutional + morbidly obese; no acute distress ENMT Mouth: + dentition abnormality and + edentulous Thyromental Distance: > or= 3.5 Finger Breadths Mallampati Class: II Neck normal visual inspection and trachea midline; neck extension not limited Respiratory normal respiratory effort Auscultation: + diminished lung sounds Cardiovascular Rate/Rhythm: regular rate and regular rhythm Heart Sounds: no murmur Vessels: no carotid bruit Musculoskeletal Spine: normal cervical ROM and no pain with cervical ROM Extremities: + amputation noted; full ROM of extremities Neurologic moves all extremities Motor/Sensory: + sensory deficit Psychiatric Orientation: alert and oriented x 3 Testing Laboratory Results 08/10/24 07:29 08/10/24 07:29 Hemoglobin A1c 9.0 % (4.5-5.6) H 08/10/24 07:29 Urine Color Yellow 08/09/24 21:50 Urine Appearance Clear (Clear) 08/09/24 21:50 Urine pH 5.0 (4.5-7.5) 08/09/24 21:50 Ur Specific [place] 1.019 (1.000-1.030) 08/09/24 21:50 Urine Protein 3+ (Negative) H 08/09/24 21:50 Urine Glucose (UA) 3+ (Negative) H 08/09/24 21:50 Urine Ketones Negative (Negative) 08/09/24 21:50 Urine Nitrite Negative (Negative) 08/09/24 21:50 Ur Leukocyte Esterase 1+ (Negative) H 08/09/24 21:50 Urine WBC (Auto) >50 /hpf (0-5) H 08/09/24 21:50 Urine RBC (Auto) 3-5 /hpf (0-2) H 08/09/24 21:50 U Hyaline Cast (Auto) 3-5 /lpf (0-2) H 08/09/24 21:50 U Epithel Cells (Auto) 0-2 /hpf (0-2) 08/09/24 21:50 Urine Bacteria (Auto) None Seen (None Seen) 08/09/24 21:50 08/10/24 08/10/24 11:00 06:08 POC Glucose 231 H 253 H Electrocardiogram Date: 12/28/23 Findings: + NSR @ (SR @ 93 w/ PVC's) and + RBBB
[2024-08-10] MEDS: CONRAY 60% 50 ML VIAL INSTIL ONE (11:50)
[2024-08-10] MEDS ORDERED: ONDANSETRON INJ 2 MG/ML 2 ML VIAL ONE (11:55)
--- NOTE | 2024-08-10 12:07 | Operative Report ---
PG Post Operative Report Pre & Post Diagnosis Operation Date: 08/10/24 09:05 Pre-Op Diagnosis: Renal colic on right side, Calculus of proximal right ureter Post-Op Diagnosis: Renal colic on right side, Calculus of proximal right ureter I identified the patient and participated in the time-out.: Yes Procedure Operation Date: 08/10/24 09:05 Actual Procedures p Cystoscopy, Right retrograde pyelorgram, Right Ureteral Stent Placement(Right) - Jayson Hendrickson MD Surgeon Jayson Hendrickson MD Cnc Grinder none Estimated Blood Loss 0 Findings See Below Purulent urine of the right kidney, aspirated and sent for culture. Right ureteral stent placed Specimens Urine from right kidney for culture Drains 6 Burmese x 26 cm double-J ureteral stent in the right ureter Anesthesia Type MAC Complications none Disposition Accompanied Patient To Recovery: Yes Disposition: Recovery Room Indications This is a 69-year-old male with history of nephrolithiasis. He recently was admitted with concern for superimposed urinary tract infection. He presents to the OR for right ureteral stent placement to allow maximal drainage. Description of Procedure The patient was identified in the holding area and informed consent was confirmed. He was marked on the right side, then was taken to the operating room where anesthesia was initiated. He was placed in the dorsal lithotomy position with all pressure points appropriately padded. He was prepped and draped in the usual sterile fashion and a preoperative timeout was performed. A well-lubricated cystoscope was inserted per urethra and panendoscopy was performed. The pendulous urethra was normal with no strictures or mucosal abnormalities. The prostate was of normal size. His bladder appeared grossly normal with no tumors or stones appreciated. Ureteral orifices were in orthotopic position bilaterally. A 5 Burmese open-ended catheter was inserted and advanced toward the right ureteral orifice, however there appeared to be purulent drainage from the orifice. To minimize pyelovenous backflow, I advanced a wire rather than performing a retrograde pyelogram at this point. A 0.038 inch zip wire was advanced up to the kidney under fluoroscopic guidance. Once in position, the 5 Burmese catheter was advanced up to the kidney. Urine was aspirated and found to be purulent. This was sent for culture. A minimal amount of Cystografin was injected to outline the renal pelvis. Over the wire, a 6 Burmese x 26 cm double-J ureteral stent was advanced. When the wire was removed, there was a good curl in the kidney under fluoroscopic guidance. A curl was visualized in the bladder with the cystoscope. At this point the bladder was drained and all instrumentation was removed. The patient was then awakened from anesthesia and was brought to the PACU in stable condition. I attest to the content of the Intraoperative Record and any orders documented therein. Any exceptions are noted below.
--- NOTE | 2024-08-10 12:51 | Fluoroscopy Report ---
FL retrograde includes kub CLINICAL HISTORY: RIGHT STENT COMPARISON STUDY: None pertinent FLUOROSCOPY TIME: 15.6 seconds FLUOROSCOPY IMAGES: 1 EXPOSURE DOSE: 11.1 mGy FINDINGS: Fluoroscopy localization IMPRESSION: Refer to procedural report for evaluation based on real-time fluoroscopic observation ACT 112: Negative or not required by law. Electronically signed by: Esha Jane M.D. 08/10/2024 12:50 PM
--- NOTE | 2024-08-10 13:08 | Anesthesiology Progress Note ---
Date of Service August 10, 2024 Anesthesia Post Procedure Vital Signs Vital Signs: Temp Pulse Pulse Pulse Resp BP BP 08/10/24 12:35 37.0 C 83 18 144/75 H 08/10/24 12:25 83 20 146/71 H 08/10/24 12:15 84 24 146/67 H 08/10/24 12:09 36.9 C 87 20 136/72 08/10/24 10:57 37.2 C 91 H 20 123/64 08/10/24 07:29 37 C 89 20 08/10/24 06:37 37.1 C 90 18 08/10/24 04:55 36.6 C 84 20 175/86 H 08/10/24 03:00 36.6 C 72 20 08/10/24 01:52 76 08/10/24 00:00 72 16 08/09/24 23:11 71 16 08/09/24 23:00 75 18 08/09/24 22:57 74 189/95 H 08/09/24 22:45 08/09/24 21:53 74 08/09/24 21:11 92 H 19 08/09/24 20:45 36.7 C 82 19 203/98 H BP Pulse Ox O2 Del Method 08/10/24 12:35 96 Room Air 08/10/24 12:25 94 Room Air 08/10/24 12:15 94 Room Air 08/10/24 12:09 95 Room Air 08/10/24 10:57 91 Room Air 08/10/24 07:29 145/69 H 93 Room Air 08/10/24 06:37 175/82 H 94 Room Air 08/10/24 04:55 94 Room Air 08/10/24 03:00 158/85 H 93 Room Air 08/10/24 01:52 08/10/24 00:00 159/102 H 93 08/09/24 23:11 180/90 H 92 08/09/24 23:00 173/83 H 95 Room Air 08/09/24 22:57 08/09/24 22:45 192/93 H 08/09/24 21:53 08/09/24 21:11 96 Room Air 08/09/24 20:45 93 Room Air Pain Intensity Right Flank: Pain Intensity: 6 Transfer of Care Handoff Completed per policy Notes Mental Status: alert / awake / arousable Patient Amnestic to Procedure: Yes Nausea / Vomiting: adequately controlled Pain: adequately controlled Airway Patency, RR, SpO2: stable & adequate BP & HR: stable & adequate Hydration State: stable & adequate Anesthetic Complications: no major complications apparent
[2024-08-10] MEDS ORDERED: Nursing to Pharmacy Communication SCH (16:00)
[2024-08-10] MEDS: amLODIPine BESYLATE 5 MG TAB PO SCH (21:00)
[2024-08-10] MEDS: CHOLECALCIFEROL 10 MCG (400 UNITS) TAB PO SCH (21:00)
[2024-08-10] MEDS: SERTRALINE HCL 100 MG TABLET PO SCH (21:01)
[2024-08-10] MEDS: oxyCODONE/ACETAMINOPHEN 5mg/325mg TAB PO PRN (21:01)
[2024-08-10] MEDS: LANTUS PER UNIT CHARGE SC SCH (21:02)
[2024-08-10] MEDS: ERTAPENEM 1000MG 1,000 MG/10 ML SYR IV SCH (23:04)
[2024-08-11 05:55] LABS: Hematocrit (blood only) 38.1 % (42.0-52.0); Hemoglobin 12.4 g/dl (14.0-18.0); Mean Corpuscular Hemoglobin 27.3 pg (25.0-34.0); Mean Corpuscular Hgb Conc 32.5 g/dL (32.0-36.0); Mean Corpuscular Volume 83.9 fL (80.0-100.0); Mean Platelet Volume 9.9 fL (9.4-12.4); Platelet Count 149 K/uL (130-400); RDW Coefficient of Variation 14.2 % (11.5-14.5); RDW Standard Deviation 43.4 fL (36.4-46.3); Red Blood Count 4.54 M/uL (4.70-6.10); White Blood Count 8.82 K/ul (4.8-10.8)
[2024-08-11 06:09] LABS: BUN Creatinine Ratio 19.7 (10-20); Calcium 8.2 mg/dl (8.6-10.3); Creatinine Clr Calc Pharmacy 89.3 ml/min; Potassium 4.1 mmol/L (3.5-5.1)
--- NOTE | 2024-08-11 09:30 | Urology Progress Note ---
Date of Service August 11, 2024 Assessment & Plan (1) Calculus of proximal right ureter: (2) Fever: Plan Recovering appropriately s/p stent placement on 08/10/2024. Agree with broad- spectrum antibiotics, narrowing coverage as culture data becomes available. No plan for additional surgical intervention at this time. Urology will coordinate outpatient follow-up and definitive stone removal. Will sign off for now. Please call with any questions or concerns peer Admission and Anticipated Discharge Date Admission Date: August 10, 2024 Subjective Feeling okay this morning, felt a little bit flushed overnight, still feels like he has a cold Having some discomfort from the stent Leukocytosis resolved (12.61 down to 8.82). Creatinine improved to 1.22. Urine culture from the bladder from 08/09 with pinpoint growth, aspiration from the kidney is still pending. He remains on ertapenem Physical Exam Physical Exam: Resting in bed, NAD Results & Data Vital Signs (Past 12 Hours) Vital Signs Temp Pulse Resp BP BP Pulse Ox O2 Del Method 08/11/24 07:40 36.7 C 74 16 150/71 H 93 Room Air 08/11/24 03:24 36.8 C 70 16 124/65 92 Room Air 08/10/24 23:02 36.7 C 79 16 129/73 95 Room Air PG Care Time/CCT Total # of Minutes Spent Total Time Spent with Patient: Total time spent is greater than 50% in coordination of care (as documented) at patient's floor/unit and/or counseling patient: Coding Level of Care Code 04211 SUB INP/OBS CARE 06/23MIN Diagnoses Calculus of proximal right ureter N20.1 Fever R50.9
--- NOTE | 2024-08-11 10:44 | Hospitalist Progress Note ---
Date of Service August 11, 2024 Assessment & Plan (1) Renal colic on right side: Plan: 69-year-old male with past medical history significant for type 2 diabetes, CKD stage II, diabetic polyneuropathy, dyslipidemia, port wine stain on face, hypertension, morbid obesity, multiple joint pain, depression, insomnia, sleep apnea, marijuana abuse comes with right renal colic. Since 6 PM he is having right flank pain severe in nature associated with nausea and vomiting. Right nephrolithiasis CT scan showing 1.3X 1.2 cm right UPJ stone and mild right-sided hydronephrosis Possible UTI History of recent ESBL E. coli S/p Cystoscopy and stent placement on 08/10/24 Follow up urine culture from OR Continue IV ertapenem for now Possible URI Get resp PCR Loratadine Supportive care Diabetes Continue home Lantus Sliding scale Will monitor Morbid obesity Lifestyle modification counseling provided Hypertension On amlodipine and hydrochlorothiazide Will monitor Depression On Zoloft DVT prophylaxis Hep sq Full code I spent a total of 50 minutes coordinating, documenting and providing care for this patient excluding time spent in performance of separately billed services Admission and Anticipated Discharge Date Admission Date: August 10, 2024 Subjective Patient seen and examined Reports right flank pain is much improved Reports he is developing congestion, dry cough. Reports +sick contacts at home Denied other complaints Physical Exam Constitutional: + well hydrated and + obese; no acute di stress Eyes: PERRL, conjunctivae normal, anicteric sclerae ENMT: external ear and nose normal, oropharynx normal Respiratory: normal respiratory effort, lungs clear to auscultation Cardiovascular: Rate/Rhythm: regular rate and regular rhythm Gastrointestinal (Abdomen): normal bowel sounds, soft, nontender, no hepatosplenomegaly Musculoskeletal: Rt BKA. No pedal edema Neurologic: PERRL, EOMI, accommodation nl, no face palsy, no dysarthria Psychiatric: A+Ox3, euthymic affect Results & Data Results & Data Vital Signs (Past 12 Hours) Vital Signs Temp Pulse Resp BP BP Pulse Ox O2 Del Method 08/11/24 08:00 Room Air 08/11/24 07:40 36.7 C 74 16 150/71 H 93 Room Air 08/11/24 03:24 36.8 C 70 16 124/65 92 Room Air 08/10/24 23:02 36.7 C 79 16 129/73 95 Room Air Laboratory Results Abnormal lab results 08/10/24 08/10/24 08/10/24 Range/Units 12:55 16:42 20:35 RBC (4.70-6.10) M/uL Hgb (14.0-18.0) g/dl Hct (42.0-52.0) % Sodium (136-145) mmol/L BUN (6-23) mg/dl Glucose (70-99(Fasting)) mg/dl POC Glucose 225 H 242 H 269 H (70-99) mg/dl Calcium (8.6-10.3) mg/dl 08/11/24 08/11/24 08/11/24 Range/Units 05:31 07:36 11:26 RBC 4.54 L (4.70-6.10) M/uL Hgb 12.4 L (14.0-18.0) g/dl Hct 38.1 L (42.0-52.0) % Sodium 135 L (136-145) mmol/L BUN 24 H (6-23) mg/dl Glucose 148 H (70-99(Fasting)) mg/dl POC Glucose 161 H 139 H (70-99) mg/dl Calcium 8.2 L (8.6-10.3) mg/dl
[2024-08-11] MEDS: LORATADINE 10 MG TAB PO SCH (13:10)
[2024-08-11] MEDS: HEPARIN SOD 5,000 UNIT/0.5 ML VIAL SQ SCH (13:10)
[2024-08-11 14:12] LABS: Adenovirus PCR Not Detected (NotDetected); Bordetella parapertussis PCR Not Detected (NotDetected); Bordetella pertussis PCR Not Detected (NotDetected); Chlamydia pneumoniae PCR Not Detected (NotDetected); Coronavirus 229E PCR Not Detected (NotDetected); Coronavirus CoV-2 (COVID19)PCR Not Detected (NotDetected); Coronavirus HKU1 PCR Not Detected (NotDetected); Coronavirus NL63 PCR Not Detected (NotDetected); Coronavirus OC43PCR DETECTED (NotDetected); Human Metapneumovirus PCR Not Detected (NotDetected); Influenza A PCR Not Detected (NotDetected); Influenza B PCR Not Detected (NotDetected); Mycoplasma pneumoniae PCR Not Detected (NotDetected); Parainfluenza Virus 1 PCR Not Detected (NotDetected); Parainfluenza Virus 2 PCR Not Detected (NotDetected); Parainfluenza Virus 3 PCR Not Detected (NotDetected); Parainfluenza Virus 4 PCR Not Detected (NotDetected); Respiratory Syncytial VirusPCR Not Detected (NotDetected); Rhinovirus/Enterovirus PCR Not Detected (NotDetected)
[2024-08-12 06:31] LABS: Hematocrit (blood only) 42.7 % (42.0-52.0); Hemoglobin 13.7 g/dl (14.0-18.0); Mean Corpuscular Hemoglobin 27.3 pg (25.0-34.0); Mean Corpuscular Hgb Conc 32.1 g/dL (32.0-36.0); Mean Corpuscular Volume 85.1 fL (80.0-100.0); Platelet Count 199 K/uL (130-400); RDW Coefficient of Variation 13.8 % (11.5-14.5); RDW Standard Deviation 42.6 fL (36.4-46.3); Red Blood Count 5.02 M/uL (4.70-6.10); White Blood Count 8.61 K/ul (4.8-10.8)
[2024-08-12 06:51] LABS: Calcium 8.9 mg/dl (8.6-10.3)
--- NOTE | 2024-08-12 12:20 | Hospitalist Progress Note ---
Date of Service August 12, 2024 Assessment & Plan (1) Renal colic on right side: Plan: 69-year-old male with past medical history significant for type 2 diabetes, CKD stage II, diabetic polyneuropathy, dyslipidemia, port wine stain on face, hypertension, morbid obesity, multiple joint pain, depression, insomnia, sleep apnea, marijuana abuse comes with right renal colic. Since 6 PM he is having right flank pain severe in nature associated with nausea and vomiting. Right nephrolithiasis ESBL E coli UTI CT scan showing 1.3X 1.2 cm right UPJ stone and mild right-sided hydronephrosis History of recent ESBL E. coli S/p Cystoscopy and stent placement on 08/10/24 Urine culture growing ESBL E. coli Continue IV ertapenem for now Will consult ID in AM URI Resp PCR was +for Coronavirus OC43 Continue Loratadine and supportive care Diabetes Continue home Lantus Sliding scale Will monitor Morbid obesity Lifestyle modification counseling provided Hypertension On amlodipine and hydrochlorothiazide Will monitor Depression On Zoloft DVT prophylaxis Hep sq Full code I spent a total of 50 minutes coordinating, documenting and providing care for this patient excluding time spent in performance of separately billed services Admission and Anticipated Discharge Date Admission Date: August 10, 2024 Subjective Patient seen and examined Reports he is developing congestion, dry cough. Denied other complaints Physical Exam Constitutional: + well hydrated and + obese; no acute di stress Eyes: PERRL, conjunctivae normal, anicteric sclerae ENMT: external ear and nose normal, oropharynx normal Respiratory: normal respiratory effort, lungs clear to auscultation Cardiovascular: Rate/Rhythm: regular rate and regular rhythm Gastrointestinal (Abdomen): normal bowel sounds, soft, nontender, no hepatosplenomegaly Musculoskeletal: Rt BKA Neurologic: PERRL, EOMI, accommodation nl, no face palsy, no dysarthria Psychiatric: A+Ox3, euthymic affect Results & Data Results & Data Vital Signs (Past 12 Hours) Vital Signs Temp Pulse Resp BP Pulse Ox O2 Del Method 08/12/24 07:36 36.8 C 73 20 134/70 95 Room Air 08/12/24 07:20 Room Air Laboratory Results Abnormal lab results 08/11/24 08/11/24 08/11/24 Range/Units 16:37 20:39 Unknown Hgb (14.0-18.0) g/dl Glucose (70-99(Fasting)) mg/dl POC Glucose 144 H 191 H (70-99) mg/dl Coronavirus OC43 (PCR) DETECTED A (NotDetected) 08/12/24 08/12/24 08/12/24 Range/Units 06:05 07:50 11:48 Hgb 13.7 L (14.0-18.0) g/dl Glucose 123 H (70-99(Fasting)) mg/dl POC Glucose 118 H 120 H (70-99) mg/dl Coronavirus OC43 (PCR) (NotDetected)
[2024-08-13 06:18] LABS: Hematocrit (blood only) 39.6 % (42.0-52.0); Hemoglobin 13.3 g/dl (14.0-18.0); Mean Corpuscular Hemoglobin 27.8 pg (25.0-34.0); Mean Corpuscular Hgb Conc 33.6 g/dL (32.0-36.0); Mean Corpuscular Volume 82.8 fL (80.0-100.0); Mean Platelet Volume 10.2 fL (9.4-12.4); Platelet Count 190 K/uL (130-400); RDW Coefficient of Variation 13.6 % (11.5-14.5); RDW Standard Deviation 41.1 fL (36.4-46.3); Red Blood Count 4.78 M/uL (4.70-6.10); White Blood Count 7.55 K/ul (4.8-10.8)
[2024-08-13 06:32] LABS: BUN Creatinine Ratio 20.5 (10-20); Calcium 8.7 mg/dl (8.6-10.3); Creatinine Clr Calc Pharmacy 93.1 ml/min; Potassium 3.9 mmol/L (3.5-5.1)
[2024-08-13] MEDS ORDERED: ALBUTEROL 0.083% NEBU SOLN 3 ML VIAL NEB PRN (11:13)
--- NOTE | 2024-08-13 14:47 | Hospitalist Progress Note ---
Date of Service August 13, 2024 Assessment & Plan (1) Renal colic on right side: Plan: 69-year-old male with past medical history significant for type 2 diabetes, CKD stage II, diabetic polyneuropathy, dyslipidemia, port wine stain on face, hypertension, morbid obesity, multiple joint pain, depression, insomnia, sleep apnea, marijuana abuse comes with right renal colic. Since 6 PM he is having right flank pain severe in nature associated with nausea and vomiting. Right nephrolithiasis ESBL E coli UTI CT scan showing 1.3X 1.2 cm right UPJ stone and mild right-sided hydronephrosis History of recent ESBL E. coli S/p Cystoscopy and stent placement on 08/10/24 Urine culture growing ESBL E. coli Continue IV ertapenem for now Awaiting ID recs URI Resp PCR was +for Coronavirus OC43 Continue Loratadine and supportive care Diabetes Continue home Lantus Sliding scale Will monitor Morbid obesity Lifestyle modification counseling provided Hypertension On amlodipine and hydrochlorothiazide Will monitor Depression On Zoloft DVT prophylaxis Hep sq Full code I spent a total of 40 minutes coordinating, documenting and providing care for this patient excluding time spent in performance of separately billed services Admission and Anticipated Discharge Date Admission Date: August 10, 2024 Subjective Patient seen and seen Reports only upper resp symptoms Physical Exam Constitutional: + well hydrated and + obese; no acute di stress Eyes: PERRL, conjunctivae normal, anicteric sclerae ENMT: external ear and nose normal, oropharynx normal Respiratory: normal respiratory effort, lungs clear to auscultation Cardiovascular: Rate/Rhythm: regular rate and regular rhythm Gastrointestinal (Abdomen): normal bowel sounds, soft, nontender, no hepatosplenomegaly Musculoskeletal: Right BKA Neurologic: PERRL, EOMI, accommodation nl, no face palsy, no dysarthria Psychiatric: A+Ox3, euthymic affect Results & Data Results & Data Vital Signs (Past 12 Hours) Vital Signs Temp Pulse Resp BP Pulse Ox O2 Del Method 08/13/24 07:45 Room Air 08/13/24 07:37 36.6 C 83 18 157/84 H 92 Room Air Laboratory Results Abnormal lab results 08/12/24 08/12/24 08/13/24 Range/Units 16:44 20:41 05:37 Hgb 13.3 L (14.0-18.0) g/dl Hct 39.6 L (42.0-52.0) % BUN 24 H (6-23) mg/dl BUN/Creatinine Ratio 20.5 H (10-20) Glucose 189 H (70-99(Fasting)) mg/dl POC Glucose 224 H 156 H (70-99) mg/dl 08/13/24 08/13/24 Range/Units 07:43 11:42 Hgb (14.0-18.0) g/dl Hct (42.0-52.0) % BUN (6-23) mg/dl BUN/Creatinine Ratio (10-20) Glucose (70-99(Fasting)) mg/dl POC Glucose 183 H 147 H (70-99) mg/dl
--- NOTE | 2024-08-13 15:44 | Infectious Disease Consult ---
Date of Service August 13, 2024 Telehealth Information I performed this visit using a real-time telehealth connection between my location and the patients location ([facility]). After connecting through interactive tele-video, patient was identified by name and date of and/or wristband check.Patient (or authorized healthcare hospital sales representative) was informed that this was a telemedicine visit and it was being conducted confidentially over secure lines. My office door was closed and no on e else was present in the room with me.Patient (or authorized healthcare hospital sales representative) provided consent to proceed with the visit, expressed an understanding of privacy and security of the telemedicine visit, and gave permission to have a hospital hospital sales representative in the room in order to assist with the visit and to conduct portions of the visit, as needed. I informed the patient (or authorized healthcare hospital sales representative) that I reviewed their record and presented the opportunity for them to ask any questions regarding the visit today. The patient agreed to participate. Assessment & Plan (1) Calculus of proximal right ureter: (2) UTI due to extended-spectrum beta lactamase (ESBL) producing Escherichia coli: Plan Patient is status post right ureteral stent due to right obstructing nephrolithiasis, he is largely stable and feels significantly improved. Infection was largely cured from source control however reasonable to treat with a full course of antibiotics. Unfortunately unable to use fosfomycin due to the complicated nature and would recommend ertapenem to complete a total of 7 days. - IV ertapenem 1 g Q 24 hours EOT 08/16/24 Appreciate consultation, Infectious Disease will sign off at this time. please do not hesitate to reach out for any further questions or concerns. Gallo Villanueva MD PGY5 Infectious Disease History of Present Illness History of Present Illness 69-year-old male with a past medical history of type 2 diabetes mellitus, CKD, partially obstructing nephrolithiasis colonized with ESBL E coli presents with right-sided abdominal pain. Afebrile, mild elevation WBC up to 12, CT abdomen revealed mild right-sided hydronephrosis with a UPJ obstructing nephrolithiasis 1.3 X 1.2 cm. Underwent cystoscopy with a right ureteral stent placement with Urology 08/10/2024. Urinalysis consistent with infection, initial culture with greater than 3 organisms, repeat culture 08/10 with ESBL E coli. Currently day 3 of ertapenem. Allergies Allergy/AdvReac Type Severity Reaction Status Date / Time amoxicillin [From Augmentin] Allergy Severe Facial Verified 08/10/24 01:14 swelling, diffuse rash clavulanic acid Allergy Severe Facial Verified 08/10/24 01:14 [From Augmentin] swelling, diffuse rash methotrexate Allergy Intermediate Depression Verified 08/10/24 01:14 doxycycline AdvReac Intermediate Nausea/vomi Verified 08/10/24 01:14 ting oxycodone [From Percocet] AdvReac Intermediate Nausea Verified 08/10/24 01:14 vancomycin AdvReac Unknown Unknown Verified 08/10/24 01:14 Home Medications Medication Instructions Recorded Confirmed Type cholecalciferol (vitamin D3) 10 400 units PO HS 02/09/19 08/10/24 History mcg (400 unit) capsule lutein 6 mg tablet 6 mg PO HS 02/09/19 08/10/24 History blood-glucose meter (Accu-Chek 10/14/20 06/19/24 History Suzan Plus Meter) Dexcom G6 Php Architect (blood-glucose #1 ea 03/09/21 06/19/24 Rx meter,continuous) coenzyme Q10 100 mg capsule (Co 100 mg PO QPM 12/01/21 08/10/24 History Q-10) BD Insulin Syringe Ultra-Fine 1 mL #300 ea 07/16/22 06/19/24 Rx 31 gauge x 5/16" (insulin syringe-needle U-100) insulin glargine 100 unit/mL (3 50 unit (0.5 mL) subcut HS #45 mL 08/24/22 08/10/24 Rx mL) subcutaneous pen (Basaglar KwikPen U-100 Insulin) pen needle, diabetic 32 gauge x #100 ea 09/22/22 06/19/24 Rx 5/32" (BD Ultra-Fine Pia Pen Needle) blood sugar diagnostic (OneTouch #100 ea 10/04/22 06/19/24 Rx Verio test strips) blood-glucose meter (OneTouch #1 ea 10/04/22 06/19/24 Rx Verio Reflect Meter) lancets 33 gauge (OneTouch Delica #100 ea 10/04/22 06/19/24 Rx Lancets) Dexcom G6 Transmitter #1 ea 06/08/23 06/19/24 Rx (blood-glucose transmitter) amlodipine 5 mg tablet 5 mg PO HS #30 tabs 06/08/23 08/10/24 Rx Dexcom G6 Sensor (blood-glucose #9 ea 08/05/23 06/19/24 Rx sensor) hydrochlorothiazide 25 mg tablet 25 mg PO QAM 10/04/23 08/10/24 History insulin aspart U-100 100 unit/mL 1 sliding scale dose subcut TIDM 10/04/23 08/10/24 History subcutaneous solution (Novolog U-100 Insulin aspart) mupirocin 2 % topical ointment 1 applic topical UD PRN Skin 10/04/23 08/10/24 History Irritation ondansetron 4 mg disintegrating 4 mg PO UD PRN nausea and vomiting 10/04/23 08/10/24 History tablet sertraline 100 mg tablet 200 mg PO HS 12/28/23 08/10/24 History nitrofurantoin 100 mg PO Q12H 28 days #56 caps 08/04/24 08/10/24 Rx monohydrate/macrocrystals 100 mg capsule (Macrobid) Marijuana 0 inh inhalation 3XWK PRN Anxiety 08/10/24 08/10/24 History Patient History Medical History Sleep apnea per medical record, pt denies, states sleep study was inconclusive. Hx of basal cell carcinoma History of bladder stone History of prostate cancer dx 2013 - surgical intervention Hx of shortness of breath no recent issues, "few years ago when he was getting back on his feet after his leg amputation" Nocturnal hypoxemia hx, has seen "sleep" dr in the past, test inconclusive Hx of colonic polyps Adenoma of left adrenal gland CT scan Lung- 07/06/2022 Diabetes mellitus, type 2 Morbid obesity Autoimmune disease Possible, no official diagnosis History of COVID-2022- Asymptomatic Anxiety History of depression History of kidney stones Hypertension Pulmonary nodules Under surveillance Rheumatoid arthritis with negative rheumatoid factor Per records, patient unsure Diabetic peripheral neuropathy associated with type 2 diabetes mellitus Surgical History H/O right cataract extraction S/P urological surgery 09/2023, cytolithopaxy History of Mohs micrographic surgery for skin cancer Behind right ear History of prostatectomy (~2022) History of colonoscopy most recent 2021 History of facial surgery kita removed Status post tonsillectomy Hx of removal of cyst Head region Hx of mastoidectomy Status post below knee amputation of right lower extremity Amputated toe "All toes" left foot Hx Right toe amputations (prior to BKA) Family History Mother Colorectal cancer Father Prostate cancer Brother Lung cancer Other Family history of diabetes mellitus in father Denies family history of Ovarian cancer Breast cancer Social History Smoking Status: Never smoker Second Hand Exposure: No; Do You Dip or Chew Tobacco: No; Hx Alcohol Use: No Hx Substance Use: Yes Last Used Substance: Days (ago) Last Used Substance Other:: 08/06/24 Substance Use Type Other:: medical marijuana card Preferred Language: Bahraini Communication Ability: Effective Visual Impairment: No Limitations Hearing Ability: Normal Vocational Adviser Required: No Beliefs That Will Affect Care: None marital status: Current Living Situation: Spouse and Family Current Living Situation Comment: , mother in law and daughter current occupational status: retired and disabled Other Information That Helps Us Care for You: No Feels Safe at Home: Yes Safety Concerns: Feels Safe At This Time caffeine: No Dental Care, Regularly: Yes Physical Activity Frequency: Does not Exercise Seatbelt Use: always Sunscreen Use: Yes Assistive Devices: Walker and Wheelchair Review of Systems CONSTITUTIONAL: Denies weight loss, fever and chills. HEENT: Denies changes in vision and hearing. RESPIRATORY: Denies SOB and cough. CV: Denies palpitations and CP. GI: Denies abdominal pain, nausea, vomiting and diarrhea. : Denies dysuria and urinary frequency. MSK: Denies myalgia and joint pain. SKIN: Denies rash and pruritus. NEUROLOGICAL: Denies headache and syncope PSYCHIATRIC: Denies recent changes in mood. Denies anxiety and depression. Physical Exam GENERAL: Appears as stated age. No acute distress. NEUROLOGIC: No focal neurological deficits. Cranial nerves grossly intact. Results & Data Vital Signs (Past 12 Hours) Vital Signs Temp Pulse Resp BP Pulse Ox O2 Del Method 08/13/24 07:45 Room Air 08/13/24 07:37 36.6 C 83 18 157/84 H 92 Room Air Laboratory Results Abnormal Lab Results 08/12/24 08/12/24 08/13/24 16:44 20:41 05:37 WBC 7.55 RBC 4.78 Hgb 13.3 L Hct 39.6 L MCV 82.8 MCH 27.8 MCHC 33.6 RDW Std Deviation 41.1 RDW Coeff of Cori 13.6 Plt Count 190 MPV 10.2 Sodium 137 Potassium 3.9 Chloride 101 Carbon Dioxide 29 Anion Gap 7 BUN 24 H Creatinine 1.17 Est Cr Clr Drug Dosing 93.1 eGFR 68.33 BUN/Creatinine Ratio 20.5 H Glucose 189 H POC Glucose 224 H 156 H Calcium 8.7 08/13/24 08/13/24 07:43 11:42 WBC RBC Hgb Hct MCV MCH MCHC RDW Std Deviation RDW Coeff of Cori Plt Count MPV Sodium Potassium Chloride Carbon Dioxide Anion Gap BUN Creatinine Est Cr Clr Drug Dosing eGFR BUN/Creatinine Ratio Glucose POC Glucose 183 H 147 H Calcium Diagnostic Findings Abdomen/Pelvis CT 08/09/24 20:50 Exam(s): CT ABDOMEN + PELVIS Without Contrast EXAM: CT Abdomen and Pelvis Without Intravenous Contrast CLINICAL HISTORY: Reason for exam: flank pain. TECHNIQUE: Axial computed tomography images of the abdomen and pelvis without intravenous contrast. CTDI is 28 mGy and DLP is 1500 mGy-cm. Automated exposure control was utilized for the study. A dose lowering technique was utilized adhering to the principles of ALARA. COMPARISON: CT 02/17/2024 FINDINGS: ABDOMEN: Liver: Unremarkable. Gallbladder and bile ducts: Unremarkable. Pancreas: Unremarkable. Spleen: Unremarkable. Adrenals: Unremarkable. Kidneys and ureters: Stone at the right UPJ measuring 1.3 x 1.2 cm. Mild right-sided hydronephrosis. Stomach and bowel: Unremarkable. PELVIS: Appendix: No findings to suggest acute appendicitis. Bladder: Unremarkable. Reproductive: Unremarkable as visualized. ABDOMEN and PELVIS: Intraperitoneal space: Unremarkable. No free air. No significant fluid collection. Bones/joints: No acute fracture. Soft tissues: Unremarkable. Vasculature: Unremarkable. Lymph nodes: Unremarkable. IMPRESSION: Stone at the right UPJ measuring 1.3 x 1.2 cm. Mild right-sided hydronephrosis. Electronically signed by: Juan A Archer MD 08/09/24 22:26 PM Retrograde Pyelogram 08/10/24 00:00 FL retrograde includes kub CLINICAL HISTORY: RIGHT STENT COMPARISON STUDY: None pertinent FLUOROSCOPY TIME: 15.6 seconds FLUOROSCOPY IMAGES: 1 EXPOSURE DOSE: 11.1 mGy FINDINGS: Fluoroscopy localization IMPRESSION: Refer to procedural report for evaluation based on real-time fluoros copic observation ACT 112: Negative or not required by law. Electronically signed by: Esha Jane M.D. 08/10/2024 12:50 PM
[2024-08-13] MEDS: ERTAPENEM 1000MG 1,000 MG/10 ML SYR IV SCH (17:15)
[2024-08-13] MEDS: ALUMINUM/MAGNESIUM/SIMETH (MAALOX MAX) 30 ML UDC PO PRN (21:41)
[2024-08-14 06:21] LABS: Hematocrit (blood only) 40.3 % (42.0-52.0); Hemoglobin 13.6 g/dl (14.0-18.0); Mean Corpuscular Hemoglobin 27.9 pg (25.0-34.0); Mean Corpuscular Hgb Conc 33.7 g/dL (32.0-36.0); Mean Corpuscular Volume 82.8 fL (80.0-100.0); Mean Platelet Volume 9.9 fL (9.4-12.4); Platelet Count 208 K/uL (130-400); RDW Coefficient of Variation 13.3 % (11.5-14.5); RDW Standard Deviation 40.4 fL (36.4-46.3); Red Blood Count 4.87 M/uL (4.70-6.10); White Blood Count 7.76 K/ul (4.8-10.8)
[2024-08-14 06:52] LABS: BUN Creatinine Ratio 23.7 (10-20); Creatinine Clr Calc Pharmacy 92.3 ml/min; Potassium 4.4 mmol/L (3.5-5.1)
[2024-08-14 07:31] VITALS: BP 135/82; PULSE 71; RESP 16; TEMP 97.7; O2SAT 93
[2024-08-14] MEDS: ERTAPENEM 1000MG 1,000 MG/10 ML SYR IV SCH (12:46)
--- NOTE | 2024-08-14 13:17 | Discharge Summary ---
Date of Service August 14, 2024 Admission HPI Per Admitting Provider 69-year-old male with past medical history significant for type 2 diabetes, CKD stage II, diabetic polyneuropathy, dyslipidemia, port wine stain on face, hypertension, morbid obesity, multiple joint pain, depression, insomnia, sleep apnea, marijuana abuse comes with right renal colic. Since 6 PM he is having right flank pain severe in nature associated with nausea and vomiting. With pain medication pain is better controlled now. Denies any hematuria. Denies any burning micturition. Was sweating earlier. No fevers. Normal bowel movements. Denies any chest pain or shortness of breath. No headache. Has s ome runny nose and cough. Hemodynamics are okay. Past medical history. As mentioned above Past surgical history. Right below-knee amputation colonoscopy. Foot surgery. Tonsillectomy adenoidectomy. Social history. . No smoking. Alcohol rarely. Uses marijuana per epic Family history. Father had aneurysm. Diabetes. Mother had colon cancer. Brother had lung cancer. Admission Exam Per Admitting Provider General-Not in distress Head- atraumatic Eyes- PERRL. ENT- oropharynx clear Neck- supple, no JVD. Lungs- clear to auscultation no wheezing or crackles. Heart- regular rhythm; no murmur, no gallop. Abdomen- normal bowel sounds, soft, nontender, no masses Extremities- no pretibial edema, s/p right BKA Neuro- alert, oriented PERRL, no facial palsy; no dysarthria; moves extremities Principal Diagnosis Right nephrolithiasis (kidney stone) Complicated ESBL E. coli urinary tract infection Discharge Exam Constitutional + well hydrated and + obese; no acute distress Eyes PERRL, conjunctivae normal, anicteric sclerae ENMT external ear and nose normal, oropharynx normal Respiratory normal respiratory effort, lungs clear to auscultation Cardiovascular Rate/Rhythm: regular rate and regular rhythm Gastrointestinal (Abdomen) normal bowel sounds, soft, nontender, no hepatosplenomegaly Musculoskeletal Right BKA Neurologic PERRL, EOMI, accommodation nl, no face palsy, no dysarthria Psychiatric A+Ox3, euthymic affect Discharge Data Allergies Allergy/AdvReac Type Severity Reaction Status Date / Time amoxicillin [From Augmentin] Allergy Severe Facial Verified 08/10/24 01:14 swelling, diffuse rash clavulanic acid Allergy Severe Facial Verified 08/10/24 01:14 [From Augmentin] swelling, diffuse rash methotrexate Allergy Intermediate Depression Verified 08/10/24 01:14 doxycycline AdvReac Intermediate Nausea/vomi Verified 08/10/24 01:14 ting oxycodone [From Percocet] AdvReac Intermediate Nausea Verified 08/10/24 01:14 vancomycin AdvReac Unknown Unknown Verified 08/10/24 01:14 Consultations 08/09/24 22:51 ED Decision to Admit Stat 08/10/24 08:00 Consult Urology Routine 08/13/24 07:47 Consult Infectious Diseases Routine Procedures Performed Operation Date: 08/10/24 09:05 Actual Procedures p Cystoscopy, Right retrograde pyelorgram, Right Ureteral Stent Placement(Right) - Jayson Hendrickson MD Ordered Studies 08/09/24 20:50 CT abd pelvis wo con Stat 08/10/24 FL retrograde includes kub Routine Hospital Course (1) Renal colic on right side: 69-year-old male with past medical history significant for type 2 diabetes, CKD stage II, diabetic polyneuropathy, dyslipidemia, port wine stain on face, hypertension, morbid obesity, multiple joint pain, depression, insomnia, sleep apnea, marijuana abuse comes with right renal colic. Since 6 PM he is having right flank pain severe in nature associated with nausea and vomiting. Right nephrolithiasis ESBL E coli UTI CT scan showing 1.3X 1.2 cm right UPJ stone and mild right-sided hydronephrosis History of recent ESBL E. coli S/p Cystoscopy and stent placement on 08/10/24 Urine culture grew ESBL E. coli Patient was treated with IV ertapenem inpatient. ID recommended continuing ertapenem till 08/16/24 Discharged on IV ertapenem 1g q24h at [facility] till 08/16/24 after which they will remove peripheral IV Follow up with Urology outpatient URI Resp PCR was +for Coronavirus OC43 Discharged on Loratadine and Mucinex for supportive care Diabetes Continue home Lantus Morbid obesity Lifestyle modification counseling provided Hypertension On amlodipine and hydrochlorothiazide Depression On Zoloft Total Time Total Time Spent Total Time Spent (In Minutes): 35 Total Time Includes: Examination of the Patient, Discharge Planning and Medication Reconciliation Discharge Plan Discharge Items Patient Disposition: Home - Self-Care Reason For Visit: RIGHT RENAL COLIC Discharge Diagnosis: Right nephrolithiasis (kidney stone) Complicated ESBL E. coli urinary tract infection Activity: Resume your previous activity Non-emergency contact: Primary Care Provider Call non-emergency contact if: you have any medication questions and your symptoms worsen Follow-up/Referrals: Todd Newman, [Primary Care Provider] - Diet: Carb Consistent or DM2 and Heart Healthy Addtl Attending Provider Instructions: Mr Barry You were hospitalized and managed for the above listed diagnoses. You had cystoscopy and stent placement by Urology. Please ensure follow up with Urology office. You are being discharged on IV ertapenem till 08/16/24. Please ensure follow up with [facility] for daily antibiotic as discussed. Please ensure follow up with your Primary Doctor. It was a pleasure taking care of you Appointment in the Medical Treatment Unit here at [facility] tomorrow, Tuesday, August 15, at 1:00. Check in 15-20 early at the Cancer Center. Pending Studies at Discharge: No Stand-Alone Forms: My [facility], Smoking Cessation Medications and DC Order Prescriptions: New loratadine [Wal-itin] 10 mg Tablet 10 mg PO QAM 5 Days Qty: 5 0RF guaifenesin [Mucinex] 1,200 mg tablet extended release 12hr 1,200 mg PO BID Qty: 8 0RF Continued (DME) Dexcom G6 Manager Contract Misc See Rx Instructions .MEDSUPPLY Qty: 1 0RF Rx Instructions: Use as directed for continuous glucose monitoring (DME) insulin syringe-needle U-100 [BD Insulin Syringe Ultra-Fine] 1 mL 31 gauge x 5/16 syringe See Rx Instructions .Route Qty: 300 0RF Rx Instructions: Use 3 per day insulin glargine [Basaglar KwikPen U-100 Insulin] 100 unit/mL (3 mL) insulin pen 50 unit SQ HS Qty: 45 2RF (DME) pen needle, diabetic [BD Ultra-Fine Pia Pen Needle] 32 gauge x 5/32" needle See Rx Instructions .ROUTE .MEDSUPPLY Qty: 100 3RF Rx Instructions: Inject with Basaglar once daily (DME) OneTouch Verio test strips Strip See Rx Instructions .MEDSUPPLY Qty: 100 3RF Rx Instructions: check blood sugars once a day as needed (DME) blood-glucose meter [OneTouch Verio Reflect Meter] Misc See Rx Instructions miscellaneous .MEDSUPPLY Qty: 1 0RF Rx Instructions: As directed (DME) lancets [OneTouch Delica Lancets] 33 gauge misc See Rx Instructions miscellaneous .MEDSUPPLY Qty: 100 3RF Rx Instructions: As directed to check once a day as needed amlodipine 5 mg tablet 5 mg PO HS Qty: 30 1RF (DME) Dexcom G6 Transmitter Device See Rx Instructions .MEDSUPPLY Qty: 1 0RF Rx Instructions: Use as directed for continuous glucose monitoring - change every 90 days (DME) Dexcom G6 Sensor Device See Rx Instructions .MEDSUPPLY Qty: 9 3RF Rx Instructions: Use as directed for continuous glucose monitoring - Change sensor every 10 days lutein 6 mg tablet 6 mg PO HS cholecalciferol (vitamin D3) 400 unit capsule 400 units PO HS (DME) blood-glucose meter [Accu-Chek Suzan Plus Meter] [facility] See Rx Instructions .ROUTE .MEDSUPPLY Rx Instructions: Test 1 times daily coenzyme Q10 [Co Q-10] 100 mg Capsule 100 mg PO QPM insulin aspart U-100 [Novolog U-100 Insulin aspart] 100 unit/mL solution 1 sliding scale dose subcut TIDM Rx Instructions: inject per sliding scale up to 40 units with meals hydrochlorothiazide 25 mg tablet 25 mg PO QAM mupirocin 2 % ointment 1 applic topical UD PRN (Reason: Skin Irritation) Rx Instructions: left ankle- rash- fungal ondansetron 4 mg tablet,disintegrating 4 mg PO UD PRN (Reason: nausea and vomiting) Marijuana aerosol 0 inh inhalation 3XWK PRN (Reason: Anxiety) Rx Instructions: MEDICAL MARIJUANA VIA INHALATION - PT STATED UP TO 3 TIMES WEEKLY. sertraline 100 mg tablet 200 mg PO HS Discontinued nitrofurantoin monohyd/m-cryst [Macrobid] 100 mg capsule 100 mg PO Q12H 28 Days Qty: 56 0RF Rx Instructions: must administer with a meal/food Discharge Orders: Discharge Order (Routine); Ordered 08/14/24 Ordered By: Genia Dewey Admission Data Admit Date/Time: 08/10/24 03:35 Attending Provider: Genia Dewey I. Admit Provider: Palepu,Adryan P. Primary Care Provider: Todd Newman Other Providers: Adryan Lamb; Nicolás Cole; Karla Archer; Berhane Park; Shyla Pablo; Inez Bangura; Jayson Hendrickson; Evelyne Rodrigez; Addy Grove; James Hughes; Parviz House; Abel Hastings; Abdulaziz Munoz; Barrera Cha I.; Jason Rodriguez II; Elizabeth Kirk; Harshad Alejo; Meño Alicia; Anmol Rosales; Gallo Villanueva Other Interventions: Discharge Summary Assessment (RN) Last Done: 08/14/24 13:46
--- NOTE | 2024-08-15 13:54 | Coding Query ---
CODING QUERY To promote full compliance with coding requirements relating to patient care, provider participation is requested in all cases of counsel uncertainty. Please assist us with the question(s) below: Coding Question(s): OP Report states that there was purulent drainage/urine. Is this infection or something else? Please list dx below. Physician's Response(s): purulent drainage is suggestive of infection. Urine culture confirmed infection was present. diagnosis of acute urinary tract infection would be appropriate Thank you Xiomara Peck Principal Diagnosis: "that condition established after study, to be chiefly responsible for occasioning the admission of the patient to the hospital for care." Co-Existing Principal Diagnosis: "when two or more diagnoses equally meet the criteria for principal diagnosis as determined by the circumstances of admission, diagnostic work up, and/or therapy provided, and the Alphabetic Index, Tabular List, or another coding guideline does not provide sequencing direction, any one of the diagnoses may be sequenced first." "When the physician has documented what appears to be a current diagnosis in the body of the record, but has not included the diagnosis in the final diagnostic statement, the physician should be asked whether the diagnosis should be added." ([facility] 2 QTR90. p3-4) TARIQ
== END 2024-08-14 14:40 | disposition home or self-care (01) | DRG 660 ==
LOC: ED 20:42 → 3E 08-10 03:35

== ENCOUNTER 2024-08-30 18:21 | Inpatient (IN) ==
--- NOTE | 2024-08-30 19:01 | Emergency Department Note ---
Impression & Plan UTI due to extended-spectrum beta lactamase (ESBL) producing Escherichia coli Admission ED Provider Note HPI: History obtained from patient. The patient is a 69-year-old gentleman with history of BPH, kidney stones status post ureteral stent on the right side that was done this past July with Dr. Hendrickson, presents the emergency department with a chief complaint of fever, chills, and right flank pain. Patient states he did have a urinalysis done 2 days ago that showed evidence of ESBL and he was therefore referred to the emergency room by his urologist, Dr. Cole, for IV antibiotics. On arrival here to the ED the patient is hemodynamically stable, he is afebrile, he states he did have some nausea and 1 episode of vomiting earlier today. Patient is otherwise in no acute distress on my initial assessment. ROS: - Per HPI Differential Diagnosis: Pyelonephritis, urinary tract infection, ureteral stent malpositioning, kidney stone with obstruction, amongst other potential pathologies. *Outpatient medications and allergy history reviewed. PE: General: Alert, no acute distress HEENT: Normocephalic, trachea midline Eyes: Extraocular eye movement is intact, no scleral erythema Pulmonary: Clear to auscultation bilaterally, no wheezing Cardio: Regular rate and rhythm GI: Abdomen is soft to palpation : No suprapubic tenderness MSK: Status post right-sided BKA, otherwise no evidence of trauma or malformation of the extremities, no edema Skin: No evidence of rash Neuro: Alert, no focal deficits Psychiatric: Cooperative INDEPENDENT INTERPRETATIONS: teletypesetter monitor: (As interpreted by myself): - An order was placed for continuous cardiac monitoring - Patient was noted to be in sinus rhythm with rate of 82 Interventions provided in ED: -IV fluid bolus, IV ertapenem Medical Decision Making: IV was established and lab work obtained, patient was placed on athletic monitor. Lab work shows a leukocytosis of 15.3, hemoglobin is stable, platelet count is normal, CMP does not show any evidence of any critical findings, glucose is elevated at 315 without any evidence of DKA. There is no acute kidney injury, troponin is negative x 1, procalcitonin is mildly elevated at 1.26. Patient was unable to provide a urine sample here in the ED but based off his last urinalysis he did grow ESBL with multidrug resistance. Patient was therefore treated with IV ertapenem following blood cultures being drawn. Patient was also given IV fluids. CT imaging of the abdomen pelvis does not show any evidence of any hydronephrosis/obstruction, stent appears to be in good positioning. Patient overall appears well, I feel he will benefit from inpatient admission for continuation of IV antibiotics given his multidrug-resistant UTI. Patient was in agreement. Case was discussed with the on-call hospitalist service for [facility] (Dr. Sotelo) and the patient was placed for admission in stable condition. Consultants/Discussions held with other healthcare providers: -Hospitalist, Dr. Sotelo Disposition discussion held by myself with: -Patient Diagnosis: 1. ESBL UTI, acute 2. Fever/chills, acute 3. Leukocytosis, acute 4. History of ureteral stent placement Disposition: Admission Kita Beasley DO Emergency Medicine Past Med/Surg History Problem List (Updated 08/30/24 @ 22:54 by Kita Beasley DO) UTI symptoms Renal colic on right side Acute hyperglycemia (Acute) Hypertension (Acute) Calculus of proximal right ureter (Acute) Bladder stone Shortness of breath Fever Cough Adenoma of left adrenal gland CT scan Lung- 07/06/2022 FH: lung cancer History of transmetatarsal amputation of left foot Per records Hx of right BKA Morbid obesity with BMI of 40.0-44.9, adult UTI due to extended-spectrum beta lactamase (ESBL) producing Escherichia coli (Acute) Prostate cancer History of colon polyps Lab test negative for COVID-19 virus (Acute) Tubular adenoma Health care maintenance History of amputation of toe Callus of heel Pes anserinus bursitis of left knee Vitamin D deficiency Fatigue Arthralgia of multiple joints (Chronic) Prostate cancer Nocturnal hypoxemia Circadian rhythm sleep disorder, delayed sleep phase type Incontinence of urine Hypoglycemia associated with type 2 diabetes mellitus Type 2 diabetes mellitus, uncontrolled Albuminuria Dyslipidemia 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 Hx of basal cell carcinoma History of bladder stone History of prostate cancer dx 2014 - surgical intervention Hx of shortness of breath no recent issues, "few years ago when he was getting back on his feet after his leg amputation" Nocturnal hypoxemia hx, has seen "sleep" dr in the past, test inconclusive Hx of colonic polyps Adenoma of left adrenal gland CT scan Lung- 07/06/2022 Diabetes mellitus, type 2 Morbid obesity Autoimmune disease Possible, no official diagnosis History of COVID-2022- Asymptomatic Anxiety History of depression History of kidney stones Hypertension Pulmonary nodules Under surveillance Rheumatoid arthritis with negative rheumatoid factor Per records, patient unsure Diabetic peripheral neuropathy associated with type 2 diabetes mellitus Surgical History H/O right cataract extraction S/P urological surgery 09/2023, cytolithopaxy History of Mohs micrographic surgery for skin cancer Behind right ear History of prostatectomy (~2022) History of colonoscopy most recent 2021 History of facial surgery kita removed Status post tonsillectomy Hx of removal of cyst Head region Hx of mastoidectomy Status post below knee amputation of right lower extremity Amputated toe "All toes" left foot Hx Right toe amputations (prior to BKA) Family History Mother Colorectal cancer Father Prostate cancer Brother Lung cancer Other Family history of diabetes mellitus in father Denies family history of Ovarian cancer Breast cancer Social History Smoking Status: Never smoker Second Hand Exposure: No; Do You Dip or Chew Tobacco: No; Hx Alcohol Use: No Hx Substance Use: Yes Last Used Substance: Days (ago) Last Used Substance Other:: 08/06/24 Substance Use Type Other:: medical marijuana card Preferred Language: Somali Communication Ability: Effective Visual Impairment: No Limitations Hearing Ability: Normal Floor Tech Required: No Beliefs That Will Affect Care: None marital status: Current Living Situation: Spouse and Family Current Living Situation Comment: , mother in law and daughter current occupational status: retired and disabled Feels Safe at Home: Yes caffeine: No Dental Care, Regularly: Yes Physical Activity Frequency: Does not Exercise Seatbelt Use: always Sunscreen Use: Yes Assistive Devices: Walker and Wheelchair Allergies Allergies Allergy/AdvReac Type Severity Reaction Status Date / Time amoxicillin [From Augmentin] Allergy Severe Facial Verified 08/15/24 12:56 swelling, diffuse rash clavulanic acid Allergy Severe Facial Verified 08/15/24 12:56 [From Augmentin] swelling, diffuse rash methotrexate Allergy Intermediate Depression Verified 08/15/24 12:56 doxycycline AdvReac Intermediate Nausea/vomi Verified 08/15/24 12:56 ting oxycodone [From Percocet] AdvReac Intermediate Nausea Verified 08/15/24 12:56 vancomycin AdvReac Unknown Unknown Verified 08/15/24 12:56 Home Meds Home Medications Medication Instructions Recorded Confirmed cholecalciferol (vitamin D3) 10 400 units PO HS 02/09/19 08/30/24 mcg (400 unit) capsule lutein 6 mg tablet 6 mg PO HS 02/09/19 08/30/24 blood-glucose meter (Accu-Chek 10/14/20 08/15/24 Suzan Plus Meter) hydrochlorothiazide 25 mg tablet 25 mg PO QAM 10/04/23 08/30/24 insulin aspart U-100 100 unit/mL 1 sliding scale dose subcut TIDM 10/04/23 08/30/24 subcutaneous solution (Novolog U-100 Insulin aspart) ondansetron 4 mg disintegrating 4 mg PO UD PRN nausea and vomiting 10/04/23 08/30/24 tablet sertraline 100 mg tablet 200 mg PO HS 12/28/23 08/30/24 Marijuana 0 inh inhalation 3XWK PRN Anxiety 08/10/24 08/30/24 guaifenesin 1,200 mg tablet, 1,200 mg PO BID PRN Congestion 08/30/24 08/30/24 extended release 12 hr (Mucinex) Previous Rx's Medication Instructions Recorded Dexcom G6 Sale [employer] #1 ea 03/09/21 (blood-glucose,cyber special agent,cont) BD Insulin Syringe Ultra-Fine 1 mL #300 ea 07/16/22 31 gauge x 5/16" (insulin syringe-needle U-100) insulin glargine 100 unit/mL (3 50 unit (0.5 mL) subcut HS #45 mL 08/24/22 mL) subcutaneous pen (Basaglar KwikPen U-100 Insulin) pen needle, diabetic 32 gauge x #100 ea 09/22/2232" (BD Ultra-Fine Pia Pen Needle) blood sugar diagnostic (OneTouch #100 ea 10/04/22 Verio test strips) blood-glucose meter (OneTouch #1 ea 10/04/22 Verio Reflect Meter) lancets 33 gauge (OneTouch Delica #100 ea 10/04/22 Lancets) Dexcom G6 Transmitter #1 ea 06/08/23 (blood-glucose transmitter) amlodipine 5 mg tablet 5 mg PO HS #30 tabs 06/08/23 Dexcom G6 Sensor (blood-glucose #9 ea 08/05/23 sensor) Results & Data (ED) Vital Signs Vital Signs - 24 hr 08/30/24 18:34 08/30/24 18:50 08/30/24 19:29 Temperature 36.7 C Temperature Source Temporal Artery Scan Pulse Rate 85 80 Pulse Rhythm Regular Respiratory Rate 20 Respiratory Effort / Characteristics Non-Labored Respiratory Depth Normal Respiratory Pattern Regular Blood Pressure 130/80 Blood Pressure Mean 96 Blood Pressure Position Sitting Pulse Oximetry 96 95 Oxygen Delivery Method Room Air Room Air Sepsis Recent Fever Within 48 Hours No Sepsis New/Unexplained Change in Mental Status No Sepsis Action Taken by Nursing No Action Required 08/30/24 19:30 08/30/24 19:46 08/30/24 20:00 Temperature Temperature Source Pulse Rate 83 81 Pulse Rhythm Respiratory Rate 28 H 24 Respiratory Effort / Characteristics Respiratory Depth Respiratory Pattern Blood Pressure 151/74 H 152/58 H 158/73 H Blood Pressure Mean 108 92 110 Blood Pressure Position Pulse Oximetry 97 96 Oxygen Delivery Method Room Air Room Air Sepsis Recent Fever Within 48 Hours Sepsis New/Unexplained Change in Mental Status Sepsis Action Taken by Nursing Laboratory Data 08/30/24 19:05 08/30/24 19:05 Lab Results 08/30/24 Range/Units 19:05 WBC 15.33 H (4.8-10.8) K/ul RBC 4.83 (4.70-6.10) M/uL Hgb 13.2 L (14.0-18.0) g/dl Hct 38.9 L (42.0-52.0) % MCV 80.5 (80.0-100.0) fL MCH 27.3 (25.0-34.0) pg MCHC 33.9 (32.0-36.0) g/dL RDW Std Deviation 39.6 (36.4-46.3) fL RDW Coeff of Cori 13.6 (11.5-14.5) % Plt Count 194 (130-400) K/uL MPV 10.2 (9.4-12.4) fL Immature Gran % (Auto) 1.1 % Neut % (Auto) 79.4 % Lymph % (Auto) 8.5 % [place] % (Auto) 10.0 % Eos % (Auto) 0.5 % Baso % (Auto) 0.5 % Neut # (Auto) 12.18 H (1.40-6.50) K/uL Lymph # (Auto) 1.30 (1.20-3.40) K/uL [place] # (Auto) 1.53 H (0.11-0.59) K/uL Eos # (Auto) 0.08 (0.00-0.50) K/uL Baso # (Auto) 0.07 (0.00-0.20) K/uL Immature Gran # (Auto) 0.17 (0.01-0.20) K/uL Sodium 131 L (136-145) mmol/L Potassium 4.0 (3.5-5.1) mmol/L Chloride 104 (98-107) mmol/L Carbon Dioxide 19 L (21-32) mmol/L Anion Gap 8 (3-11) BUN 30 H (6-23) mg/dl Creatinine 1.38 (0.6-1.4) mg/dl Est Cr Clr Drug Dosing 78.3 ml/min eGFR 56.05 BUN/Creatinine Ratio 21.7 H (10-20) Glucose 315 H* (70-99(Fasting)) mg/dl Lactate 1.3 (0.4-2.0) mmol/L Calcium 8.6 (8.6-10.3) mg/dl Magnesium 1.8 (1.7-2.4) mg/dl Total Bilirubin 0.8 (0.2-1.0) mg/dl Direct Bilirubin 0.2 (0-0.2) mg/dl AST 10 L (13-39) U/L ALT 13 (7-52) U/L Alkaline Phosphatase 89 (34-104) U/L Troponin I High Sens 11.1 (0-20) pg/ml Total Protein 7.5 (6.0-8.3) gm/dl Albumin 3.6 (3.4-5.0) gm/dl Procalcitonin 1.26 H (0-0.5) ng/ml Administered Medications Discontinued Medications Sodium Chloride (Nss) 1,000 mls @ 999 mls/hr IV .Q1H1M ARCADIO Stop: 08/30/24 20:00 Last Admin: 08/30/24 19:32 Dose: 999 mls/hr Documented By: MINH Ertapenem (Invanz 1000mg) 1,000 mg in 10 mls @ 2 mls/min IV NOW STA Stop: 08/30/24 19:03 Last Admin: 08/30/24 19:33 Dose: 2 mls/min Documented By: MINH Imaging Data Radiologist's Impression: Chest X-Ray 08/30/24 18:50 INDICATION: Cough. TECHNIQUE: Frontal radiograph of the chest. COMPARISON: Radiograph 10/03/2023. FINDINGS: Mild cardiomegaly. Chronic appearing interstitial lung markings. Pulmonary vasculature appear within normal limits. No infiltrate, pleural effusion or pneumothorax. No acute osseous abnormality evident. IMPRESSION: No acute cardiopulmonary process. Electronically signed by Gopal Madrigal 08-30-2024 7:27 PM Abdomen/Pelvis CT 08/30/24 18:51 Clinical History: Right flank pain Technique: Axial computed tomography images were obtained of the abdomen and pelvis without intravenous contrast. Comparison is made to the prior CT dated 08/09/2024 Findings: There is mild fatty infiltration of the liver. The liver is enlarged measuring 22.9 cm craniocaudal. No definite liver mass lesion is seen on this noncontrast study. The gallbladder appears unremarkable. No bile duct dilatation is noted. The spleen is enlarged measuring 17.2 cm. No focal splenic lesion is evident. The pancreas appears normal with no sign of acute or chronic pancreatitis and no mass lesion noted. The pancreatic duct is of normal caliber. There is a 2.4 cm low-attenuation left adrenal nodule, consistent with a benign adenoma. The right adrenal gland appears normal There is a new right ureteral stent. There is a 1 cm calculus in the right renal pelvis adjacent to the proximal coil of the stent. There has been interval decrease in mild right hydronephrosis. No definite renal mass lesion is identified. There is a 1-2 mm calculus in the mid left kidney The aorta is of normal caliber. No abdominal adenopathy is seen. The stomach appears normal. There is no sign of small bowel obstruction. There is diverticulosis without evidence of diverticulitis. The appendix appears normal. No free intraperitoneal fluid or air is identified. No distal ureteral or bladder calculi are seen. No obvious bladder mass lesion is evident. The iliac arteries are of normal caliber. No pelvic adenopathy is noted. The prostate appears to have been removed. There are small bilateral inguinal hernias containing only fat There is an unchanged 9 mm right lower lobe nodule Lumbar degenerative disc disease is seen. No fracture is identified. No focal osseous lesion is seen Impression: 1. Interval decrease in right hydronephrosis after placement of a right ureteral stent 2. 1 cm calculus in the right renal pelvis, and small 1-2 mm left renal calculus 3. Fatty infiltration of the liver and hepatomegaly 4. Left adrenal adenoma 5. Splenomegaly 6. Diverticulosis without evidence of diverticulitis 7. Small bilateral inguinal hernias containing only fat 8. Unchanged right lung base pulmonary nodule, likely benign but indeterminate in nature. A follow-up chest CT is recommended in 3-6 months to ensure continued stability ACT 112: Positive. There are findings on this exam that require communication between the performing entity and the patient following Patient Test Result Information Act ([place] ACT 112) guidelines. Electronically signed by Mikel Martinez 08-30-2024 7:42 PM Discharge Plan Visit Data Chief Complaint: Urinary Symptoms Stated Complaint: UTI; FEVER ED Provider: Kita Beasley Discharge Problem: UTI due to extended-spectrum beta lactamase (ESBL) producing Escherichia coli Forms Stand Alone Forms: [facility] Prescriptions Prescriptions: No Action (DME) Dexcom G6 Sale [employer] Misc See Rx Instructions .MEDSUPPLY Qty: 1 0RF Rx Instructions: Use as directed for continuous glucose monitoring (DME) insulin syringe-needle U-100 [BD Insulin Syringe Ultra-Fine] 1 mL 31 gauge x 5/16 syringe See Rx Instructions .Route Qty: 300 0RF Rx Instructions: Use 3 per day insulin glargine [Basaglar KwikPen U-100 Insulin] 100 unit/mL (3 mL) insulin pen 50 unit SQ HS Qty: 45 2RF (DME) pen needle, diabetic [BD Ultra-Fine Pia Pen Needle] 32 gauge x 5/32" needle See Rx Instructions .ROUTE .MEDSUPPLY Qty: 100 3RF Rx Instructions: Inject with Basaglar once daily (DME) OneTouch Verio test strips Strip See Rx Instructions .MEDSUPPLY Qty: 100 3RF Rx Instructions: check blood sugars once a day as needed (DME) blood-glucose meter [OneTouch Verio Reflect Meter] Mis See Rx Instructions miscellaneous .MEDSUPPLY Qty: 1 0RF Rx Instructions: As directed (DME) lancets [OneTouch Delica Lancets] 33 gauge misc See Rx Instructions miscellaneous .MEDSUPPLY Qty: 100 3RF Rx Instructions: As directed to check once a day as needed amlodipine 5 mg tablet 5 mg PO HS Qty: 30 1RF (DME) Dexcom G6 Transmitter Device See Rx Instructions .MEDSUPPLY Qty: 1 0RF Rx Instructions: Use as directed for continuous glucose monitoring - change every 90 days (DME) Dexcom G6 Sensor Device See Rx Instructions .MEDSUPPLY Qty: 9 3RF Rx Instructions: Use as directed for continuous glucose monitoring - Change sensor every 10 days lutein 6 mg tablet 6 mg PO HS cholecalciferol (vitamin D3) 400 unit capsule 400 units PO HS (DME) blood-glucose meter [Accu-Chek Suzan Plus Meter] Misc See Rx Instructions .ROUTE .MEDSUPPLY Rx Instructions: Test 1 times daily insulin aspart U-100 [Novolog U-100 Insulin aspart] 100 unit/mL solution 1 sliding scale dose subcut TIDM Rx Instructions: inject per sliding scale up to 40 units with meals hydrochlorothiazide 25 mg tablet 25 mg PO QAM ondansetron 4 mg tablet,disintegrating 4 mg PO UD PRN (Reason: nausea and vomiting) Marijuana aerosol 0 inh inhalation 3XWK PRN (Reason: Anxiety) Rx Instructions: MEDICAL MARIJUANA VIA INHALATION - PT STATED UP TO 3 TIMES WEEKLY. guaifenesin [Mucinex] 1,200 mg tablet extended release 12hr 1,200 mg PO BID PRN (Reason: Congestion) sertraline 100 mg tablet 200 mg PO HS Referrals Referrals: Todd Newman, [Primary Care Provider] -
[2024-08-30 19:26] LABS: Basophils # (auto) 0.07 K/uL (0.00-0.20); Basophils % (auto) 0.5 %; Eosinophils # (auto) 0.08 K/uL (0.00-0.50); Eosinophils % (auto) 0.5 %; Hematocrit (blood only) 38.9 % (42.0-52.0); Hemoglobin 13.2 g/dl (14.0-18.0); Immature Granulocytes # (auto) 0.17 K/uL (0.01-0.20); Immature Granulocytes % (auto) 1.1 %; Lymphocytes % (auto) 8.5 %; Mean Corpuscular Hemoglobin 27.3 pg (25.0-34.0); Mean Corpuscular Hgb Conc 33.9 g/dL (32.0-36.0); Mean Corpuscular Volume 80.5 fL (80.0-100.0); Mean Platelet Volume 10.2 fL (9.4-12.4); Monocytes # (auto) 1.53 K/uL (0.11-0.59); Neutrophils # (auto) 12.18 K/uL (1.40-6.50); Neutrophils % (auto) 79.4 %; Platelet Count 194 K/uL (130-400); RDW Coefficient of Variation 13.6 % (11.5-14.5); RDW Standard Deviation 39.6 fL (36.4-46.3); Red Blood Count 4.83 M/uL (4.70-6.10); White Blood Count 15.33 K/ul (4.8-10.8)
--- NOTE | 2024-08-30 19:27 | XRay Report ---
INDICATION: Cough. TECHNIQUE: Frontal radiograph of the chest. COMPARISON: Radiograph 10/03/2023. FINDINGS: Mild cardiomegaly. Chronic appearing interstitial lung markings. Pulmonary vasculature appear within normal limits. No infiltrate, pleural effusion or pneumothorax. No acute osseous abnormality evident. IMPRESSION: No acute cardiopulmonary process. Electronically signed by Gopal Madrigal 08-30-2024 7:27 PM
[2024-08-30] MEDS: SODIUM CHLORIDE 0.9% 1,000 ML IV SCH (19:32)
[2024-08-30] MEDS: ERTAPENEM 1000MG 1,000 MG/10 ML SYR IV STA (19:33)
--- NOTE | 2024-08-30 19:43 | CT Scan Report ---
Clinical History: Right flank pain Technique: Axial computed tomography images were obtained of the abdomen and pelvis without intravenous contrast. Comparison is made to the prior CT dated 08/09/2024 Findings: There is mild fatty infiltration of the liver. The liver is enlarged measuring 22.9 cm craniocaudal. No definite liver mass lesion is seen on this noncontrast study. The gallbladder appears unremarkable. No bile duct dilatation is noted. The spleen is enlarged measuring 17.2 cm. No focal splenic lesion is evident. The pancreas appears normal with no sign of acute or chronic pancreatitis and no mass lesion noted. The pancreatic duct is of normal caliber. There is a 2.4 cm low-attenuation left adrenal nodule, consistent with a benign adenoma. The right adrenal gland appears normal There is a new right ureteral stent. There is a 1 cm calculus in the right renal pelvis adjacent to the proximal coil of the stent. There has been interval decrease in mild right hydronephrosis. No definite renal mass lesion is identified. There is a 1-2 mm calculus in the mid left kidney The aorta is of normal caliber. No abdominal adenopathy is seen. The stomach appears normal. There is no sign of small bowel obstruction. There is diverticulosis without evidence of diverticulitis. The appendix appears normal. No free intraperitoneal fluid or air is identified. No distal ureteral or bladder calculi are seen. No obvious bladder mass lesion is evident. The iliac arteries are of normal caliber. No pelvic adenopathy is noted. The prostate appears to have been removed. There are small bilateral inguinal hernias containing only fat There is an unchanged 9 mm right lower lobe nodule Lumbar degenerative disc disease is seen. No fracture is identified. No focal osseous lesion is seen Impression: 1. Interval decrease in right hydronephrosis after placement of a right ureteral stent 2. 1 cm calculus in the right renal pelvis, and small 1-2 mm left renal calculus 3. Fatty infiltration of the liver and hepatomegaly 4. Left adrenal adenoma 5. Splenomegaly 6. Diverticulosis without evidence of diverticulitis 7. Small bilateral inguinal hernias containing only fat 8. Unchanged right lung base pulmonary nodule, likely benign but indeterminate in nature. A follow-up chest CT is recommended in 3-6 months to ensure continued stability ACT 112: Positive. There are findings on this exam that require communication between the performing entity and the patient following Patient Test Result Information Act ([place] ACT 112) guidelines. Electronically signed by Mikel Martinez 08-30-2024 7:42 PM
[2024-08-30 19:49] LABS: Albumin Level 3.6 gm/dl (3.4-5.0); BUN Creatinine Ratio 21.7 (10-20); Bilirubin Direct 0.2 mg/dl (0-0.2); Bilirubin,Total 0.8 mg/dl (0.2-1.0); Calcium 8.6 mg/dl (8.6-10.3); Creatinine Clr Calc Pharmacy 78.3 ml/min; Magnesium 1.8 mg/dl (1.7-2.4); Total Protein 7.5 gm/dl (6.0-8.3); Troponin I High Sensitivity 11.1 pg/ml (0-20)
--- NOTE | 2024-08-30 21:10 | Urology Consultation ---
<Statement entered by Jayson Hendrickson MD - 08/31/24 08:09> 69-year-old male who recently underwent right ureteral stent placement in the setting of an obstructing stone and UTI, now readmitted with fevers. Stent appears to be in good position and should be providing adequate drainage of his kidney. At this point we will hold off any surgical intervention until UTI is treated. Agree with broad-spectrum antibiotics, narrowing coverage as culture data becomes available. Pending clinical course, he may be a candidate for intervention while inpatient and on IV antibiotics, however this would likely not be over the weekend. Urology will follow along. Date of Consultation August 30, 2024 Assessment & Plan (1) UTI symptoms: Patient has been admitted on hospital service. From a urologic perspective we recommend the following: Patient has been placed on antibiotics in the form of Invanz which should continue. Once patient's urinary tract infection has been treated adequately further discussion can be had with the patient on definitive treatment of previously noted kidney stone/stent removal Additional recommendations be forthcoming based on his clinical course as unfolds At the present time the patient is normotensive without tachycardia or fever and is nontoxic-appearing. History of Present Illness Reason for Consultation: Urinary tract infection History of Present Illness This is a 69-year-old male who is well-known to physician of urology. The patient underwent a cystoscopy with right ureteral stent placement by Dr. Hendrickson on 08/10/2024. Patient notes that he continues to have his ureteral stent in place and he was scheduled to see urology on September 17 to discuss definitive treatment of kidney stone that was noted at the time of stent placement. Patient presented to the emergency department this evening secondary to fever, chills, and right flank pain. He had a urinalysis performed 2 days ago that showed concern for a resistant bacteria and he was referred to the emergency department for intravenous antibiotics. Patient does report he has urinary frequency but denies hematuria. He does report some slight right flank pain. He denies any abdominal pain. He denies any nausea or vomiting. Since arrival the emergency department he has had labs and imaging which independent reviewed. CT scan abdomen pelvis showed the patient had decrease in previously noted right hydronephrosis (since his right ureteral stent was placed). He was noted to have 1 cm kidney stone in the right renal pelvis. Chest x-ray showed no evidence of pneumonia. Labs include a CBC her white blood cell count was elevated 15.3. Hemoglobin and hematocrit are 13.2 and 30.9. Platelet count was normal. Chemistry profile showed sodium was 131 with a normal potassium. BUN had elevation of 30 but his creatinine was normal. Lactic acid level was not elevated and normal. Available urine culture data was reviewed and on 08/28/2024 the patient did have a urine culture that grew E. coli with multiple resistances. At the time of my interview he was resting comfortably bed he was in no distress. Allergies Allergy/AdvReac Type Severity Reaction Status Date / Time amoxicillin [From Augmentin] Allergy Severe Facial Verified 08/15/24 12:56 swelling, diffuse rash clavulanic acid Allergy Severe Facial Verified 08/15/24 12:56 [From Augmentin] swelling, diffuse rash methotrexate Allergy Intermediate Depression Verified 08/15/24 12:56 doxycycline AdvReac Intermediate Nausea/vomi Verified 08/15/24 12:56 ting oxycodone [From Percocet] AdvReac Intermediate Nausea Verified 08/15/24 12:56 vancomycin AdvReac Unknown Unknown Verified 08/15/24 12:56 Home Medications Medication Instructions Recorded Confirmed Type cholecalciferol (vitamin D3) 10 400 units PO HS 02/09/19 08/30/24 History mcg (400 unit) capsule lutein 6 mg tablet 6 mg PO HS 02/09/19 08/30/24 History blood-glucose meter (Accu-Chek 10/14/20 08/15/24 History Suzan Plus Meter) Dexcom G6 Fitness Teacher #1 ea 03/09/21 08/15/24 Rx (blood-glucose,capacitor inspector,cont) BD Insulin Syringe Ultra-Fine 1 mL #300 ea 07/16/22 08/15/24 Rx 31 gauge x 5/16" (insulin syringe-needle U-100) insulin glargine 100 unit/mL (3 50 unit (0.5 mL) subcut HS #45 mL 08/24/22 08/30/24 Rx mL) subcutaneous pen (Basaglar KwikPen U-100 Insulin) pen needle, diabetic 32 gauge x #100 ea 09/22/22 08/15/24 Rx 5/32" (BD Ultra-Fine Pia Pen Needle) blood sugar diagnostic (OneTouch #100 ea 10/04/22 08/15/24 Rx Verio test strips) blood-glucose meter (OneTouch #1 ea 10/04/22 08/15/24 Rx Verio Reflect Meter) lancets 33 gauge (OneTouch Delica #100 ea 10/04/22 08/15/24 Rx Lancets) Dexcom G6 Transmitter #1 ea 06/08/23 08/15/24 Rx (blood-glucose transmitter) amlodipine 5 mg tablet 5 mg PO HS #30 tabs 06/08/23 08/30/24 Rx Dexcom G6 Sensor (blood-glucose #9 ea 08/05/23 08/15/24 Rx sensor) hydrochlorothiazide 25 mg tablet 25 mg PO QAM 10/04/23 08/30/24 History insulin aspart U-100 100 unit/mL 1 sliding scale dose subcut TIDM 10/04/23 08/30/24 History subcutaneous solution (Novolog U-100 Insulin aspart) ondansetron 4 mg disintegrating 4 mg PO UD PRN nausea and vomiting 10/04/23 08/30/24 History tablet sertraline 100 mg tablet 200 mg PO HS 12/28/23 08/30/24 History Marijuana 0 inh inhalation [id number] PRN Anxiety 08/10/24 08/30/24 History guaifenesin 1,200 mg tablet, 1,200 mg PO BID PRN Congestion 08/30/24 08/30/24 History extended release 12 hr (Mucinex) Patient History Medical History Sleep apnea per medical record, pt denies, states sleep study was inconclusive. Hx of basal cell carcinoma History of bladder stone History of prostate cancer dx 2013 - surgical intervention Hx of shortness of breath no recent issues, "few years ago when he was getting back on his feet after his leg amputation" Nocturnal hypoxemia hx, has seen "sleep" dr in the past, test inconclusive Hx of colonic polyps Adenoma of left adrenal gland CT scan Lung- 07/06/2022 Diabetes mellitus, type 2 Morbid obesity Autoimmune disease Possible, no official diagnosis History of COVID-2022- Asymptomatic Anxiety History of depression History of kidney stones Hypertension Pulmonary nodules Under surveillance Rheumatoid arthritis with negative rheumatoid factor Per records, patient unsure Diabetic peripheral neuropathy associated with type 2 diabetes mellitus Surgical History H/O right cataract extraction S/P urological surgery 09/2023, cytolithopaxy History of Mohs micrographic surgery for skin cancer Behind right ear History of prostatectomy (~2022) History of colonoscopy most recent 2021 History of facial surgery kita removed Status post tonsillectomy Hx of removal of cyst Head region Hx of mastoidectomy Status post below knee amputation of right lower extremity Amputated toe "All toes" left foot Hx Right toe amputations (prior to BKA) Family History Mother Colorectal cancer Father Prostate cancer Brother Lung cancer Other Family history of diabetes mellitus in father Denies family history of Ovarian cancer Breast cancer Social History Smoking Status: Never smoker Second Hand Exposure: No; Do You Dip or Chew Tobacco: No; Hx Alcohol Use: No Hx Substance Use: Yes Last Used Substance: Days (ago) Last Used Substance Other:: 08/06/24 Substance Use Type Other:: medical marijuana card Preferred Language: Gabonese Communication Ability: Effective Visual Impairment: No Limitations Hearing Ability: Normal Test Deskman Required: No Beliefs That Will Affect Care: None marital status: Current Living Situation: Spouse and Family Current Living Situation Comment: , mother in law and daughter current occupational status: retired and disabled Feels Safe at Home: Yes caffeine: No Dental Care, Regularly: Yes Physical Activity Frequency: Does not Exercise Seatbelt Use: always Sunscreen Use: Yes Assistive Devices: Walker and Wheelchair Review of Systems Review of Systems: All systems reviewed & are unremarkable except as noted in HPI & below Physical Exam Constitutional: WD/WN, vitals as above Eyes: no conjunctival abnormality ENMT: Ears: no hearing impairment and no external ear abnormality Mouth: no oropharynx abnormality Neck: trachea midline Respiratory: normal respiratory effort; no respiratory distress and no labored breathing Cardiovascular: Rate/Rhythm: regular rate and regular rhythm Gastrointestinal (Abdomen): Abdomen is soft without distention. There is no rebound tenderness or guarding Musculoskeletal: Patient had evidence of a previous right below-knee amputation. Skin: no rashes Psychiatric: A+Ox3, euthymic affect Genitourinary: No CVA tenderness with percussion bilaterally Results & Data Vital Signs (Past 12 Hours) Vital Signs Temp Pulse Resp BP Pulse Ox O2 Del Method 08/30/24 20:00 81 24 158/73 H 96 Room Air 08/30/24 19:46 83 28 H 152/58 H 97 Room Air 08/30/24 19:30 151/74 H 08/30/24 19:29 80 08/30/24 18:50 95 Room Air 08/30/24 18:34 36.7 C 85 20 130/80 96 Room Air PG Care Time/CCT Total # of Minutes Spent Total Time Spent with Patient: Total time spent is greater than 50% in coordination of care (as documented) at patient's floor/unit and/or counseling patient: Coding Level of Care Code 28672 INT INP/OBS CARE 375MIN Diagnoses UTI symptoms R39.9
--- NOTE | 2024-08-30 21:12 | History & Physical Report ---
Date of Service August 30, 2024 Assessment & Plan (1) UTI due to extended-spectrum beta lactamase (ESBL) producing Escherichia coli: Plan Assessment/plan Patient is a 69-year-old male with past medical history of type 2 diabetes, dyslipidemia, hypertension, insomnia, JEAN PIERRE presents to the hospital with fever for 2 days. Last admitted from 08/10/2024 to 08/14/2024; admitted for right-sided ureteric stone and ESBL UTI. He had undergone cystoscopy, right ureteral stent placement on 08/10/2024. He was treated with course of ertapenem for ESBL E. coli until 08/16/2024. Complicated UTI History of right-sided ureteral stone status post stent placement on 08/10/2024 Patient presents with fever, increased urinary urgency and frequency Recent urine culture as outpatient on 08/28/2024 growing ESBL E. coli Leukocytosis present on admission BUN/creatinine at baseline CT abdomen pelvis on admission shows interval decrease of right-sided hydronephrosis, 1 cm calculus in right renal pelvis and small 1 to 2 mm left renal calculi. Pro-Lui elevated Continue on ertapenem 1 g every 24 hours. Will follow-up on blood culture IV fluids with NSS at 125 cc/h Will consult urology to determine timing of definitive stone management. Mild hyponatremia -corrected sodium of 134; continue on IV fluids. Follow-up BMP in AM. Chronic issues; Type 2 diabetes mellituscontinue on glargine, NovoLog. Pharmacy on consult. Hypertensionantihypertensive on hold for now. Resume if blood pressure continues to increase. Mood disordercontinue sertraline DVT prophylaxis SCDs for now for possible procedure Full code Time spent evaluating patient, direct bedside care, chart review, placing orders, interpretation of diagnostic studies, discussion with consultants, patient, and family members, as well as other required patient management activities is 75 minutes Please note the above document was generated using voice recognition software. It may contain grammatical, syntax or spelling errors. Any formal questions or concerns about the content, text or information contained within the body of this dictation should be directly addressed to the provider for clarification History of Present Illness Chief Complaint: Fever for 2 days Primary Care Provider: Todd Newman DO History obtained from chart review and interview with the patient. Past medical history of type 2 diabetes mellitus, dyslipidemia, hypertension, depression, JEAN PIERRE Last admission from 08/10/2024 to 08/14/2024; admitted for right-sided ureteric stone and ESBL UTI. He had undergone cystoscopy, right ureteral stent placement on 08/10/2024. He was treated with course of ertapenem for ESBL E. coli until 08/16/2024. Patient presents to the hospital with 2 days of fever; Tmax of 102 degree for night. He also reports increased urgency, and frequency of urination as well. He has also noticed that his urine appears to be cloudy. He reports some discomfort on right flank and back; denies any severe pain. He had urine culture done on 08/28/2024 which was positive for ES BL E. coli. He denies chest pain, shortness of breath, abdominal pain, weakness/numbness of any body part. On presentation to the ED, he was hemodynamically stable, afebrile and saturating well on room air. WBC count of 15,000, Creatinine of 1.38; similar to his baseline. Sodium of 131, glucose of 315. Pro-Lui elevated. CT abdomen pelvis shows interval decrease of right-sided hydronephrosis, 1 cm calculus in right renal pelvis and small 1 to 2 mm left renal calculi. Patient was given a dose of ertapenem. He was referred for admission for further evaluation and treatment. Allergies Allergy/AdvReac Type Severity Reaction Status Date / Time amoxicillin [From Augmentin] Allergy Severe Facial Verified 08/15/24 12:56 swelling, diffuse rash clavulanic acid Allergy Severe Facial Verified 08/15/24 12:56 [From Augmentin] swelling, diffuse rash methotrexate Allergy Intermediate Depression Verified 08/15/24 12:56 doxycycline AdvReac Intermediate Nausea/vomi Verified 08/15/24 12:56 ting oxycodone [From Percocet] AdvReac Intermediate Nausea Verified 08/15/24 12:56 vancomycin AdvReac Unknown Unknown Verified 08/15/24 12:56 Home Medications Medication Instructions Recorded Confirmed Type cholecalciferol (vitamin D3) 10 400 units PO HS 02/09/19 08/30/24 History mcg (400 unit) capsule lutein 6 mg tablet 6 mg PO HS 02/09/19 08/30/24 History blood-glucose meter (Accu-Chek 10/14/20 08/15/24 History Suzan Plus Meter) Dexcom G6 Floral Designer #1 ea 03/09/21 08/15/24 Rx (blood-glucose,psychiatric attendant,cont) BD Insulin Syringe Ultra-Fine 1 mL #300 ea 07/16/22 08/15/24 Rx 31 gauge x 5/16" (insulin syringe-needle U-100) insulin glargine 100 unit/mL (3 50 unit (0.5 mL) subcut HS #45 mL 08/24/22 08/30/24 Rx mL) subcutaneous pen (Basaglar KwikPen U-100 Insulin) pen needle, diabetic 32 gauge x #100 ea 09/22/22 08/15/24 Rx 5/32" (BD Ultra-Fine Pia Pen Needle) blood sugar diagnostic (OneTouch #100 ea 10/04/22 08/15/24 Rx Verio test strips) blood-glucose meter (OneTouch #1 ea 10/04/22 08/15/24 Rx Verio Reflect Meter) lancets 33 gauge (OneTouch Delica #100 ea 10/04/22 08/15/24 Rx Lancets) Dexcom G6 Transmitter #1 ea 06/08/23 08/15/24 Rx (blood-glucose transmitter) amlodipine 5 mg tablet 5 mg PO HS #30 tabs 06/08/23 08/30/24 Rx Dexcom G6 Sensor (blood-glucose #9 ea 08/05/23 08/15/24 Rx sensor) hydrochlorothiazide 25 mg tablet 25 mg PO QAM 10/04/23 08/30/24 History insulin aspart U-100 100 unit/mL 1 sliding scale dose subcut TIDM 10/04/23 08/30/24 History subcutaneous solution (Novolog U-100 Insulin aspart) ondansetron 4 mg disintegrating 4 mg PO UD PRN nausea and vomiting 10/04/23 08/30/24 History tablet sertraline 100 mg tablet 200 mg PO HS 12/28/23 08/30/24 History Marijuana 0 inh inhalation [id number] PRN Anxiety 08/10/24 08/30/24 History guaifenesin 1,200 mg tablet, 1,200 mg PO BID PRN Congestion 08/30/24 08/30/24 History extended release 12 hr (Mucinex) Past Med/Surg History Problem List (Updated 08/27/24 @ 10:32 by Rickie Hoskins RN) UTI symptoms Renal colic on right side Acute hyperglycemia (Acute) Hypertension (Acute) Calculus of proximal right ureter (Acute) Bladder stone Shortness of breath Fever Cough Adenoma of left adrenal gland CT scan Lung- 07/06/2022 FH: lung cancer History of transmetatarsal amputation of left foot Per records Hx of right BKA Morbid obesity with BMI of 40.0-44.9, adult UTI due to extended-spectrum beta lactamase (ESBL) producing Escherichia coli (Acute) Prostate cancer History of colon polyps Lab test negative for COVID-19 virus (Acute) Tubular adenoma Health care maintenance History of amputation of toe Callus of heel Pes anserinus bursitis of left knee Vitamin D deficiency Fatigue Arthralgia of multiple joints (Chronic) Prostate cancer Nocturnal hypoxemia Circadian rhythm sleep disorder, delayed sleep phase type Incontinence of urine Hypoglycemia associated with type 2 diabetes mellitus Type 2 diabetes mellitus, uncontrolled Albuminuria Dyslipidemia 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 Hx of basal cell carcinoma History of bladder stone History of prostate cancer dx 2014 - surgical intervention Hx of shortness of breath no recent issues, "few years ago when he was getting back on his feet after his leg amputation" Nocturnal hypoxemia hx, has seen "sleep" dr in the past, test inconclusive Hx of colonic polyps Adenoma of left adrenal gland CT scan Lung- 07/06/2022 Diabetes mellitus, type 2 Morbid obesity Autoimmune disease Possible, no official diagnosis History of COVID-19 2022- Asymptomatic Anxiety History of depression History of kidney stones Hypertension Pulmonary nodules Under surveillance Rheumatoid arthritis with negative rheumatoid factor Per records, patient unsure Diabetic peripheral neuropathy associated with type 2 diabetes mellitus Surgical History H/O right cataract extraction S/P urological surgery 09/2023, cytolithopaxy History of Mohs micrographic surgery for skin cancer Behind right ear History of prostatectomy (~2022) History of colonoscopy most recent 2021 History of facial surgery kita removed Status post tonsillectomy Hx of removal of cyst Head region Hx of mastoidectomy Status post below knee amputation of right lower extremity Amputated toe "All toes" left foot Hx Right toe amputations (prior to BKA) Family History Mother Colorectal cancer Father Prostate cancer Brother Lung cancer Other Family history of diabetes mellitus in father Denies family history of Ovarian cancer Breast cancer Social History Smoking Status: Never smoker Second Hand Exposure: No; Do You Dip or Chew Tobacco: No; Hx Alcohol Use: No Hx Substance Use: Yes Last Used Substance: Days (ago) Last Used Substance Other:: 08/06/24 Substance Use Type Other:: medical marijuana card Preferred Language: Thai Communication Ability: Effective Visual Impairment: No Limitations Hearing Ability: Normal Departure Clerk Required: No Beliefs That Will Affect Care: None marital status: Current Living Situation: Spouse and Family Current Living Situation Comment: , mother in law and daughter current occupational status: retired and disabled Feels Safe at Home: Yes caffeine: No Dental Care, Regularly: Yes Physical Activity Frequency: Does not Exercise Seatbelt Use: always Sunscreen Use: Yes Assistive Devices: Walker and Wheelchair Physical Exam Physical Exam: On physical examination; Constitutional: Appears tired. Appropriately answering questions. Not in any distress. Respiratory: normal respiratory effort, lungs clear to auscultation, no wheeze, rales, rhonchi. Normal insp/exp effort, no accessory muscle use Cardiovascular: RRR, no murmur, no edema Vessels: no JVD or carotid bruit Chest: normal inspection of chest Abdomen: Right costovertebral angle tender. Neurologic: PERRL, EOMI, accommodation nl, no face palsy, no dysarthria CN's II- XI intact bilaterally and moves all extremities Results & Data Results & Data Vital Signs (Past 12 Hours) Vital Signs Temp Pulse Resp BP Pulse Ox O2 Del Method 08/30/24 20:00 81 24 158/73 H 96 Room Air 08/30/24 19:46 83 28 H 152/58 H 97 Room Air 08/30/24 19:30 151/74 H 04/03/25 19:29 80 08/30/24 18:50 95 Room Air 08/30/24 18:34 36.7 C 85 20 130/80 96 Room Air
[2024-08-31] MEDS ORDERED: GLUCOSE 10 TAB/TUBE PO PRN (00:50)
[2024-08-31] MEDS ORDERED: CARBOHYDRATES FOR HYPOGLYCEMIA PO PRN (00:50)
[2024-08-31] MEDS ORDERED: GLUCOSE 40% GEL 15 GM TUBE PO PRN (00:50)
[2024-08-31] MEDS ORDERED: DEXTROSE 50% 50 ML SYRINGE IV PRN (00:50)
[2024-08-31] MEDS ORDERED: PHARMACY GLYCEMIC MGMT CONSULT PRN (00:50)
[2024-08-31] MEDS ORDERED: GLUCAGON FOR INJ 1 MG VIAL SQ PRN (00:50)
[2024-08-31] MEDS: INSULIN ASPART PER UNIT CHARGE SC SCH ×2 (01:21→17:57)
[2024-08-31] MEDS: SODIUM CHLORIDE 0.9% 1,000 ML IV SCH (01:21)
[2024-08-31] MEDS: LANTUS PER UNIT CHARGE SQ ONE (01:34)
[2024-08-31] MEDS: CHOLECALCIFEROL 10 MCG (400 UNITS) TAB PO SCH (01:56)
[2024-08-31] MEDS: SERTRALINE HCL 100 MG TABLET PO SCH (01:56)
[2024-08-31] MEDS: ONDANSETRON INJ 2 MG/ML 2 ML VIAL IV PRN (02:16)
[2024-08-31] MEDS ORDERED: PROMETHAZINE 12.5 MG/50.5 ML BAG IV PRN (02:52)
[2024-08-31] MEDS: hydrALAZINE HCL 20 MG/ML VIAL IV STA (03:13)
[2024-08-31] MEDS: FAMOTIDINE 20MG IV PUSH 20 MG/5 ML SYR IV ONE (03:33)
[2024-08-31] MEDS: MELATONIN 3 MG TAB PO PRN (04:03)
[2024-08-31] MEDS: METOPROLOL TARTRATE 1 MG/ML VIAL IV STA (04:06)
[2024-08-31 07:43] LABS: Basophils # (auto) 0.05 K/uL (0.00-0.20); Basophils % (auto) 0.3 %; Eosinophils # (auto) 0.01 K/uL (0.00-0.50); Eosinophils % (auto) 0.1 %; Hematocrit (blood only) 36.7 % (42.0-52.0); Hemoglobin 12.1 g/dl (14.0-18.0); Immature Granulocytes % (auto) 1.3 %; Lymphocytes # (auto) 1.13 K/uL (1.20-3.40); Lymphocytes % (auto) 7.2 %; Mean Corpuscular Hemoglobin 27.1 pg (25.0-34.0); Mean Corpuscular Volume 82.1 fL (80.0-100.0); Monocytes # (auto) 1.63 K/uL (0.11-0.59); Monocytes % (auto) 10.4 %; Neutrophils # (auto) 12.68 K/uL (1.40-6.50); Neutrophils % (auto) 80.7 %; Platelet Count 188 K/uL (130-400); RDW Coefficient of Variation 13.7 % (11.5-14.5); RDW Standard Deviation 40.9 fL (36.4-46.3); Red Blood Count 4.47 M/uL (4.70-6.10)
[2024-08-31 08:01] LABS: Albumin Globulin Ratio 0.9 (0.9-2); Albumin Level 3.3 gm/dl (3.4-5.0); Bilirubin,Total 0.6 mg/dl (0.2-1.0); Calcium 8.6 mg/dl (8.6-10.3); Creatinine Clr Calc Pharmacy 87.1 ml/min; Globulin 3.8 gm/dl (2.5-4.0); Potassium 4.1 mmol/L (3.5-5.1); Total Protein 7.1 gm/dl (6.0-8.3)
--- OUTSIDE RECORDS SUMMARY | 2024-08-31 08:11 | External Medical Summary | Summary of Care ---
Author Name Unknown Organization [facility] Address [address] [place] [address] Phone [phone] Care Team Providers Care Venetian Blind Washer Name Role Phone Todd Newman DO Primary Care Provider Reason for Referral * Medication Prior Authorization - Closed Specialty Diagnoses / Procedures Referred By Ralph t Referred To Contact Diagnoses Type 2 diabetes mellitus with hyperosmolarity without coma, with long-term current use of insulin ([facility]) Todd Newman DO [address] [place] [address] Phone: tel: fax: Referral ID Status Reason Start Date Expiration Date Visits Re quested Visits Authorized [id number] Closed 999 999 Reason for Visit * Reason Onset Date Comments Medication Question 08/28/2024 Encounter Details Date Type Department Care Team (Late st Contact Info) Description 08/28/2024 Telephone Family Practice [facility] [address] [place] [address] Todd Newman DO [address] [place] [address] Medication Question Allergies Active Allergy Reactions Criticality Noted Date Comments Amoxicillin Edema airway High 11/17/2022 Amoxicillin-Pot Clavulanate 01/09/2024 Other Reaction(s): facial swelling Clavulanic Acid Edema face/lips/tongue High 11/17/2022 Doxycycline Nausea/vomiting 11/17/2022 Methotrexate Other (Please comment) 11/17/2022 Oxycodone Nausea/vomiting 11/17/2022 Vancomycin High 11/17/2022 documented as of this encounter (statuses as of 08/29/2024) Medications ONETOUCH ULTRA TEST STRPIndications:DM type 2, goal A1c below 7 Use up to four times a day as directed 100 Strip 11 10/02/19 11 Active ONETOUCH ULTRASOFT LANCETS MISCIndications:DM type 2, goal A1c below 7 Use up to four times a day as directed 1 Box 11 10/03/19 13 Active Lutein 20 MG Oral Capsule Take 1 Capsule by mouth in the morning. Active Basaglar KwikPen 100 UNIT/ML Subcutaneous Solution Pen-injector 04/06/20 23 Active Mag Aspart-Potassium Aspart 90-90 MG Oral Capsule Take by mouth. Ac tive Calcium 250 MG Oral Capsule Take by mouth. Activ e Chlorthalidone 25 MG Oral Tablet (Hygroton) Take 0.5 Tablets by mouth in the morning. 45 Tablet 07/06/19 24 Active Ciclopirox Olamine 0.77 % External Cream Apply topically to affected area 2 times a day. Apply to foot 90 g 07/14/19 24 Active Additional Information Patient not taking.Reported on 01/09/2024 Insulin Glargine Solostar 100 UNIT/ML Subcutaneous Solution Pen-injector (Basaglar KwikPen)Indications :Type 2 diabetes mellitus with hemoglobin A1c goal of less than 8.0% (HCC) Inject 50 Units under the skin every night at bedtime. 45 mL 10/20/19 24 Active BD Pen Needle Pia U/F 32G X 4 MM (Insulin Pen Needle)Indications: Type 2 diabetes mellitus with hemoglobin A1c goal of less than 8.0% (HCC) Use daily as directed 100 Each 10/20/19 24 Active Sertraline HCl 100 MG Oral Tablet (Zoloft)Indications :Adjustment disorder with depressed mood Take 1 tablet by mouth daily for 4 weeks then increase to 2 tablets by mouth daily. 180 Tablet 12/20/19 24 Active Insulin Aspart 100 UNIT/ML Subcutaneous Solution (NovoLOG) THREE TIMES DAILY WITH MEALS 10/04/19 24 Active Vitamin D3 10 MCG (400 UNIT) Oral Capsule Take 1 Capsule by mouth at bedtime. Active Coenzyme Q10 100 MG Oral Capsule Take 1 Capsule by mouth in the morning. Active Zoster Vac Recomb Adjuvanted 50 MCG/0.5ML Intramuscular Suspension Reconstituted (Shingrix)Indicatio ns:Need for shingles vaccine Inject 0.5 mL into a large muscle now and repeat dose in 60 to 180 days 1 Each 1 01/09/20 24 Active Additional Information Patient not taking.Reported on 06/08/2024 amLODIPine Besylate 5 MG Oral Tablet (Norvasc)Indication s:HTN, goal below 140/90 Take 1 Tablet by mouth in the morning. 90 Tablet 3 01/09/20 24 Active Insulin Syringe-Needle U-100 30G X 1/2" 0.3 ML Use as directed three times a day with meals. Use as directed. 100 Each 11 02/13/20 24 Active BD Insulin Syringe Ultrafine 30G X 1/2" 0.5 ML (Insulin Syringe-Needle U-100)Indications:T ype 2 diabetes mellitus with hemoglobin A1c goal of less than 8.0% (HCC) Use as directed three times a day with meals. Use as directed 270 Each 3 02/15/20 24 Active traMADol HCl 50 MG Oral Tablet (Ultram)Indications :Generalized osteoarthritis Take 1 Tablet by mouth at bedtime as needed for Pain, Severe. 90 Tablet 02/21/20 24 Active Dexcom G6 TransmitterIndicati ons:Type 2 diabetes mellitus with hyperosmolarity without coma, with long-term current use of insulin (HCC) Use as directed to monitor labile blood sugar throughout the day. Change every 90 days. 1 Each 5 08/29/19 25 Active Dexcom G6 TransmitterIndicati ons:Type 2 diabetes mellitus with hyperosmolarity without coma, with long-term current use of insulin (HCC) USE DIRECTED. 1 Each 08/26/19 25 025 Discontin ued(Refil l) documented as of this encounter (statuses as of 08/29/2024) Active Problems Problem Noted Date Diagnosed Date Body mass index (BMI) of 40.0 to 44.9 in adult 0 07/11/2023 Overview: Per Obesity protocol Diabetic polyneuropathy asso ciated with type 2 diabetes mellitus 01/21/2021 Sleep apnea, central 01/21/2021 Generalized osteoarthritis 01/21/2021 HTN, goal below 140/90 08/04/2015 Overview: Per HTN Protocol #27. Marijuana abuse 01/16/2014 Port-wine stain of face 01/16/2014 TERMINATED MEDICATION USAGE AGREEMENT 07/14/2012 Overview (07/14/2012): NO narcotics or controlled substances to be prescribed. Recheck UDS 07/05/12 still w/ marijuana present (prior positive on 04/18/12). Violates med use agreement after second chance given. Med use agreement terminated. Type 2 diabetes mellitus wit h hemoglobin A1c goal of less than 8.0% 08/04/2011 Overview (09/25/2015): ICD-10 update of inactive term Pain, joint, shoulder, right 05/03/2011 Overview (07/14/2012): NO narcotics - pls see terminated med use agreement note. Dyslipidemia, goal LDL below 100 Hearing loss Overview (03/08/2010): deaf in L ear Joint pain, foot Overview (07/14/2012): S/p multiple toe amputations for osteomyelitis. Has seen [facility] for wound care. NO narcotics - pls see terminated med use agreement note. Adjustment disorder with depressed mood Multiple joint pain Overview (07/14/2012): NO narcotics - pls see terminated med use agreement note. Insomnia Overview (02/28/2017): ICD-10 update of inactive term CKD stage 2 due to type 2 diabetes mellitus documented as of this encounter (statuses as of 08/29/2024) Resolved Problems Problem Noted Date Diagnosed Date Resolved Date MEDICATION USE AGREEMENT 04/17/2012 Overview (07/14/2012): Dr. Christopher - see discussion in 05/08/12 [...] wound of toe with complication 05/06/2011 09/30/2011 Overview (09/30/2020): Patient sees [facility] for wound care. His pain meds are through PCP office. ICD-10 update of inactive term Cough 05/03/2011 11/01/2011 Cellulitis of foot 01/28/2011 1 Other specified pre-operative examination 09/10/2010 06/16/2011 Cellulitis of toe 08/18/2010 06/16/2011 Osteomyelitis of lower leg 1 Overview (03/08/2010): R great toe, recurrent Pressure ulcer, unspecified site(707.00) 03/09/2010 Overview (03/08/2010): chronic , R great toe and foot HTN, goal below 130/80 01/19 Overview: Per HTN Protocol #27. documented as of this encounter (statuses as of 08/29/2024) Immunizations Name Administration Dates Next Due COVID-19 mRNA, LNP-s, No Pre serve, 2-Dose Series ([employer]) 07/25/2020,07/11/2020 Pneumococcal Conjugate Vacci ne, 20-valent ([id number]) 01/09/2024 Pneumococcal Polysaccharide PPV23 (Pneumovax) 03/09/2010 SARS-COV-2 (COVID-19) Vaccin e Unspecified 05/19/2021 Seasonal Influenza Vac., MDV , IM, 0.5 mL (Fluzone) 03/06/2014,03/26/2013,05/08/2012,05/03,03/09/2010 Seasonal Influenza, High Dos e, Trivalent, PF, IM (Fluzone HD) 06/08/2024 Seasonal Influenza, Recombin ant, RIV4, PF, (Flublock) 04/16/2019 TDAP, Age 7 and older, IM (Adacel) 02/06/2010 documented as of this encounter Social History Tobacco Use Types Packs/Day Years Used Date Smoking Tobacco: Never Smokeless Tobacco: Never Alcohol Use Standard Drinks/Week Comments Yes 0 (1 standard drink = 0.6 oz pur e alcohol) rare Hunger Vital Sign Answer Date Recorded Within the past 12 months, y ou worried that your food would run out before you got the money to buy more. Patient declined Within the past 12 months, t he food you bought just didn't last and you didn't have money to get more. Patient declined 10/2023 Childcare Answer Date Recorded Do you feel overwhelmed with taking care of a child, family member or friend? No 04/04/2024 Does your family need help f inding childcare? (Household - for ages 0-17 years) Not on file 04/04/2024 Clothing Answer Date Recorded Have you been unable to get clothing when it was really needed? No 04/04/2024 Is your family able to get c lothes or diapers when needed? (Household - for ages 0-17 years) Not on file 04/04/2024 Personal Safety Answer Date Recorded Do you feel unsafe or have concerns for your saf ety? No 04/04/2024 Do you have concerns for you r family's safety? (Household - for ages 0-17 years) Not on file 04/04/2024 Utilities Answer Date Recorded Do you have trouble paying y our heating, water, or electric bill? No 04/04/2024 Is your family able to pay t he heat, water, or electric bill? (Household - for ages 0-17 years) Not on file 04/04/2024 Does your family have access to good internet? (Household - for ages 0-17 years) Not on file 04/04/2024 Employment Status Answer Date Recorded Are you unemployed or without regular income? No 04/04/2024 Does the household have a re gular source of income? (Household - for ages 0-17 years) Not on file 04/04/2024 Social Connections Answer Date Recorded How often do you feel lonely or isolated from th ose around you? Never 04/04/2024 Financial Resource Strain Answer Date R ecorded Do you have any trouble payi ng for your medications, or do you think you might in the future? No 04/04/2024 Does your family have troubl e paying for medicine? (Household - for ages 0-17 years) Not on file 04/04/2024 Transportation Needs Answer Date Record ed Do you have trouble getting a ride to medical visits or work? (Adult - for ages 18 years and over) Not on file 04/04/2024 Does your family have a hard time getting a ride to doctors visits? (Household - for ages 0-17 years) Not on file 04/04/2024 Has lack of transportation k ept you from medical appointments, meetings, work, or from getting things needed for daily living? Check all that apply. No 04/04/2024 Do you (or your family) have trouble finding or paying for a ride (transportation)? (Household - for ages 0-17 years) Not on file 04/04/2024 Housing Stability Answer Date Recorded Do you currently live in a s helter or have no steady place to sleep at night? No 04/04/2024 Do you think you are at risk of becoming homeless? (Adult - for ages 18 years and over) Not on file 04/04/2024 Does your family worry about paying for your home or becoming homeless? (Household - for ages 0-17 years) Not on file 1 06/04/2023 Are you homeless or worried that you might be in the future? No 04/04/2024 Are you (or your family) will eless or worried that you might be in the future? (Household - for ages 0-17 years) Not on file Food Insecurity Answer Date Recorded Do you need food for this week? No 04/04/2024 Are you able to get enough f ood for your family? (Household - for ages 0-17 years) Not on file 04/04/2024 Does your family need food t his week? (Household - for ages 0-17 years) Not on file 04/04/2024 Do you always have enough fo od for your family? (Household - for ages 0-17 years) Not on file 04/04/2024 Food Insecurity Answer Date Recorded Within the past 12 months, y ou worried that your food would run out before you got the money to buy more. Patient declined Within the past 12 months, t he food you bought just didn't last and you didn't have money to get more. Patient declined 10/2023 Do you need food for this week? No 04/04/2024 Sex and Gender Information Value Date Recorded Sex Assigned at Male 04/11/2023 10:06 AM EST Legal Sex Male 6:48 AM EST Gender Identity Male 04/11/2023 10:06 AM EST Sexual Orientation Straight 06/28/2023 11 :58 AM EST Occupation Industry Job Start Date Job End Date disabled Not on file Not on file Not on file documented as of this encounter Miscellaneous Notes * Telephone Encounter - Bree Lazaro golf club manager - 08/28/2024 9:53 AM EDT Roselia from [facility] is calling because pt's prescription for Dexcom G6 transmitter was sent with directions stating "use as directed. ". States they need to be more specific. it also needs to state change every 90 days. Roselia states prescription can be called in to [phone] orsend a new prescription to [facility] Thank you, Bree Lazaro [employer] [facility] 08/28/2024,9:53 AM documented in this encounter Plan of Treatment Health Maintenance Due Date Last Done Comments Depression Screening 1969 Cologuard 2002 Fecal Occult Blood Test 2002 Sigmoidoscopy 2002 Zoster Vaccines (1 of 2) 2007 DTap/Tdap Vaccines (1 - Tdap) 02/06/2010 02/06/2010 Colonoscopy 12/02/2016 12/03/2011, 12/03/2011 Colorectal Cancer Screening 12/02/2016 Adult Wellness Visit 2023 HbA1c 12/28/2023 06/29/2023, 12/29, 10/02/2013, Additional history exists COVID-19 Vaccine ( season) 2024 11/13/2021, 05/19/2021, 05/19/2021, Additional history exists Diabetic Eye Exam 06/01/2024 06/01/2023, , 09/21/2012, Additional history exists Albumin/Creatinine Ratio 06/29/2024 024, 01/16/2014, 10/27/2012, Additional history exists GFR 07/26/2024 07/26/2023, 06/01, 10/13/2020, Additional history exists Diabetic Foot Exam 01/08/2025 01/09/2024, 0 10/02/2013, 06/26/2012, Additional history exists Lipid Panel 06/29/2028 06/29/2023, 12/29, 10/02/2013, Additional history exists RETIRED - COLONOSCOPY-EVERY 5 YRS AGES 18-100 Discontinued 12/03/2011, 12/03/2011 Pneumococcal Vaccine: 50+ Years Completed 01/09/2024, 03/09/2010 Influenza Vaccine (FLU shot) Completed 06/08/2024, 04/16/2019, 03/06/2014, Additional history exists HPV (Gardasil) Vaccine Aged Out No lo nger eligible based on patient's age to complete this topic Hepatitis B Vaccine Aged Out No longe r eligible based on patient's age to complete this topic Hepatitis C Screening Discontinued MENINGOCOCCAL (MENACTRA/MENVEO) Aged Out No longer eligible based on patient's age to complete this topic Meningitis B Vaccine (Bexsero/Trumemba) Aged Out No longer eligible based on patient's age to complete this topic documented as of this encounter Medical Devices Not on filedocumented as of this encounter Visit Diagnoses Diagnosis Type 2 diabetes mellitus with hyperosmolarity without coma, with long-term current use of insulin (HCC) documented in this encounter Care Teams Venetian Blind Washer Relationship Specialty Start Date End Date Todd Newman DO [address] [place] [address] PCP - General Family Medicine 06/29/23 documented as of this encounter
--- OUTSIDE RECORDS SUMMARY | 2024-08-31 08:11 | External Medical Summary | Summary of Care ---
Author Name Unknown Organization [facility] Address [address] [place] [address] Phone [phone] Care Team Providers Care Track Supervisor Name Role Phone Zora Newman DO Primary Care Provider Reason for Visit * Reason Comments eRx-Medication Refill Encounter Details Date Type Department Care Team (Late st Contact Info) Description 08/24/2024 Refill Family Practice [facility] [address] [place] [address] Zora Newman DO [address] [place] [address] Type 2 diabetes mellitus with hyperosmolarity without coma, with long-term current use of insulin ([facility]) Allergies Active Allergy Reactions Criticality Noted Date [...] a day as directed 100 Strip 11 011 Active ONETOUCH ULTRASOFT LANCETS MISCIndications:DM type 2, goal A1c below 7 Use up to four times a day as directed 1 Box 11 013 Active Lutein 20 MG Oral Capsule Take 1 Capsule by mouth in the morning. Active Basaglar KwikPen 100 UNIT/ML Subcutaneous Solution Pen-injector 023 Active Mag Aspart-Potassium Aspart 90-90 MG Oral Capsule Take by mouth. Ac tive Calcium 250 MG Oral Capsule Take by mouth. Ac tive Chlorthalidone 25 MG Oral Tablet (Hygroton) Take 0.5 Tablets by mouth in the morning. 45 Tablet 3 024 Active Ciclopirox Olamine 0.77 % External Cream Apply topically to affected area 2 times a day. Apply to foot 90 g 5 024 Active Additional Information Patient not taking.Reported on 01/09/2024 Insulin Glargine Solostar 100 UNIT/ML Subcutaneous Solution Pen-injector (Basaglar KwikPen)Indication s:Type 2 diabetes mellitus with hemoglobin A1c goal of less than 8.0% (HCC) Inject 50 Units under the skin every night at bedtime. 45 mL 3 024 Active BD Pen Needle Pia U/F 32G X 4 MM (Insulin Pen Needle)Indications :Type 2 diabetes mellitus with hemoglobin A1c goal of less than 8.0% (HCC) Use daily as directed 100 Each 3 024 Active Sertraline HCl 100 MG Oral Tablet (Zoloft)Indication s:Adjustment disorder with depressed mood Take 1 tablet by mouth daily for 4 weeks then increase to 2 tablets by mouth daily. 180 Tablet 5 024 Active Insulin Aspart 100 UNIT/ML Subcutaneous Solution (NovoLOG) THREE TIMES DAILY WITH MEALS Active Vitamin D3 10 MCG (400 UNIT) Oral Capsule Take 1 Capsule by mouth at bedtime. Active Coenzyme Q10 100 MG Oral Capsule Take 1 Capsule by mouth in the morning. Active Zoster Vac Recomb Adjuvanted 50 MCG/0.5ML Intramuscular Suspension Reconstituted (Shingrix)Indicati ons:Need for shingles vaccine Inject 0.5 mL into a large muscle now and repeat dose in 60 to 180 days 1 Each 1 024 Active Additional Information Patient not taking.Reported on 06/08/2024 amLODIPine Besylate 5 MG Oral Tablet (Norvasc)Indicatio ns:HTN, goal below 140/90 Take 1 Tablet by mouth in the morning. 90 Tablet 3 024 Active Insulin Syringe-Needle U-100 30G X 1/2" 0.3 ML Use as directed three times a day with meals. Use as directed. 100 Each 11 024 Active BD Insulin Syringe Ultrafine 30G X 1/2" 0.5 ML (Insulin Syringe-Needle U-100)Indications: Type 2 diabetes mellitus with hemoglobin A1c goal of less than 8.0% (HCC) Use as directed three times a day with meals. Use as directed 270 Each 3 024 Active traMADol HCl 50 MG Oral Tablet (Ultram)Indication s:Generalized osteoarthritis Take 1 Tablet by mouth at bedtime as needed for Pain, Severe. 90 Tablet 024 Active Dexcom G6 TransmitterIndicat ions:Type 2 diabetes mellitus with hyperosmolarity without coma, with long-term current use of insulin (HCC) USE DIRECTED. 1 Each 1 024 2024 Discontinued Dexcom G6 TransmitterIndicat ions:Type 2 diabetes mellitus with hyperosmolarity without coma, with long-term current use of insulin (HCC) USE DIRECTED. 1 Each 025 2024 Discontinued(R jessica) documented as of this encounter (statuses as [...] multiple toe amputations for osteomyelitis. Has seen [facility] for wound care. NO narcotics [...] complication 05/06/2011 09/30/2011 Overview (09/30/2020): Patient sees [facility] for wound care. His pain [...] Pre serve, 2-Dose Series (Pfizer) 07/25/2020,07/11/2020 Pneumococcal Conjugate Vacci ne, 20-valent ([id number]) 01/09/2024 Pneumococcal Polysaccharide PPV23 (Pneumovax) 03/09/2010 SARS-COV-2 [...] 04/04/2024 Does the household have a re lar source of income? (Household - for ages [...] encounter Miscellaneous Notes * Telephone Encounter - Gracy Pantoja - 08/28/2024 6:02 PM EDT Received message from [facility] regarding patient needing an appointment and labs. Patient was notified. Successfully contacted patient and provided [facility] message. * Telephone Encounter - Dereck Jones RP - 08/25/2024 1:21 PM EDTSigned Prescriptions: Disp Refills Dexcom G6 Transmitter 1 Each 0 Sig: USE DIRECTED. Authorizing Provider: ZORA NEWMAN Ordering User: DERECK JONES * Telephone Encounter - Dereck Jones RP - 08/25/2024 1:20 PM EDT Provided 90 days supply with 0 refill. Per refill protocol patient should have routine labs on filewithin past year. Reviewed : AMP report Care Gaps/Health Maintenance medications list for any routine labs typically ordered for this patient. Lab orders placed. Please contact patient to schedule office visit with PRIMARY CARE and advise of labs ordered for blood draw AND URINE specimen (patient will have to be able to void to provide sample). Recommend patient to fast if able for labs. Patient may still have water and regular medications. Advise to obtainlabs before requesting the next refill. Labs 10/19-must complete prior or route back to rerorder Last Visit: 01/09/2024 (in office), 12/20/2023 (telemedicine) Next Visit: Visit date not found Dereck Nguyen, PharmD Clinical Pharmacist [facility] [phone] 08/25/2024 1:20 PM documented in this encounter Plan of Treatment [...] (HCC) documented in this encounter Care Teams Track Supervisor Relationship Specialty Start Date End Date Zora Newman DO [address] [place] [address] PCP - General Family Medicine 06/29/23 documented as of this encounter
[2024-08-31] MEDS: LANTUS PER UNIT CHARGE SC STA (09:18)
--- NOTE | 2024-08-31 09:47 | Urology Progress Note ---
<Statement entered by Jayson Hendrickson MD - 08/31/24 13:36> 69-year-old male admitted with urinary tract infection. Indwelling ureteral stent should be providing source control and appears to be in good position. No plan for stent exchange at this time. Urology will coordinate further outpatient follow-up and definitive management of his kidney stone. Agree with broad-spectrum antibiotics, narrowing coverage as culture data becomes available. Urology will sign off for now. Please call with any questions or concerns. Date of Service August 31, 2024 Assessment & Plan (1) UTI symptoms: (2) Renal colic on right side: (3) Calculus of proximal right ureter: Plan S/p right stent placement on 08/10/2024 Labs reviewed-WBCs 15.7, creatinine 1.24, hemoglobin 12.1 1 fever overnight which patient confirmed Currently hemodynamically stable Blood cultures pending Urine culture 08/28 E. coli ESBL Continue broad-spectrum antibiotics and trend towards culture data Other medical management and care per primary team No surgical intervention today Urology will arrange definitive stone treatment when patient is optimized will sign off please contact our service for any further questions and/or concerns Admission and Anticipated Discharge Date Admission Date: August 30, 2024 Subjective 69-year-old male who underwent a cystoscopy with right ureteral stent placement by Dr. Hendrickson on 08/10/2024. He continues to have his ureteral stent in place and he was scheduled to see urology to discuss definitive treatment of kidney stone that was noted at the time of stent placement. Patient resting comfortably in bed Admits to fevers, chills overnight, nausea and vomiting overnight Denies gross hematuria, dysuria, abdominal or flank pain Review of Systems Constitutional: as per Subjective / HPI Genitourinary: + as per Subjective / HPI Physical Exam Constitutional: no acute distress Chronically ill-appearing Respiratory: normal respiratory effort and able to speak in complete sentences Musculoskeletal: Extremities: + limited ROM of extremities Psychiatric: Orientation: alert and oriented x 3 Results & Data Vital Signs (Past 12 Hours) Vital Signs Temp Pulse Pulse Resp BP BP BP 08/31/24 07:32 37.4 C 75 18 114/64 08/31/24 07:00 82 08/31/24 04:21 82 156/72 H 08/31/24 04:06 91 H 162/71 H 08/31/24 03:22 38.1 C H 100 H 16 159/79 H 08/31/24 02:30 106 H 175/74 H 08/31/24 01:35 08/31/24 01:12 109 H 08/31/24 00:25 37.5 C 18 219/83 H 206/83 H 08/30/24 23:54 08/30/24 23:25 85 08/30/24 23:00 83 30 H 138/70 08/30/24 22:45 150/69 H 08/30/24 22:30 140/59 L 08/30/24 22:15 148/57 H 08/30/24 22:00 85 20 149/68 H 08/30/24 21:45 83 18 166/71 H Pulse Ox O2 Del Method 08/31/24 07:32 94 Room Air 08/31/24 07:00 08/31/24 04:21 08/31/24 04:06 08/31/24 03:22 95 Room Air 08/31/24 02:30 94 Room Air 08/31/24 01:35 Room Air 08/31/24 01:12 08/31/24 00:25 98 Room Air 08/30/24 23:54 Room Air 08/30/24 23:25 08/30/24 23:00 96 Room Air 08/30/24 22:45 08/30/24 22:30 08/30/24 22:15 08/30/24 22:00 08/30/24 21:45 95 Room Air PG Care Time/CCT Total # of Minutes Spent Total Time Spent with Patient: Total time spent is greater than 50% in coordination of care (as documented) at patient's floor/unit and/or counseling patient: Coding Level of Care Code 74746 SUB INP/OBS CARE MIN Diagnoses UTI symptoms R39.9 Renal colic on right side N23 Calculus of proximal right ureter N20.1
--- NOTE | 2024-08-31 10:02 | Electrocardiogram Report ---
Test Reason : Blood Pressure : */* mmHG Vent. Rate : 77 BPM Atrial Rate : 77 BPM P-R Int : 198 ms QRS Dur : 136 ms QT Int : 384 ms P-R-T Axes : 8 -38 32 degrees QTcB Int : 434 ms Normal sinus rhythm Left axis deviation Right bundle branch block Abnormal ECG When compared with ECG of 28-Dec-2023 20:02, Premature ventricular complexes no longer present Confirmed by Maco Caceres ([id number]) on 08/31/2024 10:02:00 AM Referred By: REFERRED SELF Confirmed By: Maco Caceres
--- NOTE | 2024-08-31 12:00 | Hospitalist Progress Note ---
Date of Service August 31, 2024 Assessment & Plan (1) UTI due to extended-spectrum beta lactamase (ESBL) producing Escherichia coli: Plan 69-year-old male with past medical history of type 2 diabetes, dyslipidemia, hypertension, insomnia, JEAN PIERRE presents to the hospital with fever for 2 days. Last admitted from 08/10/2024 to 08/14/2024; admitted for right-sided ureteric stone and ESBL UTI. He had undergone cystoscopy, right ureteral stent placement on 08/10/2024. He was treated with course of ertapenem for ESBL E. coli until 08/16/2024. Complicated UTI History of right-sided ureteral stone status post stent placement on 08/10/2024 Sepsis POA: 2/2 uti. RR/HR/WBC elevated at presentation. Pro-Lui elevated. Lactate WNL. Patient presents with fever, increased urinary urgency and frequency and right flank discomfort. Recent urine culture as outpatient on 08/28/2024 growing ESBL E. coli BUN/creatinine at baseline CT abdomen pelvis on admission shows interval decrease of right-sided hydronephrosis, 1 cm calculus in right renal pelvis and small 1 to 2 mm left renal calculi. Continue on ertapenem 1 g every 24 hours. Will follow-up on blood culture Pt reports improving PO intake, can dc ivf and monitor. Uro on board, appreciate eval/recs. ID consult, recurrent esbl uti. Mild hyponatremia -corrected sodium of 134 which is about is baseline, stable, f/u labs in AM. pt on sertraline and hctz, closely monitor Na level. Chronic issues; Type 2 diabetes mellituscontinue on glargine, NovoLog. Pharmacy on consult. Hypertensionresume home BP meds. Mood disordercontinue sertraline DVT prophylaxis hep sc. Full code Admission and Anticipated Discharge Date Admission Date: August 30, 2024 Subjective Patient was seen and examined at bedside. Patient was lying in bed, on room air, NAD, resting comfortably. Patient reports overall feeling better, Tmax of 38.1 C overnight, reports improvement in his right flank pain. Patient reports eating okay and moving bowels okay in the morning. Physical Exam Physical Exam: Constitutional: Appears tired/sick. Appropriately answering questions. Not in any distress. Respiratory: normal respiratory effort, lungs clear to auscultation, no wheeze, rales, rhonchi. Normal insp/exp effort, no accessory muscle use Cardiovascular: RRR, no murmur, no edema Vessels: no JVD or carotid bruit Chest: normal inspection of chest Abdomen: Right costovertebral angle tender- improving. Neurologic: PERRL, EOMI, accommodation nl, no face palsy, no dysarthria CN's II- XI intact bilaterally and moves all extremities Results & Data Results & Data Vital Signs (Past 12 Hours) Vital Signs Temp Pulse Pulse Resp BP BP BP 08/31/24 11:44 37.2 C 86 18 162/70 H 08/31/24 07:32 37.4 C 75 18 114/64 08/31/24 07:00 82 08/31/24 04:21 82 156/72 H 08/31/24 04:06 91 H 162/71 H 08/31/24 03:22 38.1 C H 100 H 16 159/79 H 08/31/24 02:30 106 H 175/74 H 08/31/24 01:35 08/31/24 01:12 109 H 08/31/24 00:25 37.5 C 18 219/83 H 206/83 H 08/30/24 23:54 Pulse Ox O2 Del Method 08/31/24 11:44 95 Room Air 08/31/24 07:32 94 Room Air 08/31/24 07:00 08/31/24 04:21 08/31/24 04:06 08/31/24 03:22 95 Room Air 08/31/24 02:30 94 Room Air 08/31/24 01:35 Room Air 08/31/24 01:12 08/31/24 00:25 98 Room Air 08/30/24 23:54 Room Air
[2024-08-31 13:11] LABS: Appearance Urine Cloudy (Clear); Bacteria Urine Automated None Seen (None Seen); Bilirubin Urine Negative (Negative); Blood Urine 3+ (Negative); Cast Urine Automated 0-2 /lpf (0-2); Color Urine Yellow; Epithelial Cell Urine Auto 0-2 /hpf (0-2); Glucose Urine UA Negative (Negative); Ketones Urine Negative (Negative); Leukocyte Esterase Urine 2+ (Negative); Nitrite Urine Positive (Negative); Protein Urine 2+ (Negative); RBC Urine Automated >20 /hpf (0-2); Specific Gravity Urine 1.016 (1.000-1.030); Urobilinogen Urine Negative (Negative); WBC Urine Automated >50 /hpf (0-5); pH Urine 5.5 (4.5-7.5)
--- NOTE | 2024-08-31 13:34 | Pharmacy Report ---
Pharmacy Glycemic Short Note 2 - Date of Service August 31, 2024 - Glycemic Short BSG Results (Last 24 hours): 08/30/24 08/31/24 08/31/24 19:05 01:06 03:48 Glucose 315 H* POC Glucose 274 H 245 H 08/31/24 08/31/24 08/31/24 07:18 07:47 12:01 Glucose 204 H POC Glucose 206 H 200 H OUTPATIENT ANTIDIABETIC REGIMEN: * Novolog SS (up to 40 units with meals) * Lantus 50 units SQ HS HbA1c: * 9% on 08/10/24 ASSESSMENT: * 69 y/o M admitted for UTI. Patient with history of Type 2 diabetes managed by basal and bolus insulins at home. Based on A1c last month, diabetes is uncontrolled. * BSGs elevated on admission yesterday. Patient was ordered 40 units of basal insulin yesterday but this was refused, so not given. * Basal 40 units re-ordered this morning and patient did receive this. * Fasting BSG was 204 mg/dl today. Novolog correction factor tightened since BSG still not at goal although trending down. * Continued with basal insulin 40 units at HS- this is a 20% reduction from his home dose. PLAN FOR INPATIENT GLYCEMIC CONTROL: * Basal insulin * Lantus 40 units SQ QAM * Bolus insulin * NovoLog per scale ACHS or Q6hrs while NPO * Goal Range: Low 110 mg/dL - High 140 mg/dL * Correction Factor: 10 mg/dL/unit * Nutritional / Prandial insulin per carb ratio of 1 unit per 5 grams CHO consumed
[2024-08-31] MEDS: HEPARIN SOD 5,000 UNIT/0.5 ML VIAL SQ SCH (14:38)
[2024-08-31] MEDS: ERTAPENEM 1000MG 1,000 MG/10 ML SYR IV SCH (17:58)
[2024-08-31] MEDS: amLODIPine BESYLATE 5 MG TAB PO SCH (21:19)
[2024-09-01 06:35] LABS: Hematocrit (blood only) 35.9 % (42.0-52.0); Hemoglobin 11.9 g/dl (14.0-18.0); Mean Corpuscular Hemoglobin 27.2 pg (25.0-34.0); Mean Corpuscular Hgb Conc 33.1 g/dL (32.0-36.0); Mean Platelet Volume 10.1 fL (9.4-12.4); Platelet Count 195 K/uL (130-400); RDW Coefficient of Variation 13.7 % (11.5-14.5); RDW Standard Deviation 40.9 fL (36.4-46.3); Red Blood Count 4.38 M/uL (4.70-6.10); White Blood Count 10.58 K/ul (4.8-10.8)
[2024-09-01 06:46] LABS: BUN Creatinine Ratio 21.5 (10-20); Calcium 8.7 mg/dl (8.6-10.3); Creatinine Clr Calc Pharmacy 100.7 ml/min; Magnesium 1.9 mg/dl (1.7-2.4); Phosphorus 2.6 mg/dl (2.5-4.9); Potassium 3.9 mmol/L (3.5-5.1)
[2024-09-01] MEDS: hydroCHLOROthiazide 25 MG TAB PO SCH (09:18)
[2024-09-01] MEDS: LANTUS PER UNIT CHARGE SC SCH (09:20)
--- NOTE | 2024-09-01 15:43 | Hospitalist Progress Note ---
Date of Service September 01, 2024 Assessment & Plan (1) UTI due to extended-spectrum beta lactamase (ESBL) producing Escherichia coli: Plan 69-year-old male with past medical history of type 2 diabetes, dyslipidemia, hypertension, insomnia, JEAN PIERRE presents to the hospital with fever for 2 days. Last admitted from 08/10/2024 to 08/14/2024; admitted for right-sided ureteric stone and ESBL UTI. He had undergone cystoscopy, right ureteral stent placement on 08/10/2024. He was treated with course of ertapenem for ESBL E. coli until 08/16/2024. Complicated UTI History of right-sided ureteral stone status post stent placement on 08/10/2024 Sepsis POA: 2/2 uti. RR/HR/WBC elevated at presentation. Pro-Lui elevated. Lactate WNL. Patient presents with fever, increased urinary urgency and frequency and right flank discomfort. Recent urine culture as outpatient on 08/28/2024 growing ESBL E. coli BUN/creatinine at baseline CT abdomen pelvis on admission shows interval decrease of right-sided hydronephrosis, 1 cm calculus in right renal pelvis and small 1 to 2 mm left renal calculi. Continue on ertapenem 1 g every 24 hours. Will follow-up on blood culture Nausea today, and poor appetite. Uro on board, appreciate eval/recs. f/u uro on dc. ID consult, recurrent esbl uti. await recs. Mild hyponatremia -corrected sodium of 134 which is about is baseline, stable, f/u labs in AM. pt on sertraline and hctz, closely monitor Na level. Abnormal CTAP: Hepatic steatosis, Left adrenal adenoma (2.4cm, benign appearing), RLL nodule (9mm). Pt made aware of these 08/31, advised wt loss and close f/u w/ pcp for monitoring. Also made aware for repeat CT chest in 3-6 months for RLL nodule. Chronic issues; Type 2 diabetes mellituscontinue on glargine, NovoLog. Pharmacy on consult. Hypertensionresume home BP meds. Mood disordercontinue sertraline DVT prophylaxis hep sc. Full code Admission and Anticipated Discharge Date Admission Date: August 30, 2024 Subjective Patient was seen and examined at bedside. Patient was lying in bed, on room air, NAD, resting comfortably. Patient reports overall feeling better, no flank pain, still nauseous, no fever Patient reports poor appetite, but moving bowel ok Physical Exam Physical Exam: Constitutional: Appears tired/sick. Appropriately answering questions. Not in any distress. Respiratory: normal respiratory effort, lungs clear to auscultation, no wheeze, rales, rhonchi. Normal insp/exp effort, no accessory muscle use Cardiovascular: RRR, no murmur, no edema Vessels: no JVD or carotid bruit Chest: normal inspection of chest Abdomen: Right costovertebral angle tender- none. Neurologic: PERRL, EOMI, accommodation nl, no face palsy, no dysarthria CN's II- XI intact bilaterally and moves all extremities Results & Data Results & Data Vital Signs (Past 12 Hours) Vital Signs Temp Pulse Pulse Resp BP BP Pulse Ox 09/01/24 13:32 09/01/24 11:43 37 C 80 16 133/66 94 09/01/24 07:47 80 09/01/24 07:36 37.3 C 81 18 102/60 94 09/01/24 03:54 36.9 C 69 18 116/61 96 O2 Del Method 09/01/24 13:32 Room Air 09/01/24 11:43 Room Air 09/01/24 07:47 09/01/24 07:36 Room Air 09/01/24 03:54 Room Air
[2024-09-02 06:19] LABS: Hemoglobin 12.6 g/dl (14.0-18.0); Mean Corpuscular Hemoglobin 27.2 pg (25.0-34.0); Mean Corpuscular Hgb Conc 33.2 g/dL (32.0-36.0); Mean Corpuscular Volume 81.9 fL (80.0-100.0); Platelet Count 192 K/uL (130-400); RDW Coefficient of Variation 13.6 % (11.5-14.5); RDW Standard Deviation 40.4 fL (36.4-46.3); Red Blood Count 4.64 M/uL (4.70-6.10)
[2024-09-02 06:28] LABS: BUN Creatinine Ratio 25.5 (10-20); Calcium 8.8 mg/dl (8.6-10.3); Creatinine Clr Calc Pharmacy 92.9 ml/min; Magnesium 2.1 mg/dl (1.7-2.4); Phosphorus 4.2 mg/dl (2.5-4.9); Potassium 3.8 mmol/L (3.5-5.1)
[2024-09-02] MEDS: ADVANCED PROBIOTIC 625 MG CAPSULE PO SCH (09:12)
--- NOTE | 2024-09-02 13:17 | Hospitalist Progress Note ---
Date of Service September 02, 2024 Assessment & Plan (1) UTI due to extended-spectrum beta lactamase (ESBL) producing Escherichia coli: Plan 69-year-old male with past medical history of type 2 diabetes, dyslipidemia, hypertension, insomnia, JEAN PIERRE presents to the hospital with fever for 2 days. Last admitted from 08/10/2024 to 08/14/2024; admitted for right-sided ureteric stone and ESBL UTI. He had undergone cystoscopy, right ureteral stent placement on 08/10/2024. He was treated with course of ertapenem for ESBL E. coli until 08/16/2024. Complicated UTI History of right-sided ureteral stone status post stent placement on 08/10/2024 Sepsis POA: 2/2 uti. RR/HR/WBC elevated at presentation. Pro-Lui elevated. Lactate WNL. Patient presents with fever, increased urinary urgency and frequency and right flank discomfort. Recent urine culture as outpatient on 08/28/2024 growing ESBL E. coli BUN/creatinine at baseline CT abdomen pelvis on admission shows interval decrease of right-sided hydronephrosis, 1 cm calculus in right renal pelvis and small 1 to 2 mm left renal calculi. Continue on ertapenem 1 g every 24 hours. Will follow-up on blood culture Nausea improving, and improving appetite. Uro on board, appreciate eval/recs. f/u uro on dc. ID consult, recurrent esbl uti. await recs. Mild hyponatremia -corrected sodium of 134 which is about his baseline, stable. pt on sertraline and hctz, closely monitor Na level. Abnormal CTAP: Hepatic steatosis, Left adrenal adenoma (2.4cm, benign appearing), RLL nodule (9mm). Pt made aware of these /, advised wt loss and close f/u w/ pcp for monitoring. Also made aware for repeat CT chest in 3-6 months for RLL nodule. Chronic issues; Type 2 diabetes mellituscontinue on glargine, NovoLog. Pharmacy on consult. Hypertensionresume home BP meds. Mood disordercontinue sertraline DVT prophylaxis hep sc. Full code Admission and Anticipated Discharge Date Admission Date: August 30, 2024 Subjective Patient was seen and examined at bedside. Patient was lying in bed, on room air, NAD, resting comfortably. Patient reports overall feeling better, no flank pain, nausea improving, no fever Patient reports improving appetite, moving bowel ok Physical Exam Physical Exam: Constitutional: on RA, NAD, AOx3. Respiratory: normal respiratory effort, lungs clear to auscultation, no wheeze, rales, rhonchi. Normal insp/exp effort, no accessory muscle use Cardiovascular: RRR, no murmur, no edema Vessels: no JVD or carotid bruit Chest: normal inspection of chest Abdomen: Right costovertebral angle tender- none. Neurologic: PERRL, EOMI, accommodation nl, no face palsy, no dysarthria CN's II- XI intact bilaterally and moves all extremities Results & Data Results & Data Vital Signs (Past 12 Hours) Vital Signs Temp Pulse Pulse Resp BP Pulse Ox O2 Del Method 09/02/24 11:35 36.7 C 68 16 142/76 H 93 Room Air 09/02/24 08:04 36.9 C 69 16 123/66 95 Room Air 09/02/24 07:00 69 09/02/24 02:33 36.5 C 67 16 121/74 96 Room Air
[2024-09-02] MEDS: LANTUS PER UNIT CHARGE SC SCH (13:30)
[2024-09-02] MEDS: ACETAMINOPHEN 325 MG TAB PO PRN (19:53)
[2024-09-03] MEDS: ALUMINUM/MAGNESIUM SUSP 30 ML UDC PO PRN (04:15)
[2024-09-03] MEDS: HYDROCODONE/ACETAMOPHEN 5/325MG TAB PO PRN (05:03)
[2024-09-03 10:13] LABS: Hematocrit (blood only) 38.9 % (42.0-52.0); Mean Corpuscular Hemoglobin 27.2 pg (25.0-34.0); Mean Corpuscular Hgb Conc 33.4 g/dL (32.0-36.0); Mean Corpuscular Volume 81.4 fL (80.0-100.0); Mean Platelet Volume 9.9 fL (9.4-12.4); Platelet Count 199 K/uL (130-400); RDW Coefficient of Variation 13.4 % (11.5-14.5); RDW Standard Deviation 39.7 fL (36.4-46.3); Red Blood Count 4.78 M/uL (4.70-6.10); White Blood Count 8.66 K/ul (4.8-10.8)
--- NOTE | 2024-09-03 12:52 | Pharmacy Report ---
Pharmacy Glycemic Short Note 2 - Date of Service September 03, 2024 - Glycemic Short BSG Results (Last 24 hours): 09/02/24 09/02/24 09/03/24 17:21 20:28 07:43 POC Glucose 245 H 121 H 133 H 09/03/24 12:19 POC Glucose 155 H OUTPATIENT ANTIDIABETIC REGIMEN: * Novolog SS (up to 40 units with meals) * Lantus 50 units SQ HS HbA1c: * 9% on 08/10/24 ASSESSMENT: 09/03/24: * Blood sugars have been reasonably well-controlled over past 48 hours w/ intermittent hyperglycemia * Fasting blood sugar improving each day, will plan to continue current basal insulin (transitioning back to HS) * No changes to glycemic regimen anticipated for today 08/31/24: * 69 y/o M admitted for UTI. Patient with history of Type 2 diabetes managed by basal and bolus insulins at home. Based on A1c last month, diabetes is uncontrolled. * BSGs elevated on admission yesterday. Patient was ordered 40 units of basal insulin yesterday but this was refused, so not given. * Basal 40 units re-ordered this morning and patient did receive this. * Fasting BSG was 204 mg/dl today. Novolog correction factor tightened since BSG still not at goal although trending down. * Continued with basal insulin 40 units at HS- this is a 20% reduction from his home dose. PLAN FOR INPATIENT GLYCEMIC CONTROL: * Basal insulin * Lantus 40 units SQ w/ dinner, then change to HS starting 09/04/24 to correlate w/ outpatient regimen * Bolus insulin * NovoLog per scale ACHS or Q6hrs while NPO * Goal Range: Low 110 mg/dL - High 140 mg/dL * Correction Factor: 10 mg/dL/unit * Nutritional / Prandial insulin per carb ratio of 1 unit per 5 grams CHO consumed
--- NOTE | 2024-09-03 13:41 | XRay Report ---
KUB HISTORY: lower abd pain, recurrent COMPARISON STUDY: 03/11/[address] of 08/30/2024 FINDINGS: Stable right ureteral stent. Stable low pelvic calcifications. There is moderate retained s tool. No bowel obstruction seen. No gross free air. IMPRESSION: No acute findings. ACT 112: Negative or not required by law. The above report was generated using voice recognition software. It may contain grammatical, syntax o r spelling errors. Electronically signed by: Kishore Lopez M.D. 09/03/2024 1:39 PM
[2024-09-03] MEDS: POLYETHYLENE (MIRALAX) 17 GM PACK PO PRN (14:08)
[2024-09-03] MEDS: bisacodyL 10 MG SUPP PR STA (14:47)
--- NOTE | 2024-09-03 14:49 | Hospitalist Progress Note ---
Date of Service September 03, 2024 Assessment & Plan (1) UTI due to extended-spectrum beta lactamase (ESBL) producing Escherichia coli: Plan 69-year-old male with past medical history of type 2 diabetes, dyslipidemia, hypertension, insomnia, JEAN PIERRE presents to the hospital with fever for 2 days. Last admitted from 08/10/2024 to 08/14/2024; admitted for right-sided ureteric stone and ESBL UTI. He had undergone cystoscopy, right ureteral stent placement on 08/10/2024. He was treated with course of ertapenem for ESBL E. coli until 08/16/2024. Complicated UTI History of right-sided ureteral stone status post stent placement on 08/10/2024 Sepsis POA: 2/2 uti. RR/HR/WBC elevated at presentation. Pro-Lui elevated. Lactate WNL. Patient presents with fever, increased urinary urgency and frequency and right flank discomfort. Recent urine culture as outpatient on 08/28/2024 growing ESBL E. coli BUN/creatinine at baseline CT abdomen pelvis on admission shows interval decrease of right-sided hydronephrosis, 1 cm calculus in right renal pelvis and small 1 to 2 mm left renal calculi. Continue on ertapenem 1 g every 24 hours. Will follow-up on blood culture - NG 48H Nausea improving, and improving appetite. bowel regimen for difficulty moving bowel Uro evaled, appreciate eval/recs. f/u uro on dc. ID consult, recurrent esbl uti. await recs. Mild hyponatremia -corrected sodium of 134 which is about his baseline, stable. pt on sertraline and hctz, closely monitor Na level. Abnormal CTAP: Hepatic steatosis, Left adrenal adenoma (2.4cm, benign appearing), RLL nodule (9mm). Pt made aware of these 08/31, advised wt loss and close f/u w/ pcp for monitoring. Also made aware for repeat CT chest in 3-6 months for RLL nodule. Chronic issues; Type 2 diabetes mellituscontinue on glargine, NovoLog. Pharmacy on consult. Hypertensionresume home BP meds. Mood disordercontinue sertraline DVT prophylaxis hep sc. Full code Admission and Anticipated Discharge Date Admission Date: August 30, 2024 Subjective Patient was seen and examined at bedside. Patient was lying in bed, on room air, NAD, resting comfortably. Patient reports overall feeling better, reports mild right belly pain overnight w/ nausea while trying to move bowel, will add bowel regimen. XR KUB w/ no acute findings. Patient reports improving appetite though. Physical Exam Physical Exam: Constitutional: on RA, NAD, AOx3. Respiratory: normal respiratory effort, lungs clear to auscultation, no wheeze, rales, rhonchi. Normal insp/exp effort, no accessory muscle use Cardiovascular: RRR, no murmur, no edema Vessels: no JVD or carotid bruit Chest: normal inspection of chest Abdomen: Right costovertebral angle tender- none. Neurologic: PERRL, EOMI, accommodation nl, no face palsy, no dysarthria CN's II- XI intact bilaterally and moves all extremities Results & Data Results & Data Vital Signs (Past 12 Hours) Vital Signs Temp Pulse Resp BP Pulse Ox O2 Del Method 09/03/24 11:14 36.8 C 71 20 126/74 95 Room Air 09/03/24 07:59 36.7 C 71 20 138/71 93 Room Air
--- NOTE | 2024-09-03 15:04 | Infectious Disease Consult ---
Date of Service September 03, 2024 Telehealth Information I performed this visit using a real-time telehealth connection between my location and the patients location ([facility]). After connecting through interactive tele-video, patient was identified by name and date of and/or wristband check.Patient (or authorized healthcare construction representative) was informed that this was a telemedicine visit and it was being conducted confidentially over secure lines. My office door was closed and no one else was present in the room with me.Patient (or authorized healthcare construction representative) provided consent to proceed with the visit, expressed an understanding of privacy and security of the telemedicine visit, and gave permission to have a hospital construction representative in the room in order to assist with the visit and to conduct portions of the visit, as needed. I informed the patient (or authorized healthcare construction representative) that I reviewed their record and presented the opportunity for them to ask any questions regarding the visit today. The patient agreed to participate. Assessment & Plan (1) UTI due to extended-spectrum beta lactamase (ESBL) producing Escherichia coli: Plan: The infection has been recurrent from July in setting of stent placement and nephrolithiasis. Prior to this, he had ESBL E coli grow in March, November and August of last year as well. His follow-up with Urology will be later this month and hopefully he will get the stent removed in the next few weeks. I favor treating him for a prolonged course of therapy with the hopes of eradicating any fixed nidus of infection as well as treating him while he undergoes future stent removal. I would suggest a 6 week course of ertapenem 1g IV qd with PICC line placement (this would put his end date of therapy at 10/11/24). While on ertapenem, he should have weekly CBC and BMP. He should follow-up in the ID clinic in the next 4 weeks if possible. History of Present Illness History of Present Illness Mr. Barry is seen today for recurrent ESBL E coli UTI. He has a h/o obstructive uropathy and prior prostatectomy as well as recurrent ESBL E coli UTIs. He was admitted to [facility] 08/10-08/14 with a complicated UTI due to ESBL E coli. He had a right sided ureteral stone and underwent stent placement. He was given 7 days of ertapenem and felt back to normal. About 2 days prior to this admission he had new onset fevers and malaise. Upon admission back to [facility] on 08/30/24 he was noted to be febrile with a WBC of 15.33. CT imaging showed the stent to be in good position. He was placed on ertapenem and urine cultures have already turned positive for ESBL E coli again. He was feeling better but now feels like he may be coming down with a "virus." His throat is mildly sore and he has some mild body aches. He notes his had similar symptoms recently. No N/V or diarrhea. Allergies Allergy/AdvReac Type Severity Reaction Status Date / Time amoxicillin [From Augmentin] Allergy Severe Facial Verified 08/15/24 12:56 swelling, diffuse rash clavulanic acid Allergy Severe Facial Verified 08/15/24 12:56 [From Augmentin] swelling, diffuse rash methotrexate Allergy Intermediate Depression Verified 08/15/24 12:56 doxycycline AdvReac Intermediate Nausea/vomi Verified 08/15/24 12:56 ting oxycodone [From Percocet] AdvReac Intermediate Nausea Verified 08/15/24 12:56 vancomycin AdvReac Unknown Unknown Verified 08/15/24 12:56 Home Medications Medication Instructions Recorded Confirmed Type cholecalciferol (vitamin D3) 10 400 units PO HS 02/09/19 08/30/24 History mcg (400 unit) capsule lutein 6 mg tablet 6 mg PO HS 02/09/19 08/30/24 History blood-glucose meter (Accu-Chek 10/14/20 08/15/24 History Suzan Plus Meter) Dexcom G6 Wad Lubricator #1 ea 03/09/21 08/15/24 Rx (blood-glucose,soccer commentator,cont) BD Insulin Syringe Ultra-Fine 1 mL #300 ea 07/16/22 08/15/24 Rx 31 gauge x 5/16" (insulin syringe-needle U-100) insulin glargine 100 unit/mL (3 50 unit (0.5 mL) subcut HS #45 mL 08/24/22 08/30/24 Rx mL) subcutaneous pen (Basaglar KwikPen U-100 Insulin) pen needle, diabetic 32 gauge x #100 ea 09/22/22 08/15/24 Rx 5/32" (BD Ultra-Fine Pia Pen Needle) blood sugar diagnostic (OneTouch #100 ea 10/04/22 08/15/24 Rx Verio test strips) blood-glucose meter (OneTouch #1 ea 10/04/22 08/15/24 Rx Verio Reflect Meter) lancets 33 gauge (OneTouch Delica #100 ea 10/04/22 08/15/24 Rx Lancets) Dexcom G6 Transmitter #1 ea 06/08/23 08/15/24 Rx (blood-glucose transmitter) amlodipine 5 mg tablet 5 mg PO HS #30 tabs 06/08/23 08/30/24 Rx Dexcom G6 Sensor (blood-glucose #9 ea 08/05/23 08/15/24 Rx sensor) hydrochlorothiazide 25 mg tablet 25 mg PO QAM 10/04/23 08/30/24 History insulin aspart U-100 100 unit/mL 1 sliding scale dose subcut TIDM 10/04/23 08/30/24 History subcutaneous solution (Novolog U-100 Insulin aspart) ondansetron 4 mg disintegrating 4 mg PO UD PRN nausea and vomiting 10/04/23 08/30/24 History tablet sertraline 100 mg tablet 200 mg PO HS 12/28/23 08/30/24 History Marijuana 0 inh inhalation [id number] PRN Anxiety 08/10/24 08/30/24 History guaifenesin 1,200 mg tablet, 1,200 mg PO BID PRN Congestion 08/30/24 08/30/24 History extended release 12 hr (Mucinex) Patient History Medical History Sleep apnea per medical record, pt denies, states sleep study was inconclusive. Hx of basal cell carcinoma History of bladder stone History of prostate cancer dx 2013 - surgical intervention Hx of shortness of breath no recent issues, "few years ago when he was getting back on his feet after his leg amputation" Nocturnal hypoxemia hx, has seen "sleep" dr in the past, test inconclusive Hx of colonic polyps Adenoma of left adrenal gland CT scan Lung- 07/06/2022 Diabetes mellitus, type 2 Morbid obesity Autoimmune disease Possible, no official diagnosis History of COVID-2022- Asymptomatic Anxiety History of depression History of kidney stones Hypertension Pulmonary nodules Under surveillance Rheumatoid arthritis with negative rheumatoid factor Per records, patient unsure Diabetic peripheral neuropathy associated with type 2 diabetes mellitus Surgical History H/O right cataract extraction S/P urological surgery 09/2023, cytolithopaxy History of Mohs micrographic surgery for skin cancer Behind right ear History of prostatectomy (~2022) History of colonoscopy most recent 2021 History of facial surgery kita removed Status post tonsillectomy Hx of removal of cyst Head region Hx of mastoidectomy Status post below knee amputation of right lower extremity Amputated toe "All toes" left foot Hx Right toe amputations (prior to BKA) Family History Mother Colorectal cancer Father Prostate cancer Brother Lung cancer Other Family history of diabetes mellitus in father Denies family history of Ovarian cancer Breast cancer Social History Smoking Status: Never smoker Second Hand Exposure: No; Do You Dip or Chew Tobacco: No; Hx Alcohol Use: No Hx Substance Use: Yes Last Used Substance: Days (ago) Last Used Substance Other:: about 1 week ago Substance Use Type Other:: medical marijuana card Preferred Language: Khmer Communication Ability: Effective Visual Impairment: No Limitations Hearing Ability: Normal Shorer Required: No Beliefs That Will Affect Care: None marital status: Current Living Situation: Spouse and Family Current Living Situation Comment: , mother in law and daughter current occupational status: retired and disabled Other Information That Helps Us Care for You: No Feels Safe at Home: Yes Safety Concerns: Feels Safe At This Time caffeine: No Dental Care, Regularly: Yes Physical Activity Frequency: Does not Exercise Seatbelt Use: always Sunscreen Use: Yes Assistive Devices: None Assistive Devices Comment: RLE Review of Systems Gen +General malaise, no fevers HEENT No CARBAJAL, + mild sore throat Resp No cough or SOB CV No chest pain GI No N/V or diarrhea No dysuria Ext No edema MSK + prior right BKA Derm No rash Physical Exam Gen NAD, sitting up on side of bed HEENT NC AT Resp Normal respirations on RA Ext S/P right sided BKA Derm No rash Neuro Alert and oriented Results & Data Vital Signs (Past 12 Hours) Vital Signs Temp Pulse Resp BP Pulse Ox O2 Del Method 09/03/24 11:14 36.8 C 71 20 126/74 95 Room Air 09/03/24 07:59 36.7 C 71 20 138/71 93 Room Air Laboratory Results WBC 15.33 -> 15.7 -> 8.2 Hgb 12.6 Platelets 192 Creatinine 1.1 BUN 28 UA >50 WBC, >[address] abdomen/pelvis from 08/30/24 reviewed by me: Fatty infiltration of liver, hepatosplenomegaly, right ureteral stent in position with decreased hydronephrosis Urine culture from 08/28/24 with >100k ESBL E coli
[2024-09-03 17:04] LABS: Adenovirus PCR Not Detected (NotDetected); Bordetella parapertussis PCR Not Detected (NotDetected); Bordetella pertussis PCR Not Detected (NotDetected); Chlamydia pneumoniae PCR Not Detected (NotDetected); Coronavirus 229E PCR Not Detected (NotDetected); Coronavirus CoV-2 (COVID19)PCR Not Detected (NotDetected); Coronavirus HKU1 PCR Not Detected (NotDetected); Coronavirus NL63 PCR Not Detected (NotDetected); Coronavirus OC43PCR Not Detected (NotDetected); Human Metapneumovirus PCR Not Detected (NotDetected); Influenza A PCR Not Detected (NotDetected); Influenza B PCR Not Detected (NotDetected); Mycoplasma pneumoniae PCR Not Detected (NotDetected); Parainfluenza Virus 1 PCR Not Detected (NotDetected); Parainfluenza Virus 2 PCR Not Detected (NotDetected); Parainfluenza Virus 3 PCR Not Detected (NotDetected); Parainfluenza Virus 4 PCR Not Detected (NotDetected); Respiratory Syncytial VirusPCR Not Detected (NotDetected); Rhinovirus/Enterovirus PCR Not Detected (NotDetected)
[2024-09-03] MEDS: DOCUSATE SODIUM 100 MG CAP PO SCH (20:41)
[2024-09-04 03:11] LABS: Appearance Urine Clear (Clear); Bacteria Urine Automated None Seen (None Seen); Bilirubin Urine Negative (Negative); Blood Urine 3+ (Negative); Cast Urine Automated 0-2 /lpf (0-2); Color Urine Yellow; Epithelial Cell Urine Auto 0-2 /hpf (0-2); Glucose Urine UA Negative (Negative); Ketones Urine Negative (Negative); Leukocyte Esterase Urine 1+ (Negative); Nitrite Urine Negative (Negative); Protein Urine 1+ (Negative); RBC Urine Automated >20 /hpf (0-2); Specific Gravity Urine 1.013 (1.000-1.030); Urobilinogen Urine Negative (Negative); pH Urine 5.5 (4.5-7.5)
[2024-09-04 06:41] LABS: Hematocrit (blood only) 39.7 % (42.0-52.0); Hemoglobin 13.3 g/dl (14.0-18.0); Mean Corpuscular Hgb Conc 33.5 g/dL (32.0-36.0); Mean Corpuscular Volume 80.7 fL (80.0-100.0); Mean Platelet Volume 9.6 fL (9.4-12.4); Platelet Count 227 K/uL (130-400); RDW Coefficient of Variation 13.6 % (11.5-14.5); RDW Standard Deviation 39.9 fL (36.4-46.3); Red Blood Count 4.92 M/uL (4.70-6.10); White Blood Count 8.69 K/ul (4.8-10.8)
[2024-09-04 08:03] LABS: BUN Creatinine Ratio 17.1 (10-20); Calcium 8.8 mg/dl (8.6-10.3); Creatinine Clr Calc Pharmacy 44.8 ml/min; Magnesium 2.1 mg/dl (1.7-2.4)
[2024-09-04] MEDS: LACTULOSE SYRUP 20 GM/30 ML UDC PO ONE (15:01)
--- NOTE | 2024-09-04 15:34 | Hospitalist Progress Note ---
Date of Service September 04, 2024 Assessment & Plan (1) UTI due to extended-spectrum beta lactamase (ESBL) producing Escherichia coli: Plan 69-year-old male with past medical history of type 2 diabetes, dyslipidemia, hypertension, insomnia, JEAN PIERRE presents to the hospital with fever for 2 days. Last admitted from 08/10/2024 to 08/14/2024; admitted for right-sided ureteric stone and ESBL UTI. He had undergone cystoscopy, right ureteral stent placement on 08/10/2024. He was treated with course of ertapenem for ESBL E. coli until 08/16/2024. Complicated UTI History of right-sided ureteral stone status post stent placement on 08/10/2024 Sepsis POA: 2/2 uti. RR/HR/WBC elevated at presentation. Pro-Lui elevated. Lactate WNL. Patient presents with fever, increased urinary urgency and frequency and right flank discomfort. Recent urine culture as outpatient on 08/28/2024 growing ESBL E. coli BUN/creatinine at baseline CT abdomen pelvis on admission shows interval decrease of right-sided hydronephrosis, 1 cm calculus in right renal pelvis and small 1 to 2 mm left renal calculi. Continue on ertapenem 1 g every 24 hours. Will follow-up on blood culture - NG 48H Nausea improving, and improving appetite. bowel regimen for difficulty moving bowel Uro evaled, appreciate eval/recs. f/u uro on dc. ID Evaluated, 6 weeks of ertapenem therapy. Follow-up ID in 4 weeks. Weekly CBC, BMP, CRP while on antibiotic. PICC line consent obtained, order placed, prescription signed. Mild hyponatremia -corrected sodium of 134 which is about his baseline, stable. pt on sertraline and hctz, closely monitor Na level. Acute kidney injury: Baseline creatinine of 1, creatinine elevated to 2.28 today. Hold hydrochlorothiazide, start IV fluid, labs in AM. If worsening, consider nephrology consult. Abnormal CTAP: Hepatic steatosis, Left adrenal adenoma (2.4cm, benign appearing), RLL nodule (9mm). Pt made aware of these /, advised wt loss and close f/u w/ pcp for monitoring. Also made aware for repeat CT chest in 3-6 months for RLL nodule. Chronic issues; Type 2 diabetes mellituscontinue on glargine, NovoLog. Pharmacy on consult. Hypertensionresume home BP meds. Mood disordercontinue sertraline DVT prophylaxis hep sc. Full code Admission and Anticipated Discharge Date Admission Date: August 30, 2024 Subjective Patient was seen and examined at bedside. Patient was lying in bed, on room air, NAD, resting comfortably. Patient reports small bowel movement last evening, still feels constipated, will give one-time dose of lactulose, continue with bowel regimen. A.m. labs not available during morning chart review, noted his creatinine elevated at 2.28 later in the day, will hold hydrochlorothiazide and start him on gentle IV fluid. Labs in AM. Physical Exam Physical Exam: Constitutional: on RA, NAD, AOx3. Respiratory: normal respiratory effort, lungs clear to auscultation, no wheeze, rales, rhonchi. Normal insp/exp effort, no accessory muscle use Cardiovascular: RRR, no murmur, no edema Vessels: no JVD or carotid bruit Chest: normal inspection of chest Abdomen: Right costovertebral angle tender- none. Neurologic: PERRL, EOMI, accommodation nl, no face palsy, no dysarthria CN's II- XI intact bilaterally and moves all extremities Results & Data Results & Data Vital Signs (Past 12 Hours) Vital Signs Temp Pulse Resp BP Pulse Ox O2 Del Method 09/04/24 07:48 36.6 C 69 20 121/70 95 Room Air
[2024-09-04] MEDS: SODIUM CHLORIDE 0.9% 1,000 ML IV SCH (15:55)
[2024-09-04] MEDS: LANTUS PER UNIT CHARGE SC SCH (21:13)
[2024-09-05 07:53] LABS: Hematocrit (blood only) 40.7 % (42.0-52.0); Hemoglobin 13.4 g/dl (14.0-18.0); Mean Corpuscular Hemoglobin 26.7 pg (25.0-34.0); Mean Corpuscular Hgb Conc 32.9 g/dL (32.0-36.0); Mean Corpuscular Volume 81.2 fL (80.0-100.0); Mean Platelet Volume 9.6 fL (9.4-12.4); Platelet Count 224 K/uL (130-400); RDW Coefficient of Variation 13.8 % (11.5-14.5); RDW Standard Deviation 40.1 fL (36.4-46.3); Red Blood Count 5.01 M/uL (4.70-6.10); White Blood Count 10.01 K/ul (4.8-10.8)
[2024-09-05 08:30] LABS: BUN Creatinine Ratio 17.9 (10-20); Creatinine Clr Calc Pharmacy 44.6 ml/min; Potassium 4.6 mmol/L (3.5-5.1)
--- NOTE | 2024-09-05 09:23 | Hospitalist Progress Note ---
Date of Service September 05, 2024 Assessment & Plan (1) UTI due to extended-spectrum beta lactamase (ESBL) producing Escherichia coli: Plan 69-year-old male with past medical history of type 2 diabetes, dyslipidemia, hypertension, insomnia, JEAN PIERRE presents to the hospital with fever for 2 days. Last admitted from 08/10/2024 to 08/14/2024 for right-sided ureteric stone and ESBL UTI. He had undergone cystoscopy, right ureteral stent placement on 08/10/2024. He was treated with course of ertapenem for ESBL E. coli until 08/16/2024. Complicated UTI History of right-sided ureteral stone status post stent placement on 08/10/2024 Sepsis POA: due to UTI RR/HR/WBC elevated at presentation. Pro-Lui elevated. Lactate WNL. Patient presented this time with fever, increased urinary urgency and frequency and right flank discomfort. Recent urine culture as outpatient on 08/28/[address] abdomen pelvis on admission shows interval decrease of right-sided hydronephrosis, 1 cm calculus in right renal pelvis and small 1 to 2 mm left renal calculi. Currently on ertapenem 1 g every 24 hours. Uro evaluation and recs noted ID recommended 6 weeks of ertapenem therapy till 10/11/24. Follow-up ID in 4 weeks. Weekly CBC, BMP, CRP while on antibiotic. Acute kidney injury: Baseline creatinine of 1 Cr increased to 2.28 yesterday. Still 2.29 today Continue to hold hydrochlorothiazide Continue IVF Get CT abd/pelvis to reassess for obstructive uropathy in view of above Nephro consult Abnormal CTAP: Hepatic steatosis, Left adrenal adenoma (2.4cm, benign appearing), RLL nodule (9mm). F/u w/ pcp for monitoring. Repeat CT chest in 3-6 months for RLL nodule. Chronic issues; Type 2 diabetes mellituscontinue on glargine, NovoLog. Glycemic pharm on board HypertensionContinue amlodipine Mood disordercontinue sertraline DVT prophylaxis hep sc. Full code I spent a total of 50 minutes coordinating, documenting and providing care for this patient excluding time spent in performance of separately billed services Admission and Anticipated Discharge Date Admission Date: August 30, 2024 Subjective Patient seen and examined Reports mild low abdominal discomfort and feeling constipated Denied other complaints on ROS Physical Exam Constitutional: + well hydrated and + obese; no acute di stress Eyes: PERRL, conjunctivae normal, anicteric sclerae ENMT: external ear and nose normal, oropharynx normal Respiratory: normal respiratory effort, lungs clear to auscultation Cardiovascular: Rate/Rhythm: regular rate and regular rhythm Gastrointestinal (Abdomen): normal bowel sounds, soft, nontender, no hepatosplenomegaly Musculoskeletal: Rt BKA with prosthesis in situ Neurologic: PERRL, EOMI, accommodation nl, no face palsy, no dysarthria Psychiatric: A+Ox3, euthymic affect Results & Data Results & Data Vital Signs (Past 12 Hours) Vital Signs Temp Pulse Resp BP Pulse Ox O2 Del Method 09/05/24 07:34 36.5 C 74 18 145/71 H 95 Room Air 09/04/24 22:55 36.7 C 68 18 123/77 97 Room Air Laboratory Results Abnormal lab results 09/04/24 09/04/24 09/04/24 Range/Units 12:07 16:58 20:08 Hgb (14.0-18.0) g/dl Hct (42.0-52.0) % BUN (6-23) mg/dl Creatinine (0.6-1.4) mg/dl Glucose (70-99(Fasting)) mg/dl POC Glucose 115 H 125 H 142 H (70-99) mg/dl 09/05/24 09/05/24 Range/Units 07:32 07:57 Hgb 13.4 L (14.0-18.0) g/dl Hct 40.7 L (42.0-52.0) % BUN 41 H (6-23) mg/dl Creatinine 2.29 H (0.6-1.4) mg/dl Glucose 122 H (70-99(Fasting)) mg/dl POC Glucose 116 H (70-99) mg/dl
--- NOTE | 2024-09-05 10:46 | Nephrology Consultation ---
Date of Consultation September 05, 2024 Assessment & Plan (1) Acute kidney injury: JAIRON in the setting Of Complicated UTI with ESBL--E coli with recent urological intervention of Rt ureteric stent for rt hydronephrosis/Pyelo with kidney stone. Creat jumped from 1.1 to 2.2 over 2 days but no further rise from yesterday. vitals stable and making urine. So hopefully the worst is over. JAIRON most likely toxic ATN in the current setting of UTI/Stone and ABx. Do daily labs and I and O charting. Can continue ertapenem. agree with ID and urology Consult--we need to treat UTI first with long course of ertapenem through PICC line. he does need a weekly CBC and renal Panel. Will Do nephro follow up also. Given no further rise in creat from yesterday expect renal recovery in the coming days but no guarantee Hold HCTZ for JAIRON and also recent Hyponatremia. Avoid NSAIDs,, contrast agent and nephrotoxic Abx. (2) Acute pyelonephritis: On treatment (3) UTI due to extended-spectrum beta lactamase (ESBL) producing Escherichia coli: On treatment. concerning to see recrrent and persistent Infection with same Plan Case complexity high. total time spent 62 mins. History of Present Illness Reason for Consultation: JAIRON Attending Physician: Genia Dewey MD History of Present Illness 69/M with DM2, HTN, JEAN PIERRE, recent h/o Kidney stone S/p intervenetion. he presented to the hospital on 08/30/2024 with 2 days of fever upto 102 degree. He also reports increased urgency, and frequency of urination as well as cloudy urine. found to have ESBL type E coli. Love noting patient had Admission from 08/10/2024 to 08/14/2024 for right-sided ureteric stone and ESBL- UTI. He had undergone cystoscopy, right ureteral stent placement on 08/10/2024. He was treated with course of ertapenem for ESBL- E. coli until 08/16/2024. On presentation to the ED this time he was hemodynamically stable, afebrile and saturating well on room air. CT abdomen pelvis shows interval decrease of right-sided hydronephrosis but still showed 1 cm calculus in right renal pelvis and small 1 to 2 mm left renal calculi. Patient was given a dose of ertapenem. He was referred for admission for further evaluation and treatment. creat was 1.1 on 09/02 but then 2 days later was 2.28 on 09/04 and this AM still about same. getting some IVF and HCTZ on hold. urology consult done and is plan for intervention after UTI is treated. ID has seen him and is getting Ertapenem. ID suggest a 6 week course of ertapenem 1g IV qd with PICC line placement (till 10/11/24) with weekly CBC and BMP. Currently making urine ? amount as no mcmahon. BP and other vital signs are fine ROS--As in HPI but currently 12 Systems reviewed and negative Physical Exam Physical Exam: Constitutional:AAox3. Appropriately answering questions. Not in any distress. Respiratory: normal respiratory effort, lungs clear to auscultation. Cardiovascular: RRR, no murmur, No JVD Abdomen: Right costovertebral angle tender. Neurologic: PERRL, EOMI, accommodation nl, no face palsy, no dysarthria CN's II- XI intact bilaterally and moves all extremities EXt--RT BKA and left trace edema with some Chronic skin changes Allergies Allergy/AdvReac Type Severity Reaction Status Date / Time amoxicillin [From Augmentin] Allergy Severe Facial Verified 08/15/24 12:56 swelling, diffuse rash clavulanic acid Allergy Severe Facial Verified 08/15/24 12:56 [From Augmentin] swelling, diffuse rash methotrexate Allergy Intermediate Depression Verified 08/15/24 12:56 doxycycline AdvReac Intermediate Nausea/vomi Verified 08/15/24 12:56 ting oxycodone [From Percocet] AdvReac Intermediate Nausea Verified 08/15/24 12:56 vancomycin AdvReac Unknown Unknown Verified 08/15/24 12:56 Home Medications Medication Instructions Recorded Confirmed Type cholecalciferol (vitamin D3) 10 400 units PO HS 02/09/19 08/30/24 History mcg (400 unit) capsule lutein 6 mg tablet 6 mg PO HS 02/09/19 08/30/24 History blood-glucose meter (Accu-Chek 10/14/20 08/15/24 History Suzan Plus Meter) Dexcom G6 Back Roll Lathe Operator #1 ea 03/09/21 08/15/24 Rx (blood-glucose,proof technician helper,cont) BD Insulin Syringe Ultra-Fine 1 mL #300 ea 07/16/22 08/15/24 Rx 31 gauge x 5/16" (insulin syringe-needle U-100) insulin glargine 100 unit/mL (3 50 unit (0.5 mL) subcut HS #45 mL 08/24/22 08/30/24 Rx mL) subcutaneous pen (Basaglar KwikPen U-100 Insulin) pen needle, diabetic 32 gauge x #100 ea 09/22/22 08/15/24 Rx 5/32" (BD Ultra-Fine Pia Pen Needle) blood sugar diagnostic (OneTouch #100 ea 10/04/22 08/15/24 Rx Verio test strips) blood-glucose meter (OneTouch #1 ea 10/04/22 08/15/24 Rx Verio Reflect Meter) lancets 33 gauge (OneTouch Delica #100 ea 10/04/22 08/15/24 Rx Lancets) Dexcom G6 Transmitter #1 ea 06/08/23 08/15/24 Rx (blood-glucose transmitter) amlodipine 5 mg tablet 5 mg PO HS #30 tabs 06/08/23 08/30/24 Rx Dexcom G6 Sensor (blood-glucose #9 ea 08/05/23 08/15/24 Rx sensor) hydrochlorothiazide 25 mg tablet 25 mg PO QAM 10/04/23 08/30/24 History insulin aspart U-100 100 unit/mL 1 sliding scale dose subcut TIDM 10/04/23 08/30/24 History subcutaneous solution (Novolog U-100 Insulin aspart) ondansetron 4 mg disintegrating 4 mg PO UD PRN nausea and vomiting 10/04/23 08/30/24 History tablet sertraline 100 mg tablet 200 mg PO HS 12/28/23 08/30/24 History Marijuana 0 inh inhalation [id number] PRN Anxiety 08/10/24 08/30/24 History guaifenesin 1,200 mg tablet, 1,200 mg PO BID PRN Congestion 08/30/24 08/30/24 History extended release 12 hr (Mucinex) Patient History Medical History Sleep apnea per medical record, pt denies, states sleep study was inconclusive. Hx of basal cell carcinoma History of bladder stone History of prostate cancer dx 2013 - surgical intervention Hx of shortness of breath no recent issues, "few years ago when he was getting back on his feet after his leg amputation" Nocturnal hypoxemia hx, has seen "sleep" dr in the past, test inconclusive Hx of colonic polyps Adenoma of left adrenal gland CT scan Lung- 07/06/2022 Diabetes mellitus, type 2 Morbid obesity Autoimmune disease Possible, no official diagnosis History of COVID-2022- Asymptomatic Anxiety History of depression History of kidney stones Hypertension Pulmonary nodules Under surveillance Rheumatoid arthritis with negative rheumatoid factor Per records, patient unsure Diabetic peripheral neuropathy associated with type 2 diabetes mellitus Surgical History H/O right cataract extraction S/P urological surgery 09/2023, cytolithopaxy History of Mohs micrographic surgery for skin cancer Behind right ear History of prostatectomy (~2022) History of colonoscopy most recent 2021 History of facial surgery kita removed Status post tonsillectomy Hx of removal of cyst Head region Hx of mastoidectomy Status post below knee amputation of right lower extremity Amputated toe "All toes" left foot Hx Right toe amputations (prior to BKA) Family History Mother Colorectal cancer Father Prostate cancer Brother Lung cancer Other Family history of diabetes mellitus in father Denies family history of Ovarian cancer Breast cancer Social History Smoking Status: Never smoker Second Hand Exposure: No; Do You Dip or Chew Tobacco: No; Hx Alcohol Use: No Hx Substance Use: Yes Last Used Substance: Days (ago) Last Used Substance Other:: about 1 week ago Substance Use Type Other:: medical marijuana card Preferred Language: [place] Communication Ability: Effective Visual Impairment: No Limitations Hearing Ability: Normal Staff Internist Office Based Only Required: No Beliefs That Will Affect Care: None marital status: Current Living Situation: Spouse and Family Current Living Situation Comment: , mother in law and daughter current occupational status: retired and disabled Other Information That Helps Us Care for You: No Feels Safe at Home: Yes Safety Concerns: Feels Safe At This Time caffeine: No Dental Care, Regularly: Yes Physical Activity Frequency: Does not Exercise Seatbelt Use: always Sunscreen Use: Yes Assistive Devices: None Assistive Devices Comment: RLE Results & Data Vital Signs (Past 12 Hours) Vital Signs Temp Pulse Resp BP Pulse Ox O2 Del Method 09/05/24 07:34 36.5 C 74 18 145/71 H 95 Room Air 09/04/24 22:55 36.7 C 68 18 123/77 97 Room Air Laboratory Results CBC, renal panel, CT of this admission as well as recent admission. urine C/s report reviewed
--- NOTE | 2024-09-05 11:48 | CT Scan Report ---
ABDOMEN AND PELVIS CT WITHOUT CONTRAST CT DOSE: 1563.68 mGy.cm HISTORY: JAIRON. Reassess for obstructive uropathy TECHNIQUE: Multiaxial CT images of the abdomen and pelvis were performed without contrast. Sagittal a nd coronal reconstructions were done. A dose lowering technique was utilized adhering to the principl es of NBA. COMPARISON STUDY: 08/30/2024 FINDINGS: There is now moderate left hydronephrosis with ureteral pelvocaliectasis. The left ureter i s distended as a result of a 1 to 2 mm stone in the distal left ureter just proximal to the ureterove sical junction. There is a perinephric stranding surrounding the left kidney most likely due to pyelo interstitial backflow. Small nonobstructive calculi are persistent within the left kidney. There is a right ureteral stent in satisfactory position with no significant right hydronephrosis. The lung bases demonstrate 2 small right lower lobe pulmonary nodules. The largest of these is stable since 2021. A smaller lesion measures 4 to 5 mm and has not been seen previously. The solid organs demonstrate hepatic steatosis and bilateral adrenal nodules that are stable since . The gallbladder and bile ducts are unremarkable. There are no splenic lesions identified. The riley creas demonstrates some fatty involution. There is no aortic aneurysm or periaortic adenopathy. There is no bowel obstruction or free air. There is no ascites. Elsewhere in the pelvis, there is sigmoid diverticulosis with no evidence of diverticulitis. Urinary bladder contains the distal pigtail from a right ureteral stent. IMPRESSION: Left hydronephrosis is due to a 1 to 2 mm stone in the distal left ureter. Right ureteral stent in satisfactory position. Small nodules in the right lung base. Recommend a baseline noncontrast chest CT for nodule evaluation . Chronic findings described in the body of the report. ACT 112: Negative or not required by law. The above report was generated using voice recognition software. It may contain grammatical, syntax o r spelling errors. Electronically signed by: Esha Jane M.D. 09/05/2024 11:46 AM
--- NOTE | 2024-09-05 13:54 | Pharmacy Report ---
Pharmacy Glycemic Short Note 2 - Date of Service September 05, 2024 - Glycemic Short BSG Results (Last 24 hours): 09/04/24 09/04/24 09/05/24 16:58 20:08 07:32 Glucose 122 H POC Glucose 125 H 142 H 09/05/24 09/05/24 07:57 12:11 Glucose POC Glucose 116 H 84 OUTPATIENT ANTIDIABETIC REGIMEN: * Novolog SS (up to 40 units with meals) * Lantus 50 units SQ HS HbA1c: * 9% on 08/10/24 ASSESSMENT: 09/05/24: * Blood sugars well-controlled yesterday and trending down today (84 mg/dL at lunch) * Received 69 units of insulin yesterday (40 units of which were basal) * Given overall downtrend, will loosen Novolog and decrease basal this evening 09/03/24: * Blood sugars have been reasonably well-controlled over past 48 hours w/ intermittent hyperglycemia * Fasting blood sugar improving each day, will plan to continue current basal insulin (transitioning back to HS) * No changes to glycemic regimen anticipated for today 08/31/24: * 69 y/o M admitted for UTI. Patient with history of Type 2 diabetes managed by basal and bolus insulins at home. Based on A1c last month, diabetes is uncontrolled. * BSGs elevated on admission yesterday. Patient was ordered 40 units of basal insulin yesterday but this was refused, so not given. * Basal 40 units re-ordered this morning and patient did receive this. * Fasting BSG was 204 mg/dl today. Novolog correction factor tightened since BSG still not at goal although trending down. * Continued with basal insulin 40 units at HS- this is a 20% reduction from his home dose. PLAN FOR INPATIENT GLYCEMIC CONTROL: * Basal insulin * Lantus 20-30 units SC HS (see EHR for details) * Bolus insulin * NovoLog per scale ACHS or Q6hrs while NPO * Goal Range: Low 110 mg/dL - High 140 mg/dL * Correction Factor: 20 mg/dL/unit * Nutritional / Prandial insulin per carb ratio of 1 unit per 6 grams CHO consumed
--- NOTE | 2024-09-05 14:22 | Urology Progress Note ---
Date of Service September 05, 2024 Assessment & Plan (1) Calculus of proximal right ureter: (2) UTI due to extended-spectrum beta lactamase (ESBL) producing Escherichia coli: (3) S/P ureteral stent placement: Plan: 69-year-old male with nephrolithiasis status post right ureteral stent placement on 08/10/2024 admitted with urinary tract infection. Urology recalled today due to new finding of left ureteral stone, rising creatinine Patient afebrile, hemodynamically stable Labs reviewedcreatinine 2.29 (1.1 on 09/02), WBC 10.01, hemoglobin 13.4 Urine culture 08/28 with E. coli ESBL Blood cultures 08/30 with no growth to date Urine culture 08/31 with 3 types of organisms present, all low counts probable skin susi Urine culture 09/04 prelim pinpoint growth present ID recommending 6-week course of ertapenem Patient had rising creatinine from 1.1 (09/02) --> 2.28 (09/04), 2.29 on 09/05 CTAP 09/05 shows mild left hydronephrosis secondary to a 1 to 2 mm stone in the distal left ureter; right ureteral stent in appropriate position with no significant right hydronephrosis No acute intervention today as he is afebrile/stable and not appropriately NPO We discussed that he has a decent probability of passing stone given it's size, however, if worsening/no improvement with renal function then can consider stent placement tomorrow Will make NPO at midnight to reassess for intervention Strain all urine Continue antibiotics per ID will follow Admission and Anticipated Discharge Date Admission Date: August 30, 2024 Subjective Patient seen and examined at bedside this afternoon. He is awake and resting in bed watching TV. Reports intermittent left flank discomfort. Voiding spontaneously. Reports no significant bowel movement since arrival. Denies nausea, vomiting, fever or chills. Review of Systems Constitutional: as per Subjective / HPI Genitourinary: + as per Subjective / HPI Physical Exam Constitutional: + obese; no acute distress Respiratory: normal respiratory effort and able to speak in complete sentences Musculoskeletal: Head/Neck/Chest: normocephalic Neurologic: awake Psychiatric: Orientation: alert and oriented x 3 Results & Data Vital Signs (Past 12 Hours) Vital Signs Temp Pulse Resp BP Pulse Ox O2 Del Method 09/05/24 07:34 36.5 C 74 18 145/71 H 95 Room Air PG Care Time/CCT Total # of Minutes Spent Total Time Spent with Patient: Total time spent is greater than 50% in coordination of care (as documented) at patient's floor/unit and/or counseling patient: Coding Level of Care Code 22731 SUB INP/OBS CARE 2/35MIN Diagnoses Calculus of proximal right ureter N20.1 UTI due to extended-spectrum beta lactamase (ESBL) producing Escherichia coli N39.0; B96.29; Z16.12 S/P ureteral stent placement Z96.0
[2024-09-05 20:33] VITALS: TEMP 98.1
[2024-09-05] MEDS: LANTUS PER UNIT CHARGE SC SCH (21:01)
[2024-09-06] MEDS ORDERED: Nursing to Pharmacy Communication SCH (07:00)
[2024-09-06 07:14] LABS: Hematocrit (blood only) 40.3 % (42.0-52.0); Hemoglobin 13.4 g/dl (14.0-18.0); Mean Corpuscular Hemoglobin 27.3 pg (25.0-34.0); Mean Corpuscular Hgb Conc 33.3 g/dL (32.0-36.0); Mean Corpuscular Volume 82.2 fL (80.0-100.0); Mean Platelet Volume 10.1 fL (9.4-12.4); Platelet Count 240 K/uL (130-400); RDW Coefficient of Variation 13.6 % (11.5-14.5); RDW Standard Deviation 41.1 fL (36.4-46.3); White Blood Count 9.65 K/ul (4.8-10.8)
[2024-09-06 07:36] VITALS: BP 131/79; PULSE 70; RESP 16; O2SAT 97
[2024-09-06 07:43] LABS: BUN Creatinine Ratio 15.8 (10-20); Calcium 8.7 mg/dl (8.6-10.3); Creatinine Clr Calc Pharmacy 43.7 ml/min; Potassium 4.1 mmol/L (3.5-5.1)
[2024-09-06] MEDS: INSULIN ASPART PER UNIT CHARGE SC SCH (07:48)
--- NOTE | 2024-09-06 09:31 | Urology Progress Note ---
<Statement entered by Jayson Hendirckson MD - 09/06/24 10:32> 69-year-old male with history of nephrolithiasis. Right ureteral stent remains in good position, however he has a punctate distal left ureteral stone unclear how much of his JAIRON is related to the stone, however creatinine has been stable over the last 3 days. He has a good chance of passing the stone spontaneously and he is not appearing septic. Ureteral stent placement was offered, however he would like to hold off. Urology will continue to follow along and if he starts to have worsening symptoms or deteriorating renal function, would further recommend ureteral stent placement. Date of Service September 06, 2024 Assessment & Plan (1) Calculus of proximal right ureter: (2) S/P ureteral stent placement: (3) Calculus of distal left ureter: (4) UTI due to extended-spectrum beta lactamase (ESBL) producing Escherichia coli: Plan 69-year-old male with nephrolithiasis status post right ureteral stent placement on 08/10/2024 admitted with urinary tract infection. Follow-up of left ureteral stone, JAIRON Patient afebrile, hemodynamically stable Labs reviewedcreatinine 2.34 (1.1 on 09/02), WBC 9.65, hemoglobin 13.4 Urine culture 08/28 with E. coli ESBL Blood cultures 08/30 with no growth to date Urine culture 08/31 with 3 types of organisms present, all low counts probable skin susi Urine culture 09/04 prelim pinpoint growth present, reincubating ID recommending 6-week course of Ertapenem CTAP 09/05 shows mild left hydronephrosis secondary to a 1 to 2 mm stone in the distal left ureter; right ureteral stent in appropriate position with no significant right hydronephrosis We discussed option for intervention with cystoscopy and left ureteral stent placement today We discussed that he has a decent probability of passing left ureteral stone given it's size and location For now, he would like to hold off on left stent placement and continue to monitor/trial of passage Reasonable given he is afebrile with stable vitals, creatinine is stable and he is making urine JAIRON may be multifactorial, but if renal function is worsening/no improvement, then can reconsider left stent placement If he remains inpatient, then he can be made NPO at midnight to reassess Continue to trend labs Continue antibiotics per ID Strain all urine will follow Admission and Anticipated Discharge Date Admission Date: August 30, 2024 Subjective Patient seen and examined at bedside this morning. He is awake and resting in bed. Denies flank pain at present. Denies stone passage. Reports some abdominal discomfort, which he attributes to constipation. Denies fever or chills. Voiding spontaneously. Review of Systems Constitutional: as per Subjective / HPI Genitourinary: + as per Subjective / HPI Physical Exam Constitutional: + obese; no acute distress Respiratory: normal respiratory effort and able to speak in complete sentences Musculoskeletal: Head/Neck/Chest: normocephalic Neurologic: awake Psychiatric: Orientation: alert and oriented x 3 Results & Data Vital Signs (Past 12 Hours) Vital Signs Temp Pulse Resp BP Pulse Ox O2 Del Method 09/06/24 07:36 36.7 C 70 16 131/79 97 Room Air PG Care Time/CCT Total # of Minutes Spent Total Time Spent with Patient: Total time spent is greater than 50% in coordination of care (as documented) at patient's floor/unit and/or counseling patient: Coding Level of Care Code 32068 SUB INP/OBS CARE 2/35MIN Diagnoses Calculus of proximal right ureter N20.1 S/P ureteral stent placement Z96.0 Calculus of distal left ureter N20.1 UTI due to extended-spectrum beta lactamase (ESBL) producing Escherichia coli N39.0; B96.29; Z16.12
--- NOTE | 2024-09-06 10:48 | Nephrology Progress Note ---
Date of Service September 06, 2024 Assessment & Plan Admission and Anticipated Discharge Date Admission Date: August 30, 2024 Subjective Assessment & Plan (1) Acute kidney injury: JAIRON in the setting Of Complicated UTI with ESBL--E coli with recent urological intervention of Rt ureteric stent for rt hydronephrosis/Pyelo with kidney stone. Creat jumped from 1.1 to 2.2 over 2 days but no sig further rise from yesterday. Creat 2.3 today vitals stable and making urine. So hopefully the worst is over. JAIRON most likely toxic ATN in the current setting of UTI/Stone and ABx. However Could also be related with left Sided Hydronephrosis ( CT 09/05). reviewed urology Note and possible ?? left ureteric stent if creat keeps rising or does not improve. Agree with keeping him NPO for ? intervention tomorrow. However patient is adamant he wants to go home ( AMA) today despite explaining all the risks !! Do daily labs and I and O charting. Can continue ertapenem. agree with ID and urology Consult--we need to treat UTI first with long course of ertapenem through PICC line. he does need a weekly CBC and renal Panel. Will Do nephro follow up also. Hold HCTZ for JAIRON and also recent Hyponatremia. Avoid NSAIDs,, contrast agent and nephrotoxic Abx. (2) Acute pyelonephritis: On treatment (3) UTI due to extended-spectrum beta lactamase (ESBL) producing Escherichia coli: On treatment. concerning to see recrrent and persistent Infection with same S--feels fine. denies nay new Issues ROS--As in HPI but currently 12 Systems reviewed and negative Physical Exam Physical Exam: Constitutional:AAox3. Appropriately answering questions. Not in any distress. Respiratory: normal respiratory effort, lungs clear to auscultation. Cardiovascular: RRR, no murmur, No JVD Abdomen: Right costovertebral angle tender. Neurologic: PERRL, EOMI, accommodation nl, no face palsy, no dysarthria CN's II- XI intact bilaterally and moves all extremities EXt--RT BKA and left trace edema with some Chronic skin changes Results & Data Vital Signs (Past 12 Hours) Vital Signs Temp Pulse Resp BP Pulse Ox O2 Del Method 09/06/24 07:36 36.7 C 70 16 131/79 97 Room Air
[2024-09-06] MEDS ORDERED: INSULIN ASPART PER UNIT CHARGE SC SCH (12:00)
--- NOTE | 2024-09-06 12:43 | Discharge Summary ---
Date of Service September 06, 2024 Admission HPI Per Admitting Provider History obtained from chart review and interview with the patient. Past medical history of type 2 diabetes mellitus, dyslipidemia, hypertension, depression, JEAN PIERRE Last admission from 08/10/2024 to 08/14/2024; admitted for right-sided ureteric stone and ESBL UTI. He had undergone cystoscopy, right ureteral stent placement on 08/10/2024. He was treated with course of ertapenem for ESBL E. coli until 08/16/2024. Patient presents to the hospital with 2 days of fever; Tmax of 102 degree for night. He also reports increased urgency, and frequency of urination as well. He has also noticed that his urine appears to be cloudy. He reports some discomfort on right flank and back; denies any severe pain. He had urine culture done on 08/28/2024 which was positive for ES BL E. coli. He denies chest pain, shortness of breath, abdominal pain, weakness/numbness of any body part. On presentation to the ED, he was hemodynamically stable, afebrile and saturating well on room air. WBC count of 15,000, Creatinine of 1.38; similar to his baseline. Sodium of 131, glucose of 315. Pro-Lui elevated. CT abdomen pelvis shows interval decrease of right-sided hydronephrosis, 1 cm calculus in right renal pelvis and small 1 to 2 mm left renal calculi. Patient was given a dose of ertapenem. He was referred for admission for further evaluation and treatment. Admission Exam Per Admitting Provider Constitutional: Appears tired. Appropriately answering questions. Not in any distress. Respiratory: normal respiratory effort, lungs clear to auscultation, no wheeze, rales, rhonchi. Normal insp/exp effort, no accessory muscle use Cardiovascular: RRR, no murmur, no edema Vessels: no JVD or carotid bruit Chest: normal inspection of chest Abdomen: Right costovertebral angle tender. Neurologic: PERRL, EOMI, accommodation nl, no face palsy, no dysarthria CN's II- XI intact bilaterally and moves all extremities Principal Diagnosis Sepsis Complicated UTI ESBL UTI Acute kidney injury Discharge Exam Constitutional + well hydrated and + obese; no acute distress Eyes PERRL, conjunctivae normal, anicteric sclerae ENMT external ear and nose normal, oropharynx normal Respiratory normal respiratory effort, lungs clear to auscultation Cardiovascular Rate/Rhythm: regular rate and regular rhythm Gastrointestinal (Abdomen) normal bowel sounds, soft, nontender, no hepatosplenomegaly Neurologic PERRL, EOMI, accommodation nl, no face palsy, no dysarthria Psychiatric A+Ox3, euthymic affect Discharge Data Allergies Allergy/AdvReac Type Severity Reaction Status Date / Time amoxicillin [From Augmentin] Allergy Severe Facial Verified 08/15/24 12:56 swelling, diffuse rash clavulanic acid Allergy Severe Facial Verified 08/15/24 12:56 [From Augmentin] swelling, diffuse rash methotrexate Allergy Intermediate Depression Verified 08/15/24 12:56 doxycycline AdvReac Intermediate Nausea/vomi Verified 08/15/24 12:56 ting oxycodone [From Percocet] AdvReac Intermediate Nausea Verified 08/15/24 12:56 vancomycin AdvReac Unknown Unknown Verified 08/15/24 12:56 Consultations 08/30/24 20:04 ED Decision to Admit Stat 08/31/24 00:50 Consult Urology Routine 08/31/24 11:57 Consult Infectious Diseases Routine 09/05/24 08:49 Consult Nephrology Routine Ordered Studies 08/30/24 18:51 CT abd pelvis wo con Stat 09/05/24 08:49 CT Abd and Pelvis [CT abd pelvis wo con] Urgent Hospital Course (1) UTI due to extended-spectrum beta lactamase (ESBL) producing Escherichia coli: Plan 69-year-old male with past medical history of type 2 diabetes, dyslipidemia, hypertension, insomnia, JEAN PIERRE presents to the hospital with fever for 2 days. Last admitted from 08/10/2024 to 08/14/2024 for right-sided ureteric stone and ESBL UTI. He had undergone cystoscopy, right ureteral stent placement on 08/10/2024. He was treated with course of ertapenem for ESBL E. coli until 08/16/2024. Complicated UTI History of right-sided ureteral stone status post stent placement on 08/10/2024 Sepsis POA: due to UTI RR/HR/WBC elevated at presentation. Pro-Lui elevated. Lactate WNL. Patient presented this time with fever, increased urinary urgency and frequency and right flank discomfort. Recent urine culture as outpatient on 08/28/[address] abdomen pelvis on admission shows interval decrease of right-sided hydronephrosis, 1 cm calculus in right renal pelvis and small 1 to 2 mm left renal calculi. Currently on ertapenem 1 g every 24 hours. ID recommended 6 weeks of ertapenem therapy till 10/11/24. Follow-up ID in 4 weeks. Weekly CBC, BMP, CRP while on antibiotic. Patient developed JAIRON on 09/04/24 with Cr jumping from 1.[address] abd/P showed left hydronephrosis due to 1-2mm stone in distal left ureter which is new Patient was evaluated by Urology who discussed plan for stent placement if no improvement/passage of stone. However, patient declined and decided to leave AMA I and Clinical Law Professor spent sometime discussing need for appropriate treatment but patient insisted on being discharged He stated he will continue the ertapenem home infusion already set up and follow up with PCP and Urology Acute kidney injury: Baseline creatinine of 1 Cr increased as above. Cr is 2.34 today Continue to hold hydrochlorothiazide until evaluation by PCP outpatient Patient declined further appropriate treatment as documented above and left AMA Abnormal CTAP: Hepatic steatosis, Left adrenal adenoma (2.4cm, benign appearing), RLL nodule (9mm). F/u w/ pcp for monitoring. Repeat CT chest in 3-6 months for RLL nodule. Total Time Total Time Spent Total Time Spent (In Minutes): 60 Total Time Includes: Examination of the Patient, Discharge Planning, Medication Reconciliation, Communication With Other Providers and Other Discharge Plan Discharge Items Patient Disposition: Against Medical Advice Reason For Visit: UTI Condition on Discharge: Serious Activity: Resume your previous activity Non-emergency contact: Primary Care Provider Follow-up/Referrals: Todd Newman DO [Primary Care Provider] - (Date & Time 09/11/2024 2:20 PM Provider: Todd Newman DO Family Practice [facility]) Diet Texture: Easy to Chew Addtl Hazmat Cdl Driver Provider Instructions: Mr Barry You were hospitalized and managed for complicated urinary tract infection. You also developed acute kidney injury and left ureteral stone. However, you declined to have this managed and left against medical advise. Please ensure you complete the IV ertapenem that had been set up. Please follow up with your Primary Doctor and Urology Pending Studies at Discharge: No Stand-Alone Forms: [employer] Smoking Cessation Medications and DC Order Prescriptions: Continued (DME) Dexcom G6 [employer] Misc See Rx Instructions .MEDSUPPLY Qty: 1 0RF Rx Instructions: Use as directed for continuous glucose monitoring (DME) insulin syringe-needle U-100 [BD Insulin Syringe Ultra-Fine] 1 mL 31 gauge x 5/16 syringe See Rx Instructions .Route Qty: 300 0RF Rx Instructions: Use 3 per day insulin glargine [Basaglar KwikPen U-100 Insulin] 100 unit/mL (3 mL) insulin pen 50 unit SQ HS Qty: 45 2RF (DME) pen needle, diabetic [BD Ultra-Fine Pia Pen Needle] 32 gauge x 5/32" needle See Rx Instructions .ROUTE .MEDSUPPLY Qty: 100 3RF Rx Instructions: Inject with Basaglar once daily (DME) OneTouch Verio test strips Strip See Rx Instructions .MEDSUPPLY Qty: 100 3RF Rx Instructions: check blood sugars once a day as needed (DME) blood-glucose meter [OneTouch Verio Reflect Meter] Misc See Rx Instructions miscellaneous .MEDSUPPLY Qty: 1 0RF Rx Instructions: As directed (DME) lancets [OneTouch Delica Lancets] 33 gauge misc See Rx Instructions miscellaneous .MEDSUPPLY Qty: 100 3RF Rx Instructions: As directed to check once a day as needed amlodipine 5 mg tablet 5 mg PO HS Qty: 30 1RF (DME) Dexcom G6 Transmitter Device See Rx Instructions .MEDSUPPLY Qty: 1 0RF Rx Instructions: Use as directed for continuous glucose monitoring - change every 90 days (DME) Dexcom G6 Sensor Device See Rx Instructions .MEDSUPPLY Qty: 9 3RF Rx Instructions: Use as directed for continuous glucose monitoring - Change sensor every 10 days lutein 6 mg tablet 6 mg PO HS cholecalciferol (vitamin D3) 400 unit capsule 400 units PO HS (DME) blood-glucose meter [Accu-Chek Suzan Plus Meter] Misc See Rx Instructions .ROUTE .MEDSUPPLY Rx Instructions: Test 1 times daily insulin aspart U-100 [Novolog U-100 Insulin aspart] 100 unit/mL solution 1 sliding scale dose subcut TIDM Rx Instructions: inject per sliding scale up to 40 units with meals ondansetron 4 mg tablet,disintegrating 4 mg PO UD PRN (Reason: nausea and vomiting) Marijuana aerosol 0 inh inhalation 3XWK PRN (Reason: Anxiety) Rx Instructions: MEDICAL MARIJUANA VIA INHALATION - PT STATED UP TO 3 TIMES WEEKLY. guaifenesin [Mucinex] 1,200 mg tablet extended release 12hr 1,200 mg PO BID PRN (Reason: Congestion) sertraline 100 mg tablet 200 mg PO HS Held hydrochlorothiazide 25 mg tablet 25 mg PO QAM Hold Instructions: Resume on 09/12/24. Hold until follow up with your Primary Doctor Discharge Orders: Left Against Medical Advice (Routine); Ordered 09/06/24 Ordered By: Genia Dewey Admission Data Admit Date/Time: 08/30/24 20:33 Attending Provider: Genia Dewey I. Admit Provider: Chris Sotelo Primary Care Provider: Todd Newman Other Providers: Chris Sotelo; Jayson Hendrickson; Abel Hastings; Abdulaziz Munoz; Barrera Cha I.; Jason Rodriguez II; Elizabeth Kirk; Harshad Alejo; Meño Alicia; Anmol Rosales; Gallo Villanueva; Gisell Izaguirre; Brayan Renee; Trena,Issa; [facility]; Wayne Neff; Scott Murillo
== END 2024-09-06 13:30 | disposition left against medical advice (07) | DRG 872 ==
LOC: ED 18:21 → SUATTDRO 20:33 → 2N 20:33 → 3E 09-05 18:52